=== PATIENT | male | born 1955 | race Two or more races ===

== ENCOUNTER 2017-02-14 19:26 | Emergency (ER) | payer MEDICARE, OTHER ==
[~2017-02-14] VITALS: Ht 180.3 cm; Wt 104.3 kg
[~2017-02-14 19:26] MED LIST: ABILIFY15 MG PO; ALBUTEROL SULF8.5 GM INH; CIPROFLOXACIN500 M2 ORAL; COLACE100 MG PO; DETROL2 MG PO; FLOMAX0.4 MG PO; GLUCOPHAGE500 MG PO; KLONOPIN1 MG PO; MULTIVITAMINS1 EAC2 PO; NEXIUM40 MG PO; PREDNISONE20 MG ORAL; QUETIAPINE FUM100 MG PO; SIMVASTATIN20 MG PO; ZITHROMAX250 MG ORAL; ZOFRAN4 MG ORAL
[2017-02-14 19:36] VITALS: BP 123/88
[2017-02-14] MEDS ORDERED: Methocarbamol 500mg tab ORAL ONE (19:45)
--- NOTE | 2017-02-14 19:59 | Emergency Room Report ---
History of Present Illness General Chief Complaint: Lower Back Pain or Injury Source: Medical Record Present Illness HPI 61 yo M with pmhx of psych, DM, chronic back pain p/w back pain for 1 month, worse x 3 days. Patient states pain was worse today. Pain is localized to R lower back, sharp in nature, non radiating. Movement worsens pain. Today pain severe that he couldn't walk, but able to move his legs while lying down. There is no alleviating factors. didn't take meds. Patient has experienced this similar pain in the past. Denies trauma. Denies lower extremity weakness/numbness, no bowel/bladder retention or incontinence, saddle anesthesia. Denies fever, chills, abdominal pain, n/v, dysuria/hematuria. No history of IVDA Allergies: Coded Allergies: SULFA (SULFONAMIDE ANTIBIOTICS) (Unverified Allergy, Intermediate, hives, 08/03/13) CODEINE (Verified Allergy, Unknown, ABD IRRITATION, 05/17/12) SULFONYLUREAS (Verified Allergy, Unknown, RASH, 05/17/12) Patient History Past Medical History: see triage record Past Surgical History: none Pertinent Family History: none Reviewed Nursing Documentation: PMH: Agreed, PSxH: Agreed Nursing Documentation-PMH Past Medical History: No History, Except For Hx Cardiac Problems: Yes Hx Hypertension: Yes Hx Diabetes: Yes - boarder line Hx Cancer: No Hx Gastrointestinal Problems: No - Hernia Review of Systems All Other Systems: negative except mentioned in HPI Physical Exam Vital Signs Date Time Temp Pulse Resp B/P (MAP) Pulse Ox O2 Delivery O2 Flow Rate FiO2 02/14/17 19:15 98.2 68 20 141/98 96 Room Air Sp02 EP Interpretation: reviewed, normal General Appearance: normal inspection, well appearing, no apparent distress, alert, GCS 15, non-toxic Head: normocephalic, atraumatic Eyes: bilateral eye normal inspection, bilateral eye PERRL, bilateral eye EOMI ENT: normal ENT inspection, normal pharynx, normal voice, moist mucus membranes Neck: normal inspection, full range of motion, supple, no bony tend Respiratory: normal inspection, lungs clear, normal breath sounds, no respiratory distress, no retraction, no wheezing, speaking full sentences, chest symmetrical Cardiovascular #1: normal inspection, regular rate, rhythm, no edema, normal capillary refill Gastrointestinal: normal inspection, non tender, soft, non-distended, no guarding Genitourinary: no CVA tenderness Musculoskeletal: other - R sided paraspinal tenderness no midline tenderness. no calf tenderness. FROM Neurologic: normal inspection, alert, oriented x3, responsive, motor strength/ tone normal, sensory intact, normal gait, speech normal, other - motor strength 5/5 all ext. sensation intact to light touch Psychiatric: normal inspection, judgement/insight normal, memory normal Skin: normal inspection, normal color, no rash, warm/dry, well hydrated, normal turgor Medical Decision Making Diagnostic Impression: Primary Impression: Chronic back pain ER Course 61 yo M p/w back pain x 1month worse last few days DDX: likely musculoskeletal back pain vs. muscular strain vs. sciatica Lumbar fracture is unlikely given patients age, no midline tenderness, no history of trauma, and that patient is ambulatory. Therefore, at this time no imaging is indicated Serious diagnoses such as cord compression, epidural abscess is unlikely in this patient given the clinical scenario and abscess of neurological symptoms or findings. Patient appears nontoxic. Plan: motrin, robaxin ER course: Pt received meds with improvement of symptoms. after meds, has been ambulatory in the ED. Disposition: Patient will be discharged to home with prescription of motrin and robaxin. Strict precautions discussed with patient on when to emergently return to the ED which includes severe/worsening back pain, leg weakness/numbness, urinary retention/incontinence, fever or chills, which may indicate severe illness. Patient is to follow up with their PMD within 5 days. Patient agrees with plan. Last Vital Signs Date Time Temp Pulse Resp B/P (MAP) Pulse Ox O2 Delivery O2 Flow Rate FiO2 02/14/17 19:36 70 15 123/88 97 Room Air 02/14/17 19:15 98.2 Disposition: HOME, SELF-CARE Condition: Improved Scripts Methocarbamol* (ROBAXIN*) 500 Mg Tablet 500 MG PO QID, #28 TAB 0 Refills Prov: Neha Salazar M.D. 02/14/17 Ibuprofen* (MOTRIN*) 600 Mg Tablet 600 MG ORAL Q8H Y for For Pain, #30 TAB 0 Refills Prov: Neha Salazar M.D. 02/14/17 Neha Salazar M.D. Feb 14, 2017 19:59
[2017-02-14 21:05] VITALS: BP 132/86
[2017-02-14] MEDS ORDERED: ROBAXIN500 MG PO (21:12)
[2017-02-14] MEDS ORDERED: IBUPROFEN600 MG ORAL (21:12)
[2017-02-14 22:25] VITALS: BP 132/86
== END 2017-02-14 22:38 | disposition home or self-care (01) ==
LOC: EDBD 19:26 → EMR 20:00
DX: G89.29 Other chronic pain (principal); Z88.2 Allergy status to sulfonamides; Z88.6 Allergy status to analgesic agent; I10 Essential (primary) hypertension
CPT/HCPCS: 99284

== ENCOUNTER 2017-12-09 23:47 | Inpatient (IN) | payer MEDICARE, MEDICAID ==
[~2017-12-09] VITALS: Ht 180.3 cm; Wt 97.1 kg
[~2017-12-09 23:47] MED LIST changes: +IBUPROFEN600 MG ORAL; +ROBAXIN500 MG PO
[2017-12-10] VITALS (7 sets, daily range): BP systolic 118–138; BP diastolic 74–95
[2017-12-10] MEDS ORDERED: Ipratropium 0.02% Inh Soln 2.5ml UD HHN ONE (00:30)
[2017-12-10] MEDS ORDERED: Solu-MEDROL 125mg Inj IVP ONE (00:30)
[2017-12-10] MEDS ORDERED: Albuterol ud Inhalation HHN ONE ×2 (00:30→01:45)
[2017-12-10 00:55] LABS: BASOPHILS % (AUTO) 0.7 % (0.0-2.0); EOSINOPHILS % (AUTO) 6.7 % (0.0-3.0); HEMATOCRIT 50.3 % (42.0-52.0); HEMOGLOBIN 16.7 G/DL (14.2-18.0); LYMPHOCYTES % (AUTO) 20.1 % (20.0-45.0); MEAN CORPUSCULAR VOLUME 84 FL (80-99); MONOCYTES % (AUTO) 8.4 % (1.0-10.0); NEUTROPHILS % (AUTO) 64.1 % (45.0-75.0); PLATELET COUNT 207 K/UL (150-450); RED BLOOD COUNT 5.96 M/UL (4.70-6.10); RED CELL DISTRIBUTION WIDTH 11.5 % (11.6-14.8); WHITE BLOOD COUNT 9.5 K/UL (4.8-10.8)
[2017-12-10 01:03] LABS: ANION GAP 5 mmol/L (5-15); BLOOD UREA NITROGEN 13 mg/dL (7-18); CALCIUM 9.1 MG/DL (8.5-10.1); CARBON DIOXIDE 30 MMOL/L (21-32); CHLORIDE 105 MMOL/L (98-107); CREATININE 1.3 MG/DL (0.55-1.30); SODIUM 140 MMOL/L (136-145)
[2017-12-10 01:18] LABS: ALANINE AMINOTRANSFERASE 23 U/L (12-78); ALBUMIN 3.8 G/DL (3.4-5.0); ALKALINE PHOSPHATASE 112 U/L (46-116); ASPARTATE AMINO TRANSFERASE 19 U/L (15-37); BILIRUBIN,TOTAL 0.7 MG/DL (0.2-1.0); CKMB 1.4 NG/ML (0.0-3.6); CREATINE KINASE 222 U/L (26-308)
[2017-12-10 01:26] LABS: APPEARANCE,URINE CLEAR; BILIRUBIN, URINE NEGATIVE (NEGATIVE); GLUCOSE, URINE (UA) NEGATIVE (NEGATIVE); KETONES,URINE NEGATIVE (NEGATIVE); LEUKOCYTE ESTERASE ,URINE 1+ (NEGATIVE); NITRITE,URINE NEGATIVE (NEGATIVE); PH,URINE 5 (4.5-8.0); PROTEIN,URINE 2+ (NEGATIVE); UROBILINOGEN,URINE 1 MG/DL (0.0-1.0)
[2017-12-10] MEDS ORDERED: OMEPRAZOLE40 M1 ORAL (01:35)
[2017-12-10] MEDS ORDERED: ZYPREXA10 MG ORAL (01:35)
[2017-12-10] MEDS ORDERED: TRAZODONE HCL150 MG ORAL (01:35)
[2017-12-10] MEDS ORDERED: LITHIUM CARBON300 MG ORAL (01:35)
[2017-12-10] MEDS ORDERED: PROSCAR5 MG ORAL (01:35)
[2017-12-10] MEDS ORDERED: CRESTOR10 M2 ORAL (01:35)
[2017-12-10] MEDS ORDERED: TAMSULOSIN HCL0.4 MG ORAL (01:35)
[2017-12-10] MEDS ORDERED: TEMAZEPAM30 MG ORAL (01:35)
[2017-12-10] MEDS ORDERED: DETROL2 MG ORAL (01:35)
[2017-12-10] MEDS ORDERED: VENTOLIN HFA18 GM INH (01:37)
[2017-12-10] MEDS ORDERED: FLUTICASONE PRO16 G1 NASAL (01:37)
[2017-12-10] MEDS ORDERED: NORCO 5-325 TA1 EACH ORAL (01:37)
[2017-12-10] MEDS ORDERED: LORAZEPAM1 MG ORAL (01:37)
[2017-12-10 01:40] LABS: COLOR,URINE YELLOW
--- NOTE | 2017-12-10 01:56 | Emergency Room Report ---
History of Present Illness General Chief Complaint: Dyspnea/Respdistress Source: Patient, Medical Record, EMS Present Illness HPI This is a 62-year-old male with a history of asthma and schizophrenia. He presents with chief complaint shortness of breath. Onset today. His inhaler is not helping. No nausea no vomiting. Coughing but nonproductive in nature. Wheezing. Worse with exertion. Worse with lying flat. Better with treatment. Allergies: Coded Allergies: SULFA (SULFONAMIDE ANTIBIOTICS) (Unverified Allergy, Intermediate, hives, 12/10/17) CODEINE (Verified Allergy, Unknown, ABD IRRITATION, 12/10/17) SULFONYLUREAS (Verified Allergy, Unknown, RASH, 12/10/17) Patient History Past Medical History: see triage record, old chart reviewed, HTN, asthma, psych hx Past Surgical History: other Pertinent Family History: none Social History: Denies: smoking Immunizations: other Reviewed Nursing Documentation: PMH: Agreed; PSxH: Agreed Nursing Documentation-PMH Hx Cardiac Problems: Yes Hx Hypertension: Yes Hx Asthma: Yes Hx Diabetes: Yes - boarder line Hx Cancer: No Hx Gastrointestinal Problems: No - Hernia Review of Systems Eye: Denies: eye pain, blurred vision ENT: Denies: ear pain, nose congestion, throat swelling Respiratory: Reports: cough, shortness of breath, wheezing Cardiovascular: Denies: chest pain, palpitations Gastrointestinal: Denies: abdominal pain, diarrhea, nausea, vomiting Musculoskeletal: Denies: back pain, joint pain Skin: Denies: rash Neurological: Denies: headache, numbness Endocrine: Denies: increased thirst, increased urine Hematologic/Lymphatic: Denies: easy bruising All Other Systems: negative except mentioned in HPI Physical Exam Vital Signs Date Time Temp Pulse Resp B/P (MAP) Pulse Ox O2 Delivery O2 Flow Rate FiO2 12/09/17 23:59 97.5 96 26 122/80 96 Nasal Cannula 2.0 97.5 12/10/17 00:24 21 vitals normal Sp02 EP Interpretation: reviewed, normal General Appearance: well appearing, alert, mild distress Head: normocephalic, atraumatic Eyes: bilateral eye PERRL, bilateral eye EOMI ENT: hearing grossly normal, normal pharynx Neck: full range of motion, supple, no meningismus Respiratory: chest non-tender, respiratory distress, accessory muscle use, wheezing Cardiovascular #1: regular rate, rhythm, no murmur Gastrointestinal: normal bowel sounds, non tender, no mass, no organomegaly, no bruit, non-distended Musculoskeletal: back normal, gait/station normal, normal range of motion Neurologic: alert, oriented x3 Psychiatric: mood/affect normal Skin: warm/dry Medical Decision Making Diagnostic Impression: Primary Impression: Asthma with acute exacerbation Qualified Codes: J45.901 - Unspecified asthma with (acute) exacerbation ER Course Patient presents with his asthma with acute exacerbation. Better but still wheezing. Will admit for further treatment and monitoring. Lab Results Impression labs unremarkable EKG Diagnostic Results Rate: normal Rhythm: NSR ST Segments: no acute changes Rhythm Strip Diag. Results Rhythm Strip Time: 01:55 EP Interpretation: yes Rate: 98 Rhythm: NSR, no PVC's, no ectopy Chest X-Ray Diagnostic Results Chest X-Ray Diagnostic Results : Chest X-Ray Ordered: Yes # of Views/Limited/Complete: 1 View Indication: Shortness of Breath EP Interpretation: Yes Interpretation: no consolidation, no effusion, no pneumothorax, no acute cardiopulmonary disease Impression: No acute disease Electronically Signed by: Jaun Spring MD Last Vital Signs Date Time Temp Pulse Resp B/P (MAP) Pulse Ox O2 Delivery O2 Flow Rate FiO2 12/10/17 00:40 99 22 97 Room Air 21 12/09/17 23:59 97.5 122/80 2.0 97.5 Status: improved Disposition: ADMITTED INPATIENT Condition: Serious Referrals: Estella Butt MD (PCP) JAUN SPRING M.D. Dec 10, 2017 01:56
[2017-12-10] MEDS ORDERED: Morphine Sulfate 4mg/ml Inj ONE (02:14)
[2017-12-10] MEDS ORDERED: Morphine Sulfate 4mg/ml Inj IVP ONE (02:15)
[2017-12-10] MEDS ORDERED: LORazepam Inj 2mg/ml 1ml IV PRN (06:30)
[2017-12-10] MEDS ORDERED: Nitroglycerin Subl 0.4mg tab SL PRN (06:30)
[2017-12-10] MEDS: NovoLOG Insulin Flexpen SUBQ SCH ×4 (07:56→21:42)
[2017-12-10] MEDS ORDERED: OLANZapine 10mg tab ORAL SCH (09:00)
[2017-12-10] MEDS: Theophylline ER 100mg ORAL SCH ×2 (09:38→21:40)
[2017-12-10] MEDS: Tamsulosin 0.4mg cap ORAL SCH (09:39)
[2017-12-10] MEDS: Heparin 5000 units/ml inj SUBQ SCH ×2 (09:46→21:42)
[2017-12-10] MEDS: Zosyn 3.375gm q8h **Extended infusion IVPB SCH ×4 (10:11→16:48)
[2017-12-10] MEDS: Albuterol/Ipratropium 3ml neb HHN PRN (10:29)
[2017-12-10] MEDS: Solu-MEDROL 125mg Inj IV SCH ×2 (12:20→16:48)
--- NOTE | 2017-12-10 12:44 | Diagnostic Imaging Report ---
Indication: Shortness of breath Technique: One view of the chest Comparison: 04/25/2015 Findings: There is evidence of a right-sided pleural effusion. The remainder of the lungs and pleural spaces are clear. Heart size is normal. The aorta is tortuous Impression: Right pleural effusion No acute process otherwise
[2017-12-10] MEDS ORDERED: Piperacillin/Tazobactam 2.25 GM in D5W 55 ML IV SCH (14:00)
[2017-12-10] MEDS: TraZODone 100mg tab ORAL SCH (21:40)
--- NOTE | 2017-12-10 23:41 | Consultation ---
History of Present Illness General Date patient seen: Dec 10, 2017 Chief Complaint: Dyspnea/Respdistress Present Illness Allergies: Coded Allergies: SULFA (SULFONAMIDE ANTIBIOTICS) (Unverified Allergy, Intermediate, hives, 12/10/17) CODEINE (Verified Allergy, Unknown, ABD IRRITATION, 12/10/17) SULFONYLUREAS (Verified Allergy, Unknown, RASH, 12/10/17) Medication History Scheduled Albuterol Sulfate (Ventolin Hfa), 2 PUFFS INH EVERY 4 HOURS, (Reported) Aripiprazole* (Abilify*), 30 MG PO DAILY, (Reported) Azithromycin* (Zithromax*), 250 MG ORAL DAILY Ciprofloxacin Hcl* (Ciprofloxacin Hcl*), 500 MG ORAL Q12H Clonazepam* (Klonopin*), 2 MG PO DAILY, (Reported) Esomeprazole Magnesium (Nexium), 40 MG PO DAILY, (Reported) Finasteride* (Proscar*), 5 MG ORAL DAILY, (Reported) Fluticasone Propionate* (Fluticasone Propionate*), 1 SPRAY NASAL TWICE A DAY, ( Reported) [place] Carbonate* ([place]*), 300 MG ORAL QHS, (Reported) Metformin Hcl* (Glucophage*), 500 MG PO DAILY, (Reported) Methocarbamol* (Robaxin*), 500 MG PO QID Multivitamins* (Multivitamins*), 1 EACH PO DAILY, (Reported) Olanzapine* (Zyprexa*), 10 MG ORAL DAILY, (Reported) Omeprazole (Omeprazole), 40 MG ORAL DAILY, (Reported) Prednisone* (Prednisone*), 40 MG ORAL DAILY Quetiapine Fumarate* (Seroquel*), 300 MG PO DAILY, (Reported) Rosuvastatin Calcium* (Crestor*), 5 MG ORAL DAILY, (Reported) Simvastatin (Zocor), 20 MG PO QHS, (Reported) Tamsulosin HCl (Flomax), 0.4 MG PO DAILY, (Reported) Tamsulosin Hcl (Tamsulosin Hcl*), 0.4 MG ORAL BEDTIME, (Reported) Tolterodine Tartrate* (Detrol*), 1 MG ORAL TWICE A DAY, (Reported) Trazodone* (Trazodone*), 300 MG ORAL BEDTIME, (Reported) Scheduled PRN Albuterol Sulfate* (Albuterol Sulfate Mdi*), 2 PUFF INH Q4H PRN for Shortness of Breath Hydrocodone Bit/Acetaminophen 5-325* ([place] 5-325*), 1 TAB ORAL Q4H PRN for For Pain, (Reported) Ibuprofen* (Motrin*), 600 MG ORAL Q8H PRN for For Pain Lorazepam* (Lorazepam*), 1 MG ORAL Q6HR PRN for For Anxiety, (Reported) Ondansetron (Zofran), 4 MG ORAL BID PRN for Nausea & Vomiting Temazepam* (Temazepam*), 30 MG ORAL BEDTIME PRN for Insomnia, (Reported) Patient History Healthcare decision maker SELF, SHARIF SIFUENTES Resuscitation status Full Code Advanced Directive on File No Physical Exam Last 24 Hour Vital Signs Date Time Temp Pulse Resp B/P (MAP) Pulse Ox O2 Delivery O2 Flow Rate FiO2 12/10/17 20:02 102 20 Room Air 21 12/10/17 20:00 98.2 69 17 130/74 94 98.2 12/10/17 15:56 97.5 112 20 128/88 93 97.5 12/10/17 12:01 98.1 118 18 124/82 95 98.1 12/10/17 10:39 92 20 94 Room Air 21 12/10/17 10:29 91 20 92 Room Air 21 12/10/17 08:52 98.2 103 18 134/95 93 98.2 12/10/17 07:30 95 18 Room Air 21 12/10/17 03:05 97.5 102 20 138/75 99 Room Air 28 207.5 12/10/17 02:56 97.5 12/10/17 02:26 97.5 12/10/17 02:15 97.5 102 20 138/75 97 Room Air 28 97.5 12/10/17 02:06 92 22 98 Room Air 21 12/10/17 01:54 92 20 97 Nasal Cannula 2.0 28 12/10/17 01:15 97.5 99 22 135/75 97 Room Air 2.0 21 97.5 12/10/17 00:40 99 22 97 Room Air 21 12/10/17 00:24 88 22 100 Room Air 2.0 28 12/10/17 00:15 96 26 Nasal Cannula 2.0 12/10/17 00:15 97.5 82 26 118/78 97 Nasal Cannula 2.0 97.5 12/09/17 23:59 97.5 96 26 122/80 96 Nasal Cannula 2.0 97.5 Intake and Output 12/09/17 12/10/17 19:00 07:00 Intake Total 1200 ml Balance 1200 ml Intake Oral 0 ml IV Total 1200 ml # Voids 1 Laboratory Tests Test 12/10/17 00:35 12/10/17 01:15 White Blood Count 9.5 K/UL (4.8-10.8) Red Blood Count 5.96 M/UL (4.70-6.10) Hemoglobin 16.7 G/DL (14.2-18.0) Hematocrit 50.3 % (42.0-52.0) Mean Corpuscular Volume 84 FL (80-99) Mean Corpuscular Hemoglobin 28.0 PG (27.0-31.0) Mean Corpuscular Hemoglobin Concent 33.2 G/DL (32.0-36.0) Red Cell Distribution Width 11.5 % (11.6-14.8) L Platelet Count 207 K/UL (150-450) Mean Platelet Volume 5.5 FL (6.5-10.1) L Neutrophils (%) (Auto) 64.1 % (45.0-75.0) Lymphocytes (%) (Auto) 20.1 % (20.0-45.0) Monocytes (%) (Auto) 8.4 % (1.0-10.0) Eosinophils (%) (Auto) 6.7 % (0.0-3.0) H Basophils (%) (Auto) 0.7 % (0.0-2.0) Sodium Level 140 MMOL/L (136-145) Potassium Level 4.0 MMOL/L (3.5-5.1) Chloride Level 105 MMOL/L (98-107) Carbon Dioxide Level 30 MMOL/L (21-32) Anion Gap 5 mmol/L (5-15) Blood Urea Nitrogen 13 mg/dL (7-18) Creatinine 1.3 MG/DL (0.55-1.30) Estimat Glomerular Filtration Rate 55.8 mL/min (>60) Glucose Level 110 MG/DL (74-106) H Calcium Level 9.1 MG/DL (8.5-10.1) Total Bilirubin 0.7 MG/DL (0.2-1.0) Aspartate Amino Transf (AST/SGOT) 19 U/L (15-37) Alanine Aminotransferase (ALT/SGPT) 23 U/L (12-78) Alkaline Phosphatase 112 U/L (46-116) Total Creatine Kinase 222 U/L (26-308) Creatine Kinase MB 1.4 NG/ML (0.0-3.6) Creatine Kinase MB Relative Index 0.6 Troponin I 0.000 ng/mL (0.000-0.056) Pro-B-Type Natriuretic Peptide 66 pg/mL (0-125) Total Protein 7.6 G/DL (6.4-8.2) Albumin 3.8 G/DL (3.4-5.0) Globulin 3.8 g/dL Albumin/Globulin Ratio 1.0 (1.0-2.7) Urine Color Yellow Urine Appearance Clear Urine pH 5 (4.5-8.0) Urine Specific [place] 1.025 (1.005-1.035) Urine Protein 2+ (NEGATIVE) H Urine Glucose (UA) Negative (NEGATIVE) Urine Ketones Negative (NEGATIVE) Urine Occult Blood 2+ (NEGATIVE) H Urine Nitrite Negative (NEGATIVE) Urine Bilirubin Negative (NEGATIVE) Urine Urobilinogen 1 MG/DL (0.0-1.0) H Urine Leukocyte Esterase 1+ (NEGATIVE) H Urine RBC 2-4 /HPF (0 - 0) H Urine WBC 2-4 /HPF (0 - 0) Urine Squamous Epithelial Cells None /LPF (NONE/OCC) Urine Calcium Oxalate Crystals Few /LPF (NONE) Urine Bacteria None /HPF (NONE) Urine Hyaline Casts 0-2 /LPF (NONE) H Height (Feet): 5 Height (Inches): 11.00 Weight (Pounds): 237 Medications Current Medications Medications (Trade) Dose Ordered Sig/Svetlana Route PRN Reason Start Time Stop Time Status Last Admin Dose Admin Albuterol/ Ipratropium (Albuterol/ Ipratropium) 3 ml EVERY 4 HOURS PRN HHN dyspnea 12/10/17 06:30 12/15/17 06:29 12/10/17 10:29 Aripiprazole (Abilify) 30 mg DAILY ORAL 12/10/17 09:00 01/09/18 08:59 12/10/17 09:39 Clonazepam (KlonoPIN) 2 mg DAILY ORAL 12/10/17 09:00 12/17/17 08:59 12/10/17 09:39 Dextrose (Dextrose 50%) STAT PRN IV Hypoglycemia 12/10/17 06:30 01/09/18 06:29 Dextrose (Dextrose 50%) STAT PRN IV Hypoglycemia 12/10/17 06:30 01/09/18 06:29 Finasteride (Proscar) 5 mg DAILY ORAL 12/10/17 09:00 01/09/18 08:59 12/10/17 09:38 Heparin Sodium (Porcine) (Heparin 5000 units/ml) 5,000 units EVERY 12 HOURS SUBQ 12/10/17 09:00 01/09/18 08:59 12/10/17 21:42 Insulin Aspart (NovoLOG) BEFORE MEALS AND HS SUBQ 12/10/17 06:30 01/09/18 06:29 12/10/17 21:42 Ketorolac Tromethamine (Toradol 30mg) 30 mg EVERY 8 HOURS PRN IV moderate pain 4-6 12/10/17 06:30 12/15/17 06:29 [place] Carbonate ([place] Carbonate) 300 mg QHS ORAL 12/10/17 21:00 01/09/18 20:59 12/10/17 21:40 Lorazepam (Ativan 2mg/ml 1ml) 0.5 mg Q4H PRN IV For Anxiety 12/10/17 06:30 12/17/17 06:29 Methylprednisolone Sodium Succinate (Solu-MEDROL) 60 mg EVERY 6 HOURS IV 12/10/17 12:00 01/09/18 11:59 12/10/17 16:48 Nitroglycerin (Ntg) 0.4 mg Q5M X 3 DOSES PRN SL Prn Chest Pain 12/10/17 06:30 01/09/18 06:29 Olanzapine (ZyPREXA) 10 mg DAILY ORAL 12/10/17 09:00 01/09/18 08:59 12/10/17 09:38 Ondansetron HCl (Zofran) 4 mg Q6H PRN IVP Nausea & Vomiting 12/10/17 06:30 01/09/18 06:29 12/10/17 10:15 Piperacillin Sod/ Tazobactam Sod 3.375 gm/Dextrose 110 ml @ 27.5 mls/hr Q8H IVPB 12/10/17 09:00 12/17/17 08:59 12/10/17 16:48 Quetiapine Fumarate (SEROquel) 300 mg DAILY ORAL 12/10/17 09:00 01/09/18 08:59 12/10/17 09:39 Tamsulosin HCl (Flomax) 0.4 mg DAILY ORAL 12/10/17 09:00 01/09/18 08:59 12/10/17 09:39 Temazepam (Restoril) 15 mg HSPRN PRN ORAL Insomnia 12/10/17 06:30 12/17/17 06:29 Theophylline (Jey-Dur) 100 mg EVERY 12 HOURS ORAL 12/10/17 09:00 01/09/18 08:59 12/10/17 21:40 Trazodone HCl (Desyrel) 300 mg BEDTIME ORAL 12/10/17 21:00 01/09/18 20:59 12/10/17 21:40 Clinton Brody M.D. Dec 10, 2017 23:41
[2017-12-11] VITALS: BP 122/72
[2017-12-11] MEDS: Zosyn 3.375gm q8h **Extended infusion IVPB SCH ×6 (00:03→16:54)
[2017-12-11] MEDS: Solu-MEDROL 125mg Inj IV SCH ×4 (00:03→16:55)
[2017-12-11 04:00] VITALS: BP 139/80
[2017-12-11] MEDS: NovoLOG Insulin Flexpen SUBQ SCH ×4 (05:53→20:35)
--- NOTE | 2017-12-11 07:10 | Cardiology Report ---
APPROVED REPORT EKG Measurement Heart [id number] Normal sinus rhythm Normal ECG
[2017-12-11 08:28] VITALS: BP 128/75
[2017-12-11] MEDS: Theophylline ER 100mg ORAL SCH ×2 (08:50→20:34)
[2017-12-11] MEDS: Tamsulosin 0.4mg cap ORAL SCH (08:50)
[2017-12-11] MEDS: Heparin 5000 units/ml inj SUBQ SCH ×2 (08:52→20:35)
[2017-12-11 12:18] VITALS: BP 132/81
--- NOTE | 2017-12-11 12:59 | General Progress Note ---
Assessment/Plan Status: stable Assessment/Plan change the klonopin to [facility] Subjective Date patient seen: Dec 11, 2017 Neurologic/Psychiatric: Reports: anxiety, depressed, emotional problems Allergies: Coded Allergies: SULFA (SULFONAMIDE ANTIBIOTICS) (Unverified Allergy, Intermediate, hives, 12/10/17) CODEINE (Verified Allergy, Unknown, ABD IRRITATION, 12/10/17) SULFONYLUREAS (Verified Allergy, Unknown, RASH, 12/10/17) Subjective the pt is drowsy in am asked to change meds./ Objective Last 24 Hour Vital Signs Date Time Temp Pulse Resp B/P (MAP) Pulse Ox O2 Delivery O2 Flow Rate FiO2 12/11/17 12:18 98.5 98 18 132/81 90 Room Air 98.5 12/11/17 08:28 98.1 93 20 128/75 90 Room Air 98.1 12/11/17 07:45 99 20 Room Air 21 12/11/17 04:00 98.3 53 17 139/80 65 Room Air 98.3 12/11/17 00:00 98.6 68 16 122/72 99 Room Air 98.6 12/10/17 20:02 102 20 Room Air 21 12/10/17 20:00 98.2 69 17 130/74 94 Room Air 98.2 12/10/17 15:56 97.5 112 20 128/88 93 97.5 Intake and Output 12/10/17 12/11/17 19:00 07:00 Intake Total 910 ml 682.5 ml Output Total 1450 ml 1150 ml Balance -540 ml -467.5 ml Intake Oral 910 ml 600 ml IV Total 82.5 ml Output Urine Total 1450 ml 1150 ml Height (Feet): 5 Height (Inches): 11.00 Weight (Pounds): 214 General Appearance: no apparent distress, alert Neurologic: oriented x 3, responsive Clinton Brody M.D. Dec 11, 2017 12:59
[2017-12-11] MEDS: Albuterol/Ipratropium 3ml neb HHN PRN (15:51)
[2017-12-11 16:42] VITALS: BP 133/90
[2017-12-11 20:00] VITALS: BP 138/94
[2017-12-11] MEDS: TraZODone 100mg tab ORAL SCH (20:34)
[2017-12-12 00:01] VITALS: BP 151/86
[2017-12-12] MEDS: Solu-MEDROL 125mg Inj IV SCH ×4 (00:03→16:50)
[2017-12-12] MEDS: Zosyn 3.375gm q8h **Extended infusion IVPB SCH ×6 (00:05→16:50)
[2017-12-12 04:00] VITALS: BP 145/90
[2017-12-12] MEDS: Albuterol/Ipratropium 3ml neb HHN PRN ×2 (04:16→13:15)
[2017-12-12] MEDS: NovoLOG Insulin Flexpen SUBQ SCH ×4 (06:01→21:38)
[2017-12-12 08:00] VITALS: BP 142/78
[2017-12-12] MEDS: Theophylline ER 100mg ORAL SCH ×2 (08:24→21:33)
[2017-12-12] MEDS: Tamsulosin 0.4mg cap ORAL SCH (08:24)
[2017-12-12] MEDS: Heparin 5000 units/ml inj SUBQ SCH ×2 (08:26→21:39)
[2017-12-12] MEDS: Ketorolac 30mg Inj IV PRN ×2 (08:40→16:50)
[2017-12-12 12:00] VITALS: BP 141/90
[2017-12-12] MEDS: Benztropine 1mg tab ORAL SCH ×2 (13:07→16:50)
[2017-12-12] MEDS ORDERED: NS 275ml ONE (15:59)
[2017-12-12 16:00] VITALS: BP 150/89
[2017-12-12 20:00] VITALS: BP 154/91
[2017-12-12] MEDS: TraZODone 100mg tab ORAL SCH (21:33)
[2017-12-12] MEDS: QUEtiapine 200mg tab ORAL SCH (21:34)
[2017-12-13] VITALS (7 sets, daily range): BP systolic 118–145; BP diastolic 67–85
[2017-12-13] MEDS: Zosyn 3.375gm q8h **Extended infusion IVPB SCH ×6 (00:51→17:28)
[2017-12-13] MEDS: Solu-MEDROL 125mg Inj IV SCH ×4 (00:53→17:29)
[2017-12-13] MEDS: NovoLOG Insulin Flexpen SUBQ SCH ×4 (06:34→20:49)
[2017-12-13] MEDS: Benztropine 1mg tab ORAL SCH ×2 (09:36→17:29)
[2017-12-13] MEDS: Tamsulosin 0.4mg cap ORAL SCH (09:36)
[2017-12-13] MEDS: Theophylline ER 100mg ORAL SCH ×2 (09:36→20:45)
[2017-12-13] MEDS: Heparin 5000 units/ml inj SUBQ SCH ×2 (09:37→20:50)
[2017-12-13] MEDS ORDERED: Milk of Magnesia 30ml Ud ORAL PRN (11:15)
--- NOTE | 2017-12-13 14:47 | Consultation ---
Consult Note Assessment/Plan patient seen and examined today -- consult note was dictated for asthma exacerbation Covering for Dr. Butt Saturday/Sat/Jevon Gardiner MD Dec 13, 2017 14:47
[2017-12-13 15:54] LABS: HEMATOCRIT 46.5 % (42.0-52.0); HEMOGLOBIN 15.9 G/DL (14.2-18.0); MEAN CORPUSCULAR VOLUME 85 FL (80-99); PLATELET COUNT 193 K/UL (150-450); RED BLOOD COUNT 5.49 M/UL (4.70-6.10); RED CELL DISTRIBUTION WIDTH 11.6 % (11.6-14.8); WHITE BLOOD COUNT 13.9 K/UL (4.8-10.8)
[2017-12-13] MEDS: Albuterol/Ipratropium 3ml neb HHN PRN (15:55)
[2017-12-13 15:56] LABS: BASOPHILS % (AUTO) 0.5 % (0.0-2.0); LYMPHOCYTES % (AUTO) 9.1 % (20.0-45.0); MONOCYTES % (AUTO) 2.8 % (1.0-10.0); NEUTROPHILS % (AUTO) 87.6 % (45.0-75.0)
[2017-12-13 16:14] LABS: ALANINE AMINOTRANSFERASE 24 U/L (12-78); ALBUMIN 3.1 G/DL (3.4-5.0); ALKALINE PHOSPHATASE 87 U/L (46-116); ANION GAP 7 mmol/L (5-15); ASPARTATE AMINO TRANSFERASE 12 U/L (15-37); BILIRUBIN,TOTAL 0.7 MG/DL (0.2-1.0); BLOOD UREA NITROGEN 22 mg/dL (7-18); CALCIUM 8.8 MG/DL (8.5-10.1); CARBON DIOXIDE 27 MMOL/L (21-32); CHLORIDE 103 MMOL/L (98-107); CREATININE 1.3 MG/DL (0.55-1.30); POTASSIUM 4.3 MMOL/L (3.5-5.1); SODIUM 137 MMOL/L (136-145)
[2017-12-13] MEDS: TraZODone 100mg tab ORAL SCH (20:45)
[2017-12-13] MEDS: QUEtiapine 200mg tab ORAL SCH (20:45)
--- NOTE | 2017-12-13 22:44 | Consultation ---
DATE OF CONSULTATION: 12/13/2017 HEMATOLOGY/ONCOLOGY CONSULTATION Covering for Dr. Butt. IDENTIFICATION DATA: The patient is a pleasant 62-year-old male, who presents at this time. He has a past medical history significant for hypertension, asthma, and psychiatric disorder, at this time presents with shortness of breath. Inhaler not helping him, steroids. Currently, he is on antibiotics as well. Currently improving. Noted to have anemia. Hematology Service was consulted. In addition, I am covering for Dr. Butt. PAST MEDICAL HISTORY: Hypertension, asthma, psychiatric disorder, and cardiac issues. PAST SURGICAL HISTORY: None noted. FAMILY HISTORY: Noncontributory. REVIEW OF SYSTEMS: CONSTITUTIONAL: No fevers, chills, or night sweats. SKIN: No rashes, bumps, or itching. HEENT: No headache, hearing or vision changes. BREASTS: No lumps, pain, or discharge. PULMONARY: No cough, sputum, or shortness of breath. GASTROINTESTINAL: No nausea, vomiting, or diarrhea. GENITOURINARY: No dysuria, frequency, or urgency. MUSCULOSKELETAL: No muscle, joint swelling, or trauma. PHYSICAL EXAMINATION: VITAL SIGNS: Reviewed. GENERAL: No distress. LUNGS: Decreased breath sounds. Some crackles noted. CARDIOVASCULAR: Regular rate. No S3 or S4. ABDOMEN: Soft, nontender, and nondistended. EXTREMITIES: No cyanosis, swelling, or edema. LABORATORY DATA: WBC 9.5, hemoglobin 16.7, and platelet count 207,000. BUN of 13 and creatinine 1.3. ASSESSMENT AND RECOMMENDATIONS: 1. Asthma exacerbation. Currently, given steroids in addition to antibiotics. The patient to be seen by Pulmonary team for further evaluation as needed. Currently, breathing has improved. 2. secondary to steroids. 3. Urinary tract infection. Currently, on broad-spectrum antibiotics including Zosyn. 4. Weakness and fatigue, likely related to underlying shortness of breath. 5. Psychiatric disorder. Schizophrenia being managed by Psychiatry. I appreciate the consultation. Continue to closely monitor. Jevon Ley M.D. DR: JACKELIN JOB#: [id number] CC:
--- NOTE | 2017-12-13 23:14 | General Progress Note ---
Assessment/Plan Assessment/Plan change the klonopin to [facility] dc abilify start Seroquel 300mg Subjective Date patient seen: Dec 12, 2017 Neurologic/Psychiatric: Reports: anxiety, depressed, emotional problems Allergies: Coded Allergies: SULFA (SULFONAMIDE ANTIBIOTICS) (Unverified Allergy, Intermediate, hives, 12/10/17) CODEINE (Verified Allergy, Unknown, ABD IRRITATION, 12/10/17) SULFONYLUREAS (Verified Allergy, Unknown, RASH, 12/10/17) Subjective the pt isaskign to restart seroquel agreed to dc abilify Objective Last 24 Hour Vital Signs Date Time Temp Pulse Resp B/P (MAP) Pulse Ox O2 Delivery O2 Flow Rate FiO2 12/13/17 20:00 98.4 57 19 132/75 93 98.4 12/13/17 16:02 64 20 97 Nasal Cannula 2.0 28 12/13/17 16:00 97.7 57 19 139/85 94 97.7 12/13/17 15:56 61 20 94 Nasal Cannula 2.0 28 12/13/17 12:00 97.9 67 19 130/79 94 Nasal Cannula 2.0 97.9 12/13/17 08:00 98.1 66 20 118/67 94 Nasal Cannula 2.0 98.1 12/13/17 07:29 92 Nasal Cannula 2.0 28 12/13/17 07:29 71 20 Nasal Cannula 2.0 28 12/13/17 07:29 Nasal Cannula 2.0 28 12/13/17 04:00 97.5 65 19 145/85 96 Nasal Cannula 2.0 97.5 12/13/17 01:12 93 Room Air 12/13/17 00:00 98.3 64 18 135/85 94 Nasal Cannula 2.0 98.3 Intake and Output 12/12/17 12/13/17 19:00 07:00 Intake Total 300 ml 765.0 ml Output Total 800 ml 900 ml Balance -500 ml -135.0 ml Intake Oral 300 ml 600 ml IV Total 165.0 ml Output Urine Total 800 ml 900 ml # Voids 3 1 Laboratory Tests 12/13/17 15:30: White Blood Count 13.9H, Red Blood Count 5.49, Hemoglobin 15.9, Hematocrit 46.5 , Mean Corpuscular Volume 85, Mean Corpuscular Hemoglobin 28.9, Mean Corpuscular Hemoglobin Concent 34.1, Red Cell Distribution Width 11.6, Platelet Count 193, Mean Platelet Volume 6.1L, Neutrophils (%) (Auto) 87.6H, Lymphocytes (%) (Auto) 9.1L, Monocytes (%) (Auto) 2.8, Eosinophils (%) (Auto) 0.0, Basophils (%) (Auto) 0.5, Sodium Level 137, Potassium Level 4.3, Chloride Level 103, Carbon Dioxide Level 27, Anion Gap 7, Blood Urea Nitrogen 22H, Creatinine 1.3, Estimat Glomerular Filtration Rate 55.8, Glucose Level 228H, Calcium Level 8.8, Total Bilirubin 0.7, Aspartate Amino Transf (AST/SGOT) 12L, Alanine Aminotransferase (ALT/SGPT) 24, Alkaline Phosphatase 87, Total Protein 6.3L, Albumin 3.1L, Globulin 3.2, Albumin/Globulin Ratio 1.0 Height (Feet): 5 Height (Inches): 11.00 Weight (Pounds): 214 Clinton Brody M.D. Dec 13, 2017 23:14
--- NOTE | 2017-12-13 23:15 | General Progress Note ---
Assessment/Plan Status: stable, progressing Assessment/Plan change the klonopin to qhs dc jen start Seroquel 300mg Subjective Date patient seen: Dec 13, 2017 Neurologic/Psychiatric: Reports: anxiety, depressed Allergies: Coded Allergies: SULFA (SULFONAMIDE ANTIBIOTICS) (Unverified Allergy, Intermediate, hives, 12/10/17) CODEINE (Verified Allergy, Unknown, ABD IRRITATION, 12/10/17) SULFONYLUREAS (Verified Allergy, Unknown, RASH, 12/10/17) Subjective the pt is better Objective Last 24 Hour Vital Signs Date Time Temp Pulse Resp B/P (MAP) Pulse Ox O2 Delivery O2 Flow Rate FiO2 12/13/17 20:00 98.4 57 19 132/75 93 98.4 12/13/17 16:02 64 20 97 Nasal Cannula 2.0 28 12/13/17 16:00 97.7 57 19 139/85 94 97.7 12/13/17 15:56 61 20 94 Nasal Cannula 2.0 28 12/13/17 12:00 97.9 67 19 130/79 94 Nasal Cannula 2.0 97.9 12/13/17 08:00 98.1 66 20 118/67 94 Nasal Cannula 2.0 98.1 12/13/17 07:29 92 Nasal Cannula 2.0 28 12/13/17 07:29 71 20 Nasal Cannula 2.0 28 12/13/17 07:29 Nasal Cannula 2.0 28 12/13/17 04:00 97.5 65 19 145/85 96 Nasal Cannula 2.0 97.5 12/13/17 01:12 93 Room Air 12/13/17 00:00 98.3 64 18 135/85 94 Nasal Cannula 2.0 98.3 Intake and Output 12/12/17 12/13/17 19:00 07:00 Intake Total 300 ml 765.0 ml Output Total 800 ml 900 ml Balance -500 ml -135.0 ml Intake Oral 300 ml 600 ml IV Total 165.0 ml Output Urine Total 800 ml 900 ml # Voids 3 1 Laboratory Tests 12/13/17 15:30: White Blood Count 13.9H, Red Blood Count 5.49, Hemoglobin 15.9, Hematocrit 46.5 , Mean Corpuscular Volume 85, Mean Corpuscular Hemoglobin 28.9, Mean Corpuscular Hemoglobin Concent 34.1, Red Cell Distribution Width 11.6, Platelet Count 193, Mean Platelet Volume 6.1L, Neutrophils (%) (Auto) 87.6H, Lymphocytes (%) (Auto) 9.1L, Monocytes (%) (Auto) 2.8, Eosinophils (%) (Auto) 0.0, Basophils (%) (Auto) 0.5, Sodium Level 137, Potassium Level 4.3, Chloride Level 103, Carbon Dioxide Level 27, Anion Gap 7, Blood Urea Nitrogen 22H, Creatinine 1.3, Estimat Glomerular Filtration Rate 55.8, Glucose Level 228H, Calcium Level 8.8, Total Bilirubin 0.7, Aspartate Amino Transf (AST/SGOT) 12L, Alanine Aminotransferase (ALT/SGPT) 24, Alkaline Phosphatase 87, Total Protein 6.3L, Albumin 3.1L, Globulin 3.2, Albumin/Globulin Ratio 1.0 Height (Feet): 5 Height (Inches): 11.00 Weight (Pounds): 214 General Appearance: no apparent distress, alert Neurologic: oriented x 3, responsive, depressed affect Clinton Brody M.D. Dec 13, 2017 23:15
[2017-12-14] MEDS: Solu-MEDROL 125mg Inj IV SCH ×5 (00:04→23:59)
[2017-12-14 00:05] VITALS: BP 138/68
[2017-12-14] MEDS: Zosyn 3.375gm q8h **Extended infusion IVPB SCH ×8 (00:05→23:59)
[2017-12-14 04:30] VITALS: BP 121/66
[2017-12-14] MEDS: NovoLOG Insulin Flexpen SUBQ SCH ×4 (06:19→21:00)
[2017-12-14 08:00] VITALS: BP 116/75
--- NOTE | 2017-12-14 08:20 | History & Physical ---
History and Physical History & Physicial H&P Appears prior H&P not in the system, thus changing consult note to H&P DOS: 12/10/17 IDENTIFICATION DATA: The patient is a pleasant 62-year-old male, who presents at this time. He has a past medical history significant for hypertension, asthma, and psychiatric disorder, at this time presents with shortness of breath. Inhaler not helping him, has been on steroids. Currently, he is on antibiotics as well. Currently improving. Noted to have anemia. Hematology Service was consulted. In addition, I am covering for Dr. Butt. PAST MEDICAL HISTORY: Hypertension, asthma, psychiatric disorder, and cardiac issues. PAST SURGICAL HISTORY: None noted. FAMILY HISTORY: Noncontributory. REVIEW OF SYSTEMS: CONSTITUTIONAL: No fevers, chills, or night sweats. SKIN: No rashes, bumps, or itching. HEENT: No headache, hearing or vision changes. BREASTS: No lumps, pain, or discharge. PULMONARY: No cough, sputum, or shortness of breath. GASTROINTESTINAL: No nausea, vomiting, or diarrhea. GENITOURINARY: No dysuria, frequency, or urgency. MUSCULOSKELETAL: No muscle, joint swelling, or trauma. PHYSICAL EXAMINATION: VITAL SIGNS: Reviewed. GENERAL: No distress. LUNGS: Decreased breath sounds. Some crackles noted. CARDIOVASCULAR: Regular rate. No S3 or S4. ABDOMEN: Soft, nontender, and nondistended. EXTREMITIES: No cyanosis, swelling, or edema. LABORATORY DATA: WBC 9.5, hemoglobin 16.7, and platelet count 207,000. BUN of 13 and creatinine 1.3. ASSESSMENT AND RECOMMENDATIONS: 1. Asthma exacerbation. Currently, given steroids in addition to antibiotics. The patient to be seen by Pulmonary team for further evaluation as needed. Currently, breathing has improved. 2. Leukocytosis is secondary to steroids. 3. Urinary tract infection. Currently, on broad-spectrum antibiotics including Zosyn. 4. Weakness and fatigue, likely related to underlying shortness of breath. 5. Psychiatric disorder. Schizophrenia being managed by Psychiatry. Jevon Ley MD Dec 14, 2017 08:19
--- NOTE | 2017-12-14 08:22 | General Progress Note ---
Assessment/Plan Assessment/Plan ASSESSMENT AND RECOMMENDATIONS: 1. Asthma exacerbation. Currently, given steroids in addition to antibiotics. The patient to be seen by Pulmonary team for further evaluation as needed. Currently, breathing has improved. 2. Leukocytosis secondary to steroids. --> monitor for infection 3. Urinary tract infection. Currently, on broad-spectrum antibiotics including Zosyn. 4. Weakness and fatigue, likely related to underlying shortness of breath. 5. Psychiatric disorder. Schizophrenia being managed by Psychiatry. Subjective Constitutional: Denies: no symptoms, chills, diaphoresis, fever, malaise, weakness, other HEENT: Denies: no symptoms, eye pain, blurred vision, tearing, double vision, ear pain, ear discharge, nose pain, nose congestion, throat pain, throat swelling, mouth pain, mouth swelling, other Cardiovascular: Denies: no symptoms, chest pain, edema, irregular heart rate, lightheadedness, palpitations, syncope, other Respiratory: Denies: no symptoms, cough, orthopnea, shortness of breath, SOB with excertion, SOB at rest, sputum, stridor, wheezing, other Gastrointestinal/Abdominal: Denies: no symptoms, abdomen distended, abdominal pain, black stools, tarry stools, blood in stool, constipated, diarrhea, difficulty swallowing, nausea, poor appetite, poor fluid intake, rectal bleeding , vomiting, other Genitourinary: Denies: no symptoms, burning, discharge, frequency, flank pain, hematuria, incontinence, pain, urgency, other Neurologic/Psychiatric: Denies: no symptoms, anxiety, depressed, emotional problems, headache, numbness, paresthesia, pre-existing deficit, seizure, tingling, tremors, weakness, other Endocrine: Denies: no symptoms, excessive sweating, flushing, intolerance to cold, intolerance to heat, increased hunger, increased thirst, increased urine, unexplained weight gain, unexplained weight loss, other Hematologic/Lymphatic: Denies: no symptoms, anemia, easy bleeding, easy bruising, other Allergies: Coded Allergies: SULFA (SULFONAMIDE ANTIBIOTICS) (Unverified Allergy, Intermediate, hives, 12/10/17) CODEINE (Verified Allergy, Unknown, ABD IRRITATION, 12/10/17) SULFONYLUREAS (Verified Allergy, Unknown, RASH, 12/10/17) Subjective breathing better Objective Last 24 Hour Vital Signs Date Time Temp Pulse Resp B/P (MAP) Pulse Ox O2 Delivery O2 Flow Rate FiO2 12/14/17 04:30 98.0 56 20 121/66 94 Nasal Cannula 2.0 98.0 12/14/17 00:05 98.1 55 20 138/68 93 Nasal Cannula 2.0 98.1 12/13/17 20:00 98.4 57 19 132/75 93 98.4 12/13/17 19:09 81 20 Nasal Cannula 2.0 28 12/13/17 19:09 93 Nasal Cannula 2.0 28 12/13/17 19:09 Nasal Cannula 2.0 28 12/13/17 16:02 64 20 97 Nasal Cannula 2.0 28 12/13/17 16:00 97.7 57 19 139/85 94 97.7 12/13/17 15:56 61 20 94 Nasal Cannula 2.0 28 12/13/17 12:00 97.9 67 19 130/79 94 Nasal Cannula 2.0 97.9 Intake and Output 12/13/17 12/14/17 19:00 07:00 Intake Total 500 ml 475 ml Output Total 600 ml Balance 500 ml -125 ml Intake Oral 500 ml 475 ml Output Urine Total 600 ml # Voids 3 2 Laboratory Tests 12/13/17 15:30: White Blood Count 13.9H, Red Blood Count 5.49, Hemoglobin 15.9, Hematocrit 46.5 , Mean Corpuscular Volume 85, Mean Corpuscular Hemoglobin 28.9, Mean Corpuscular Hemoglobin Concent 34.1, Red Cell Distribution Width 11.6, Platelet Count 193, Mean Platelet Volume 6.1L, Neutrophils (%) (Auto) 87.6H, Lymphocytes (%) (Auto) 9.1L, Monocytes (%) (Auto) 2.8, Eosinophils (%) (Auto) 0.0, Basophils (%) (Auto) 0.5, Sodium Level 137, Potassium Level 4.3, Chloride Level 103, Carbon Dioxide Level 27, Anion Gap 7, Blood Urea Nitrogen 22H, Creatinine 1.3, Estimat Glomerular Filtration Rate 55.8, Glucose Level 228H, Calcium Level 8.8, Total Bilirubin 0.7, Aspartate Amino Transf (AST/SGOT) 12L, Alanine Aminotransferase (ALT/SGPT) 24, Alkaline Phosphatase 87, Total Protein 6.3L, Albumin 3.1L, Globulin 3.2, Albumin/Globulin Ratio 1.0 Height (Feet): 5 Height (Inches): 11.00 Weight (Pounds): 214 General Appearance: no apparent distress EENT: normal ENT inspection Neck: supple Cardiovascular: regular rhythm Respiratory/Chest: lungs clear Abdomen: no organomegaly Extremities: non-tender Edema: no edema noted Leg (L), no edema noted Leg (R) Edema: mild edema Neurologic: alert Skin: warm/dry Jevon Ley MD Dec 14, 2017 08:22
[2017-12-14] MEDS: Theophylline ER 100mg ORAL SCH ×2 (09:09→20:57)
[2017-12-14] MEDS: Benztropine 1mg tab ORAL SCH ×2 (09:09→17:24)
[2017-12-14] MEDS: Tamsulosin 0.4mg cap ORAL SCH (09:09)
[2017-12-14] MEDS: Heparin 5000 units/ml inj SUBQ SCH ×2 (09:17→20:59)
[2017-12-14 12:00] VITALS: BP 135/81
[2017-12-14 15:48] VITALS: BP 145/85
--- NOTE | 2017-12-14 19:21 | Consultation ---
History of Present Illness General Date patient seen: Dec 14, 2017 Chief Complaint: Dyspnea/Respdistress Present Illness HPI 62-year-old male with a history of asthma and schizophrenia presented to ER with chief complaint shortness of breath for one day. His inhaler is not helping. No nausea no vomiting. Coughing but nonproductive in nature. Wheezing. Worse with exertion. Pt is admitted for COPD exacerbation and pneumonia. Allergies: Coded Allergies: SULFA (SULFONAMIDE ANTIBIOTICS) (Unverified Allergy, Intermediate, hives, 12/10/17) CODEINE (Verified Allergy, Unknown, ABD IRRITATION, 12/10/17) SULFONYLUREAS (Verified Allergy, Unknown, RASH, 12/10/17) Medication History Scheduled Albuterol Sulfate (Ventolin Hfa), 2 PUFFS INH EVERY 4 HOURS, (Reported) Aripiprazole* (Abilify*), 30 MG PO DAILY, (Reported) Azithromycin* (Zithromax*), 250 MG ORAL DAILY Ciprofloxacin Hcl* (Ciprofloxacin Hcl*), 500 MG ORAL Q12H Clonazepam* (Klonopin*), 2 MG PO DAILY, (Reported) Esomeprazole Magnesium (Nexium), 40 MG PO DAILY, (Reported) Finasteride* (Proscar*), 5 MG ORAL DAILY, (Reported) Fluticasone Propionate* (Fluticasone Propionate*), 1 SPRAY NASAL TWICE A DAY, ( Reported) Joslin Carbonate* (Joslin*), 300 MG ORAL QHS, (Reported) Metformin Hcl* (Glucophage*), 500 MG PO DAILY, (Reported) Methocarbamol* (Robaxin*), 500 MG PO QID Multivitamins* (Multivitamins*), 1 EACH PO DAILY, (Reported) Olanzapine* (Zyprexa*), 10 MG ORAL DAILY, (Reported) Omeprazole (Omeprazole), 40 MG ORAL DAILY, (Reported) Prednisone* (Prednisone*), 40 MG ORAL DAILY Quetiapine Fumarate* (Seroquel*), 300 MG PO DAILY, (Reported) Rosuvastatin Calcium* (Crestor*), 5 MG ORAL DAILY, (Reported) Simvastatin (Zocor), 20 MG PO QHS, (Reported) Tamsulosin HCl (Flomax), 0.4 MG PO DAILY, (Reported) Tamsulosin Hcl (Tamsulosin Hcl*), 0.4 MG ORAL BEDTIME, (Reported) Tolterodine Tartrate* (Detrol*), 1 MG ORAL TWICE A DAY, (Reported) Trazodone* (Trazodone*), 300 MG ORAL BEDTIME, (Reported) Scheduled PRN Albuterol Sulfate* (Albuterol Sulfate Mdi*), 2 PUFF INH Q4H PRN for Shortness of Breath Hydrocodone Bit/Acetaminophen 5-325* ([place] 5-325*), 1 TAB ORAL Q4H PRN for For Pain, (Reported) Ibuprofen* (Motrin*), 600 MG ORAL Q8H PRN for For Pain Lorazepam* (Lorazepam*), 1 MG ORAL Q6HR PRN for For Anxiety, (Reported) Ondansetron (Zofran), 4 MG ORAL BID PRN for Nausea & Vomiting Temazepam* (Temazepam*), 30 MG ORAL BEDTIME PRN for Insomnia, (Reported) Patient History Healthcare decision maker MAIRA WASHINGTON ALAN Resuscitation status Full Code Advanced Directive on File No Past Medical/Surgical History Past Medical/Surgical History: (1) Psychiatric diagnosis (2) Bronchitis Review of Systems All Other Systems: negative except mentioned in HPI Physical Exam General Appearance: WD/WN Lines, tubes and drains: peripheral HEENT: normocephalic, anicteric Neck: non-tender, normal alignment Respiratory/Chest: chest wall non-tender, rhonchi - left, rhonchi - right Cardiovascular/Chest: normal peripheral pulses, normal rate Genitourinary/Rectal: normal genital exam Extremities: normal range of motion, non-tender Skin Exam: normal pigmentation Last 24 Hour Vital Signs Date Time Temp Pulse Resp B/P (MAP) Pulse Ox O2 Delivery O2 Flow Rate FiO2 12/14/17 15:48 96.4 53 19 145/85 94 96.4 12/14/17 12:00 97.3 64 19 135/81 94 97.3 12/14/17 08:15 93 Nasal Cannula 2.0 28 12/14/17 08:15 Nasal Cannula 2.0 28 12/14/17 08:15 55 20 Nasal Cannula 2.0 28 12/14/17 08:00 97.7 60 19 116/75 95 97.7 12/14/17 04:30 98.0 56 20 121/66 94 Nasal Cannula 2.0 98.0 12/14/17 00:05 98.1 55 20 138/68 93 Nasal Cannula 2.0 98.1 12/13/17 20:00 98.4 57 19 132/75 93 98.4 Intake and Output 12/13/17 12/14/17 19:00 07:00 Intake Total 500 ml 475 ml Output Total 600 ml Balance 500 ml -125 ml Intake Oral 500 ml 475 ml Output Urine Total 600 ml # Voids 3 2 Height (Feet): 5 Height (Inches): 11.00 Weight (Pounds): 214 Medications Current Medications Medications (Trade) Dose Ordered Sig/Svetlana Route PRN Reason Start Time Stop Time Status Last Admin Dose Admin Albuterol/ Ipratropium (Albuterol/ Ipratropium) 3 ml EVERY 4 HOURS PRN HHN dyspnea 12/10/17 06:30 12/15/17 06:29 12/13/17 15:55 Benztropine Mesylate (Cogentin) 1 mg BID ORAL 12/12/17 12:30 01/11/18 12:29 12/14/17 17:24 Clonazepam (KlonoPIN) 1 mg BEDTIME ORAL 12/12/17 21:00 12/19/17 20:59 12/13/17 20:45 Dextrose (Dextrose 50%) STAT PRN IV Hypoglycemia 12/10/17 06:30 01/09/18 06:29 Dextrose (Dextrose 50%) STAT PRN IV Hypoglycemia 12/10/17 06:30 01/09/18 06:29 Finasteride (Proscar) 5 mg DAILY ORAL 12/10/17 09:00 01/09/18 08:59 12/14/17 09:09 Heparin Sodium (Porcine) (Heparin 5000 units/ml) 5,000 units EVERY 12 HOURS SUBQ 12/10/17 09:00 01/09/18 08:59 12/14/17 09:17 Insulin Aspart (NovoLOG) BEFORE MEALS AND HS SUBQ 12/10/17 06:30 01/09/18 06:29 12/14/17 17:33 Ketorolac Tromethamine (Toradol 30mg) 30 mg EVERY 8 HOURS PRN IV moderate pain 4-6 12/10/17 06:30 12/15/17 06:29 12/12/17 16:50 Joslin Carbonate (Joslin Carbonate) 300 mg QHS ORAL 12/10/17 21:00 01/09/18 20:59 12/13/17 20:46 Lorazepam (Ativan 2mg/ml 1ml) 0.5 mg Q4H PRN IV For Anxiety 12/10/17 06:30 12/17/17 06:29 Magnesium Hydroxide (Mom) 30 ml DAILYPRN PRN ORAL Constipation 12/13/17 11:15 01/12/18 11:14 12/13/17 17:29 Methylprednisolone Sodium Succinate (Solu-MEDROL) 60 mg EVERY 6 HOURS IV 12/10/17 12:00 01/09/18 11:59 12/14/17 17:27 Nitroglycerin (Ntg) 0.4 mg Q5M X 3 DOSES PRN SL Prn Chest Pain 12/10/17 06:30 01/09/18 06:29 Ondansetron HCl (Zofran) 4 mg Q6H PRN IVP Nausea & Vomiting 12/10/17 06:30 01/09/18 06:29 12/10/17 10:15 Piperacillin Sod/ Tazobactam Sod 3.375 gm/Dextrose 110 ml @ 27.5 mls/hr Q8H IVPB 12/10/17 09:00 12/17/17 08:59 12/14/17 17:28 Quetiapine Fumarate (SEROquel) 300 mg BEDTIME ORAL 12/12/17 21:00 01/11/18 20:59 12/13/17 20:45 Tamsulosin HCl (Flomax) 0.4 mg DAILY ORAL 12/10/17 09:00 01/09/18 08:59 12/14/17 09:09 Temazepam (Restoril) 15 mg HSPRN PRN ORAL Insomnia 12/10/17 06:30 12/17/17 06:29 Theophylline (Jey-Dur) 100 mg EVERY 12 HOURS ORAL 12/10/17 09:00 01/09/18 08:59 12/14/17 09:09 Trazodone HCl (Desyrel) 300 mg BEDTIME ORAL 12/10/17 21:00 01/09/18 20:59 12/13/17 20:45 Assessment/Plan Problem List: (1) Nosocomial pneumonia ICD Codes: J18.9 - Pneumonia, unspecified organism SNOMED: 190067925 (2) Bronchitis ICD Codes: J40 - Bronchitis, not specified as acute or chronic SNOMED: 05820359 (3) Asthma with acute exacerbation ICD Codes: J45.901 - Unspecified asthma with (acute) exacerbation SNOMED: 748626440 Qualifiers: Qualified Codes: J45.901 - Unspecified asthma with (acute) exacerbation (4) Psychiatric diagnosis ICD Codes: F99 - Mental disorder, not otherwise specified SNOMED: 96668611, [id number] Assessment/Plan respiratory treatment check sputum iv abx incenstive spirometry titrate fio2 to sat of 92% dvt prophylaxis. psych to see. Heidi Owens MD Dec 14, 2017 19:21
[2017-12-14 20:00] VITALS: BP 137/82
[2017-12-14] MEDS: QUEtiapine 200mg tab ORAL SCH (20:57)
[2017-12-14] MEDS: TraZODone 100mg tab ORAL SCH (20:57)
[2017-12-15 00:09] VITALS: BP 136/78
[2017-12-15 04:18] VITALS: BP 139/87
[2017-12-15] MEDS: Solu-MEDROL 125mg Inj IV SCH ×3 (05:42→17:16)
[2017-12-15] MEDS: NovoLOG Insulin Flexpen SUBQ SCH ×4 (05:42→21:27)
[2017-12-15 08:00] VITALS: BP 137/69
[2017-12-15] MEDS: Tamsulosin 0.4mg cap ORAL SCH (09:02)
[2017-12-15] MEDS: Benztropine 1mg tab ORAL SCH ×2 (09:02→17:15)
[2017-12-15] MEDS: Zosyn 3.375gm q8h **Extended infusion IVPB SCH ×4 (09:02→17:16)
[2017-12-15] MEDS: Theophylline ER 100mg ORAL SCH ×2 (09:02→21:25)
[2017-12-15] MEDS: Heparin 5000 units/ml inj SUBQ SCH ×2 (09:06→21:29)
--- NOTE | 2017-12-15 11:21 | Consultation ---
History of Present Illness General Date patient seen: Dec 15, 2017 Time patient seen: 11:40 Chief Complaint: Dyspnea/Respdistress Present Illness HPI Patient with asthma, schizophrenia, HTN, Heart disease presents with SOB and wheezing and asthma exacerbation despite using inhaler. Allergies: Coded Allergies: SULFA (SULFONAMIDE ANTIBIOTICS) (Unverified Allergy, Intermediate, hives, 12/10/17) CODEINE (Verified Allergy, Unknown, ABD IRRITATION, 12/10/17) SULFONYLUREAS (Verified Allergy, Unknown, RASH, 12/10/17) Medication History Scheduled Albuterol Sulfate (Ventolin Hfa), 2 PUFFS INH EVERY 4 HOURS, (Reported) Aripiprazole* (Abilify*), 30 MG PO DAILY, (Reported) Azithromycin* (Zithromax*), 250 MG ORAL DAILY Ciprofloxacin Hcl* (Ciprofloxacin Hcl*), 500 MG ORAL Q12H Clonazepam* (Klonopin*), 2 MG PO DAILY, (Reported) Esomeprazole Magnesium (Nexium), 40 MG PO DAILY, (Reported) Finasteride* (Proscar*), 5 MG ORAL DAILY, (Reported) Fluticasone Propionate* (Fluticasone Propionate*), 1 SPRAY NASAL TWICE A DAY, ( Reported) Valier Carbonate* (Valier*), 300 MG ORAL QHS, (Reported) Metformin Hcl* (Glucophage*), 500 MG PO DAILY, (Reported) Methocarbamol* (Robaxin*), 500 MG PO QID Multivitamins* (Multivitamins*), 1 EACH PO DAILY, (Reported) Olanzapine* (Zyprexa*), 10 MG ORAL DAILY, (Reported) Omeprazole (Omeprazole), 40 MG ORAL DAILY, (Reported) Prednisone* (Prednisone*), 40 MG ORAL DAILY Quetiapine Fumarate* (Seroquel*), 300 MG PO DAILY, (Reported) Rosuvastatin Calcium* (Crestor*), 5 MG ORAL DAILY, (Reported) Simvastatin (Zocor), 20 MG PO QHS, (Reported) Tamsulosin HCl (Flomax), 0.4 MG PO DAILY, (Reported) Tamsulosin Hcl (Tamsulosin Hcl*), 0.4 MG ORAL BEDTIME, (Reported) Tolterodine Tartrate* (Detrol*), 1 MG ORAL TWICE A DAY, (Reported) Trazodone* (Trazodone*), 300 MG ORAL BEDTIME, (Reported) Scheduled PRN Albuterol Sulfate* (Albuterol Sulfate Mdi*), 2 PUFF INH Q4H PRN for Shortness of Breath Hydrocodone Bit/Acetaminophen 5-325* ([place] 5-325*), 1 TAB ORAL Q4H PRN for For Pain, (Reported) Ibuprofen* (Motrin*), 600 MG ORAL Q8H PRN for For Pain Lorazepam* (Lorazepam*), 1 MG ORAL Q6HR PRN for For Anxiety, (Reported) Ondansetron (Zofran), 4 MG ORAL BID PRN for Nausea & Vomiting Temazepam* (Temazepam*), 30 MG ORAL BEDTIME PRN for Insomnia, (Reported) Patient History Healthcare decision maker MARIA WASHINGTON ALAN Resuscitation status Full Code Advanced Directive on File No Review of Systems Constitutional: Reports: no symptoms Eye: Reports: no symptoms ENT: Reports: no symptoms Respiratory: Reports: shortness of breath, wheezing Cardiovascular: Reports: no symptoms Gastrointestinal: Reports: no symptoms Genitourinary: Reports: no symptoms Musculoskeletal: Reports: no symptoms Skin: Reports: no symptoms Psychiatric: Reports: no symptoms Neurological: Reports: no symptoms Endocrine: Reports: no symptoms Hematologic/Lymphatic: Reports: no symptoms Physical Exam General Appearance: no apparent distress Lines, tubes and drains: peripheral HEENT: normocephalic Neck: normal alignment Respiratory/Chest: expiratory wheezing Cardiovascular/Chest: normal peripheral pulses Abdomen: normal bowel sounds Extremities: normal range of motion Skin Exam: normal pigmentation 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 Last 24 Hour Vital Signs Date Time Temp Pulse Resp B/P (MAP) Pulse Ox O2 Delivery O2 Flow Rate FiO2 12/15/17 08:00 97.9 75 18 137/69 95 97.9 12/15/17 07:37 93 Nasal Cannula 2.0 28 12/15/17 07:37 Nasal Cannula 2.0 28 12/15/17 07:37 74 20 Nasal Cannula 2.0 28 12/15/17 04:18 97.3 50 22 139/87 94 97.3 12/15/17 04:18 94 Nasal Cannula 2.0 12/15/17 00:09 97.6 58 18 136/78 96 97.6 12/15/17 00:09 96 Nasal Cannula 2.0 12/14/17 20:00 97.9 62 20 137/82 95 97.9 12/14/17 19:30 58 20 Nasal Cannula 2.0 28 12/14/17 19:30 Nasal Cannula 2.0 28 12/14/17 19:30 95 Nasal Cannula 2.0 28 12/14/17 15:48 96.4 53 19 145/85 94 96.4 12/14/17 12:00 97.3 64 19 135/81 94 97.3 Intake and Output 12/14/17 12/15/17 19:00 07:00 Intake Total 600 ml 220.0 ml Output Total 800 ml 800 ml Balance -200 ml -580.0 ml Intake Oral 600 ml IV Total 220.0 ml Output Urine Total 800 ml 800 ml Height (Feet): 5 Height (Inches): 11.00 Weight (Pounds): 214 Medications Current Medications Medications (Trade) Dose Ordered Sig/Svetlana Route PRN Reason Start Time Stop Time Status Last Admin Dose Admin Benztropine Mesylate (Cogentin) 1 mg BID ORAL 12/12/17 12:30 01/11/18 12:29 12/15/17 09:02 Clonazepam (KlonoPIN) 1 mg BEDTIME ORAL 12/12/17 21:00 12/19/17 20:59 12/14/17 20:57 Dextrose (Dextrose 50%) STAT PRN IV Hypoglycemia 12/10/17 06:30 01/09/18 06:29 Dextrose (Dextrose 50%) STAT PRN IV Hypoglycemia 12/10/17 06:30 01/09/18 06:29 Finasteride (Proscar) 5 mg DAILY ORAL 12/10/17 09:00 01/09/18 08:59 12/15/17 09:02 Heparin Sodium (Porcine) (Heparin 5000 units/ml) 5,000 units EVERY 12 HOURS SUBQ 12/10/17 09:00 01/09/18 08:59 12/15/17 09:06 Insulin Aspart (NovoLOG) BEFORE MEALS AND HS SUBQ 12/10/17 06:30 01/09/18 06:29 12/15/17 05:42 Valier Carbonate (Valier Carbonate) 300 mg QHS ORAL 12/10/17 21:00 01/09/18 20:59 6/23/18 20:57 Lorazepam (Ativan 2mg/ml 1ml) 0.5 mg Q4H PRN IV For Anxiety 12/10/17 06:30 12/17/17 06:29 Magnesium Hydroxide (Mom) 30 ml DAILYPRN PRN ORAL Constipation 12/13/17 11:15 01/12/18 11:14 12/13/17 17:29 Methylprednisolone Sodium Succinate (Solu-MEDROL) 60 mg EVERY 6 HOURS IV 12/10/17 12:00 01/09/18 11:59 12/15/17 05:42 Nitroglycerin (Ntg) 0.4 mg Q5M X 3 DOSES PRN SL Prn Chest Pain 12/10/17 06:30 01/09/18 06:29 Ondansetron HCl (Zofran) 4 mg Q6H PRN IVP Nausea & Vomiting 12/10/17 06:30 01/09/18 06:29 12/10/17 10:15 Piperacillin Sod/ Tazobactam Sod 3.375 gm/Dextrose 110 ml @ 27.5 mls/hr Q8H IVPB 12/10/17 09:00 12/17/17 08:59 12/15/17 09:02 Quetiapine Fumarate (SEROquel) 300 mg BEDTIME ORAL 12/12/17 21:00 01/11/18 20:59 12/14/17 20:57 Tamsulosin HCl (Flomax) 0.4 mg DAILY ORAL 12/10/17 09:00 01/09/18 08:59 12/15/17 09:02 Temazepam (Restoril) 15 mg HSPRN PRN ORAL Insomnia 12/10/17 06:30 12/17/17 06:29 Theophylline (Jey-Dur) 100 mg EVERY 12 HOURS ORAL 12/10/17 09:00 01/09/18 08:59 12/15/17 09:02 Trazodone HCl (Desyrel) 300 mg BEDTIME ORAL 12/10/17 21:00 01/09/18 20:59 12/14/17 20:57 Assessment/Plan Status: stable Assessment/Plan 1-EKG normal sinus rhythm, Blood pressure controlled, troponin negative, currently no chest pain 2-Defer ischemia evaluation at this time, can address as outpatient when stable from respiratory standpoint, no cardiac cath indicated 3- TTE to evaluate for hypertensive heart disease 4- Continue pulmonary toilet, steroids, inhalers Renny Izquierdo M.D. Dec 15, 2017 11:21
[2017-12-15 11:54] VITALS: BP 131/77
--- NOTE | 2017-12-15 12:31 | General Progress Note ---
Assessment/Plan Status: progressing Assessment/Plan ASSESSMENT AND RECOMMENDATIONS: 1. Asthma exacerbation. --> on steroids, antibiotics, inhaler --> breathing has improved. 2. Leukocytosis secondary to steroids. --> monitor for infection --> on abx 3. Urinary tract infection. --> Currently, on broad-spectrum antibiotics including Zosyn. 4. Weakness and fatigue, likely related to underlying shortness of breath. 5. Psychiatric disorder. Schizophrenia being managed by Psychiatry. Subjective Date patient seen: Dec 15, 2017 ROS Limited/Unobtainable: Yes Allergies: Coded Allergies: SULFA (SULFONAMIDE ANTIBIOTICS) (Unverified Allergy, Intermediate, hives, 12/10/17) CODEINE (Verified Allergy, Unknown, ABD IRRITATION, 12/10/17) SULFONYLUREAS (Verified Allergy, Unknown, RASH, 12/10/17) All Systems: reviewed and negative except above Subjective Pt on steroids and abx. NAD. Objective Last 24 Hour Vital Signs Date Time Temp Pulse Resp B/P (MAP) Pulse Ox O2 Delivery O2 Flow Rate FiO2 12/15/17 11:54 97.5 61 18 131/77 96 97.5 12/15/17 08:00 97.9 75 18 137/69 95 97.9 12/15/17 07:37 93 Nasal Cannula 2.0 28 12/15/17 07:37 Nasal Cannula 2.0 28 12/15/17 07:37 74 20 Nasal Cannula 2.0 28 12/15/17 04:18 97.3 50 22 139/87 94 97.3 12/15/17 04:18 94 Nasal Cannula 2.0 12/15/17 00:09 97.6 58 18 136/78 96 97.6 12/15/17 00:09 96 Nasal Cannula 2.0 12/14/17 20:00 97.9 62 20 137/82 95 97.9 12/14/17 19:30 58 20 Nasal Cannula 2.0 28 12/14/17 19:30 Nasal Cannula 2.0 28 12/14/17 19:30 95 Nasal Cannula 2.0 28 12/14/17 15:48 96.4 53 19 145/85 94 96.4 Intake and Output 12/14/17 12/15/17 19:00 07:00 Intake Total 600 ml 220.0 ml Output Total 800 ml 800 ml Balance -200 ml -580.0 ml Intake Oral 600 ml IV Total 220.0 ml Output Urine Total 800 ml 800 ml Height (Feet): 5 Height (Inches): 11.00 Weight (Pounds): 214 General Appearance: WD/WN, no apparent distress EENT: PERRL/EOMI Neck: normal alignment Cardiovascular: normal peripheral pulses Respiratory/Chest: no respiratory distress Abdomen: no mass Jevon Ley MD Dec 15, 2017 12:31
--- NOTE | 2017-12-15 14:11 | Pulmonology Progress Note ---
Assessment/Plan Problems: (1) Nosocomial pneumonia (2) Bronchitis (3) Asthma with acute exacerbation (4) Psychiatric diagnosis Assessment/Plan improving respiratory treatment check sputum check cxr in am chest pt titrate fio2 to sat of 92% dvt prophylaxis. Subjective ROS Limited/Unobtainable: No Interval Events: still coughing Allergies: Coded Allergies: SULFA (SULFONAMIDE ANTIBIOTICS) (Unverified Allergy, Intermediate, hives, 12/10/17) CODEINE (Verified Allergy, Unknown, ABD IRRITATION, 12/10/17) SULFONYLUREAS (Verified Allergy, Unknown, RASH, 12/10/17) Objective Last 24 Hour Vital Signs Date Time Temp Pulse Resp B/P (MAP) Pulse Ox O2 Delivery O2 Flow Rate FiO2 12/15/17 11:54 97.5 61 18 131/77 96 97.5 12/15/17 08:00 97.9 75 18 137/69 95 97.9 12/15/17 07:37 93 Nasal Cannula 2.0 28 12/15/17 07:37 Nasal Cannula 2.0 28 12/15/17 07:37 74 20 Nasal Cannula 2.0 28 12/15/17 04:18 97.3 50 22 139/87 94 97.3 12/15/17 04:18 94 Nasal Cannula 2.0 12/15/17 00:09 97.6 58 18 136/78 96 97.6 12/15/17 00:09 96 Nasal Cannula 2.0 12/14/17 20:00 97.9 62 20 137/82 95 97.9 12/14/17 19:30 58 20 Nasal Cannula 2.0 28 12/14/17 19:30 Nasal Cannula 2.0 28 12/14/17 19:30 95 Nasal Cannula 2.0 28 12/14/17 15:48 96.4 53 19 145/85 94 96.4 Intake and Output 12/14/17 12/15/17 19:00 07:00 Intake Total 600 ml 220.0 ml Output Total 800 ml 800 ml Balance -200 ml -580.0 ml Intake Oral 600 ml IV Total 220.0 ml Output Urine Total 800 ml 800 ml Objective General Appearance: WD/WN Lines, tubes and drains: peripheral HEENT: normocephalic, anicteric Neck: non-tender, normal alignment Respiratory/Chest: chest wall non-tender, rhonchi - left, rhonchi - right Cardiovascular/Chest: normal peripheral pulses, normal rate Genitourinary/Rectal: normal genital exam Extremities: normal range of motion, non-tender Skin Exam: normal pigmentation Current Medications Medications (Trade) Dose Ordered Sig/Svetlana Route PRN Reason Start Time Stop Time Status Last Admin Dose Admin Benztropine Mesylate (Cogentin) 1 mg BID ORAL 12/12/17 12:30 01/11/18 12:29 12/15/17 09:02 Clonazepam (KlonoPIN) 1 mg BEDTIME ORAL 12/12/17 21:00 12/19/17 20:59 12/14/17 20:57 Dextrose (Dextrose 50%) STAT PRN IV Hypoglycemia 12/10/17 06:30 01/09/18 06:29 Dextrose (Dextrose 50%) STAT PRN IV Hypoglycemia 12/10/17 06:30 01/09/18 06:29 Finasteride (Proscar) 5 mg DAILY ORAL 12/10/17 09:00 01/09/18 08:59 12/15/17 09:02 Heparin Sodium (Porcine) (Heparin 5000 units/ml) 5,000 units EVERY 12 HOURS SUBQ 12/10/17 09:00 01/09/18 08:59 12/15/17 09:06 Insulin Aspart (NovoLOG) BEFORE MEALS AND HS SUBQ 12/10/17 06:30 01/09/18 06:29 12/15/17 12:21 [place] Carbonate ([place] Carbonate) 300 mg QHS ORAL 12/10/17 21:00 01/09/18 20:59 12/14/17 20:57 Lorazepam (Ativan 2mg/ml 1ml) 0.5 mg Q4H PRN IV For Anxiety 12/10/17 06:30 12/17/17 06:29 Magnesium Hydroxide (Mom) 30 ml DAILYPRN PRN ORAL Constipation 12/13/17 11:15 01/12/18 11:14 12/13/17 17:29 Methylprednisolone Sodium Succinate (Solu-MEDROL) 60 mg EVERY 6 HOURS IV 12/10/17 12:00 01/09/18 11:59 12/15/17 12:21 Nitroglycerin (Ntg) 0.4 mg Q5M X 3 DOSES PRN SL Prn Chest Pain 12/10/17 06:30 01/09/18 06:29 Ondansetron HCl (Zofran) 4 mg Q6H PRN IVP Nausea & Vomiting 12/10/17 06:30 01/09/18 06:29 12/10/17 10:15 Piperacillin Sod/ Tazobactam Sod 3.375 gm/Dextrose 110 ml @ 27.5 mls/hr Q8H IVPB 12/10/17 09:00 12/17/17 08:59 12/15/17 09:02 Quetiapine Fumarate (SEROquel) 300 mg BEDTIME ORAL 12/12/17 21:00 01/11/18 20:59 12/14/17 20:57 Tamsulosin HCl (Flomax) 0.4 mg DAILY ORAL 12/10/17 09:00 01/09/18 08:59 12/15/17 09:02 Temazepam (Restoril) 15 mg HSPRN PRN ORAL Insomnia 12/10/17 06:30 12/17/17 06:29 Theophylline (Jey-Dur) 100 mg EVERY 12 HOURS ORAL 12/10/17 09:00 01/09/18 08:59 12/15/17 09:02 Trazodone HCl (Desyrel) 300 mg BEDTIME ORAL 12/10/17 21:00 01/09/18 20:59 12/14/17 20:57 Heidi Owens MD Dec 15, 2017 14:10
[2017-12-15 16:00] VITALS: BP 144/89
[2017-12-15 20:00] VITALS: BP 144/91
[2017-12-15] MEDS ORDERED: Albuterol/Ipratropium 3ml neb HHN PRN (20:00)
[2017-12-15] MEDS: QUEtiapine 200mg tab ORAL SCH (21:25)
[2017-12-15] MEDS: TraZODone 100mg tab ORAL SCH (21:26)
[2017-12-16] VITALS: BP 140/79
[2017-12-16] MEDS: Solu-MEDROL 125mg Inj IV SCH ×3 (00:09→12:23)
[2017-12-16] MEDS: Zosyn 3.375gm q8h **Extended infusion IVPB SCH ×6 (00:10→18:32)
[2017-12-16 04:00] VITALS: BP 120/74
[2017-12-16] MEDS: NovoLOG Insulin Flexpen SUBQ SCH ×4 (06:04→20:44)
[2017-12-16 08:07] LABS: HEMATOCRIT 49.8 % (42.0-52.0); HEMOGLOBIN 17.1 G/DL (14.2-18.0); MEAN CORPUSCULAR VOLUME 86 FL (80-99); PLATELET COUNT 166 K/UL (150-450); RED CELL DISTRIBUTION WIDTH 11.7 % (11.6-14.8)
[2017-12-16 08:12] VITALS: BP 119/82
[2017-12-16 08:32] LABS: ALANINE AMINOTRANSFERASE 17 U/L (12-78); ALBUMIN 2.6 G/DL (3.4-5.0); ALBUMIN/GLOBULIN RATIO 0.8 (1.0-2.7); ALKALINE PHOSPHATASE 80 U/L (46-116); ANION GAP 7 mmol/L (5-15); ASPARTATE AMINO TRANSFERASE 8 U/L (15-37); BILIRUBIN,TOTAL 0.7 MG/DL (0.2-1.0); BLOOD UREA NITROGEN 28 mg/dL (7-18); CALCIUM 8.1 MG/DL (8.5-10.1); CARBON DIOXIDE 23 MMOL/L (21-32); CHLORIDE 103 MMOL/L (98-107); CREATININE 1.4 MG/DL (0.55-1.30); POTASSIUM 4.3 MMOL/L (3.5-5.1); SODIUM 133 MMOL/L (136-145)
[2017-12-16] MEDS: Tamsulosin 0.4mg cap ORAL SCH (09:12)
[2017-12-16] MEDS: Benztropine 1mg tab ORAL SCH ×2 (09:12→17:24)
[2017-12-16] MEDS: Theophylline ER 100mg ORAL SCH ×2 (09:12→20:37)
[2017-12-16] MEDS: Heparin 5000 units/ml inj SUBQ SCH ×2 (09:14→20:46)
--- NOTE | 2017-12-16 10:27 | Diagnostic Imaging Report ---
Indication: Dyspnea Technique: One view of the chest Comparison: 12/10/2017 Findings: There is new or increased atelectasis and pleural fluid at the left lung base. Previously demonstrated right costophrenic angle blunting has decreased but persists. The heart size is upper limits normal. The aorta is elongated Impression: There are increased left basilar pleural fluid and atelectasis, since 12/10/2017 Improved right-sided pleural effusion
[2017-12-16 11:29] VITALS: BP 122/76
--- NOTE | 2017-12-16 12:18 | Cardiology Progress Note ---
Assessment/Plan Status: stable Assessment/Plan 1-EKG normal sinus rhythm, Blood pressure controlled, troponin negative, currently no chest pain 2-Defer ischemia evaluation at this time, can address as outpatient when stable from respiratory standpoint, no cardiac cath indicated 3- TTE to evaluate for hypertensive heart disease 4- Continue pulmonary toilet, steroids, inhalers Subjective Cardiovascular: Reports: no symptoms Respiratory: Reports: no symptoms Gastrointestinal/Abdominal: Reports: no symptoms Genitourinary: Reports: no symptoms Subjective No acute events, wheezing improved, BP controlled, no chest pain WBC elevated from steroids Objective Last 24 Hour Vital Signs Date Time Temp Pulse Resp B/P (MAP) Pulse Ox O2 Delivery O2 Flow Rate FiO2 12/16/17 11:29 97.8 81 20 122/76 95 97.8 12/16/17 08:12 97.7 88 20 119/82 95 Room Air 97.7 12/16/17 04:00 98.4 80 17 120/74 92 Nasal Cannula 2.0 98.4 12/16/17 00:00 98.7 68 20 140/79 94 Nasal Cannula 2.0 98.7 12/15/17 21:51 63 20 98 Nasal Cannula 2.0 28 12/15/17 21:44 95 Nasal Cannula 2.0 28 12/15/17 21:44 Nasal Cannula 2.0 28 12/15/17 21:44 72 20 95 Nasal Cannula 2.0 28 12/15/17 21:43 76 20 Nasal Cannula 2.0 28 12/15/17 20:00 97.7 66 18 144/91 93 Nasal Cannula 2.0 97.7 12/15/17 16:00 98.1 74 18 144/89 94 98.1 General Appearance: no apparent distress EENT: PERRL/EOMI Neck: non-tender Rhythm: NSR Cardiovascular: normal peripheral pulses Respiratory/Chest: expiratory wheezing Abdomen: normal bowel sounds Extremities: normal range of motion 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 II-XII grossly normal Intake and Output 12/15/17 12/16/17 19:00 07:00 Intake Total 710.0 ml 360.0 ml Output Total 1000 ml 350 ml Balance -290.0 ml 10.0 ml Intake Oral 600 ml 250 ml IV Total 110.0 ml 110.0 ml Output Urine Total 1000 ml 350 ml # Voids 2 4 Laboratory Tests Test 12/16/17 07:22 White Blood Count 13.0 K/UL (4.8-10.8) H Red Blood Count 5.80 M/UL (4.70-6.10) Hemoglobin 17.1 G/DL (14.2-18.0) Hematocrit 49.8 % (42.0-52.0) Mean Corpuscular Volume 86 FL (80-99) Mean Corpuscular Hemoglobin 29.4 PG (27.0-31.0) Mean Corpuscular Hemoglobin Concent 34.3 G/DL (32.0-36.0) Red Cell Distribution Width 11.7 % (11.6-14.8) Platelet Count 166 K/UL (150-450) Mean Platelet Volume 6.7 FL (6.5-10.1) Neutrophils (%) (Auto) % (45.0-75.0) Lymphocytes (%) (Auto) % (20.0-45.0) Monocytes (%) (Auto) % (1.0-10.0) Eosinophils (%) (Auto) % (0.0-3.0) Basophils (%) (Auto) % (0.0-2.0) Differential Total Cells Counted 100 Neutrophils % (Manual) 85 % (45-75) H Lymphocytes % (Manual) 9 % (20-45) L Monocytes % (Manual) 6 % (1-10) Eosinophils % (Manual) 0 % (0-3) Basophils % (Manual) 0 % (0-2) Band Neutrophils 0 % (0-8) Platelet Estimate Adequate Platelet Morphology Normal Red Blood Cell Morphology Normal Sodium Level 133 MMOL/L (136-145) L Potassium Level 4.3 MMOL/L (3.5-5.1) Chloride Level 103 MMOL/L (98-107) Carbon Dioxide Level 23 MMOL/L (21-32) Anion Gap 7 mmol/L (5-15) Blood Urea Nitrogen 28 mg/dL (7-18) H Creatinine 1.4 MG/DL (0.55-1.30) H Estimat Glomerular Filtration Rate 51.2 mL/min (>60) Glucose Level 316 MG/DL (74-106) H Calcium Level 8.1 MG/DL (8.5-10.1) L Total Bilirubin 0.7 MG/DL (0.2-1.0) Aspartate Amino Transf (AST/SGOT) 8 U/L (15-37) L Alanine Aminotransferase (ALT/SGPT) 17 U/L (12-78) Alkaline Phosphatase 80 U/L (46-116) Pro-B-Type Natriuretic Peptide 470 pg/mL (0-125) H Total Protein 5.8 G/DL (6.4-8.2) L Albumin 2.6 G/DL (3.4-5.0) L Globulin 3.2 g/dL Albumin/Globulin Ratio 0.8 (1.0-2.7) L Renny Izquierdo M.D. Dec 16, 2017 12:18
--- NOTE | 2017-12-16 12:22 | General Progress Note ---
Assessment/Plan Assessment/Plan change the klonopin to [facility] jen start Seroquel 300mg Subjective Date patient seen: Dec 16, 2017 Neurologic/Psychiatric: Reports: anxiety, depressed, emotional problems Allergies: Coded Allergies: SULFA (SULFONAMIDE ANTIBIOTICS) (Unverified Allergy, Intermediate, hives, 12/10/17) CODEINE (Verified Allergy, Unknown, ABD IRRITATION, 12/10/17) SULFONYLUREAS (Verified Allergy, Unknown, RASH, 12/10/17) Subjective the pt is better he asked for the list of his psych meds Objective Last 24 Hour Vital Signs Date Time Temp Pulse Resp B/P (MAP) Pulse Ox O2 Delivery O2 Flow Rate FiO2 12/16/17 11:29 97.8 81 20 122/76 95 97.8 12/16/17 08:12 97.7 88 20 119/82 95 Room Air 97.7 12/16/17 04:00 98.4 80 17 120/74 92 Nasal Cannula 2.0 98.4 12/16/17 00:00 98.7 68 20 140/79 94 Nasal Cannula 2.0 98.7 12/15/17 21:51 63 20 98 Nasal Cannula 2.0 28 12/15/17 21:44 95 Nasal Cannula 2.0 28 12/15/17 21:44 Nasal Cannula 2.0 28 12/15/17 21:44 72 20 95 Nasal Cannula 2.0 28 12/15/17 21:43 76 20 Nasal Cannula 2.0 28 12/15/17 20:00 97.7 66 18 144/91 93 Nasal Cannula 2.0 97.7 12/15/17 16:00 98.1 74 18 144/89 94 98.1 Intake and Output 12/15/17 12/16/17 19:00 07:00 Intake Total 710.0 ml 360.0 ml Output Total 1000 ml 350 ml Balance -290.0 ml 10.0 ml Intake Oral 600 ml 250 ml IV Total 110.0 ml 110.0 ml Output Urine Total 1000 ml 350 ml # Voids 2 4 Laboratory Tests 12/16/17 07:22: White Blood Count 13.0H, Red Blood Count 5.80, Hemoglobin 17.1, Hematocrit 49.8 , Mean Corpuscular Volume 86, Mean Corpuscular Hemoglobin 29.4, Mean Corpuscular Hemoglobin Concent 34.3, Red Cell Distribution Width 11.7, Platelet Count 166, Mean Platelet Volume 6.7, Neutrophils (%) (Auto) , Lymphocytes (%) ( Auto) , Monocytes (%) (Auto) , Eosinophils (%) (Auto) , Basophils (%) (Auto) , Differential Total Cells Counted 100, Neutrophils % (Manual) 85H, Lymphocytes % (Manual) 9L, Monocytes % (Manual) 6, Eosinophils % (Manual) 0, Basophils % ( Manual) 0, Band Neutrophils 0, Platelet Estimate Adequate, Platelet Morphology Normal, Red Blood Cell Morphology Normal, Sodium Level 133L, Potassium Level 4.3 , Chloride Level 103, Carbon Dioxide Level 23, Anion Gap 7, Blood Urea Nitrogen 28H, Creatinine 1.4H, Estimat Glomerular Filtration Rate 51.2, Glucose Level 316H, Calcium Level 8.1L, Total Bilirubin 0.7, Aspartate Amino Transf (AST/SGOT ) 8L, Alanine Aminotransferase (ALT/SGPT) 17, Alkaline Phosphatase 80, Pro-B- Type Natriuretic Peptide 470H, Total Protein 5.8L, Albumin 2.6L, Globulin 3.2, Albumin/Globulin Ratio 0.8L Height (Feet): 5 Height (Inches): 11.00 Weight (Pounds): 214 General Appearance: no apparent distress, alert Neurologic: oriented x 3, responsive Clinton Brody M.D. Dec 16, 2017 12:22
--- NOTE | 2017-12-16 12:23 | General Progress Note ---
Assessment/Plan Problem List: (1) UTI (urinary tract infection) ICD Codes: N39.0 - Urinary tract infection, site not specified SNOMED: 56281140 (2) Weak ICD Codes: R53.1 - Weakness SNOMED: 68847999 (3) Psychiatric diagnosis ICD Codes: F99 - Mental disorder, not otherwise specified SNOMED: 33802089, 439220290 (4) Asthma with acute exacerbation ICD Codes: J45.901 - Unspecified asthma with (acute) exacerbation SNOMED: 652109448 Qualifiers: Qualified Codes: J45.901 - Unspecified asthma with (acute) exacerbation Status: stable, progressing Assessment/Plan ot pt diet o2 pulm tx cbc bmp am Subjective Constitutional: Reports: weakness Respiratory: Reports: shortness of breath Allergies: Coded Allergies: SULFA (SULFONAMIDE ANTIBIOTICS) (Unverified Allergy, Intermediate, hives, 12/10/17) CODEINE (Verified Allergy, Unknown, ABD IRRITATION, 12/10/17) SULFONYLUREAS (Verified Allergy, Unknown, RASH, 12/10/17) All Systems: reviewed and negative except above Subjective o2nc calm in bed Objective Last 24 Hour Vital Signs Date Time Temp Pulse Resp B/P (MAP) Pulse Ox O2 Delivery O2 Flow Rate FiO2 12/16/17 11:29 97.8 81 20 122/76 95 97.8 12/16/17 08:12 97.7 88 20 119/82 95 Room Air 97.7 12/16/17 04:00 98.4 80 17 120/74 92 Nasal Cannula 2.0 98.4 12/16/17 00:00 98.7 68 20 140/79 94 Nasal Cannula 2.0 98.7 12/15/17 21:51 63 20 98 Nasal Cannula 2.0 28 12/15/17 21:44 95 Nasal Cannula 2.0 28 12/15/17 21:44 Nasal Cannula 2.0 28 12/15/17 21:44 72 20 95 Nasal Cannula 2.0 28 12/15/17 21:43 76 20 Nasal Cannula 2.0 28 12/15/17 20:00 97.7 66 18 144/91 93 Nasal Cannula 2.0 97.7 12/15/17 16:00 98.1 74 18 144/89 94 98.1 Intake and Output 12/15/17 12/16/17 19:00 07:00 Intake Total 710.0 ml 360.0 ml Output Total 1000 ml 350 ml Balance -290.0 ml 10.0 ml Intake Oral 600 ml 250 ml IV Total 110.0 ml 110.0 ml Output Urine Total 1000 ml 350 ml # Voids 2 4 Laboratory Tests 12/16/17 07:22: White Blood Count 13.0H, Red Blood Count 5.80, Hemoglobin 17.1, Hematocrit 49.8 , Mean Corpuscular Volume 86, Mean Corpuscular Hemoglobin 29.4, Mean Corpuscular Hemoglobin Concent 34.3, Red Cell Distribution Width 11.7, Platelet Count 166, Mean Platelet Volume 6.7, Neutrophils (%) (Auto) , Lymphocytes (%) ( Auto) , Monocytes (%) (Auto) , Eosinophils (%) (Auto) , Basophils (%) (Auto) , Differential Total Cells Counted 100, Neutrophils % (Manual) 85H, Lymphocytes % (Manual) 9L, Monocytes % (Manual) 6, Eosinophils % (Manual) 0, Basophils % ( Manual) 0, Band Neutrophils 0, Platelet Estimate Adequate, Platelet Morphology Normal, Red Blood Cell Morphology Normal, Sodium Level 133L, Potassium Level 4.3 , Chloride Level 103, Carbon Dioxide Level 23, Anion Gap 7, Blood Urea Nitrogen 28H, Creatinine 1.4H, Estimat Glomerular Filtration Rate 51.2, Glucose Level 316H, Calcium Level 8.1L, Total Bilirubin 0.7, Aspartate Amino Transf (AST/SGOT ) 8L, Alanine Aminotransferase (ALT/SGPT) 17, Alkaline Phosphatase 80, Pro-B- Type Natriuretic Peptide 470H, Total Protein 5.8L, Albumin 2.6L, Globulin 3.2, Albumin/Globulin Ratio 0.8L Height (Feet): 5 Height (Inches): 11.00 Weight (Pounds): 214 General Appearance: lethargic EENT: normal ENT inspection Neck: normal alignment Cardiovascular: normal peripheral pulses, normal rate, regular rhythm Respiratory/Chest: chest wall non-tender, decreased breath sounds Abdomen: normal bowel sounds, non tender, soft Extremities: normal inspection Edema: no edema noted Arm (L), no edema noted Arm (R), no edema noted Leg (L), no edema noted Leg (R), no edema noted Pedal (L), no edema noted Pedal (R), no edema noted Generalized Neurologic: motor weakness Skin: normal pigmentation, warm/dry Angel Velasco DO Dec 16, 2017 12:23
--- NOTE | 2017-12-16 13:07 | General Progress Note ---
Assessment/Plan Status: unchanged Assessment/Plan #. Leukocytosis secondary to steroids. --> monitor for infection --> on abx --> elevated wbc due to steroids #. LLeukopenia is likely related to reactive process --> peripheral smear reviewed, no abnormalities #. Asthma exacerbation. --> on steroids, antibiotics, inhaler --> breathing has improved. --> 12/16/17 chest xr: There are increased left basilar pleural fluid and atelectasis, since 12/10/2017. Improved right-sided pleural effusion #. Urinary tract infection. --> Currently, on broad-spectrum antibiotics including Zosyn. #. Weakness and fatigue, likely related to underlying shortness of breath. #. Psychiatric disorder. Schizophrenia being managed by Psychiatry. Subjective Date patient seen: Dec 16, 2017 ROS Limited/Unobtainable: Yes Allergies: Coded Allergies: SULFA (SULFONAMIDE ANTIBIOTICS) (Unverified Allergy, Intermediate, hives, 12/10/17) CODEINE (Verified Allergy, Unknown, ABD IRRITATION, 12/10/17) SULFONYLUREAS (Verified Allergy, Unknown, RASH, 12/10/17) All Systems: reviewed and negative except above Subjective No acute events, wheezing improved, BP controlled, no chest pain. WBC elevated from steroids. Objective Last 24 Hour Vital Signs Date Time Temp Pulse Resp B/P (MAP) Pulse Ox O2 Delivery O2 Flow Rate FiO2 12/16/17 11:29 97.8 81 20 122/76 95 97.8 12/16/17 08:45 63 20 Nasal Cannula 2.0 28 12/16/17 08:45 Nasal Cannula 2.0 28 12/16/17 08:45 92 Nasal Cannula 2.0 12/16/17 08:12 97.7 88 20 119/82 95 Room Air 97.7 12/16/17 04:00 98.4 80 17 120/74 92 Nasal Cannula 2.0 98.4 12/16/17 00:00 98.7 68 20 140/79 94 Nasal Cannula 2.0 98.7 12/15/17 21:51 63 20 98 Nasal Cannula 2.0 28 12/15/17 21:44 95 Nasal Cannula 2.0 28 12/15/17 21:44 Nasal Cannula 2.0 28 12/15/17 21:44 72 20 95 Nasal Cannula 2.0 12/15/17 21:43 76 20 Nasal Cannula 2.0 28 12/15/17 20:00 97.7 66 18 144/91 93 Nasal Cannula 2.0 97.7 12/15/17 16:00 98.1 74 18 144/89 94 98.1 Intake and Output 12/15/17 12/16/17 19:00 07:00 Intake Total 710.0 ml 360.0 ml Output Total 1000 ml 350 ml Balance -290.0 ml 10.0 ml Intake Oral 600 ml 250 ml IV Total 110.0 ml 110.0 ml Output Urine Total 1000 ml 350 ml # Voids 2 4 Laboratory Tests 12/16/17 07:22: White Blood Count 13.0H, Red Blood Count 5.80, Hemoglobin 17.1, Hematocrit 49.8 , Mean Corpuscular Volume 86, Mean Corpuscular Hemoglobin 29.4, Mean Corpuscular Hemoglobin Concent 34.3, Red Cell Distribution Width 11.7, Platelet Count 166, Mean Platelet Volume 6.7, Neutrophils (%) (Auto) , Lymphocytes (%) ( Auto) , Monocytes (%) (Auto) , Eosinophils (%) (Auto) , Basophils (%) (Auto) , Differential Total Cells Counted 100, Neutrophils % (Manual) 85H, Lymphocytes % (Manual) 9L, Monocytes % (Manual) 6, Eosinophils % (Manual) 0, Basophils % ( Manual) 0, Band Neutrophils 0, Platelet Estimate Adequate, Platelet Morphology Normal, Red Blood Cell Morphology Normal, Sodium Level 133L, Potassium Level 4.3 , Chloride Level 103, Carbon Dioxide Level 23, Anion Gap 7, Blood Urea Nitrogen 28H, Creatinine 1.4H, Estimat Glomerular Filtration Rate 51.2, Glucose Level 316H, Calcium Level 8.1L, Total Bilirubin 0.7, Aspartate Amino Transf (AST/SGOT ) 8L, Alanine Aminotransferase (ALT/SGPT) 17, Alkaline Phosphatase 80, Pro-B- Type Natriuretic Peptide 470H, Total Protein 5.8L, Albumin 2.6L, Globulin 3.2, Albumin/Globulin Ratio 0.8L Height (Feet): 5 Height (Inches): 11.00 Weight (Pounds): 214 General Appearance: WD/WN, no apparent distress EENT: PERRL/EOMI Neck: normal alignment Cardiovascular: normal peripheral pulses Respiratory/Chest: no respiratory distress Abdomen: no mass Kleynberg,Jevon L. MD Dec 16, 2017 13:07
--- NOTE | 2017-12-16 13:27 | Pulmonology Progress Note ---
Assessment/Plan Problems: (1) Nosocomial pneumonia (2) Bronchitis (3) Asthma with acute exacerbation (4) Psychiatric diagnosis Assessment/Plan improving taper steroids to qd respiratory treatment check sputum check cxr in am chest pt titrate fio2 to sat of 92% dvt prophylaxis. Subjective ROS Limited/Unobtainable: No Constitutional: Reports: no symptoms HEENT: Repors: no symptoms Respiratory: Reports: no symptoms Allergies: Coded Allergies: SULFA (SULFONAMIDE ANTIBIOTICS) (Unverified Allergy, Intermediate, hives, 12/10/17) CODEINE (Verified Allergy, Unknown, ABD IRRITATION, 12/10/17) SULFONYLUREAS (Verified Allergy, Unknown, RASH, 12/10/17) Objective Last 24 Hour Vital Signs Date Time Temp Pulse Resp B/P (MAP) Pulse Ox O2 Delivery O2 Flow Rate FiO2 12/16/17 11:29 97.8 81 20 122/76 95 97.8 12/16/17 08:45 63 20 Nasal Cannula 2.0 28 12/16/17 08:45 Nasal Cannula 2.0 28 12/16/17 08:45 92 Nasal Cannula 2.0 28 12/16/17 08:12 97.7 88 20 119/82 95 Room Air 97.7 12/16/17 04:00 98.4 80 17 120/74 92 Nasal Cannula 2.0 98.4 12/16/17 00:00 98.7 68 20 140/79 94 Nasal Cannula 2.0 98.7 12/15/17 21:51 63 20 98 Nasal Cannula 2.0 28 12/15/17 21:44 95 Nasal Cannula 2.0 28 12/15/17 21:44 Nasal Cannula 2.0 28 12/15/17 21:44 72 20 95 Nasal Cannula 2.0 28 12/15/17 21:43 76 20 Nasal Cannula 2.0 28 12/15/17 20:00 97.7 66 18 144/91 93 Nasal Cannula 2.0 97.7 12/15/17 16:00 98.1 74 18 144/89 94 98.1 Intake and Output 12/15/17 12/16/17 19:00 07:00 Intake Total 710.0 ml 360.0 ml Output Total 1000 ml 350 ml Balance -290.0 ml 10.0 ml Intake Oral 600 ml 250 ml IV Total 110.0 ml 110.0 ml Output Urine Total 1000 ml 350 ml # Voids 2 4 Objective General Appearance: WD/WN Lines, tubes and drains: peripheral HEENT: normocephalic, anicteric Neck: non-tender, normal alignment Respiratory/Chest: chest wall non-tender, rhonchi - left, rhonchi - right Cardiovascular/Chest: normal peripheral pulses, normal rate Genitourinary/Rectal: normal genital exam Extremities: normal range of motion, non-tender Skin Exam: normal pigmentation Laboratory Tests 12/16/17 07:22: White Blood Count 13.0H, Red Blood Count 5.80, Hemoglobin 17.1, Hematocrit 49.8 , Mean Corpuscular Volume 86, Mean Corpuscular Hemoglobin 29.4, Mean Corpuscular Hemoglobin Concent 34.3, Red Cell Distribution Width 11.7, Platelet Count 166, Mean Platelet Volume 6.7, Neutrophils (%) (Auto) , Lymphocytes (%) ( Auto) , Monocytes (%) (Auto) , Eosinophils (%) (Auto) , Basophils (%) (Auto) , Differential Total Cells Counted 100, Neutrophils % (Manual) 85H, Lymphocytes % (Manual) 9L, Monocytes % (Manual) 6, Eosinophils % (Manual) 0, Basophils % ( Manual) 0, Band Neutrophils 0, Platelet Estimate Adequate, Platelet Morphology Normal, Red Blood Cell Morphology Normal, Sodium Level 133L, Potassium Level 4.3 , Chloride Level 103, Carbon Dioxide Level 23, Anion Gap 7, Blood Urea Nitrogen 28H, Creatinine 1.4H, Estimat Glomerular Filtration Rate 51.2, Glucose Level 316H, Calcium Level 8.1L, Total Bilirubin 0.7, Aspartate Amino Transf (AST/SGOT ) 8L, Alanine Aminotransferase (ALT/SGPT) 17, Alkaline Phosphatase 80, Pro-B- Type Natriuretic Peptide 470H, Total Protein 5.8L, Albumin 2.6L, Globulin 3.2, Albumin/Globulin Ratio 0.8L Current Medications Medications (Trade) Dose Ordered Sig/Svetlana Route PRN Reason Start Time Stop Time Status Last Admin Dose Admin Albuterol/ Ipratropium (Albuterol/ Ipratropium) 3 ml Q4H PRN HHN DYSPNEA 12/15/17 20:00 12/20/17 19:59 12/15/17 21:42 Benztropine Mesylate (Cogentin) 1 mg BID ORAL 12/12/17 12:30 01/11/18 12:29 12/16/17 09:12 Clonazepam (KlonoPIN) 1 mg BEDTIME ORAL 12/12/17 21:00 12/19/17 20:59 12/15/17 21:26 Dextrose (Dextrose 50%) STAT PRN IV Hypoglycemia 12/10/17 06:30 01/09/18 06:29 Dextrose (Dextrose 50%) STAT PRN IV Hypoglycemia 12/10/17 06:30 01/09/18 06:29 Finasteride (Proscar) 5 mg DAILY ORAL 12/10/17 09:00 01/09/18 08:59 12/16/17 09:12 Heparin Sodium (Porcine) (Heparin 5000 units/ml) 5,000 units EVERY 12 HOURS SUBQ 12/10/17 09:00 01/09/18 08:59 12/16/17 09:14 Insulin Aspart (NovoLOG) BEFORE MEALS AND HS SUBQ 12/10/17 06:30 01/09/18 06:29 12/16/17 12:26 Urs[place] Carbonate (Ursina Carbonate) 300 mg QHS ORAL 12/10/17 21:00 01/09/18 20:59 12/15/17 21:25 Lorazepam (Ativan 2mg/ml 1ml) 0.5 mg Q4H PRN IV For Anxiety 12/10/17 06:30 12/17/17 06:29 Magnesium Hydroxide (Mom) 30 ml DAILYPRN PRN ORAL Constipation 12/13/17 11:15 01/12/18 11:14 12/13/17 17:29 Methylprednisolone Sodium Succinate (Solu-MEDROL) 60 mg EVERY 6 HOURS IV 12/10/17 12:00 01/09/18 11:59 12/16/17 12:23 Nitroglycerin (Ntg) 0.4 mg Q5M X 3 DOSES PRN SL Prn Chest Pain 12/10/17 06:30 01/09/18 06:29 Ondansetron HCl (Zofran) 4 mg Q6H PRN IVP Nausea & Vomiting 12/10/17 06:30 01/09/18 06:29 12/10/17 10:15 Piperacillin Sod/ Tazobactam Sod 3.375 gm/Dextrose 110 ml @ 27.5 mls/hr Q8H IVPB 12/10/17 09:00 12/17/17 08:59 12/16/17 09:12 Quetiapine Fumarate (SEROquel) 300 mg BEDTIME ORAL 12/12/17 21:00 01/11/18 20:59 12/15/17 21:25 Tamsulosin HCl (Flomax) 0.4 mg DAILY ORAL 12/10/17 09:00 01/09/18 08:59 12/16/17 09:12 Temazepam (Restoril) 15 mg HSPRN PRN ORAL Insomnia 12/10/17 06:30 12/17/17 06:29 Theophylline (Jey-Dur) 100 mg EVERY 12 HOURS ORAL 12/10/17 09:00 01/09/18 08:59 12/16/17 09:12 Trazodone HCl (Desyrel) 300 mg BEDTIME ORAL 12/10/17 21:00 01/09/18 20:59 12/15/17 21:26 Heidi Owens MD Dec 16, 2017 13:27
[2017-12-16 16:26] VITALS: BP 121/75
--- NOTE | 2017-12-16 17:49 | Consultation ---
History of Present Illness General Date patient seen: Dec 16, 2017 Chief Complaint: Dyspnea/Respdistress Present Illness HPI 62 y /o M with hx of asthma, schizophrenia, HTN, Heart disease presents to ED on 12/09 with 1 day of SOB not improving with inhalers, non productive cough, wheezing Denied n/v upon admissions refers feels now about 100% better compared when he was admitted. Allergies: Coded Allergies: SULFA (SULFONAMIDE ANTIBIOTICS) (Unverified Allergy, Intermediate, hives, 12/10/17) CODEINE (Verified Allergy, Unknown, ABD IRRITATION, 12/10/17) SULFONYLUREAS (Verified Allergy, Unknown, RASH, 12/10/17) Medication History Scheduled Albuterol Sulfate (Ventolin Hfa), 2 PUFFS INH EVERY 4 HOURS, (Reported) Aripiprazole* (Abilify*), 30 MG PO DAILY, (Reported) Azithromycin* (Zithromax*), 250 MG ORAL DAILY Ciprofloxacin Hcl* (Ciprofloxacin Hcl*), 500 MG ORAL Q12H Clonazepam* (Klonopin*), 2 MG PO DAILY, (Reported) Esomeprazole Magnesium (Nexium), 40 MG PO DAILY, (Reported) Finasteride* (Proscar*), 5 MG ORAL DAILY, (Reported) Fluticasone Propionate* (Fluticasone Propionate*), 1 SPRAY NASAL TWICE A DAY, ( Reported) Castana Carbonate* (Castana*), 300 MG ORAL QHS, (Reported) Metformin Hcl* (Glucophage*), 500 MG PO DAILY, (Reported) Methocarbamol* (Robaxin*), 500 MG PO QID Multivitamins* (Multivitamins*), 1 EACH PO DAILY, (Reported) Olanzapine* (Zyprexa*), 10 MG ORAL DAILY, (Reported) Omeprazole (Omeprazole), 40 MG ORAL DAILY, (Reported) Prednisone* (Prednisone*), 40 MG ORAL DAILY Quetiapine Fumarate* (Seroquel*), 300 MG PO DAILY, (Reported) Rosuvastatin Calcium* (Crestor*), 5 MG ORAL DAILY, (Reported) Simvastatin (Zocor), 20 MG PO QHS, (Reported) Tamsulosin HCl (Flomax), 0.4 MG PO DAILY, (Reported) Tamsulosin Hcl (Tamsulosin Hcl*), 0.4 MG ORAL BEDTIME, (Reported) Tolterodine Tartrate* (Detrol*), 1 MG ORAL TWICE A DAY, (Reported) Trazodone* (Trazodone*), 300 MG ORAL BEDTIME, (Reported) Scheduled PRN Albuterol Sulfate* (Albuterol Sulfate Mdi*), 2 PUFF INH Q4H PRN for Shortness of Breath Hydrocodone Bit/Acetaminophen 5-325* ([place] 5-325*), 1 TAB ORAL Q4H PRN for For Pain, (Reported) Ibuprofen* (Motrin*), 600 MG ORAL Q8H PRN for For Pain Lorazepam* (Lorazepam*), 1 MG ORAL Q6HR PRN for For Anxiety, (Reported) Ondansetron (Zofran), 4 MG ORAL BID PRN for Nausea & Vomiting Temazepam* (Temazepam*), 30 MG ORAL BEDTIME PRN for Insomnia, (Reported) Patient History Healthcare decision maker MARIA WASHINGTON ALAN Resuscitation status Full Code Advanced Directive on File No Patient History Narrative Pmhx: as above Shx: reviewed Fhx: non contributory Review of Systems All Other Systems: negative except mentioned in HPI Physical Exam Physical Exam Narrative GENERAL: No distress. LUNGS: Decreased breath sounds. Some crackles noted. CARDIOVASCULAR: Regular rate. No S3 or S4. ABDOMEN: Soft, nontender, and nondistended. EXTREMITIES: No cyanosis, swelling, or edema. Last 24 Hour Vital Signs Date Time Temp Pulse Resp B/P (MAP) Pulse Ox O2 Delivery O2 Flow Rate FiO2 12/16/17 16:26 97.8 86 20 121/75 98 97.8 12/16/17 11:29 97.8 81 20 122/76 95 97.8 12/16/17 08:45 63 20 Nasal Cannula 2.0 28 12/16/17 08:45 Nasal Cannula 2.0 28 12/16/17 08:45 92 Nasal Cannula 2.0 28 12/16/17 08:12 97.7 88 20 119/82 95 Room Air 97.7 12/16/17 04:00 98.4 80 17 120/74 92 Nasal Cannula 2.0 98.4 12/16/17 00:00 98.7 68 20 140/79 94 Nasal Cannula 2.0 98.7 12/15/17 21:51 63 20 98 Nasal Cannula 2.0 12/15/17 21:44 95 Nasal Cannula 2.0 12/15/17 21:44 Nasal Cannula 2.0 12/15/17 21:44 72 20 95 Nasal Cannula 2.0 12/15/17 21:43 76 20 Nasal Cannula 2.0 12/15/17 20:00 97.7 66 18 144/91 93 Nasal Cannula 2.0 97.7 Intake and Output 12/15/17 12/16/17 19:00 07:00 Intake Total 710.0 ml 360.0 ml Output Total 1000 ml 350 ml Balance -290.0 ml 10.0 ml Intake Oral 600 ml 250 ml IV Total 110.0 ml 110.0 ml Output Urine Total 1000 ml 350 ml # Voids 2 4 Laboratory Tests Test 12/16/17 07:22 White Blood Count 13.0 K/UL (4.8-10.8) H Red Blood Count 5.80 M/UL (4.70-6.10) Hemoglobin 17.1 G/DL (14.2-18.0) Hematocrit 49.8 % (42.0-52.0) Mean Corpuscular Volume 86 FL (80-99) Mean Corpuscular Hemoglobin 29.4 PG (27.0-31.0) Mean Corpuscular Hemoglobin Concent 34.3 G/DL (32.0-36.0) Red Cell Distribution Width 11.7 % (11.6-14.8) Platelet Count 166 K/UL (150-450) Mean Platelet Volume 6.7 FL (6.5-10.1) Neutrophils (%) (Auto) % (45.0-75.0) Lymphocytes (%) (Auto) % (20.0-45.0) Monocytes (%) (Auto) % (1.0-10.0) Eosinophils (%) (Auto) % (0.0-3.0) Basophils (%) (Auto) % (0.0-2.0) Differential Total Cells Counted 100 Neutrophils % (Manual) 85 % (45-75) H Lymphocytes % (Manual) 9 % (20-45) L Monocytes % (Manual) 6 % (1-10) Eosinophils % (Manual) 0 % (0-3) Basophils % (Manual) 0 % (0-2) Band Neutrophils 0 % (0-8) Platelet Estimate Adequate Platelet Morphology Normal Red Blood Cell Morphology Normal Sodium Level 133 MMOL/L (136-145) L Potassium Level 4.3 MMOL/L (3.5-5.1) Chloride Level 103 MMOL/L (98-107) Carbon Dioxide Level 23 MMOL/L (21-32) Anion Gap 7 mmol/L (5-15) Blood Urea Nitrogen 28 mg/dL (7-18) H Creatinine 1.4 MG/DL (0.55-1.30) H Estimat Glomerular Filtration Rate 51.2 mL/min (>60) Glucose Level 316 MG/DL (74-106) H Calcium Level 8.1 MG/DL (8.5-10.1) L Total Bilirubin 0.7 MG/DL (0.2-1.0) Aspartate Amino Transf (AST/SGOT) 8 U/L (15-37) L Alanine Aminotransferase (ALT/SGPT) 17 U/L (12-78) Alkaline Phosphatase 80 U/L (46-116) Pro-B-Type Natriuretic Peptide 470 pg/mL (0-125) H Total Protein 5.8 G/DL (6.4-8.2) L Albumin 2.6 G/DL (3.4-5.0) L Globulin 3.2 g/dL Albumin/Globulin Ratio 0.8 (1.0-2.7) L Height (Feet): 5 Height (Inches): 11.00 Weight (Pounds): 214 Medications Current Medications Medications (Trade) Dose Ordered Sig/Svetlana Route PRN Reason Start Time Stop Time Status Last Admin Dose Admin Albuterol/ Ipratropium (Albuterol/ Ipratropium) 3 ml Q4H PRN HHN DYSPNEA 12/15/17 20:00 12/20/17 19:59 12/15/17 21:42 Benztropine Mesylate (Cogentin) 1 mg BID ORAL 12/12/17 12:30 01/11/18 12:29 12/16/17 17:24 Clonazepam (KlonoPIN) 1 mg BEDTIME ORAL 12/12/17 21:00 12/19/17 20:59 12/15/17 21:26 Dextrose (Dextrose 50%) STAT PRN IV Hypoglycemia 12/10/17 06:30 01/09/18 06:29 Dextrose (Dextrose 50%) STAT PRN IV Hypoglycemia 12/10/17 06:30 01/09/18 06:29 Finasteride (Proscar) 5 mg DAILY ORAL 12/10/17 09:00 01/09/18 08:59 12/16/17 09:12 Heparin Sodium (Porcine) (Heparin 5000 units/ml) 5,000 units EVERY 12 HOURS SUBQ 12/10/17 09:00 01/09/18 08:59 12/16/17 09:14 Insulin Aspart (NovoLOG) BEFORE MEALS AND HS SUBQ 12/10/17 06:30 01/09/18 06:29 12/16/17 17:25 Castana Carbonate (Castana Carbonate) 300 mg QHS ORAL 12/10/17 21:00 01/09/18 20:59 12/15/17 21:25 Lorazepam (Ativan 2mg/ml 1ml) 0.5 mg Q4H PRN IV For Anxiety 12/10/17 06:30 12/17/17 06:29 Magnesium Hydroxide (Mom) 30 ml DAILYPRN PRN ORAL Constipation 12/13/17 11:15 01/12/18 11:14 12/13/17 17:29 Methylprednisolone Sodium Succinate (Solu-MEDROL) 60 mg DAILY IV 12/17/17 09:00 01/09/18 11:59 Nitroglycerin (Ntg) 0.4 mg Q5M X 3 DOSES PRN SL Prn Chest Pain 12/10/17 06:30 01/09/18 06:29 Ondansetron HCl (Zofran) 4 mg Q6H PRN IVP Nausea & Vomiting 12/10/17 06:30 01/09/18 06:29 12/10/17 10:15 Piperacillin Sod/ Tazobactam Sod 3.375 gm/Dextrose 110 ml @ 27.5 mls/hr Q8H IVPB 12/10/17 09:00 12/17/17 08:59 12/16/17 09:12 Quetiapine Fumarate (SEROquel) 300 mg BEDTIME ORAL 12/12/17 21:00 01/11/18 20:59 12/15/17 21:25 Tamsulosin HCl (Flomax) 0.4 mg DAILY ORAL 12/10/17 09:00 01/09/18 08:59 12/16/17 09:12 Temazepam (Restoril) 15 mg HSPRN PRN ORAL Insomnia 12/10/17 06:30 12/17/17 06:29 Theophylline (Jey-Dur) 100 mg EVERY 12 HOURS ORAL 12/10/17 09:00 01/09/18 08:59 12/16/17 09:12 Trazodone HCl (Desyrel) 300 mg BEDTIME ORAL 12/10/17 21:00 01/09/18 20:59 12/15/17 21:26 Assessment/Plan Assessment/Plan Abx: Zosyn 12/10- Assessment: Acute bronchitis; much improved -CXR: There is new or increased atelectasis and pleural fluid at the left lung base. Previously demonstrated right costophrenic angle blunting has decreased but persists. -sp cx normal nitesh Leukocytosis, mild- likely related to high dose steroids -u./a no pyuria -afebrile Plan: -D/c Zosyn #7 and monitor off abx -ok to discharge home tomorrow off abx -f/u cx -Monitor CBC/BMP, temperatures -Trend WBC Thank you for this consultation. Will continue to follow along with you. Discussed with Keisha Corrales M.D. Dec 16, 2017 17:49
[2017-12-16 20:00] VITALS: BP 126/81
[2017-12-16] MEDS: TraZODone 100mg tab ORAL SCH (20:37)
[2017-12-16] MEDS: QUEtiapine 200mg tab ORAL SCH (20:37)
[2017-12-17] VITALS: BP 124/82
[2017-12-17 04:00] VITALS: BP 116/63
[2017-12-17] MEDS: NovoLOG Insulin Flexpen SUBQ SCH ×2 (05:53→12:28)
[2017-12-17 06:27] LABS: EOSINOPHILS % (AUTO) 0.1 % (0.0-3.0); HEMATOCRIT 48.9 % (42.0-52.0); HEMOGLOBIN 16.6 G/DL (14.2-18.0); MEAN CORPUSCULAR VOLUME 86 FL (80-99); MONOCYTES % (AUTO) 8.7 % (1.0-10.0); NEUTROPHILS % (AUTO) 83.2 % (45.0-75.0); PLATELET COUNT 151 K/UL (150-450); RED CELL DISTRIBUTION WIDTH 11.5 % (11.6-14.8); WHITE BLOOD COUNT 14.4 K/UL (4.8-10.8)
[2017-12-17 06:56] LABS: ANION GAP 7 mmol/L (5-15); BLOOD UREA NITROGEN 34 mg/dL (7-18); CALCIUM 8.2 MG/DL (8.5-10.1); CARBON DIOXIDE 25 MMOL/L (21-32); CHLORIDE 105 MMOL/L (98-107); CREATININE 1.2 MG/DL (0.55-1.30); POTASSIUM 4.3 MMOL/L (3.5-5.1); SODIUM 137 MMOL/L (136-145)
[2017-12-17 08:00] VITALS: BP 109/65
[2017-12-17] MEDS: Benztropine 1mg tab ORAL SCH (08:58)
[2017-12-17] MEDS: Theophylline ER 100mg ORAL SCH (08:59)
[2017-12-17] MEDS: Tamsulosin 0.4mg cap ORAL SCH (08:59)
[2017-12-17] MEDS: Heparin 5000 units/ml inj SUBQ SCH (09:00)
[2017-12-17] MEDS ORDERED: Solu-MEDROL 125mg Inj IV SCH (09:00)
[2017-12-17 12:00] VITALS: BP 138/86
[2017-12-17 13:07] VITALS: BP 138/86
--- NOTE | 2017-12-17 13:24 | Pulmonology Progress Note ---
Assessment/Plan Problems: (1) Nosocomial pneumonia (2) Bronchitis (3) Asthma with acute exacerbation (4) Psychiatric diagnosis Assessment/Plan improving taper steroids to dc respiratory treatment check sputum, negativ check cxr reviewed chest pt titrate fio2 to sat of 92% dvt prophylaxis. Subjective ROS Limited/Unobtainable: No Constitutional: Reports: no symptoms HEENT: Repors: no symptoms Allergies: Coded Allergies: SULFA (SULFONAMIDE ANTIBIOTICS) (Unverified Allergy, Intermediate, hives, 12/10/17) CODEINE (Verified Allergy, Unknown, ABD IRRITATION, 12/10/17) SULFONYLUREAS (Verified Allergy, Unknown, RASH, 12/10/17) Objective Last 24 Hour Vital Signs Date Time Temp Pulse Resp B/P (MAP) Pulse Ox O2 Delivery O2 Flow Rate FiO2 12/17/17 13:07 96.9 56 20 138/86 96 Room Air 96.9 12/17/17 12:00 96.9 56 20 138/86 96 Room Air 96.9 12/17/17 09:15 95 Room Air 21 12/17/17 09:15 Room Air 21 12/17/17 09:15 65 20 Room Air 21 12/17/17 08:00 97.5 57 18 109/65 92 Room Air 97.5 12/17/17 04:00 97.9 63 18 116/63 98 Room Air 97.9 12/17/17 00:00 98.8 82 19 124/82 98 Room Air 98.8 12/16/17 20:00 98.1 85 20 126/81 97 Room Air 98.1 12/16/17 19:08 94 Nasal Cannula 2.0 28 12/16/17 19:08 Nasal Cannula 2.0 28 12/16/17 19:08 71 20 Nasal Cannula 2.0 28 12/16/17 16:26 97.8 86 20 121/75 98 97.8 Intake and Output 12/16/17 12/17/17 19:00 07:00 Intake Total 940 ml Output Total 800 ml 950 ml Balance 140 ml -950 ml Intake Oral 940 ml Output Urine Total 800 ml 950 ml # Voids 2 Objective General Appearance: WD/WN Lines, tubes and drains: peripheral HEENT: normocephalic, anicteric Neck: non-tender, normal alignment Respiratory/Chest: chest wall non-tender, rhonchi - left, rhonchi - right Cardiovascular/Chest: normal peripheral pulses, normal rate Genitourinary/Rectal: normal genital exam Extremities: normal range of motion, non-tender Skin Exam: normal pigmentation Laboratory Tests 12/17/17 05:40: White Blood Count 14.4H, Red Blood Count 5.70, Hemoglobin 16.6, Hematocrit 48.9 , Mean Corpuscular Volume 86, Mean Corpuscular Hemoglobin 29.2, Mean Corpuscular Hemoglobin Concent 34.1, Red Cell Distribution Width 11.5L, Platelet Count 151, Mean Platelet Volume 6.4L, Neutrophils (%) (Auto) 83.2H, Lymphocytes (%) (Auto) 7.0L, Monocytes (%) (Auto) 8.7, Eosinophils (%) (Auto) 0.1, Basophils (%) (Auto) 1.0, Sodium Level 137, Potassium Level 4.3, Chloride Level 105, Carbon Dioxide Level 25, Anion Gap 7, Blood Urea Nitrogen 34H, Creatinine 1.2, Estimat Glomerular Filtration Rate > 60, Glucose Level 201#H, Calcium Level 8.2L Current Medications Medications (Trade) Dose Ordered Sig/Svetlana Route PRN Reason Start Time Stop Time Status Last Admin Dose Admin Albuterol/ Ipratropium (Albuterol/ Ipratropium) 3 ml Q4H PRN HHN DYSPNEA 12/15/17 20:00 12/20/17 19:59 12/15/17 21:42 Benztropine Mesylate (Cogentin) 1 mg BID ORAL 12/12/17 12:30 01/11/18 12:29 12/17/17 08:58 Clonazepam (KlonoPIN) 1 mg BEDTIME ORAL 12/12/17 21:00 12/19/17 20:59 12/16/17 20:37 Dextrose (Dextrose 50%) STAT PRN IV Hypoglycemia 12/10/17 06:30 01/09/18 06:29 Dextrose (Dextrose 50%) STAT PRN IV Hypoglycemia 12/10/17 06:30 01/09/18 06:29 Finasteride (Proscar) 5 mg DAILY ORAL 12/10/17 09:00 01/09/18 08:59 12/17/17 08:59 Heparin Sodium (Porcine) (Heparin 5000 units/ml) 5,000 units EVERY 12 HOURS SUBQ 12/10/17 09:00 01/09/18 08:59 12/17/17 09:00 Insulin Aspart (NovoLOG) BEFORE MEALS AND HS SUBQ 12/10/17 06:30 01/09/18 06:29 12/17/17 12:28 [place] Carbonate ([place] Carbonate) 300 mg QHS ORAL 12/10/17 21:00 01/09/18 20:59 12/16/17 21:23 Magnesium Hydroxide (Mom) 30 ml DAILYPRN PRN ORAL Constipation 12/13/17 11:15 01/12/18 11:14 12/13/17 17:29 Methylprednisolone Sodium Succinate (Solu-MEDROL) 60 mg DAILY IV 12/17/17 09:00 01/09/18 11:59 12/17/17 08:58 Nitroglycerin (Ntg) 0.4 mg Q5M X 3 DOSES PRN SL Prn Chest Pain 12/10/17 06:30 01/09/18 06:29 Ondansetron HCl (Zofran) 4 mg Q6H PRN IVP Nausea & Vomiting 12/10/17 06:30 01/09/18 06:29 12/10/17 10:15 Quetiapine Fumarate (SEROquel) 300 mg BEDTIME ORAL 12/12/17 21:00 01/11/18 20:59 12/16/17 20:37 Tamsulosin HCl (Flomax) 0.4 mg DAILY ORAL 12/10/17 09:00 01/09/18 08:59 12/17/17 08:59 Theophylline (Jey-Dur) 100 mg EVERY 12 HOURS ORAL 12/10/17 09:00 01/09/18 08:59 12/17/17 08:59 Trazodone HCl (Desyrel) 300 mg BEDTIME ORAL 12/10/17 21:00 01/09/18 20:59 12/16/17 20:37 Heidi Owens MD Dec 17, 2017 13:24
--- NOTE | 2017-12-17 13:26 | General Progress Note ---
Assessment/Plan Status: doing well, stable, ambulating well Assessment/Plan #. Leukocytosis secondary to steroids. --> monitor for infection --> on abx --> elevated wbc due to steroids #. LLeukopenia is likely related to reactive process --> peripheral smear reviewed, no abnormalities #. Asthma exacerbation. --> on steroids, antibiotics, inhaler --> breathing has improved. --> 12/16/17 chest xr: There are increased left basilar pleural fluid and atelectasis, since 12/10/2017. Improved right-sided pleural effusion #. Urinary tract infection. --> Currently, on broad-spectrum antibiotics including Zosyn. #. Weakness and fatigue, likely related to underlying shortness of breath. #. Psychiatric disorder. Schizophrenia being managed by Psychiatry. Subjective Date patient seen: Dec 17, 2017 ROS Limited/Unobtainable: Yes Allergies: Coded Allergies: SULFA (SULFONAMIDE ANTIBIOTICS) (Unverified Allergy, Intermediate, hives, 12/10/17) CODEINE (Verified Allergy, Unknown, ABD IRRITATION, 12/10/17) SULFONYLUREAS (Verified Allergy, Unknown, RASH, 12/10/17) All Systems: reviewed and negative except above Subjective No acute overnight events. Pt is clinically stable and awaiting dc. Objective Last 24 Hour Vital Signs Date Time Temp Pulse Resp B/P (MAP) Pulse Ox O2 Delivery O2 Flow Rate FiO2 12/17/17 13:07 96.9 56 20 138/86 96 Room Air 96.9 12/17/17 12:00 96.9 56 20 138/86 96 Room Air 96.9 12/17/17 09:15 95 Room Air 21 12/17/17 09:15 Room Air 21 12/17/17 09:15 65 20 Room Air 21 12/17/17 08:00 97.5 57 18 109/65 92 Room Air 97.5 12/17/17 04:00 97.9 63 18 116/63 98 Room Air 97.9 12/17/17 00:00 98.8 82 19 124/82 98 Room Air 98.8 12/16/17 20:00 98.1 85 20 126/81 97 Room Air 98.1 12/16/17 19:08 94 Nasal Cannula 2.0 28 12/16/17 19:08 Nasal Cannula 2.0 28 12/16/17 19:08 71 20 Nasal Cannula 2.0 28 12/16/17 16:26 97.8 86 20 121/75 98 97.8 Intake and Output 12/16/17 12/17/17 19:00 07:00 Intake Total 940 ml Output Total 800 ml 950 ml Balance 140 ml -950 ml Intake Oral 940 ml Output Urine Total 800 ml 950 ml # Voids 2 Laboratory Tests 12/17/17 05:40: White Blood Count 14.4H, Red Blood Count 5.70, Hemoglobin 16.6, Hematocrit 48.9 , Mean Corpuscular Volume 86, Mean Corpuscular Hemoglobin 29.2, Mean Corpuscular Hemoglobin Concent 34.1, Red Cell Distribution Width 11.5L, Platelet Count 151, Mean Platelet Volume 6.4L, Neutrophils (%) (Auto) 83.2H, Lymphocytes (%) (Auto) 7.0L, Monocytes (%) (Auto) 8.7, Eosinophils (%) (Auto) 0.1, Basophils (%) (Auto) 1.0, Sodium Level 137, Potassium Level 4.3, Chloride Level 105, Carbon Dioxide Level 25, Anion Gap 7, Blood Urea Nitrogen 34H, Creatinine 1.2, Estimat Glomerular Filtration Rate > 60, Glucose Level 201#H, Calcium Level 8.2L Height (Feet): 5 Height (Inches): 11.00 Weight (Pounds): 214 General Appearance: no apparent distress, alert EENT: PERRL/EOMI Neck: normal alignment, supple Cardiovascular: normal peripheral pulses Respiratory/Chest: normal breath sounds, no respiratory distress Abdomen: soft Jevon Ley MD Dec 17, 2017 13:26
--- NOTE | 2017-12-17 13:53 | Infectious Diseases Prog Note ---
Assessment/Plan Assessment/Plan Assessment: Acute bronchitis; much improved -CXR: There is new or increased atelectasis and pleural fluid at the left lung base. Previously demonstrated right costophrenic angle blunting has decreased but persists. -sp cx normal nitesh Leukocytosis, mild- likely related to high dose steroids -u./a no pyuria -afebrile Plan: -Continue monitor off abx; ok to discharge from ID perspective -12/16 SP Mario Alberton #7 -Monitor CBC/BMP, temperatures -Trend WBC Thank you for this consultation. Will continue to follow along with you. Discussed with RN. Subjective Allergies: Coded Allergies: SULFA (SULFONAMIDE ANTIBIOTICS) (Unverified Allergy, Intermediate, hives, 12/10/17) CODEINE (Verified Allergy, Unknown, ABD IRRITATION, 12/10/17) SULFONYLUREAS (Verified Allergy, Unknown, RASH, 12/10/17) Subjective afebrile WBC 14 at RA feeling much improved Objective Vital Signs Last 24 Hour Vital Signs Date Time Temp Pulse Resp B/P (MAP) Pulse Ox O2 Delivery O2 Flow Rate FiO2 12/17/17 13:07 96.9 56 20 138/86 96 Room Air 96.9 12/17/17 12:00 96.9 56 20 138/86 96 Room Air 96.9 12/17/17 09:15 95 Room Air 21 12/17/17 09:15 Room Air 21 12/17/17 09:15 65 20 Room Air 21 12/17/17 08:00 97.5 57 18 109/65 92 Room Air 97.5 12/17/17 04:00 97.9 63 18 116/63 98 Room Air 97.9 12/17/17 00:00 98.8 82 19 124/82 98 Room Air 98.8 12/16/17 20:00 98.1 85 20 126/81 97 Room Air 98.1 12/16/17 19:08 94 Nasal Cannula 2.0 28 12/16/17 19:08 Nasal Cannula 2.0 28 12/16/17 19:08 71 20 Nasal Cannula 2.0 28 12/16/17 16:26 97.8 86 20 121/75 98 97.8 Height (Feet): 5 Height (Inches): 11.00 Weight (Pounds): 214 Objective GENERAL: No distress. LUNGS: Decreased breath sounds. Some crackles noted. CARDIOVASCULAR: Regular rate. No S3 or S4. ABDOMEN: Soft, nontender, and nondistended. EXTREMITIES: No cyanosis, swelling, or edema. Laboratory Tests Test 12/17/17 05:40 White Blood Count 14.4 K/UL (4.8-10.8) H Red Blood Count 5.70 M/UL (4.70-6.10) Hemoglobin 16.6 G/DL (14.2-18.0) Hematocrit 48.9 % (42.0-52.0) Mean Corpuscular Volume 86 FL (80-99) Mean Corpuscular Hemoglobin 29.2 PG (27.0-31.0) Mean Corpuscular Hemoglobin Concent 34.1 G/DL (32.0-36.0) Red Cell Distribution Width 11.5 % (11.6-14.8) L Platelet Count 151 K/UL (150-450) Mean Platelet Volume 6.4 FL (6.5-10.1) L Neutrophils (%) (Auto) 83.2 % (45.0-75.0) H Lymphocytes (%) (Auto) 7.0 % (20.0-45.0) L Monocytes (%) (Auto) 8.7 % (1.0-10.0) Eosinophils (%) (Auto) 0.1 % (0.0-3.0) Basophils (%) (Auto) 1.0 % (0.0-2.0) Sodium Level 137 MMOL/L (136-145) Potassium Level 4.3 MMOL/L (3.5-5.1) Chloride Level 105 MMOL/L (98-107) Carbon Dioxide Level 25 MMOL/L (21-32) Anion Gap 7 mmol/L (5-15) Blood Urea Nitrogen 34 mg/dL (7-18) H Creatinine 1.2 MG/DL (0.55-1.30) Estimat Glomerular Filtration Rate > 60 mL/min (>60) Glucose Level 201 MG/DL (74-106) #H Calcium Level 8.2 MG/DL (8.5-10.1) L Current Medications Medications (Trade) Dose Ordered Sig/Svetlana Route PRN Reason Start Time Stop Time Status Last Admin Dose Admin Albuterol/ Ipratropium (Albuterol/ Ipratropium) 3 ml Q4H PRN HHN DYSPNEA 12/15/17 20:00 12/20/17 19:59 12/15/17 21:42 Benztropine Mesylate (Cogentin) 1 mg BID ORAL 12/12/17 12:30 01/11/18 12:29 12/17/17 08:58 Clonazepam (KlonoPIN) 1 mg BEDTIME ORAL 12/12/17 21:00 12/19/17 20:59 12/16/17 20:37 Dextrose (Dextrose 50%) STAT PRN IV Hypoglycemia 12/10/17 06:30 01/09/18 06:29 Dextrose (Dextrose 50%) STAT PRN IV Hypoglycemia 12/10/17 06:30 01/09/18 06:29 Finasteride (Proscar) 5 mg DAILY ORAL 12/10/17 09:00 01/09/18 08:59 12/17/17 08:59 Heparin Sodium (Porcine) (Heparin 5000 units/ml) 5,000 units EVERY 12 HOURS SUBQ 12/10/17 09:00 01/09/18 08:59 12/17/17 09:00 Insulin Aspart (NovoLOG) BEFORE MEALS AND HS SUBQ 12/10/17 06:30 01/09/18 06:29 12/17/17 12:28 [place] Carbonate (Fl[place] Carbonate) 300 mg QHS ORAL 12/10/17 21:00 01/09/18 20:59 12/16/17 21:23 Magnesium Hydroxide (Mom) 30 ml DAILYPRN PRN ORAL Constipation 12/13/17 11:15 01/12/18 11:14 12/13/17 17:29 Methylprednisolone Sodium Succinate (Solu-MEDROL) 60 mg DAILY IV 12/17/17 09:00 01/09/18 11:59 12/17/17 08:58 Nitroglycerin (Ntg) 0.4 mg Q5M X 3 DOSES PRN SL Prn Chest Pain 12/10/17 06:30 01/09/18 06:29 Ondansetron HCl (Zofran) 4 mg Q6H PRN IVP Nausea & Vomiting 12/10/17 06:30 01/09/18 06:29 12/10/17 10:15 Quetiapine Fumarate (SEROquel) 300 mg BEDTIME ORAL 12/12/17 21:00 01/11/18 20:59 12/16/17 20:37 Tamsulosin HCl (Flomax) 0.4 mg DAILY ORAL 12/10/17 09:00 01/09/18 08:59 12/17/17 08:59 Theophylline (Jey-Dur) 100 mg EVERY 12 HOURS ORAL 12/10/17 09:00 01/09/18 08:59 12/17/17 08:59 Trazodone HCl (Desyrel) 300 mg BEDTIME ORAL 12/10/17 21:00 01/09/18 20:59 12/16/17 20:37 Keisha Oconnell M.D. Dec 17, 2017 13:53
--- NOTE | 2017-12-17 13:54 | General Progress Note ---
Assessment/Plan Problem List: (1) UTI (urinary tract infection) ICD Codes: N39.0 - Urinary tract infection, site not specified SNOMED: 01803132 (2) Weak ICD Codes: R53.1 - Weakness SNOMED: 89430459 (3) Psychiatric diagnosis ICD Codes: F99 - Mental disorder, not otherwise specified SNOMED: 93436059, 648418513 (4) Asthma with acute exacerbation ICD Codes: J45.901 - Unspecified asthma with (acute) exacerbation SNOMED: 459052819 Qualifiers: Qualified Codes: J45.901 - Unspecified asthma with (acute) exacerbation Status: stable, progressing Assessment/Plan ot pt diet o2 pulm tx cbc bmp am Subjective Constitutional: Reports: weakness Allergies: Coded Allergies: SULFA (SULFONAMIDE ANTIBIOTICS) (Unverified Allergy, Intermediate, hives, 12/10/17) CODEINE (Verified Allergy, Unknown, ABD IRRITATION, 12/10/17) SULFONYLUREAS (Verified Allergy, Unknown, RASH, 12/10/17) All Systems: reviewed and negative except above Subjective sleepy calm in bed Objective Last 24 Hour Vital Signs Date Time Temp Pulse Resp B/P (MAP) Pulse Ox O2 Delivery O2 Flow Rate FiO2 12/17/17 13:07 96.9 56 20 138/86 96 Room Air 96.9 12/17/17 12:00 96.9 56 20 138/86 96 Room Air 96.9 12/17/17 09:15 95 Room Air 21 12/17/17 09:15 Room Air 21 12/17/17 09:15 65 20 Room Air 21 12/17/17 08:00 97.5 57 18 109/65 92 Room Air 97.5 12/17/17 04:00 97.9 63 18 116/63 98 Room Air 97.9 12/17/17 00:00 98.8 82 19 124/82 98 Room Air 98.8 12/16/17 20:00 98.1 85 20 126/81 97 Room Air 98.1 12/16/17 19:08 94 Nasal Cannula 2.0 28 12/16/17 19:08 Nasal Cannula 2.0 28 12/16/17 19:08 71 20 Nasal Cannula 2.0 28 12/16/17 16:26 97.8 86 20 121/75 98 97.8 Intake and Output 12/16/17 12/17/17 19:00 07:00 Intake Total 940 ml Output Total 800 ml 950 ml Balance 140 ml -950 ml Intake Oral 940 ml Output Urine Total 800 ml 950 ml # Voids 2 Laboratory Tests 12/17/17 05:40: White Blood Count 14.4H, Red Blood Count 5.70, Hemoglobin 16.6, Hematocrit 48.9 , Mean Corpuscular Volume 86, Mean Corpuscular Hemoglobin 29.2, Mean Corpuscular Hemoglobin Concent 34.1, Red Cell Distribution Width 11.5L, Platelet Count 151, Mean Platelet Volume 6.4L, Neutrophils (%) (Auto) 83.2H, Lymphocytes (%) (Auto) 7.0L, Monocytes (%) (Auto) 8.7, Eosinophils (%) (Auto) 0.1, Basophils (%) (Auto) 1.0, Sodium Level 137, Potassium Level 4.3, Chloride Level 105, Carbon Dioxide Level 25, Anion Gap 7, Blood Urea Nitrogen 34H, Creatinine 1.2, Estimat Glomerular Filtration Rate > 60, Glucose Level 201#H, Calcium Level 8.2L Height (Feet): 5 Height (Inches): 11.00 Weight (Pounds): 214 General Appearance: lethargic EENT: normal ENT inspection Neck: normal alignment Cardiovascular: normal peripheral pulses, normal rate, regular rhythm Respiratory/Chest: chest wall non-tender, lungs clear, normal breath sounds Abdomen: normal bowel sounds, non tender, soft Extremities: normal inspection Edema: no edema noted Arm (L), no edema noted Arm (R), no edema noted Leg (L), no edema noted Leg (R), no edema noted Pedal (L), no edema noted Pedal (R), no edema noted Generalized Neurologic: motor weakness Skin: normal pigmentation, warm/dry Angel Velasco DO Dec 17, 2017 13:54
--- NOTE | 2017-12-17 23:12 | General Progress Note ---
Assessment/Plan Assessment/Plan Schizophrenia MDD change the klonopin to [facility] [place] jen start Seroquel 300mg Subjective Date patient seen: Dec 17, 2017 Neurologic/Psychiatric: Reports: anxiety, depressed, emotional problems Allergies: Coded Allergies: SULFA (SULFONAMIDE ANTIBIOTICS) (Unverified Allergy, Intermediate, hives, 12/10/17) CODEINE (Verified Allergy, Unknown, ABD IRRITATION, 12/10/17) SULFONYLUREAS (Verified Allergy, Unknown, RASH, 12/10/17) Objective Last 24 Hour Vital Signs Date Time Temp Pulse Resp B/P (MAP) Pulse Ox O2 Delivery O2 Flow Rate FiO2 12/17/17 13:07 96.9 56 20 138/86 96 Room Air 96.9 12/17/17 12:00 96.9 56 20 138/86 96 Room Air 96.9 12/17/17 09:15 95 Room Air 21 12/17/17 09:15 Room Air 21 12/17/17 09:15 65 20 Room Air 21 12/17/17 08:00 97.5 57 18 109/65 92 Room Air 97.5 12/17/17 04:00 97.9 63 18 116/63 98 Room Air 97.9 12/17/17 00:00 98.8 82 19 124/82 98 Room Air 98.8 Intake and Output 12/16/17 12/17/17 19:00 07:00 Intake Total 940 ml Output Total 800 ml 950 ml Balance 140 ml -950 ml Intake Oral 940 ml Output Urine Total 800 ml 950 ml # Voids 2 Laboratory Tests 12/17/17 05:40: White Blood Count 14.4H, Red Blood Count 5.70, Hemoglobin 16.6, Hematocrit 48.9 , Mean Corpuscular Volume 86, Mean Corpuscular Hemoglobin 29.2, Mean Corpuscular Hemoglobin Concent 34.1, Red Cell Distribution Width 11.5L, Platelet Count 151, Mean Platelet Volume 6.4L, Neutrophils (%) (Auto) 83.2H, Lymphocytes (%) (Auto) 7.0L, Monocytes (%) (Auto) 8.7, Eosinophils (%) (Auto) 0.1, Basophils (%) (Auto) 1.0, Sodium Level 137, Potassium Level 4.3, Chloride Level 105, Carbon Dioxide Level 25, Anion Gap 7, Blood Urea Nitrogen 34H, Creatinine 1.2, Estimat Glomerular Filtration Rate > 60, Glucose Level 201#H, Calcium Level 8.2L Height (Feet): 5 Height (Inches): 11.00 Weight (Pounds): 214 General Appearance: no apparent distress, alert Neurologic: oriented x 3, responsive Clinton Brody M.D. Dec 17, 2017 23:11
--- NOTE | 2017-12-18 10:57 | Discharge Summary ---
Discharge Summary Discharge Summary _ DATE OF ADMISSION: 12/10/2017 DATE OF DISCHARGE: 12/17/2017 REASON FOR ADMISSION: 62 years old male with a history of asthma, hypertension, BPH, borderline diabetes , schizophrenia, presented to emergency department complaining of shortness of breath for one day. Inhalers did not help. He reported nonproductive cough and wheezing. He denied chest pain. Vital signs revealed tachypnea,and patient required placement on supplemental oxygen. Patient maintained appropriate pulse oximetry on oxygen via nasal cannula. Laboratory workup revealed no leukocytosis, stable hemoglobin and hematocrit, stable renal parameters and electrolytes. Troponin was negative. Pro BNP 68. EKG revealed normal sinus rhythm, no acute ischemic changes. Chest x-ray revealed right pleural effusion, no evidence of infiltrate. 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 Dr. Izquierdo pulmonary Dr. Owens [facility]/oncologist Dr. Ley psychiatrist [facility]: Patient admitted. Supplemental oxygen provided as needed to keep pulse oximetry above 92%. Pulmonary toilet provided. Patient started on IV steroids , which were gradually tapered . Sputum culture was negative. Patient was on empiric IV antibiotics. Antitussive provided as needed. Trial of theophylline started. Incentive spirometry was encouraged to use. DVT prophylaxis provided. Follow-up chest x-ray revealed decrease in right pleural effusion. Infectious disease doctor closely followed . Patient completed the course of antibiotic. Per ID recommendations, keep off antibiotic and monitor clinically. Patient had no fever but had leukocytosis, likely secondary to steroids, which were tapered down. Galley Stripper seen and evaluated patient. EKG revealed normal sinus rhythm, blood pressure stable , troponin negative, no complain of chest pain. Galley Stripper recommended outpatient ischemic evaluation cleared for discharge Director Statistical Programming closely followed. Leukocytosis likely reactive , secondary to steroids as per property management assistant . Psychiatrist closely followed. The patient started on Seroquel and psychiatric medication regimen was optimized . Reality orientation and supportive therapy provided. Home medications resumed. Flomax and Proscar were continued. Blood sugar was managed with sliding scale of insulin, stable Bowel regimen instituted. Pain management was addressed . Patient gradually improved and was stable for discharge back to assisted living. FINAL DIAGNOSES: Asthma with acute exacerbation Acute bronchitis Possible pneumonia Right pleural effusion, improving Hypertensive heart disease Diabetes mellitus Schizophrenia DISCHARGE MEDICATIONS: See Medication Reconciliation list. DISCHARGE INSTRUCTIONS: Patient was discharged to assisted living. Follow up with primary care provider in one week. I have been assigned to dictate discharge summary for this account. I was not involved in the patient's management. Idania Hi NP Dec 18, 2017 10:57
== END 2017-12-17 16:06 | disposition home or self-care (01) | DRG 202 ==
LOC: EDUNIT# 23:47 → EDBD 23:47 → EMR 23:59 → 4W 12-10 02:01 → EDBEDREQ 12-10 02:27
DX: J45.901 Unspecified asthma with (acute) exacerbation (principal); J18.9 Pneumonia, unspecified organism; N39.0 Urinary tract infection, site not specified; J91.8 Pleural effusion in other conditions classified elsewhere; J20.9 Acute bronchitis, unspecified; I11.9 Hypertensive heart disease without heart failure; D72.829 Elevated white blood cell count, unspecified; T38.0X5A Adverse effect of glucocorticoids and synthetic analogues, initial encounter; Y92.9 Unspecified place or not applicable; F20.9 Schizophrenia, unspecified; F32.9 Major depressive disorder, single episode, unspecified; N40.0 Benign prostatic hyperplasia without lower urinary tract symptoms; E11.9 Type 2 diabetes mellitus without complications
CPT/HCPCS: 36415; 71045; 80048; 80053; 81003; 82550; 82553; 82962; 83880; 84484; 85007; 85025; 87070; 87081; 87205; 93005; 94640; 94664; 94760; 97803; 99285; J1815; J2405; J7620

== ENCOUNTER 2018-02-10 16:32 | Inpatient (IN) | payer MEDICARE, MEDICAID ==
[~2018-02-10] VITALS: Ht 198.1 cm; Wt 102.1 kg
[~2018-02-10 16:32] MED LIST changes: +CRESTOR10 M2 ORAL; +DETROL2 MG ORAL; +FLUTICASONE PRO16 G1 NASAL; +LITHIUM CARBON300 MG ORAL; +LORAZEPAM1 MG ORAL; +NORCO 5-325 TA1 EACH ORAL; +OMEPRAZOLE40 M1 ORAL; +PROSCAR5 MG ORAL; +TAMSULOSIN HCL0.4 MG ORAL; +TEMAZEPAM30 MG ORAL; +TRAZODONE HCL150 MG ORAL; +VENTOLIN HFA18 GM INH; +ZYPREXA10 MG ORAL
--- NOTE | 2018-02-10 16:40 | Emergency Room Report ---
History of Present Illness General Chief Complaint: Generalized Weakness Source: Medical Record Present Illness HPI Patient is a 62-year-old male sent in by nursing facility after increased vomiting and diarrhea and generalized weakness. The patient denied any bloody stools. He was noted to have the multiple episodes of nonbilious nonbloody vomit. The patient reports feeling weak all over. Allergies: Coded Allergies: SULFA (SULFONAMIDE ANTIBIOTICS) (Unverified Allergy, Intermediate, hives, 12/10/17) CODEINE (Verified Allergy, Unknown, ABD IRRITATION, 12/10/17) SULFONYLUREAS (Verified Allergy, Unknown, RASH, 12/10/17) Patient History Reviewed Nursing Documentation: PMH: Agreed; PSxH: Agreed Nursing Documentation-PMH Hx Cardiac Problems: Yes Hx Hypertension: Yes Hx Asthma: Yes Hx Diabetes: Yes - BOARDERLINE DIABETES Hx Cancer: No Hx Headaches: Yes Review of Systems All Other Systems: negative except mentioned in HPI Physical Exam Vital Signs Date Time Temp Pulse Resp B/P (MAP) Pulse Ox O2 Delivery O2 Flow Rate FiO2 02/10/18 16:32 99.4 98 16 106/95 99 Room Air 99.3 Sp02 EP Interpretation: reviewed, normal General Appearance: normal inspection, alert, thin, Chronically Ill Head: atraumatic ENT: normal ENT inspection, hearing grossly normal, normal voice Neck: normal inspection, full range of motion, supple, no bony tend Respiratory: normal inspection, lungs clear, normal breath sounds, no respiratory distress, no retraction, no wheezing Cardiovascular #1: regular rate, rhythm, no edema Gastrointestinal: normal inspection, normal bowel sounds, non tender, soft, no guarding, no hernia Genitourinary: no CVA tenderness Musculoskeletal: normal inspection, back normal, normal range of motion Neurologic: normal inspection, alert, oriented x3, responsive, heater helper forge III-XII nml as tested, speech normal Psychiatric: normal inspection, mood/affect normal Skin: normal inspection, normal color, no rash Medical Decision Making Diagnostic Impression: Primary Impression: Abdominal pain Additional Impressions: Dehydration UTI (urinary tract infection) ER Course Patient presented for abdominal pain. Differential diagnoses included ischemic bowel, appendicitis, perforated viscus, abdominal aortic aneurysm, inferior myocardial infarction, viral gastroenteritis. Because of complexity of patient' s case laboratory testing and imaging studies were ordered.The laboratory studies showed evidence of elevated BUN/creatinine consistent with dehydration. He was started on IV fluids. The laboratory testing also showed evidence of urinary infection.Dr. Estella Martinez was contacted for inpatient management Labs Test 02/10/18 17:20 White Blood Count 6.2 K/UL (4.8-10.8) Red Blood Count 5.42 M/UL (4.70-6.10) Hemoglobin 15.7 G/DL (14.2-18.0) Hematocrit 45.4 % (42.0-52.0) Mean Corpuscular Volume 84 FL (80-99) Mean Corpuscular Hemoglobin 28.9 PG (27.0-31.0) Mean Corpuscular Hemoglobin Concent 34.5 G/DL (32.0-36.0) Red Cell Distribution Width 11.5 % (11.6-14.8) Platelet Count 127 K/UL (150-450) Mean Platelet Volume 5.6 FL (6.5-10.1) Neutrophils (%) (Auto) 69.4 % (45.0-75.0) Lymphocytes (%) (Auto) 14.2 % (20.0-45.0) Monocytes (%) (Auto) 14.7 % (1.0-10.0) Eosinophils (%) (Auto) 0.5 % (0.0-3.0) Basophils (%) (Auto) 1.2 % (0.0-2.0) Prothrombin Time 10.4 SEC (9.30-11.50) Prothromb Time International Ratio 1.0 (0.9-1.1) Activated Partial Thromboplast Time 31 SEC (23-33) Urine Color Brown Urine Appearance Clear Urine pH 6 (4.5-8.0) Urine Specific [place] 1.020 (1.005-1.035) Urine Protein 3+ (NEGATIVE) Urine Glucose (UA) Negative (NEGATIVE) Urine Ketones 2+ (NEGATIVE) Urine Occult Blood 4+ (NEGATIVE) Urine Nitrite Positive (NEGATIVE) Urine Bilirubin 1+ (NEGATIVE) Urine Ictotest Negative (NEGATIVE) Urine Urobilinogen 4 MG/DL (0.0-1.0) Urine Leukocyte Esterase 1+ (NEGATIVE) Urine RBC 5-10 /HPF (0 - 0) Urine WBC 2-4 /HPF (0 - 0) Urine Squamous Epithelial Cells None /LPF (NONE/OCC) Urine Amorphous Sediment Few /LPF (NONE) Urine Bacteria Few /HPF (NONE) Sodium Level 137 MMOL/L (136-145) Potassium Level 3.6 MMOL/L (3.5-5.1) Chloride Level 99 MMOL/L (98-107) Carbon Dioxide Level 28 MMOL/L (21-32) Anion Gap 10 mmol/L (5-15) Blood Urea Nitrogen 21 mg/dL (7-18) Creatinine 1.3 MG/DL (0.55-1.30) Estimat Glomerular Filtration Rate 55.8 mL/min (>60) Glucose Level 109 MG/DL (74-106) Calcium Level 9.0 MG/DL (8.5-10.1) Total Bilirubin 1.6 MG/DL (0.2-1.0) Direct Bilirubin 0.4 MG/DL (0.0-0.3) Aspartate Amino Transf (AST/SGOT) 32 U/L (15-37) Alanine Aminotransferase (ALT/SGPT) 26 U/L (12-78) Alkaline Phosphatase 89 U/L (46-116) Ammonia 13 umol/L (11-32) Troponin I 0.000 ng/mL (0.000-0.056) Total Protein 7.2 G/DL (6.4-8.2) Albumin 3.3 G/DL (3.4-5.0) Globulin 3.9 g/dL Albumin/Globulin Ratio 0.8 (1.0-2.7) Lipase 165 U/L (73-393) EKG Diagnostic Results Rate: normal - 95 Rhythm: NSR ST Segments: no acute changes Rhythm Strip Diag. Results EP Interpretation: yes Rhythm: NSR, no PVC's, no ectopy Last Vital Signs Date Time Temp Pulse Resp B/P (MAP) Pulse Ox O2 Delivery O2 Flow Rate FiO2 02/10/18 16:32 99.4 98 16 106/95 99 Room Air 99.3 Status: unchanged Disposition: ADMITTED INPATIENT Condition: Serious Carlos Little MD Feb 10, 2018 16:40
[2018-02-10] MEDS ORDERED: Lidocaine 2% Visc 15ml soln ORAL ONE (17:00)
[2018-02-10] MEDS ORDERED: Mylanta II UD 30ml ORAL ONE (17:00)
[2018-02-10] MEDS ORDERED: Dicyclomine HCl 10mg/5ml oral soln ORAL ONE (17:00)
[2018-02-10 17:20] VITALS: BP 106/95
[2018-02-10 17:43] LABS: BASOPHILS % (AUTO) 1.2 % (0.0-2.0); EOSINOPHILS % (AUTO) 0.5 % (0.0-3.0); HEMATOCRIT 45.4 % (42.0-52.0); HEMOGLOBIN 15.7 G/DL (14.2-18.0); LYMPHOCYTES % (AUTO) 14.2 % (20.0-45.0); MEAN CORPUSCULAR VOLUME 84 FL (80-99); MONOCYTES % (AUTO) 14.7 % (1.0-10.0); NEUTROPHILS % (AUTO) 69.4 % (45.0-75.0); PLATELET COUNT 127 K/UL (150-450); RED BLOOD COUNT 5.42 M/UL (4.70-6.10); RED CELL DISTRIBUTION WIDTH 11.5 % (11.6-14.8); WHITE BLOOD COUNT 6.2 K/UL (4.8-10.8)
[2018-02-10 17:45] LABS: APPEARANCE,URINE CLEAR; BILIRUBIN, URINE 1+ (NEGATIVE); COLOR,URINE BROWN; GLUCOSE, URINE (UA) NEGATIVE (NEGATIVE); KETONES,URINE 2+ (NEGATIVE); LEUKOCYTE ESTERASE ,URINE 1+ (NEGATIVE); NITRITE,URINE POSITIVE (NEGATIVE); PH,URINE 6 (4.5-8.0); PROTEIN,URINE 3+ (NEGATIVE); UROBILINOGEN,URINE 4 MG/DL (0.0-1.0)
[2018-02-10 17:47] LABS: AMMONIA 13 umol/L (11-32); ANION GAP 10 mmol/L (5-15); BLOOD UREA NITROGEN 21 mg/dL (7-18); CARBON DIOXIDE 28 MMOL/L (21-32); CHLORIDE 99 MMOL/L (98-107); CREATININE 1.3 MG/DL (0.55-1.30); POTASSIUM 3.6 MMOL/L (3.5-5.1); SODIUM 137 MMOL/L (136-145)
[2018-02-10 17:55] LABS: ALANINE AMINOTRANSFERASE 26 U/L (12-78); ALBUMIN 3.3 G/DL (3.4-5.0); ALBUMIN/GLOBULIN RATIO 0.8 (1.0-2.7); ALKALINE PHOSPHATASE 89 U/L (46-116); ASPARTATE AMINO TRANSFERASE 32 U/L (15-37); BILIRUBIN,TOTAL 1.6 MG/DL (0.2-1.0)
[2018-02-10 18:00] LABS: BILIRUBIN,DIRECT 0.4 MG/DL (0.0-0.3)
[2018-02-10] MEDS ORDERED: TOLTERODINE TART1 MG PO (20:01)
[2018-02-10] MEDS ORDERED: CRESTOR10 M1 ORAL (20:02)
[2018-02-10] MEDS ORDERED: OLANZAPINE20 MG ORAL (20:04)
[2018-02-10 20:15] VITALS: BP 112/84
[2018-02-10 20:40] VITALS: BP 137/80
[2018-02-10] MEDS: Tamsulosin 0.4mg cap ORAL SCH (22:44)
[2018-02-10] MEDS: Morphine Sulfate 4mg/ml Inj (IV USE ONLY) IVP PRN (22:44)
[2018-02-10] MEDS ORDERED: LORazepam 1mg tab ORAL PRN (23:30)
[2018-02-10] MEDS ORDERED: Albuterol 90mcg Inhaler 8gm INH PRN (23:30)
[2018-02-11] VITALS: BP 115/68
[2018-02-11] MEDS: TraZODone 100mg tab ORAL SCH ×2 (00:32→20:58)
[2018-02-11 04:00] VITALS: BP 102/68
[2018-02-11] MEDS: Morphine Sulfate 4mg/ml Inj (IV USE ONLY) IVP PRN ×2 (04:55→12:02)
[2018-02-11] MEDS ORDERED: metFORMIN 500mg tab ORAL SCH (06:30)
[2018-02-11 06:38] LABS: HEMATOCRIT 40.8 % (42.0-52.0); MEAN CORPUSCULAR VOLUME 83 FL (80-99); PLATELET COUNT 130 K/UL (150-450); RED BLOOD COUNT 4.89 M/UL (4.70-6.10); RED CELL DISTRIBUTION WIDTH 10.9 % (11.6-14.8); WHITE BLOOD COUNT 5.6 K/UL (4.8-10.8)
[2018-02-11 07:17] LABS: ALANINE AMINOTRANSFERASE 23 U/L (12-78); ALBUMIN 2.6 G/DL (3.4-5.0); ALBUMIN/GLOBULIN RATIO 0.7 (1.0-2.7); ALKALINE PHOSPHATASE 74 U/L (46-116); ANION GAP 9 mmol/L (5-15); ASPARTATE AMINO TRANSFERASE 31 U/L (15-37); BILIRUBIN,DIRECT 0.3 MG/DL (0.0-0.3); BILIRUBIN,TOTAL 1.1 MG/DL (0.2-1.0); BLOOD UREA NITROGEN 18 mg/dL (7-18); CALCIUM 8.2 MG/DL (8.5-10.1); CARBON DIOXIDE 27 MMOL/L (21-32); CHLORIDE 101 MMOL/L (98-107); CHOLESTEROL 103 MG/DL (< 200); CREATININE 1.1 MG/DL (0.55-1.30); GAMMA GLUTAMYL TRANSPEPTIDASE 26 U/L (5-85); HDL CHOLESTEROL 24 MG/DL (40-60); PHOSPHORUS 3.4 MG/DL (2.5-4.9); POTASSIUM 3.4 MMOL/L (3.5-5.1); SODIUM 137 MMOL/L (136-145); TRIGLYCERIDES 121 MG/DL (30-150)
[2018-02-11 08:00] VITALS: BP 99/66
[2018-02-11] MEDS: Tolterodine 2mg tab ORAL SCH ×2 (08:22→18:16)
[2018-02-11] MEDS: OLANZapine 10mg tab ORAL SCH ×2 (08:22→18:16)
--- NOTE | 2018-02-11 10:33 | Consultation ---
History of Present Illness General Date patient seen: Feb 11, 2018 Chief Complaint: Generalized Weakness Present Illness HPI 62-year-old male sent in by nursing facility after increased vomiting and diarrhea and generalized weakness. the pt stated that he didnt want to take his lithium anymore. The pt has insomnia and anxiety stated that he didn't sleep well last night. he stated that he needs to take the combo of Ativan, trazodone and Restoril in order to sleep Allergies: Coded Allergies: SULFA (SULFONAMIDE ANTIBIOTICS) (Unverified Allergy, Intermediate, hives, 12/10/17) CODEINE (Verified Allergy, Unknown, ABD IRRITATION, 12/10/17) SULFONYLUREAS (Verified Allergy, Unknown, RASH, 12/10/17) Medication History Scheduled Finasteride* (Proscar*), 5 MG ORAL DAILY, (Reported) Fluticasone Propionate* (Fluticasone Propionate*), 1 SPRAY NASAL TWICE A DAY, ( Reported) [place] Carbonate* ([place]*), 300 MG ORAL QHS, (Reported) Metformin Hcl* (Glucophage*), 500 MG PO DAILY, (Reported) Olanzapine (Olanzapine), 20 MG ORAL DAILY, (Reported) Omeprazole (Omeprazole), 40 MG ORAL DAILY, (Reported) Rosuvastatin Calcium (Crestor), 5 MG ORAL QHS, (Reported) Tamsulosin Hcl (Tamsulosin Hcl*), 0.4 MG ORAL BEDTIME, (Reported) Tolterodine Tartrate (Tolterodine Tartrate), 1 MG PO BID, (Reported) Trazodone* (Trazodone*), 300 MG ORAL BEDTIME, (Reported) Scheduled PRN Albuterol Sulfate* (Albuterol Sulfate Mdi*), 2 PUFF INH Q4H PRN for Shortness of Breath Hydrocodone Bit/Acetaminophen 5-325* ([place] 5-325*), 1 TAB ORAL Q4H PRN for For Pain, (Reported) Lorazepam* (Lorazepam*), 1 MG ORAL Q6HR PRN for For Anxiety, (Reported) Temazepam* (Temazepam*), 30 MG ORAL BEDTIME PRN for Insomnia, (Reported) Discontinued Medications Aripiprazole* (Abilify*), 30 MG PO DAILY, (Reported) Discontinued Reason: Pt stopped taking med Azithromycin* (Zithromax*), 250 MG ORAL DAILY Discontinued Reason: Therapy completed Ciprofloxacin Hcl* (Ciprofloxacin Hcl*), 500 MG ORAL Q12H Discontinued Reason: MD discontinued med Clonazepam* (Klonopin*), 2 MG PO DAILY, (Reported) Discontinued Reason: MD discontinued med Esomeprazole Magnesium (Nexium), 40 MG PO DAILY, (Reported) Discontinued Reason: MD discontinued med Ibuprofen* (Motrin*), 600 MG ORAL Q8H PRN for For Pain Discontinued Reason: MD discontinued med Methocarbamol* (Robaxin*), 500 MG PO QID Discontinued Reason: Therapy completed Multivitamins* (Multivitamins*), 1 EACH PO DAILY, (Reported) Discontinued Reason: MD discontinued med Olanzapine* (Zyprexa*), 10 MG ORAL DAILY, (Reported) Discontinued Reason: Medication dose changed Ondansetron (Zofran), 4 MG ORAL BID PRN for Nausea & Vomiting Discontinued Reason: Therapy completed Prednisone* (Prednisone*), 40 MG ORAL DAILY Discontinued Reason: Therapy completed Quetiapine Fumarate* (Seroquel*), 300 MG PO DAILY, (Reported) Discontinued Reason: Therapy completed Simvastatin (Zocor), 20 MG PO QHS, (Reported) Discontinued Reason: Therapy completed Tamsulosin HCl (Flomax), 0.4 MG PO DAILY, (Reported) Discontinued Reason: Therapy completed Patient History History Provided By: Patient, Medical Record, PMD Healthcare decision maker Resuscitation status Full Code Advanced Directive on File Past Medical/Surgical History Past Medical/Surgical History: (1) Abdominal pain (2) Dehydration (3) Partial small bowel obstruction (4) Psychiatric disorder (5) Nausea vomiting and diarrhea (6) Head injury (7) Weak (8) Psychiatric diagnosis (9) Bronchitis (10) Nosocomial pneumonia (11) UTI (urinary tract infection) (12) Generalized weakness Review of Systems Psychiatric: Reports: prior hx, anxiety, depressed feelings, emotional problems Physical Exam General Appearance: no apparent distress, alert Neurologic: oriented x 3, responsive, depressed affect Last 24 Hour Vital Signs Date Time Temp Pulse Resp B/P (MAP) Pulse Ox O2 Delivery O2 Flow Rate FiO2 02/11/18 08:00 97.5 79 21 99/66 (77) 95 97.5 02/11/18 04:00 97.7 70 20 102/68 (79) 93 97.7 02/11/18 00:00 99.3 78 20 115/68 (84) 93 99.3 02/10/18 22:22 Room Air 02/10/18 20:40 97.6 83 20 137/80 (99) 95 97.6 02/10/18 20:15 99.3 79 22 112/84 97 Room Air 99.3 02/10/18 20:15 99.3 79 22 112/84 97 Room Air 210.7 02/10/18 17:20 99.3 98 16 106/95 99 Room Air 99.3 02/10/18 16:32 99.4 98 16 106/95 99 Room Air 99.3 Intake and Output 02/10/18 02/11/18 19:00 07:00 # Voids 2 4 # Bowel Movements 3 Laboratory Tests Test 02/10/18 17:20 02/11/18 05:44 White Blood Count 6.2 K/UL (4.8-10.8) 5.6 K/UL (4.8-10.8) Red Blood Count 5.42 M/UL (4.70-6.10) 4.89 M/UL (4.70-6.10) Hemoglobin 15.7 G/DL (14.2-18.0) 14.0 G/DL (14.2-18.0) L Hematocrit 45.4 % (42.0-52.0) 40.8 % (42.0-52.0) L Mean Corpuscular Volume 84 FL (80-99) 83 FL (80-99) Mean Corpuscular Hemoglobin 28.9 PG (27.0-31.0) 28.7 PG (27.0-31.0) Mean Corpuscular Hemoglobin Concent 34.5 G/DL (32.0-36.0) 34.4 G/DL (32.0-36.0) Red Cell Distribution Width 11.5 % (11.6-14.8) L 10.9 % (11.6-14.8) L Platelet Count 127 K/UL (150-450) L 130 K/UL (150-450) L Mean Platelet Volume 5.6 FL (6.5-10.1) L 6.2 FL (6.5-10.1) L Neutrophils (%) (Auto) 69.4 % (45.0-75.0) % (45.0-75.0) Lymphocytes (%) (Auto) 14.2 % (20.0-45.0) L % (20.0-45.0) Monocytes (%) (Auto) 14.7 % (1.0-10.0) H % (1.0-10.0) Eosinophils (%) (Auto) 0.5 % (0.0-3.0) % (0.0-3.0) Basophils (%) (Auto) 1.2 % (0.0-2.0) % (0.0-2.0) Prothrombin Time 10.4 SEC (9.30-11.50) Prothromb Time International Ratio 1.0 (0.9-1.1) Activated Partial Thromboplast Time 31 SEC (23-33) Urine Color Brown Urine Appearance Clear Urine pH 6 (4.5-8.0) Urine Specific [place] 1.020 (1.005-1.035) Urine Protein 3+ (NEGATIVE) H Urine Glucose (UA) Negative (NEGATIVE) Urine Ketones 2+ (NEGATIVE) H Urine Occult Blood 4+ (NEGATIVE) H Urine Nitrite Positive (NEGATIVE) H Urine Bilirubin 1+ (NEGATIVE) H Urine Ictotest Negative (NEGATIVE) Urine Urobilinogen 4 MG/DL (0.0-1.0) H Urine Leukocyte Esterase 1+ (NEGATIVE) H Urine RBC 5-10 /HPF (0 - 0) H Urine WBC 2-4 /HPF (0 - 0) Urine Squamous Epithelial Cells None /LPF (NONE/OCC) Urine Amorphous Sediment Few /LPF (NONE) H Urine Bacteria Few /HPF (NONE) Sodium Level 137 MMOL/L (136-145) 137 MMOL/L (136-145) Potassium Level 3.6 MMOL/L (3.5-5.1) 3.4 MMOL/L (3.5-5.1) L Chloride Level 99 MMOL/L (98-107) 101 MMOL/L (98-107) Carbon Dioxide Level 28 MMOL/L (21-32) 27 MMOL/L (21-32) Anion Gap 10 mmol/L (5-15) 9 mmol/L (5-15) Blood Urea Nitrogen 21 mg/dL (7-18) H 18 mg/dL (7-18) Creatinine 1.3 MG/DL (0.55-1.30) 1.1 MG/DL (0.55-1.30) Estimat Glomerular Filtration Rate 55.8 mL/min (>60) > 60 mL/min (>60) Glucose Level 109 MG/DL (74-106) H 121 MG/DL (74-106) H Calcium Level 9.0 MG/DL (8.5-10.1) 8.2 MG/DL (8.5-10.1) L Total Bilirubin 1.6 MG/DL (0.2-1.0) H 1.1 MG/DL (0.2-1.0) H Direct Bilirubin 0.4 MG/DL (0.0-0.3) H 0.3 MG/DL (0.0-0.3) Aspartate Amino Transf (AST/SGOT) 32 U/L (15-37) 31 U/L (15-37) Alanine Aminotransferase (ALT/SGPT) 26 U/L (12-78) 23 U/L (12-78) Alkaline Phosphatase 89 U/L (46-116) 74 U/L (46-116) Ammonia 13 umol/L (11-32) Troponin I 0.000 ng/mL (0.000-0.056) C-Reactive Protein, Quantitative 22.4 mg/dL (0.00-0.90) H Total Protein 7.2 G/DL (6.4-8.2) 6.2 G/DL (6.4-8.2) L Albumin 3.3 G/DL (3.4-5.0) L 2.6 G/DL (3.4-5.0) L Globulin 3.9 g/dL 3.6 g/dL Albumin/Globulin Ratio 0.8 (1.0-2.7) L 0.7 (1.0-2.7) L Lipase 165 U/L (73-393) 87 U/L (73-393) Differential Total Cells Counted 100 Neutrophils % (Manual) 57 % (45-75) Lymphocytes % (Manual) 19 % (20-45) L Monocytes % (Manual) 21 % (1-10) H Eosinophils % (Manual) 1 % (0-3) Basophils % (Manual) 1 % (0-2) Band Neutrophils 1 % (0-8) Platelet Estimate Decreased L Platelet Morphology Normal Red Blood Cell Morphology Normal Hemoglobin A1c 6.5 % (4.3-6.0) H Uric Acid 6.5 MG/DL (2.6-7.2) Phosphorus Level 3.4 MG/DL (2.5-4.9) Magnesium Level 1.7 MG/DL (1.8-2.4) L Gamma Glutamyl Transpeptidase 26 U/L (5-85) Pro-B-Type Natriuretic Peptide 62 pg/mL (0-125) Triglycerides Level 121 MG/DL (30-150) Cholesterol Level 103 MG/DL (< 200) LDL Cholesterol 57 mg/dL (<100) HDL Cholesterol 24 MG/DL (40-60) L Cholesterol/HDL Ratio 4.3 (3.3-4.4) Vitamin B12 Level 860 PG/ML (193-986) Folate 11.3 NG/ML (8.6-58.9) Thyroid Stimulating Hormone (TSH) 2.911 uiU/mL (0.358-3.740) Height (Feet): 6 Height (Inches): 0.00 Weight (Pounds): 180 Medications Current Medications Medications (Trade) Dose Ordered Sig/Svetlana Route PRN Reason Start Time Stop Time Status Last Admin Dose Admin Albuterol Sulfate (Proventil MDI) 2 puff Q4H PRN INH Shortness of Breath 02/10/18 23:30 03/12/18 23:29 Atorvastatin Calcium (Lipitor) 20 mg BEDTIME ORAL 02/11/18 21:00 03/13/18 20:59 Finasteride (Proscar) 5 mg DAILY ORAL 02/11/18 09:00 03/13/18 08:59 02/11/18 08:22 Lorazepam (Ativan) 1 mg Q6HR PRN ORAL For Anxiety 02/10/18 23:30 02/17/18 23:29 02/11/18 03:13 Metformin HCl (Glucophage) 500 mg DAILY@0630 ORAL 02/11/18 06:30 03/13/18 06:29 02/11/18 06:05 Morphine Sulfate (Morphine Sulfate) 4 mg Q6HR PRN IVP For Pain 02/10/18 22:20 02/17/18 22:19 02/11/18 04:55 Olanzapine (ZyPREXA) 10 mg BID ORAL 02/11/18 09:00 03/13/18 08:59 02/11/18 08:22 Ondansetron HCl (Zofran ODT) 4 mg Q6H PRN ORAL Nausea & Vomiting 02/11/18 00:00 03/13/18 00:00 Pantoprazole (Protonix) 40 mg DAILY ORAL 02/11/18 09:00 03/13/18 08:59 02/11/18 08:22 Sodium Chloride 1,000 ml @ 65 mls/hr [id number] IV 02/10/18 22:30 03/12/18 22:29 02/10/18 22:48 Tamsulosin HCl (Flomax) 0.4 mg BEDTIME ORAL 02/10/18 22:15 03/12/18 22:14 02/10/18 22:44 Temazepam (Restoril) 30 mg HSPRN PRN ORAL Insomnia 02/10/18 23:30 02/17/18 23:29 Tolterodine Tartrate (Detrol) 1 mg TWICE A DAY ORAL 02/11/18 09:00 03/13/18 08:59 02/11/18 08:22 Trazodone HCl (Desyrel) 300 mg BEDTIME ORAL 02/10/18 23:55 03/12/18 23:54 02/11/18 00:32 Assessment/Plan Status: stable Assessment/Plan Bipolar d/o the pt is reluctant to take [place] cont trazodone cont zyprexa cont ativan cont restoril Clinton Brody MD Feb 11, 2018 10:33
[2018-02-11 12:00] VITALS: BP 115/68
--- NOTE | 2018-02-11 12:12 | Consultation ---
Consult Note Consult Note asked to eval for dehydration and electrolyte abnormality and fluid management Patient is a 62-year-old male sent in by nursing facility after increased vomiting and diarrhea and generalized weakness. The patient denied any bloody stools. He was noted to have the multiple episodes of nonbilious nonbloody vomit. The patient reports feeling weak all over. Allergies: SULFA (SULFONAMIDE ANTIBIOTICS) (Unverified Allergy, Intermediate, hives, 12/10/17) CODEINE (Verified Allergy, Unknown, ABD IRRITATION, 12/10/17) SULFONYLUREAS (Verified Allergy, Unknown, RASH, 12/10/17) Hx Cardiac Problems: Yes Hx Hypertension: Yes Hx Asthma: Yes Hx Diabetes: Yes - BOARDERLINE DIABETES Hx Headaches: Yes patient complains of diarrhea for few days examined data reviewed Assessment/Plan intractible diarrhea- dehydration HypoKalemia DM Psych disease stop Metformin Mag- IV fluid with KCL Lactobacillus stool C Talha Raza MD Feb 11, 2018 12:12
--- NOTE | 2018-02-11 13:12 | GI Initial Consult Note ---
History of Present Illness General Date patient seen: Feb 11, 2018 Time patient seen: 14:34 Reason for Hospitalization: Generalized Weakness Referring physician: ANA DONALD Reason for Consultation: VOMITING Present Illness HPI Patient is a 62-year-old male sent in by nursing facility after increased vomiting and diarrhea and generalized weakness. The patient denied any bloody stools. He was noted to have the multiple episodes of nonbilious nonbloody vomit. The patient reports feeling weak all over. GI consulted for vomiting. Pt seen, awake A&Ox4 NAD with no active s/sx of N/V/ D. Last episode of emesis and diarrhea was yesterday. Denies any hematemesis, coffee grounds, melena or hematochezia. Length of symptoms have been around 2 days. Patient stated this normally does not happen to him. Denies any unintentional weight loss or changes in dietary habits. Denies any recent travels. Denies any history of endoscopy / colonoscopy. Has history of abdominal hernia repair. Presents today with hyperbilirubinemia. No anemia. No leukocytosis. Home Meds Active Scripts Albuterol Sulfate* (ALBUTEROL SULFATE MDI*) 8.5 Gm Hfa.aer.ad, 2 PUFF INH Q4H PRN for Shortness of Breath, #1 EA Prov:JONATHAN FISHER M.D. 03/17/15 Reported Medications Olanzapine (OLANZAPINE) 20 Mg Tablet, 20 MG ORAL DAILY, #30 TAB 0 Refills 02/10/18 Rosuvastatin Calcium (Crestor) 5 Mg Tablet, 5 MG ORAL QHS, TAB 02/10/18 Tolterodine Tartrate (TOLTERODINE TARTRATE) 1 Mg Tablet, 1 MG PO BID, TAB 02/10/18 Fluticasone Propionate* (FLUTICASONE PROPIONATE*) 16 Gm [place].susp, 1 SPRAY NASAL TWICE A DAY, #16 GM 12/10/17 Lorazepam* (LORAZEPAM*) 1 Mg Tablet, 1 MG ORAL Q6HR PRN for For Anxiety, TAB 12/10/17 Hydrocodone Bit/Acetaminophen 5-325* ([place] 5-325*) 1 Each Tablet, 1 TAB ORAL Q4H PRN for For Pain, TAB 0 Refills 12/10/17 Tamsulosin Hcl (TAMSULOSIN HCL*) 0.4 Mg Cap.er.24h, 0.4 MG ORAL BEDTIME, CAP 6/19/18 Finasteride* (PROSCAR*) 5 Mg Tablet, 5 MG ORAL DAILY, #30 TAB 0 Refills 12/10/17 Omeprazole (OMEPRAZOLE) 40 Mg Capsule.dr, 40 MG ORAL DAILY, CAP 12/10/17 [place] Carbonate* (LITHIUM*) 300 Mg Capsule, 300 MG ORAL QHS, CAP 0 Refills 12/10/17 Temazepam* (TEMAZEPAM*) 30 Mg Capsule, 30 MG ORAL BEDTIME PRN for Insomnia, CAP 12/10/17 Trazodone* (TRAZODONE*) 150 Mg Tablet, 300 MG ORAL BEDTIME, TAB 12/10/17 Metformin Hcl* (GLUCOPHAGE*) 500 Mg Tablet, 500 MG PO DAILY, #10 TAB Take 1 tablet by mouth every day. 05/17/12 Discontinued Reported Medications Olanzapine* (ZYPREXA*) 10 Mg Tablet, 10 MG ORAL DAILY, #30 TAB 0 Refills 12/10/17 Clonazepam* (KLONOPIN*) 1 Mg Tablet, 2 MG PO DAILY, #15 TAB 05/17/12 Multivitamins* (MULTIVITAMINS*) 1 Each Tablet, 1 EACH PO DAILY, TAB Take 1 tablet by mouth once a day 05/17/12 Simvastatin (ZOCOR) 20 Mg Tablet, 20 MG PO QHS 05/17/12 Esomeprazole Magnesium (NEXIUM) 40 Mg Capsule.dr, 40 MG PO DAILY, #10 CAP Take 1 tablet by mouth every day. 05/17/12 Quetiapine Fumarate* (SEROQUEL*) 100 Mg Tablet, 300 MG PO DAILY 05/17/12 Aripiprazole* (ABILIFY*) 15 Mg Tablet, 30 MG PO DAILY, TAB 05/17/12 Tamsulosin HCl (Flomax) 0.4 Mg Cap, 0.4 MG PO DAILY, #5 TAB Take 1 tablet by mouth daily for 5 days. 05/17/12 Discontinued Scripts Methocarbamol* (ROBAXIN*) 500 Mg Tablet, 500 MG PO QID, #28 TAB 0 Refills Prov:Retino,Clairose M.D. 02/14/17 Ibuprofen* (MOTRIN*) 600 Mg Tablet, 600 MG ORAL Q8H PRN for For Pain, #30 TAB 0 Refills Prov:Retino,Clairose M.D. 02/14/17 Ondansetron (Zofran) 4 Mg Tab, 4 MG ORAL BID PRN for Nausea & Vomiting, #20 TAB Prov:GUMARO JOHNSON P.AStacy 04/25/15 Prednisone* (PREDNISONE*) 20 Mg Tablet, 40 MG ORAL DAILY, #5 TAB Prov:GUMARO JOHNSON P.A. 04/25/15 Ciprofloxacin Hcl* (CIPROFLOXACIN HCL*) 500 Mg Tablet, 500 MG ORAL Q12H, #14 TAB Prov:GUMARO JOHNSON P.A. 04/25/15 Azithromycin* (ZITHROMAX*) 250 Mg Tablet, 250 MG ORAL DAILY, #6 TAB Prov:JONATHAN FISHER M.D. 03/17/15 Med list reviewed/reconciled: Yes Allergies: Coded Allergies: SULFA (SULFONAMIDE ANTIBIOTICS) (Unverified Allergy, Intermediate, hives, 12/10/17) CODEINE (Verified Allergy, Unknown, ABD IRRITATION, 12/10/17) SULFONYLUREAS (Verified Allergy, Unknown, RASH, 12/10/17) Patient History History Provided By: Patient, Medical Record [facility] Narrative Hx Cardiac Problems: Yes Hx Hypertension: Yes Hx Asthma: Yes Hx Diabetes: Yes - BORDERLINE DIABETES Hx Cancer: No Hx Headaches: Yes Social History: Denies: smoking, alcohol use, drug use, other Review of Systems All Other Systems: negative except mentioned in HPI Physical Exam Vital Signs Date Time Temp Pulse Resp B/P (MAP) Pulse Ox O2 Delivery O2 Flow Rate FiO2 02/10/18 16:32 99.4 98 16 106/95 99 Room Air 99.3 Sp02 EP Interpretation: reviewed, normal Labs Laboratory Tests Test 02/10/18 17:20 02/11/18 05:44 White Blood Count 6.2 K/UL (4.8-10.8) 5.6 K/UL (4.8-10.8) Red Blood Count 5.42 M/UL (4.70-6.10) 4.89 M/UL (4.70-6.10) Hemoglobin 15.7 G/DL (14.2-18.0) 14.0 G/DL (14.2-18.0) L Hematocrit 45.4 % (42.0-52.0) 40.8 % (42.0-52.0) L Mean Corpuscular Volume 84 FL (80-99) 83 FL (80-99) Mean Corpuscular Hemoglobin 28.9 PG (27.0-31.0) 28.7 PG (27.0-31.0) Mean Corpuscular Hemoglobin Concent 34.5 G/DL (32.0-36.0) 34.4 G/DL (32.0-36.0) Red Cell Distribution Width 11.5 % (11.6-14.8) L 10.9 % (11.6-14.8) L Platelet Count 127 K/UL (150-450) L 130 K/UL (150-450) L Mean Platelet Volume 5.6 FL (6.5-10.1) L 6.2 FL (6.5-10.1) L Neutrophils (%) (Auto) 69.4 % (45.0-75.0) % (45.0-75.0) Lymphocytes (%) (Auto) 14.2 % (20.0-45.0) L % (20.0-45.0) Monocytes (%) (Auto) 14.7 % (1.0-10.0) H % (1.0-10.0) Eosinophils (%) (Auto) 0.5 % (0.0-3.0) % (0.0-3.0) Basophils (%) (Auto) 1.2 % (0.0-2.0) % (0.0-2.0) Prothrombin Time 10.4 SEC (9.30-11.50) Prothromb Time International Ratio 1.0 (0.9-1.1) Activated Partial Thromboplast Time 31 SEC (23-33) Urine Color Brown Urine Appearance Clear Urine pH 6 (4.5-8.0) Urine Specific [place] 1.020 (1.005-1.035) Urine Protein 3+ (NEGATIVE) H Urine Glucose (UA) Negative (NEGATIVE) Urine Ketones 2+ (NEGATIVE) H Urine Occult Blood 4+ (NEGATIVE) H Urine Nitrite Positive (NEGATIVE) H Urine Bilirubin 1+ (NEGATIVE) H Urine Ictotest Negative (NEGATIVE) Urine Urobilinogen 4 MG/DL (0.0-1.0) H Urine Leukocyte Esterase 1+ (NEGATIVE) H Urine RBC 5-10 /HPF (0 - 0) H Urine WBC 2-4 /HPF (0 - 0) Urine Squamous Epithelial Cells None /LPF (NONE/OCC) Urine Amorphous Sediment Few /LPF (NONE) H Urine Bacteria Few /HPF (NONE) Sodium Level 137 MMOL/L (136-145) 137 MMOL/L (136-145) Potassium Level 3.6 MMOL/L (3.5-5.1) 3.4 MMOL/L (3.5-5.1) L Chloride Level 99 MMOL/L (98-107) 101 MMOL/L (98-107) Carbon Dioxide Level 28 MMOL/L (21-32) 27 MMOL/L (21-32) Anion Gap 10 mmol/L (5-15) 9 mmol/L (5-15) Blood Urea Nitrogen 21 mg/dL (7-18) H 18 mg/dL (7-18) Creatinine 1.3 MG/DL (0.55-1.30) 1.1 MG/DL (0.55-1.30) Estimat Glomerular Filtration Rate 55.8 mL/min (>60) > 60 mL/min (>60) Glucose Level 109 MG/DL (74-106) H 121 MG/DL (74-106) H Calcium Level 9.0 MG/DL (8.5-10.1) 8.2 MG/DL (8.5-10.1) L Total Bilirubin 1.6 MG/DL (0.2-1.0) H 1.1 MG/DL (0.2-1.0) H Direct Bilirubin 0.4 MG/DL (0.0-0.3) H 0.3 MG/DL (0.0-0.3) Aspartate Amino Transf (AST/SGOT) 32 U/L (15-37) 31 U/L (15-37) Alanine Aminotransferase (ALT/SGPT) 26 U/L (12-78) 23 U/L (12-78) Alkaline Phosphatase 89 U/L (46-116) 74 U/L (46-116) Ammonia 13 umol/L (11-32) Troponin I 0.000 ng/mL (0.000-0.056) C-Reactive Protein, Quantitative 22.4 mg/dL (0.00-0.90) H Total Protein 7.2 G/DL (6.4-8.2) 6.2 G/DL (6.4-8.2) L Albumin 3.3 G/DL (3.4-5.0) L 2.6 G/DL (3.4-5.0) L Globulin 3.9 g/dL 3.6 g/dL Albumin/Globulin Ratio 0.8 (1.0-2.7) L 0.7 (1.0-2.7) L Lipase 165 U/L (73-393) 87 U/L (73-393) Differential Total Cells Counted 100 Neutrophils % (Manual) 57 % (45-75) Lymphocytes % (Manual) 19 % (20-45) L Monocytes % (Manual) 21 % (1-10) H Eosinophils % (Manual) 1 % (0-3) Basophils % (Manual) 1 % (0-2) Band Neutrophils 1 % (0-8) Platelet Estimate Decreased L Platelet Morphology Normal Red Blood Cell Morphology Normal Hemoglobin A1c 6.5 % (4.3-6.0) H Uric Acid 6.5 MG/DL (2.6-7.2) Phosphorus Level 3.4 MG/DL (2.5-4.9) Magnesium Level 1.7 MG/DL (1.8-2.4) L Gamma Glutamyl Transpeptidase 26 U/L (5-85) Pro-B-Type Natriuretic Peptide 62 pg/mL (0-125) Triglycerides Level 121 MG/DL (30-150) Cholesterol Level 103 MG/DL (< 200) LDL Cholesterol 57 mg/dL (<100) HDL Cholesterol 24 MG/DL (40-60) L Cholesterol/HDL Ratio 4.3 (3.3-4.4) Vitamin B12 Level 860 PG/ML (193-986) Folate 11.3 NG/ML (8.6-58.9) Thyroid Stimulating Hormone (TSH) 2.911 uiU/mL (0.358-3.740) General Appearance: well appearing, no apparent distress, alert Head: normocephalic EENT: PERRL/EOMI, normal ENT inspection Neck: supple Respiratory: normal breath sounds, no respiratory distress Cardiovascular: normal rate Gastrointestinal: normal inspection, non tender, soft, normal bowel sounds, non -distended Rectal: deferred Genitourinary: deferred Musculoskeletal: normal inspection, back normal Neurologic: normal inspection, alert, oriented x3, responsive Psychiatric: normal inspection, judgement/insight normal, memory normal Skin: normal inspection, normal color, no rash, warm/dry, palpation normal, well hydrated Lymphatic: normal inspection, no adenopathy Current Medications Current Medications Medications (Trade) Dose Ordered Sig/Svetlana Route PRN Reason Start Time Stop Time Status Last Admin Dose Admin Albuterol Sulfate (Proventil MDI) 2 puff Q4H PRN INH Shortness of Breath 02/10/18 23:30 03/12/18 23:29 Ceftriaxone Sodium 1 gm/ Dextrose 55 ml @ 110 mls/hr ONCE ONCE IVPB 02/11/18 13:30 02/11/18 13:59 Finasteride (Proscar) 5 mg DAILY ORAL 02/11/18 09:00 03/13/18 08:59 02/11/18 08:22 Lactobacillus Acidophilus (Culturelle) 1 tab TWICE A DAY ORAL 02/11/18 18:00 03/13/18 17:59 Lorazepam (Ativan) 1 mg Q6HR PRN ORAL For Anxiety 02/10/18 23:30 02/17/18 23:29 02/11/18 03:13 Magnesium Sulfate 100 ml @ 100 mls/hr Q1H IVPB 02/11/18 12:30 02/11/18 14:29 Morphine Sulfate (Morphine Sulfate) 2 mg Q6H PRN IVP For Pain 02/11/18 12:30 02/18/18 12:29 Olanzapine (ZyPREXA) 10 mg BID ORAL 02/11/18 09:00 03/13/18 08:59 02/11/18 08:22 Ondansetron HCl (Zofran ODT) 4 mg Q6H PRN ORAL Nausea & Vomiting 02/11/18 00:00 03/13/18 00:00 Pantoprazole (Protonix) 40 mg DAILY ORAL 02/11/18 09:00 03/13/18 08:59 02/11/18 08:22 Sodium Chloride 1,000 ml @ 75 mls/hr [id number] IV 02/11/18 13:30 03/13/18 13:29 Tamsulosin HCl (Flomax) 0.4 mg BEDTIME ORAL 02/10/18 22:15 03/12/18 22:14 02/10/18 22:44 Temazepam (Restoril) 30 mg HSPRN PRN ORAL Insomnia 02/10/18 23:30 02/17/18 23:29 Tolterodine Tartrate (Detrol) 1 mg TWICE A DAY ORAL 02/11/18 09:00 03/13/18 08:59 02/11/18 08:22 Trazodone HCl (Desyrel) 300 mg BEDTIME ORAL 02/10/18 23:55 03/12/18 23:54 02/11/18 00:32 GI: Plan Problems: (1) Nausea vomiting and diarrhea (2) Partial small bowel obstruction (3) Abdominal pain (4) Dehydration (5) Generalized weakness Plan will consider endoscopy if patient has persistent vomiting patient currently tolerating PO diet symptomatic treatment zofran prn prn transfusions ppi fu labs trend LFTs outpatient GI procedures Discussed with Dr. Hutchinson. Thank you for this patient referral, we will follow. The patient was seen and examined at bedside and all new and available data was reviewed in the patients chart. I agree with the above findings, impression and plan. (Patient seen earlier today. Signature stamp does not reflect patient encounter time.). - MD Clementine Yap,[facility] [employer]IOR [employer]PLICATION SOFTWARE ENGINEER Feb 11, 2018 13:12
[2018-02-11] MEDS ORDERED: cefTRIAXone 1 GM in D5W 55 ML IVPB ONE (13:30)
[2018-02-11] MEDS: NS w/KCl 40mEq 1,000 ML IV SCH (14:35)
--- NOTE | 2018-02-11 14:54 | Diagnostic Imaging Report ---
Indication: Dyspnea Technique: One view of the chest Comparison: 12/16/2017 Findings: There is minimal atelectasis at the left lung base. Previously demonstrated left pleural effusion is no longer evident. The lungs and pleural spaces are otherwise clear. Heart size is normal. Impression: Minimal left basilar atelectasis. No acute process otherwise
[2018-02-11 16:00] VITALS: BP 96/58
[2018-02-11] MEDS: Morphine Sulfate 2mg/ml Inj(IV/IM USE ONLY) IVP PRN (18:16)
[2018-02-11] MEDS: Lactobacillus-GG tablet ORAL SCH (18:16)
[2018-02-11 20:00] VITALS: BP 103/62
[2018-02-11] MEDS: Tamsulosin 0.4mg cap ORAL SCH (20:58)
[2018-02-11] MEDS ORDERED: Atorvastatin 20mg tab ORAL SCH (21:00)
--- NOTE | 2018-02-11 23:17 | Consultation ---
DATE OF CONSULTATION: 02/11/2018 INFECTIOUS DISEASE CONSULTATION CONSULTING PHYSICIAN: Henry Morgan M.D. PRIMARY ATTENDING PHYSICIAN: Estella Butt M.D. REASON FOR CONSULT: UTI and and diarrhea. HISTORY OF PRESENT ILLNESS: The patient is a 62-year-old white male, who is a skilled nursing resident admitted yesterday complaining of weakness, diarrhea, nausea, abdominal pain, has increasing bilirubin level. No abnormal leukocytosis or fever. The patient mostly complains of diarrhea 10 times a day that is not completely watery. His symptoms started 4 days ago. PAST MEDICAL HISTORY: The patient has borderline diabetes mellitus and asthma. He had a recent admission to [facility] in November 2017 with COPD asthma exacerbation. ALLERGIES: Allergic to codeine and sulfa drugs. MEDICATIONS: Getting atorvastatin, finasteride, olanzapine, Protonix, metformin, Zofran, trazodone, albuterol, lorazepam, temazepam, morphine sulfate. In skilled nursing, was also on [place], but the patient does not want to take lithium again. SOCIAL HISTORY: [facility] resident. Single. . Denies alcohol, drug abuse, or smoking. REVIEW OF SYSTEMS: No fever. No chills. No nausea. No significant vomiting. No shortness of breath. No chest pain. Diarrhea as mentioned. No problem passing urine. He has difficulty of walking because of the callus of foot. PHYSICAL EXAMINATION: GENERAL APPEARANCE: No acute distress. Awake, alert, and oriented. VITAL SIGNS: Temperature 97.5 degrees, pulse 79 and blood pressure 99/66. HEAD AND NECK: [place] conjunctivae. No oral lesion. HEART: S1 and S2. Regular. LUNGS: Clear. ABDOMEN: Soft and nontender. EXTREMITY: No edema. Have plantar callus in both feet. LABORATORY AND DIAGNOSTIC DATA: WBC 5.6, hemoglobin 14, hematocrit 40.8 and platelets 130. Sodium 137, potassium 3.4, chloride 101, bicarbonate 27, BUN 18, creatinine 1.1, and glucose is 121. Magnesium 1.7. Bilirubin was 1.6 at the time of admission, coming down to 1.1. Albumin is 2.6. UA is positive for nitrates, occult blood, bilirubin and rbc's. Leukocyte esterase is also 1+ positive. IMPRESSION: Diarrhea, may be secondary to stomach for side effect of his psychiatric medication, [place]. The patient had abnormal urinalysis, may have urinary tract infection. He had pleural effusion in the previous chest x-ray and has history of asthma, chronic obstructive pulmonary disease. He has diabetes mellitus and dehydration. RECOMMENDATION: We will start on ceftriaxone. We will follow urine culture. We will order a chest x-ray. We will follow up the stool for C. difficile. At the end of my exam, I thank Dr. Butt for involving me in the care of this patient. Henry Morgan M.D. DR: MARGA JOB#: [id number] CC:
[2018-02-12] MEDS: Morphine Sulfate 2mg/ml Inj(IV/IM USE ONLY) IVP PRN ×4 (00:17→19:27)
[2018-02-12 00:27] VITALS: BP 117/63
--- NOTE | 2018-02-12 00:33 | History and Physical Report ---
DATE OF ADMISSION: 02/10/2018 HISTORY OF PRESENT ILLNESS: The patient was admitted for dehydration, weakness, diarrhea. The patient complains basically diarrhea, weakness, and dry cough and vomiting for the past couple of days. Denies rectal bleeding. Denies hematemesis. The patient also admitted for dehydration and generalized weakness. The patient also denies chills. The patient also denies any rectal bleeding. The patient admitted for the above-mentioned diagnoses and symptoms. PAST MEDICAL HISTORY: Significant for history of head injury, history of suicide attempt, history of psychiatric disorder, history of partial bowel obstruction in the past, history of gastroesophageal reflux disease, mood disorder, BPH, urinary incontinence, NIDDM. PAST SURGICAL HISTORY: Right elbow surgery, hernia surgery, liver surgery, bilateral arm surgery ALLERGIES: Codeine and sulfa. MEDICATIONS: Finasteride, lithium, lorazepam, olanzapine, omeprazole, Flomax,. FAMILY HISTORY: Noncontributory. SOCIAL HISTORY: Denies smoking. Denies history of alcohol or illicit drugs. Lives in a board and care. REVIEW OF SYSTEMS: HEENT: Denies headaches. RESPIRATORY: Denies shortness of breath. Does have cough which is nonproductive. CARDIOVASCULAR: Denies chest pain. Denies orthopnea. GASTROINTESTINAL: Does have nausea, diarrhea, and vomiting for the past couple of days. No hematemesis. No rectal bleeding. Does have heartburn at times. EXTREMITIES: Denies any pain in the lower extremity, does have however chronic back pain which is chronic. CENTRAL NERVOUS SYSTEM: No change in vision or speech pattern. PHYSICAL EXAMINATION: VITAL SIGNS: Temperature is 97.6, pulse 70, blood pressure 115/68. HEENT: PERRLA. NECK: Supple. No lymphadenopathy. CHEST: Clear to auscultation. GASTROINTESTINAL: Abdomen is soft, nontender, nondistended. No organomegaly. EXTREMITIES: No edema. Moves all four extremities. NEUROLOGIC: Reflexes are equal on both sides. LABORATORY DATA: WBC of 6.2, hemoglobin 15.7, platelet 127. Sodium 137, potassium 3.6, BUN 21, creatinine 1.3 glucose of 109. ASSESSMENT AND PLAN: 1. Hypokalemia. 2. Dehydration. 3. Nausea. 4. Vomiting. 5. Diarrhea. I have asked basically Dr. Alfaro, Dr. Henry Morgan, Dr. Hutchinson see the patient for the diagnoses and treatment of above-mentioned diagnoses and symptoms. Estella Butt M.D. DR: Terrance JOB#: [id number] CC:
[2018-02-12] MEDS: NS w/KCl 40mEq 1,000 ML IV SCH ×2 (03:52→17:28)
[2018-02-12 04:00] VITALS: BP 105/65
[2018-02-12 08:00] VITALS: BP 139/83
[2018-02-12] MEDS: Lactobacillus-GG tablet ORAL SCH ×2 (08:17→17:28)
[2018-02-12] MEDS: OLANZapine 10mg tab ORAL SCH ×2 (08:18→17:28)
[2018-02-12] MEDS: Tolterodine 2mg tab ORAL SCH ×2 (08:18→17:29)
[2018-02-12 08:38] LABS: BASOPHILS % (AUTO) 0.3 % (0.0-2.0); EOSINOPHILS % (AUTO) 1.8 % (0.0-3.0); HEMATOCRIT 38.2 % (42.0-52.0); HEMOGLOBIN 13.1 G/DL (14.2-18.0); MEAN CORPUSCULAR VOLUME 84 FL (80-99); MONOCYTES % (AUTO) 18.4 % (1.0-10.0); NEUTROPHILS % (AUTO) 64.5 % (45.0-75.0); PLATELET COUNT 134 K/UL (150-450); RED BLOOD COUNT 4.56 M/UL (4.70-6.10); RED CELL DISTRIBUTION WIDTH 11.2 % (11.6-14.8)
[2018-02-12 08:55] LABS: ALANINE AMINOTRANSFERASE 21 U/L (12-78); ALBUMIN 2.5 G/DL (3.4-5.0); ALBUMIN/GLOBULIN RATIO 0.7 (1.0-2.7); ALKALINE PHOSPHATASE 83 U/L (46-116); ANION GAP 7 mmol/L (5-15); ASPARTATE AMINO TRANSFERASE 24 U/L (15-37); BILIRUBIN,TOTAL 0.8 MG/DL (0.2-1.0); BLOOD UREA NITROGEN 14 mg/dL (7-18); CALCIUM 8.2 MG/DL (8.5-10.1); CARBON DIOXIDE 26 MMOL/L (21-32); CHLORIDE 106 MMOL/L (98-107); CREATININE 1.2 MG/DL (0.55-1.30); POTASSIUM 3.9 MMOL/L (3.5-5.1); SODIUM 139 MMOL/L (136-145)
--- NOTE | 2018-02-12 11:44 | Nephrology Progress Note ---
Assessment/Plan Problem List: (1) Nausea vomiting and diarrhea (2) Dehydration (3) Psychiatric diagnosis Assessment intractible diarrhea- dehydration HypoKalemia DM Psych disease UTI: urine c/s neg Plan stop Metformin Mag- IV fluid with KCL Lactobacillus and flagyl stool C dif check lomotil Subjective ROS Limited/Unobtainable: No Constitutional: Reports: malaise, other - diarrhea persists Objective Objective Last 24 Hour Vital Signs Date Time Temp Pulse Resp B/P (MAP) Pulse Ox O2 Delivery O2 Flow Rate FiO2 02/12/18 09:00 Room Air 02/12/18 08:00 98.2 82 21 139/83 (101) 96 98.2 02/12/18 04:00 98.6 74 17 105/65 (78) 93 98.6 02/12/18 00:27 98.6 86 18 117/63 (81) 93 98.6 02/11/18 21:00 Room Air 02/11/18 20:10 70 16 Room Air 21 02/11/18 20:00 97.7 81 16 103/62 (76) 94 97.7 02/11/18 16:00 97.6 72 19 96/58 (71) 95 97.6 02/11/18 12:00 97.6 70 18 115/68 (84) 95 97.6 Intake and Output 02/11/18 02/12/18 19:00 07:00 Intake Total 1160 ml 120 ml Output Total 825 ml 200 ml Balance 335 ml -80 ml Intake Oral 580 ml 120 ml IV Total 580 ml Output Urine Total 825 ml 200 ml # Bowel Movements 1 1 Laboratory Tests 02/12/18 08:25: White Blood Count 5.0, Red Blood Count 4.56L, Hemoglobin 13.1L, Hematocrit 38.2L , Mean Corpuscular Volume 84, Mean Corpuscular Hemoglobin 28.8, Mean Corpuscular Hemoglobin Concent 34.4, Red Cell Distribution Width 11.2L, Platelet Count 134L, Mean Platelet Volume 5.9L, Neutrophils (%) (Auto) 64.5, Lymphocytes (%) (Auto) 15.0L, Monocytes (%) (Auto) 18.4H, Eosinophils (%) (Auto ) 1.8, Basophils (%) (Auto) 0.3, Sodium Level 139, Potassium Level 3.9, Chloride Level 106, Carbon Dioxide Level 26, Anion Gap 7, Blood Urea Nitrogen 14 , Creatinine 1.2, Estimat Glomerular Filtration Rate > 60, Glucose Level 121H, Calcium Level 8.2L, Total Bilirubin 0.8, Aspartate Amino Transf (AST/SGOT) 24, Alanine Aminotransferase (ALT/SGPT) 21, Alkaline Phosphatase 83, Total Protein 5.9L, Albumin 2.5L, Globulin 3.4, Albumin/Globulin Ratio 0.7L Height (Feet): 6 Height (Inches): 0.00 Weight (Pounds): 225 General Appearance: no apparent distress Cardiovascular: normal rate Respiratory/Chest: lungs clear Abdomen: soft Talha Alfaro MD Feb 12, 2018 11:44
[2018-02-12] MEDS ORDERED: metroNIDAZOLE 500mg tab ORAL SCH (11:45)
[2018-02-12] MEDS ORDERED: Lomotil 2.5mg tab ORAL SCH (11:45)
[2018-02-12] MEDS ORDERED: Lomotil 2.5mg tab ORAL PRN (11:45)
--- NOTE | 2018-02-12 11:50 | General Progress Note ---
Assessment/Plan Assessment/Plan Bipolar d/o cont trazodone cont zyprexa cont ativan cont restoril Subjective Date patient seen: Feb 12, 2018 Neurologic/Psychiatric: Reports: anxiety, depressed, emotional problems Allergies: Coded Allergies: SULFA (SULFONAMIDE ANTIBIOTICS) (Unverified Allergy, Intermediate, hives, 12/10/17) CODEINE (Verified Allergy, Unknown, ABD IRRITATION, 12/10/17) SULFONYLUREAS (Verified Allergy, Unknown, RASH, 12/10/17) Objective Last 24 Hour Vital Signs Date Time Temp Pulse Resp B/P (MAP) Pulse Ox O2 Delivery O2 Flow Rate FiO2 02/12/18 09:00 Room Air 02/12/18 08:00 98.2 82 21 139/83 (101) 96 98.2 02/12/18 04:00 98.6 74 17 105/65 (78) 93 98.6 02/12/18 00:27 98.6 86 18 117/63 (81) 93 98.6 02/11/18 21:00 Room Air 02/11/18 20:10 70 16 Room Air 21 02/11/18 20:00 97.7 81 16 103/62 (76) 94 97.7 02/11/18 16:00 97.6 72 19 96/58 (71) 95 97.6 02/11/18 12:00 97.6 70 18 115/68 (84) 95 97.6 Intake and Output 02/11/18 02/12/18 19:00 07:00 Intake Total 1160 ml 120 ml Output Total 825 ml 200 ml Balance 335 ml -80 ml Intake Oral 580 ml 120 ml IV Total 580 ml Output Urine Total 825 ml 200 ml # Bowel Movements 1 1 Laboratory Tests 02/12/18 08:25: White Blood Count 5.0, Red Blood Count 4.56L, Hemoglobin 13.1L, Hematocrit 38.2L , Mean Corpuscular Volume 84, Mean Corpuscular Hemoglobin 28.8, Mean Corpuscular Hemoglobin Concent 34.4, Red Cell Distribution Width 11.2L, Platelet Count 134L, Mean Platelet Volume 5.9L, Neutrophils (%) (Auto) 64.5, Lymphocytes (%) (Auto) 15.0L, Monocytes (%) (Auto) 18.4H, Eosinophils (%) (Auto ) 1.8, Basophils (%) (Auto) 0.3, Sodium Level 139, Potassium Level 3.9, Chloride Level 106, Carbon Dioxide Level 26, Anion Gap 7, Blood Urea Nitrogen 14 , Creatinine 1.2, Estimat Glomerular Filtration Rate > 60, Glucose Level 121H, Calcium Level 8.2L, Total Bilirubin 0.8, Aspartate Amino Transf (AST/SGOT) 24, Alanine Aminotransferase (ALT/SGPT) 21, Alkaline Phosphatase 83, Total Protein 5.9L, Albumin 2.5L, Globulin 3.4, Albumin/Globulin Ratio 0.7L Height (Feet): 6 Height (Inches): 0.00 Weight (Pounds): 225 General Appearance: no apparent distress, alert Neurologic: oriented x 3, responsive, depressed affect Clinton Brody MD Feb 12, 2018 11:50
[2018-02-12 12:00] VITALS: BP 116/70
--- NOTE | 2018-02-12 12:00 | GI Progress Note ---
Assessment/Plan Problems: (1) Diarrhea ICD Codes: R19.7 - Diarrhea, unspecified SNOMED: 27738462 (2) Gastroenteritis ICD Codes: K52.9 - Noninfective gastroenteritis and colitis, unspecified SNOMED: 36746656 (3) Abdominal pain (4) Dehydration (5) Psychiatric disorder ICD Codes: F99 - Psychiatric disorder SNOMED: 14289507 (6) Generalized weakness ICD Codes: R53.1 - Weakness SNOMED: 79258236 Status: unchanged Status Narrative Discussed with Dr. Hutchinson. Assessment/Plan cdiff negative severe diarrhea x 10 today will consider endoscopy if patient has persistent vomiting >> resolved colonoscopy scheduled tomorrow. - CLD, NPO @ [place]. - hold all blood thinners tonight. IV/PO hydration zofran prn lomotil ATC prn transfusions H2B fu labs The patient was seen and examined at bedside and all new and available data was reviewed in the patients chart. I agree with the above findings, impression and plan. (Patient seen earlier today. Signature stamp does not reflect patient encounter time.). - Valeriy Hutchinson MD Subjective Subjective no N/V had episodes of diarrhea this morning Objective Last 24 Hour Vital Signs Date Time Temp Pulse Resp B/P (MAP) Pulse Ox O2 Delivery O2 Flow Rate FiO2 02/12/18 09:00 Room Air 02/12/18 08:00 98.2 82 21 139/83 (101) 96 98.2 02/12/18 04:00 98.6 74 17 105/65 (78) 93 98.6 02/12/18 00:27 98.6 86 18 117/63 (81) 93 98.6 02/11/18 21:00 Room Air 02/11/18 20:10 70 16 Room Air 21 02/11/18 20:00 97.7 81 16 103/62 (76) 94 97.7 02/11/18 16:00 97.6 72 19 96/58 (71) 95 97.6 02/11/18 12:00 97.6 70 18 115/68 (84) 95 97.6 Intake and Output 02/11/18 02/12/18 19:00 07:00 Intake Total 1160 ml 120 ml Output Total 825 ml 200 ml Balance 335 ml -80 ml Intake Oral 580 ml 120 ml IV Total 580 ml Output Urine Total 825 ml 200 ml # Bowel Movements 1 1 Laboratory Tests Test 02/12/18 08:25 White Blood Count 5.0 K/UL (4.8-10.8) Red Blood Count 4.56 M/UL (4.70-6.10) L Hemoglobin 13.1 G/DL (14.2-18.0) L Hematocrit 38.2 % (42.0-52.0) L Mean Corpuscular Volume 84 FL (80-99) Mean Corpuscular Hemoglobin 28.8 PG (27.0-31.0) Mean Corpuscular Hemoglobin Concent 34.4 G/DL (32.0-36.0) Red Cell Distribution Width 11.2 % (11.6-14.8) L Platelet Count 134 K/UL (150-450) L Mean Platelet Volume 5.9 FL (6.5-10.1) L Neutrophils (%) (Auto) 64.5 % (45.0-75.0) Lymphocytes (%) (Auto) 15.0 % (20.0-45.0) L Monocytes (%) (Auto) 18.4 % (1.0-10.0) H Eosinophils (%) (Auto) 1.8 % (0.0-3.0) Basophils (%) (Auto) 0.3 % (0.0-2.0) Sodium Level 139 MMOL/L (136-145) Potassium Level 3.9 MMOL/L (3.5-5.1) Chloride Level 106 MMOL/L (98-107) Carbon Dioxide Level 26 MMOL/L (21-32) Anion Gap 7 mmol/L (5-15) Blood Urea Nitrogen 14 mg/dL (7-18) Creatinine 1.2 MG/DL (0.55-1.30) Estimat Glomerular Filtration Rate > 60 mL/min (>60) Glucose Level 121 MG/DL (74-106) H Calcium Level 8.2 MG/DL (8.5-10.1) L Total Bilirubin 0.8 MG/DL (0.2-1.0) Aspartate Amino Transf (AST/SGOT) 24 U/L (15-37) Alanine Aminotransferase (ALT/SGPT) 21 U/L (12-78) Alkaline Phosphatase 83 U/L (46-116) Total Protein 5.9 G/DL (6.4-8.2) L Albumin 2.5 G/DL (3.4-5.0) L Globulin 3.4 g/dL Albumin/Globulin Ratio 0.7 (1.0-2.7) L Microbiology Date/Time Source Procedure Growth Status 02/11/18 18:00 Stool Clostridium difficile Toxin Assay - Final Complete 02/11/18 13:00 Urine,Clean Catch Urine Culture - Preliminary NO GROWTH Resulted Height (Feet): 6 Height (Inches): 0.00 Weight (Pounds): 225 General Appearance: WD/WN, no apparent distress, alert Cardiovascular: normal rate Respiratory/Chest: normal breath sounds, no respiratory distress Abdominal Exam: normal bowel sounds, non tender, soft Extremities: normal range of motion, non-tender Naeem Spring NP Feb 12, 2018 12:00
--- NOTE | 2018-02-12 14:28 | Infectious Diseases Prog Note ---
Assessment/Plan Assessment/Plan A; Diarrhea COPD/Asthma DM Bipolar disorder P; Consider to stop Flagyl Subjective ROS Limited/Unobtainable: No Constitutional: Reports: no symptoms Respiratory: Reports: dry cough Cardiovascular: Reports: no symptoms Gastrointestinal/Abdominal: Reports: diarrhea Genitourinary: Reports: no symptoms Psychiatric: Reports: other - insomnia Allergies: Coded Allergies: SULFA (SULFONAMIDE ANTIBIOTICS) (Unverified Allergy, Intermediate, hives, 12/10/17) CODEINE (Verified Allergy, Unknown, ABD IRRITATION, 12/10/17) SULFONYLUREAS (Verified Allergy, Unknown, RASH, 12/10/17) Objective Vital Signs Last 24 Hour Vital Signs Date Time Temp Pulse Resp B/P (MAP) Pulse Ox O2 Delivery O2 Flow Rate FiO2 02/12/18 12:00 98.4 78 21 116/70 (85) 96 98.4 02/12/18 09:00 Room Air 02/12/18 08:00 98.2 82 21 139/83 (101) 96 98.2 02/12/18 04:00 98.6 74 17 105/65 (78) 93 98.6 02/12/18 00:27 98.6 86 18 117/63 (81) 93 98.6 02/11/18 21:00 Room Air 02/11/18 20:10 70 16 Room Air 21 02/11/18 20:00 97.7 81 16 103/62 (76) 94 97.7 02/11/18 16:00 97.6 72 19 96/58 (71) 95 97.6 Height (Feet): 6 Height (Inches): 0.00 Weight (Pounds): 225 General Appearance: no acute distress HEENT: mucous membranes moist Respiratory/Chest: lungs clear Cardiovascular: normal rate Abdomen: soft, non tender Extremities: no edema Neurologic/Psychiatric: alert, responsive Microbiology Date/Time Source Procedure Growth Status 02/11/18 18:00 Stool Clostridium difficile Toxin Assay - Final Complete 02/11/18 13:00 Urine,Clean Catch Urine Culture - Preliminary NO GROWTH Resulted Laboratory Tests Test 02/12/18 08:25 White Blood Count 5.0 K/UL (4.8-10.8) Red Blood Count 4.56 M/UL (4.70-6.10) L Hemoglobin 13.1 G/DL (14.2-18.0) L Hematocrit 38.2 % (42.0-52.0) L Mean Corpuscular Volume 84 FL (80-99) Mean Corpuscular Hemoglobin 28.8 PG (27.0-31.0) Mean Corpuscular Hemoglobin Concent 34.4 G/DL (32.0-36.0) Red Cell Distribution Width 11.2 % (11.6-14.8) L Platelet Count 134 K/UL (150-450) L Mean Platelet Volume 5.9 FL (6.5-10.1) L Neutrophils (%) (Auto) 64.5 % (45.0-75.0) Lymphocytes (%) (Auto) 15.0 % (20.0-45.0) L Monocytes (%) (Auto) 18.4 % (1.0-10.0) H Eosinophils (%) (Auto) 1.8 % (0.0-3.0) Basophils (%) (Auto) 0.3 % (0.0-2.0) Sodium Level 139 MMOL/L (136-145) Potassium Level 3.9 MMOL/L (3.5-5.1) Chloride Level 106 MMOL/L (98-107) Carbon Dioxide Level 26 MMOL/L (21-32) Anion Gap 7 mmol/L (5-15) Blood Urea Nitrogen 14 mg/dL (7-18) Creatinine 1.2 MG/DL (0.55-1.30) Estimat Glomerular Filtration Rate > 60 mL/min (>60) Glucose Level 121 MG/DL (74-106) H Calcium Level 8.2 MG/DL (8.5-10.1) L Total Bilirubin 0.8 MG/DL (0.2-1.0) Aspartate Amino Transf (AST/SGOT) 24 U/L (15-37) Alanine Aminotransferase (ALT/SGPT) 21 U/L (12-78) Alkaline Phosphatase 83 U/L (46-116) C-Reactive Protein, Quantitative 12.3 mg/dL (0.00-0.90) H Total Protein 5.9 G/DL (6.4-8.2) L Albumin 2.5 G/DL (3.4-5.0) L Globulin 3.4 g/dL Albumin/Globulin Ratio 0.7 (1.0-2.7) L Current Medications Medications (Trade) Dose Ordered Sig/Svetlana Route PRN Reason Start Time Stop Time Status Last Admin Dose Admin Albuterol Sulfate (Proventil MDI) 2 puff Q4H PRN INH Shortness of Breath 02/10/18 23:30 03/12/18 23:29 Diphenoxylate HCl/ Atropine (Lomotil) 2.5 mg Q4H PRN ORAL Diarrhea 02/12/18 11:45 03/14/18 11:44 Famotidine (Pepcid) 20 mg BID ORAL 02/12/18 18:00 03/14/18 17:59 Finasteride (Proscar) 5 mg DAILY ORAL 02/11/18 09:00 03/13/18 08:59 02/12/18 08:18 Lactobacillus Acidophilus (Culturelle) 1 tab TWICE A DAY ORAL 02/11/18 18:00 03/13/18 17:59 02/12/18 08:17 Lorazepam (Ativan) 1 mg Q6HR PRN ORAL For Anxiety 02/10/18 23:30 02/17/18 23:29 02/11/18 03:13 Metronidazole (Flagyl) 500 mg Q8HR ORAL 02/12/18 16:00 02/19/18 15:59 Morphine Sulfate (Morphine Sulfate) 2 mg Q6H PRN IVP For Pain 02/11/18 12:30 02/18/18 12:29 02/12/18 12:14 Olanzapine (ZyPREXA) 10 mg BID ORAL 02/11/18 09:00 03/13/18 08:59 02/12/18 08:18 Ondansetron HCl (Zofran ODT) 4 mg Q6H PRN ORAL Nausea & Vomiting 02/11/18 00:00 03/13/18 00:00 Sodium Chloride 1,000 ml @ 75 mls/hr [id number] IV 02/11/18 13:30 03/13/18 13:29 02/12/18 03:52 Tamsulosin HCl (Flomax) 0.4 mg BEDTIME ORAL 02/10/18 22:15 03/12/18 22:14 02/11/18 20:58 Temazepam (Restoril) 30 mg HSPRN PRN ORAL Insomnia 02/10/18 23:30 02/17/18 23:29 Tolterodine Tartrate (Detrol) 1 mg TWICE A DAY ORAL 02/11/18 09:00 03/13/18 08:59 02/12/18 08:18 Trazodone HCl (Desyrel) 300 mg BEDTIME ORAL 02/10/18 23:55 03/12/18 23:54 02/11/18 20:58 Henry Morgan MD Feb 12, 2018 14:28
--- NOTE | 2018-02-12 15:53 | General Progress Note ---
Assessment/Plan Problem List: (1) Dehydration (2) Generalized weakness ICD Codes: R53.1 - Weakness SNOMED: 88797255 (3) Psychiatric disorder ICD Codes: F99 - Psychiatric disorder SNOMED: 19350921 (4) Weak ICD Codes: R53.1 - Weakness SNOMED: 58784416 (5) Abdominal pain (6) Gastroenteritis ICD Codes: K52.9 - Noninfective gastroenteritis and colitis, unspecified SNOMED: 30286066 (7) Diarrhea ICD Codes: R19.7 - Diarrhea, unspecified SNOMED: 45013282 Status: progressing Assessment/Plan astill having large amounts of diarrhea dry and weak getting fluids dc 1/2 days Subjective Gastrointestinal/Abdominal: Reports: abdominal pain, diarrhea Allergies: Coded Allergies: SULFA (SULFONAMIDE ANTIBIOTICS) (Unverified Allergy, Intermediate, hives, 12/10/17) CODEINE (Verified Allergy, Unknown, ABD IRRITATION, 12/10/17) SULFONYLUREAS (Verified Allergy, Unknown, RASH, 12/10/17) Objective Last 24 Hour Vital Signs Date Time Temp Pulse Resp B/P (MAP) Pulse Ox O2 Delivery O2 Flow Rate FiO2 02/12/18 12:00 98.4 78 21 116/70 (85) 96 98.4 02/12/18 09:00 Room Air 02/12/18 08:00 98.2 82 21 139/83 (101) 96 98.2 02/12/18 04:00 98.6 74 17 105/65 (78) 93 98.6 02/12/18 00:27 98.6 86 18 117/63 (81) 93 98.6 02/11/18 21:00 Room Air 02/11/18 20:10 70 16 Room Air 21 02/11/18 20:00 97.7 81 16 103/62 (76) 94 97.7 02/11/18 16:00 97.6 72 19 96/58 (71) 95 97.6 Intake and Output 02/11/18 02/12/18 19:00 07:00 Intake Total 1160 ml 195 ml Output Total 825 ml 200 ml Balance 335 ml -5 ml Intake Oral 580 ml 120 ml IV Total 580 ml 75 ml Output Urine Total 825 ml 200 ml # Bowel Movements 1 1 Laboratory Tests 02/12/18 08:25: White Blood Count 5.0, Red Blood Count 4.56L, Hemoglobin 13.1L, Hematocrit 38.2L , Mean Corpuscular Volume 84, Mean Corpuscular Hemoglobin 28.8, Mean Corpuscular Hemoglobin Concent 34.4, Red Cell Distribution Width 11.2L, Platelet Count 134L, Mean Platelet Volume 5.9L, Neutrophils (%) (Auto) 64.5, Lymphocytes (%) (Auto) 15.0L, Monocytes (%) (Auto) 18.4H, Eosinophils (%) (Auto ) 1.8, Basophils (%) (Auto) 0.3, Sodium Level 139, Potassium Level 3.9, Chloride Level 106, Carbon Dioxide Level 26, Anion Gap 7, Blood Urea Nitrogen 14 , Creatinine 1.2, Estimat Glomerular Filtration Rate > 60, Glucose Level 121H, Calcium Level 8.2L, Total Bilirubin 0.8, Aspartate Amino Transf (AST/SGOT) 24, Alanine Aminotransferase (ALT/SGPT) 21, Alkaline Phosphatase 83, C-Reactive Protein, Quantitative 12.3H, Total Protein 5.9L, Albumin 2.5L, Globulin 3.4, Albumin/Globulin Ratio 0.7L Height (Feet): 6 Height (Inches): 0.00 Weight (Pounds): 225 Neck: supple Cardiovascular: normal rate Respiratory/Chest: lungs clear Estella Butt MD Feb 12, 2018 15:53
[2018-02-12 16:00] VITALS: BP 107/60
[2018-02-12] MEDS ORDERED: Nulytely 4L ORAL ONE (16:00)
[2018-02-12] MEDS ORDERED: Bisacodyl EC 5mg tab ORAL ONE (16:00)
[2018-02-12] MEDS: metroNIDAZOLE 500mg tab ORAL SCH ×2 (17:29→22:14)
[2018-02-12 20:00] VITALS: BP 146/82
[2018-02-12] MEDS: TraZODone 100mg tab ORAL SCH (20:19)
[2018-02-12] MEDS: Tamsulosin 0.4mg cap ORAL SCH (20:19)
[2018-02-12] MEDS ORDERED: Fleet's Enema 133ml RECTAL ONE (23:00)
[2018-02-13] VITALS (10 sets, daily range): BP systolic 102–139; BP diastolic 59–83
[2018-02-13] MEDS: Morphine Sulfate 2mg/ml Inj(IV/IM USE ONLY) IVP PRN ×3 (01:35→20:27)
[2018-02-13] MEDS: NS w/KCl 40mEq 1,000 ML IV SCH ×2 (05:29→17:15)
[2018-02-13] MEDS: metroNIDAZOLE 500mg tab ORAL SCH (05:45)
[2018-02-13 05:48] LABS: BASOPHILS % (AUTO) 0.8 % (0.0-2.0); EOSINOPHILS % (AUTO) 1.2 % (0.0-3.0); HEMOGLOBIN 13.4 G/DL (14.2-18.0); LYMPHOCYTES % (AUTO) 16.8 % (20.0-45.0); MEAN CORPUSCULAR VOLUME 84 FL (80-99); MONOCYTES % (AUTO) 16.5 % (1.0-10.0); NEUTROPHILS % (AUTO) 64.7 % (45.0-75.0); PLATELET COUNT 152 K/UL (150-450); RED BLOOD COUNT 4.65 M/UL (4.70-6.10); RED CELL DISTRIBUTION WIDTH 11.3 % (11.6-14.8); WHITE BLOOD COUNT 5.7 K/UL (4.8-10.8)
[2018-02-13 05:57] LABS: INR 1.1 (0.9-1.1)
[2018-02-13 06:23] LABS: ALANINE AMINOTRANSFERASE 20 U/L (12-78); ALBUMIN 2.5 G/DL (3.4-5.0); ALBUMIN/GLOBULIN RATIO 0.7 (1.0-2.7); ALKALINE PHOSPHATASE 73 U/L (46-116); ANION GAP 9 mmol/L (5-15); ASPARTATE AMINO TRANSFERASE 21 U/L (15-37); BILIRUBIN,TOTAL 0.8 MG/DL (0.2-1.0); BLOOD UREA NITROGEN 10 mg/dL (7-18); CALCIUM 8.2 MG/DL (8.5-10.1); CARBON DIOXIDE 26 MMOL/L (21-32); CHLORIDE 107 MMOL/L (98-107); PHOSPHORUS 3.2 MG/DL (2.5-4.9); POTASSIUM 3.7 MMOL/L (3.5-5.1); SODIUM 142 MMOL/L (136-145)
[2018-02-13] MEDS: Lactobacillus-GG tablet ORAL SCH ×2 (08:27→17:14)
[2018-02-13] MEDS: Tolterodine 2mg tab ORAL SCH ×2 (08:28→17:12)
[2018-02-13] MEDS: OLANZapine 10mg tab ORAL SCH ×2 (08:28→17:14)
--- NOTE | 2018-02-13 10:31 | Anethesia Preoperative Eval ---
Anesthesia Pre-op PMH/ROS General Date of Evaluation: Feb 13, 2018 Time of Evaluation: 10:26 Anesthesiologist: Deb Mcrae CRNA ASA Score: ASA 3 Mallampati Score Class I : Soft palate, uvula, fauces, pillars visible Class II: Soft palate, uvula, fauces visible Class III: Soft palate, base of uvula visible Class IV: Only hard plate visible Mallampati Classification: Class III Surgeon: Evangelina Diagnosis: dehydration, vomiting, diarrhea Surgical Procedure: diagnostic colonoscopy Anesthesia History: none - no prior anesthetic complications Family History: no anesthesia problems Allergies: Coded Allergies: SULFA (SULFONAMIDE ANTIBIOTICS) (Unverified Allergy, Intermediate, hives, 12/10/17) CODEINE (Verified Allergy, Unknown, ABD IRRITATION, 12/10/17) SULFONYLUREAS (Verified Allergy, Unknown, RASH, 12/10/17) Medications: see eMAR Past Medical History Pulmonary: Reports: other - HX of bronchitis, pneumonia CXR 02/10/18 Minimal left basilar atelectasis. Gastrointestinal/Genitourinary: Reports: GERD, other - admitted 02/10/18 for dehydration, vomiting, diarrhea Neurologic/Psychiatric: Reports: depression/anxiety, other - psychiatic disorder, prior head injury; history of suicidal attempt HEENT: Reports: other - s/p tracheostomy decannulated 20 years ago; Denies: cataract (L), cataract (R), glaucoma, [place] (L), [place] (R) Hematology/Immune: Denies: anemia, DVT, bleeding disorder, other Musculoskeletal/Integumentary: Denies: OA, RA, DJD, DDD, edema, other Other: obesity PMH Narrative: EGD required for dehydration and generalized weakness PSxH Narrative: no prior anesthetic complications with prior surgeries Anesthesia Pre-op Phys. Exam Physician Exam Last Vital Signs Date Time Temp Pulse Resp B/P (MAP) Pulse Ox O2 Delivery O2 Flow Rate FiO2 02/13/18 09:00 Room Air 02/13/18 08:00 97.5 78 18 112/60 (77) 94 97.5 02/13/18 07:15 21 Constitutional: NAD Neurologic: CN 2-12 intact Cardiovascular: RRR Respiratory: CTA Gastrointestinal: S/NT/ND Airway Exam Mallampati Score: Class III MO: full Neck: prior tracheostomy scar ROM: full Teeth: intact Dentures: no upper, no lower Anesthesia Pre-op A/P Labs Hematology Test 02/13/18 04:50 White Blood Count 5.7 K/UL (4.8-10.8) Red Blood Count 4.65 M/UL (4.70-6.10) L Hemoglobin 13.4 G/DL (14.2-18.0) L Hematocrit 39.0 % (42.0-52.0) L Mean Corpuscular Volume 84 FL (80-99) Mean Corpuscular Hemoglobin 28.9 PG (27.0-31.0) Mean Corpuscular Hemoglobin Concent 34.4 G/DL (32.0-36.0) Red Cell Distribution Width 11.3 % (11.6-14.8) L Platelet Count 152 K/UL (150-450) Mean Platelet Volume 5.7 FL (6.5-10.1) L Neutrophils (%) (Auto) 64.7 % (45.0-75.0) Lymphocytes (%) (Auto) 16.8 % (20.0-45.0) L Monocytes (%) (Auto) 16.5 % (1.0-10.0) H Eosinophils (%) (Auto) 1.2 % (0.0-3.0) Basophils (%) (Auto) 0.8 % (0.0-2.0) Coagulation Test 02/13/18 04:50 Prothrombin Time 11.2 SEC (9.30-11.50) Prothromb Time International Ratio 1.1 (0.9-1.1) Activated Partial Thromboplast Time 32 SEC (23-33) Chemistry Test 02/13/18 04:50 Sodium Level 142 MMOL/L (136-145) Potassium Level 3.7 MMOL/L (3.5-5.1) Chloride Level 107 MMOL/L (98-107) Carbon Dioxide Level 26 MMOL/L (21-32) Anion Gap 9 mmol/L (5-15) Blood Urea Nitrogen 10 mg/dL (7-18) Creatinine 1.0 MG/DL (0.55-1.30) Estimat Glomerular Filtration Rate > 60 mL/min (>60) Glucose Level 103 MG/DL (74-106) Calcium Level 8.2 MG/DL (8.5-10.1) L Phosphorus Level 3.2 MG/DL (2.5-4.9) Magnesium Level 1.8 MG/DL (1.8-2.4) Total Bilirubin 0.8 MG/DL (0.2-1.0) Aspartate Amino Transf (AST/SGOT) 21 U/L (15-37) Alanine Aminotransferase (ALT/SGPT) 20 U/L (12-78) Alkaline Phosphatase 73 U/L (46-116) Total Protein 5.9 G/DL (6.4-8.2) L Albumin 2.5 G/DL (3.4-5.0) L Globulin 3.4 g/dL Albumin/Globulin Ratio 0.7 (1.0-2.7) L Studies Pre-op Studies: EKG - NSR Risk Assessment & Plan Assessment: alert & oriented x 3, EGD for weakness and diarrhea Plan: MAC Status Change Before Surgery: Dottie Matos CRNA Feb 13, 2018 10:31
--- NOTE | 2018-02-13 11:27 | Nephrology Progress Note ---
Assessment/Plan Problem List: (1) Nausea vomiting and diarrhea (2) Dehydration (3) Psychiatric diagnosis Assessment intractible diarrhea- dehydration HypoKalemia DM Psych disease UTI: urine c/s neg Plan stop Metformin stop Flagyl, C dif negative Mag- IV fluid with KCL Lactobacillus per GI ? DC Subjective ROS Limited/Unobtainable: No Constitutional: Reports: other - non reliable historia Objective Objective Last 24 Hour Vital Signs Date Time Temp Pulse Resp B/P (MAP) Pulse Ox O2 Delivery O2 Flow Rate FiO2 02/13/18 09:00 Room Air 02/13/18 08:00 97.5 78 18 112/60 (77) 94 97.5 02/13/18 07:15 69 16 Room Air 21 02/13/18 04:00 97.7 75 18 105/59 (74) 94 97.7 02/13/18 00:00 99.0 83 19 119/73 (88) 95 99.0 02/12/18 21:00 Room Air 02/12/18 20:10 85 18 Room Air 21 02/12/18 20:00 97.8 93 18 146/82 (103) 96 97.8 02/12/18 16:00 97.3 83 20 107/60 (76) 96 97.3 02/12/18 12:00 98.4 78 21 116/70 (85) 96 98.4 Intake and Output 02/12/18 02/13/18 19:00 07:00 Intake Total 1425 ml 1230 ml Balance 1425 ml 1230 ml Intake Oral 600 ml 360 ml IV Total 825 ml 870 ml # Voids 5 4 # Bowel Movements 6 Laboratory Tests 02/13/18 04:50: White Blood Count 5.7, Red Blood Count 4.65L, Hemoglobin 13.4L, Hematocrit 39.0L , Mean Corpuscular Volume 84, Mean Corpuscular Hemoglobin 28.9, Mean Corpuscular Hemoglobin Concent 34.4, Red Cell Distribution Width 11.3L, Platelet Count 152, Mean Platelet Volume 5.7L, Neutrophils (%) (Auto) 64.7, Lymphocytes (%) (Auto) 16.8L, Monocytes (%) (Auto) 16.5H, Eosinophils (%) (Auto ) 1.2, Basophils (%) (Auto) 0.8, Prothrombin Time 11.2, Prothromb Time International Ratio 1.1, Activated Partial Thromboplast Time 32, Sodium Level 142, Potassium Level 3.7, Chloride Level 107, Carbon Dioxide Level 26, Anion Gap 9, Blood Urea Nitrogen 10, Creatinine 1.0, Estimat Glomerular Filtration Rate > 60, Glucose Level 103, Calcium Level 8.2L, Phosphorus Level 3.2, Magnesium Level 1.8, Total Bilirubin 0.8, Aspartate Amino Transf (AST/SGOT) 21, Alanine Aminotransferase (ALT/SGPT) 20, Alkaline Phosphatase 73, Total Protein 5.9L, Albumin 2.5L, Globulin 3.4, Albumin/Globulin Ratio 0.7L Height (Feet): 6 Height (Inches): 6.00 Weight (Pounds): 225 General Appearance: no apparent distress Cardiovascular: normal rate Respiratory/Chest: lungs clear Abdomen: soft Objective no change Talha Alfaro MD Feb 13, 2018 11:27
--- NOTE | 2018-02-13 11:57 | General Progress Note ---
Assessment/Plan Problem List: (1) Dehydration (2) Generalized weakness ICD Codes: R53.1 - Weakness SNOMED: 82023946 (3) Psychiatric disorder ICD Codes: F99 - Psychiatric disorder SNOMED: 49973955 (4) Weak ICD Codes: R53.1 - Weakness SNOMED: 30312540 (5) Abdominal pain (6) Gastroenteritis ICD Codes: K52.9 - Noninfective gastroenteritis and colitis, unspecified SNOMED: 17088242 (7) Diarrhea ICD Codes: R19.7 - Diarrhea, unspecified SNOMED: 49318547 Status: progressing Assessment/Plan still having diarrhea dry and weak will dc in am if diarrhea improves negative c diff Subjective ROS Limited/Unobtainable: Yes HEENT: Reports: no symptoms Allergies: Coded Allergies: SULFA (SULFONAMIDE ANTIBIOTICS) (Unverified Allergy, Intermediate, hives, 12/10/17) CODEINE (Verified Allergy, Unknown, ABD IRRITATION, 12/10/17) SULFONYLUREAS (Verified Allergy, Unknown, RASH, 12/10/17) Objective Last 24 Hour Vital Signs Date Time Temp Pulse Resp B/P (MAP) Pulse Ox O2 Delivery O2 Flow Rate FiO2 02/13/18 09:00 Room Air 02/13/18 08:00 97.5 78 18 112/60 (77) 94 97.5 02/13/18 07:15 69 16 Room Air 21 02/13/18 04:00 97.7 75 18 105/59 (74) 94 97.7 02/13/18 00:00 99.0 83 19 119/73 (88) 95 99.0 02/12/18 21:00 Room Air 02/12/18 20:10 85 18 Room Air 21 02/12/18 20:00 97.8 93 18 146/82 (103) 96 97.8 02/12/18 16:00 97.3 83 20 107/60 (76) 96 97.3 02/12/18 12:00 98.4 78 21 116/70 (85) 96 98.4 Intake and Output 02/12/18 02/13/18 19:00 07:00 Intake Total 1425 ml 1230 ml Balance 1425 ml 1230 ml Intake Oral 600 ml 360 ml IV Total 825 ml 870 ml # Voids 5 4 # Bowel Movements 6 Laboratory Tests 02/13/18 04:50: White Blood Count 5.7, Red Blood Count 4.65L, Hemoglobin 13.4L, Hematocrit 39.0L , Mean Corpuscular Volume 84, Mean Corpuscular Hemoglobin 28.9, Mean Corpuscular Hemoglobin Concent 34.4, Red Cell Distribution Width 11.3L, Platelet Count 152, Mean Platelet Volume 5.7L, Neutrophils (%) (Auto) 64.7, Lymphocytes (%) (Auto) 16.8L, Monocytes (%) (Auto) 16.5H, Eosinophils (%) (Auto ) 1.2, Basophils (%) (Auto) 0.8, Prothrombin Time 11.2, Prothromb Time International Ratio 1.1, Activated Partial Thromboplast Time 32, Sodium Level 142, Potassium Level 3.7, Chloride Level 107, Carbon Dioxide Level 26, Anion Gap 9, Blood Urea Nitrogen 10, Creatinine 1.0, Estimat Glomerular Filtration Rate > 60, Glucose Level 103, Calcium Level 8.2L, Phosphorus Level 3.2, Magnesium Level 1.8, Total Bilirubin 0.8, Aspartate Amino Transf (AST/SGOT) 21, Alanine Aminotransferase (ALT/SGPT) 20, Alkaline Phosphatase 73, Total Protein 5.9L, Albumin 2.5L, Globulin 3.4, Albumin/Globulin Ratio 0.7L Height (Feet): 6 Height (Inches): 6.00 Weight (Pounds): 225 Estella Butt MD Feb 13, 2018 11:57
--- NOTE | 2018-02-13 12:52 | Pre-Procedure Note/Attestation ---
Pre-Procedure Note/Attestation Complete Prior to Procedure Planned Procedure: not applicable Procedure Narrative: colonoscopy Indications for Procedure Pre-Operative Diagnosis: diarrhea Attestation I attest that I discussed the nature of the procedure; its benefits; risks and complications; and alternatives (and the risks and benefits of such alternatives ), prior to the procedure, with the patient (or the patient's legal new accounts banking representative). I attest that, if there was a reasonable possibility of needing a blood transfusion, the patient (or the patient's legal new accounts banking representative) was given the [facility] standardized written summary, pursuant to the Pedro Cornelius Blood Safety Act ([place] Health and Safety Code # 1645, as amended). I attest that I re-evaluated the patient just prior to the surgery and that there has been no change in the patient's H&P, except as documented below: Valeriy Hutchinson MD Feb 13, 2018 12:52
[2018-02-13] MEDS ORDERED: Propofol 200mg/20ml IV ONE (13:00)
[2018-02-13] MEDS ORDERED: Lidocaine 1% MPF 10mg/ml 5ml ONE (13:00)
[2018-02-13] MEDS ORDERED: NS 500ML IVPB ONE (13:00)
--- NOTE | 2018-02-13 13:38 | Immediate Post-Op Evaluation ---
Immediate Post-Op Evalulation Immediate Post-Op Evalulation Procedure: Colonoscopy and polypectomy Date of Evaluation: Feb 13, 2018 Time of Evaluation: 13:28 IV Fluids: 0.95 NS 200 Ml Blood Pressure Systolic: 117 Blood Pressure Diastolic: 78 Pulse Rate: 75 Respiratory Rate: 16 O2 Sat by Pulse Oximetry: 99 Temperature (Fahrenheit): 97 Pain Score (1-10): 0 Nausea: No Vomiting: No Complications none Patient Status: awake, reacts, patent Hydration Status: adequate Dottie Mcrae CRNA Feb 13, 2018 13:38
--- NOTE | 2018-02-13 14:25 | Infectious Diseases Prog Note ---
Assessment/Plan Assessment/Plan A; Diarrhea COPD/Asthma DM Bipolar disorder P; observe off antibiotic Subjective ROS Limited/Unobtainable: No Constitutional: Reports: no symptoms Cardiovascular: Reports: no symptoms Gastrointestinal/Abdominal: Reports: diarrhea, other - had colonoscopy today Genitourinary: Reports: no symptoms Allergies: Coded Allergies: SULFA (SULFONAMIDE ANTIBIOTICS) (Unverified Allergy, Intermediate, hives, 12/10/17) CODEINE (Verified Allergy, Unknown, ABD IRRITATION, 12/10/17) SULFONYLUREAS (Verified Allergy, Unknown, RASH, 12/10/17) Objective Vital Signs Last 24 Hour Vital Signs Date Time Temp Pulse Resp B/P (MAP) Pulse Ox O2 Delivery O2 Flow Rate FiO2 02/13/18 13:49 65 18 120/83 99 Room Air 02/13/18 13:38 206.6 75 16 99 02/13/18 13:36 69 18 111/75 99 Simple Mask 5 02/13/18 13:31 7 18 102/77 99 Simple Mask 5 02/13/18 13:26 97 75 18 117/78 99 Simple Mask 5 97.0 02/13/18 12:00 97.9 73 18 112/75 (87) 94 97.9 02/13/18 09:00 Room Air 02/13/18 08:00 97.5 78 18 112/60 (77) 94 97.5 02/13/18 07:15 69 16 Room Air 21 02/13/18 04:00 97.7 75 18 105/59 (74) 94 97.7 02/13/18 00:00 99.0 83 19 119/73 (88) 95 99.0 02/12/18 21:00 Room Air 02/12/18 20:10 85 18 Room Air 21 02/12/18 20:00 97.8 93 18 146/82 (103) 96 97.8 02/12/18 16:00 97.3 83 20 107/60 (76) 96 97.3 Height (Feet): 6 Height (Inches): 6.00 Weight (Pounds): 225 General Appearance: no acute distress HEENT: mucous membranes moist Respiratory/Chest: lungs clear Cardiovascular: normal rate Abdomen: soft, non tender Extremities: no edema Neurologic/Psychiatric: alert, responsive Microbiology Date/Time Source Procedure Growth Status 02/11/18 18:00 Stool Clostridium difficile Toxin Assay - Final Complete 02/11/18 13:00 Urine,Clean Catch Urine Culture - Preliminary NO GROWTH AFTER 24 HOURS Resulted Laboratory Tests Test 02/13/18 04:50 White Blood Count 5.7 K/UL (4.8-10.8) Red Blood Count 4.65 M/UL (4.70-6.10) L Hemoglobin 13.4 G/DL (14.2-18.0) L Hematocrit 39.0 % (42.0-52.0) L Mean Corpuscular Volume 84 FL (80-99) Mean Corpuscular Hemoglobin 28.9 PG (27.0-31.0) Mean Corpuscular Hemoglobin Concent 34.4 G/DL (32.0-36.0) Red Cell Distribution Width 11.3 % (11.6-14.8) L Platelet Count 152 K/UL (150-450) Mean Platelet Volume 5.7 FL (6.5-10.1) L Neutrophils (%) (Auto) 64.7 % (45.0-75.0) Lymphocytes (%) (Auto) 16.8 % (20.0-45.0) L Monocytes (%) (Auto) 16.5 % (1.0-10.0) H Eosinophils (%) (Auto) 1.2 % (0.0-3.0) Basophils (%) (Auto) 0.8 % (0.0-2.0) Prothrombin Time 11.2 SEC (9.30-11.50) Prothromb Time International Ratio 1.1 (0.9-1.1) Activated Partial Thromboplast Time 32 SEC (23-33) Sodium Level 142 MMOL/L (136-145) Potassium Level 3.7 MMOL/L (3.5-5.1) Chloride Level 107 MMOL/L (98-107) Carbon Dioxide Level 26 MMOL/L (21-32) Anion Gap 9 mmol/L (5-15) Blood Urea Nitrogen 10 mg/dL (7-18) Creatinine 1.0 MG/DL (0.55-1.30) Estimat Glomerular Filtration Rate > 60 mL/min (>60) Glucose Level 103 MG/DL (74-106) Calcium Level 8.2 MG/DL (8.5-10.1) L Phosphorus Level 3.2 MG/DL (2.5-4.9) Magnesium Level 1.8 MG/DL (1.8-2.4) Total Bilirubin 0.8 MG/DL (0.2-1.0) Aspartate Amino Transf (AST/SGOT) 21 U/L (15-37) Alanine Aminotransferase (ALT/SGPT) 20 U/L (12-78) Alkaline Phosphatase 73 U/L (46-116) Total Protein 5.9 G/DL (6.4-8.2) L Albumin 2.5 G/DL (3.4-5.0) L Globulin 3.4 g/dL Albumin/Globulin Ratio 0.7 (1.0-2.7) L Current Medications Medications (Trade) Dose Ordered Sig/Svetlana Route PRN Reason Start Time Stop Time Status Last Admin Dose Admin Acetaminophen (Tylenol) 650 mg Q4H PRN ORAL Mild Pain (Pain Scale 1-3) 02/13/18 13:00 02/13/18 19:00 Albuterol Sulfate (Proventil MDI) 2 puff Q4H PRN INH Shortness of Breath 02/10/18 23:30 03/12/18 23:29 Diphenoxylate HCl/ Atropine (Lomotil) 2.5 mg Q4H PRN ORAL Diarrhea 02/12/18 11:45 03/14/18 11:44 Famotidine (Pepcid) 20 mg BID ORAL 02/12/18 18:00 03/14/18 17:59 02/13/18 08:27 Finasteride (Proscar) 5 mg DAILY ORAL 02/11/18 09:00 03/13/18 08:59 02/13/18 08:28 Lactobacillus Acidophilus (Culturelle) 1 tab TWICE A DAY ORAL 02/11/18 18:00 03/13/18 17:59 02/13/18 08:27 Lorazepam (Ativan) 1 mg Q6HR PRN ORAL For Anxiety 02/10/18 23:30 02/17/18 23:29 02/11/18 03:13 Mesalamine (Asacol) 1,600 mg THREE TIMES A DAY ORAL 02/13/18 18:00 03/15/18 17:59 UNV Morphine Sulfate (Morphine Sulfate) 2 mg Q6H PRN IVP For Pain 02/11/18 12:30 02/18/18 12:29 02/13/18 14:15 Olanzapine (ZyPREXA) 10 mg BID ORAL 02/11/18 09:00 03/13/18 08:59 02/13/18 08:28 Ondansetron HCl (Zofran ODT) 4 mg Q6H PRN ORAL Nausea & Vomiting 02/11/18 00:00 03/13/18 00:00 Sodium Chloride 1,000 ml @ 75 mls/hr [id number] IV 02/11/18 13:30 03/13/18 13:29 02/13/18 05:29 Tamsulosin HCl (Flomax) 0.4 mg BEDTIME ORAL 02/10/18 22:15 03/12/18 22:14 02/12/18 20:19 Temazepam (Restoril) 30 mg HSPRN PRN ORAL Insomnia 02/10/18 23:30 02/17/18 23:29 Tolterodine Tartrate (Detrol) 1 mg TWICE A DAY ORAL 02/11/18 09:00 03/13/18 08:59 02/13/18 08:28 Trazodone HCl (Desyrel) 300 mg BEDTIME ORAL 02/10/18 23:55 03/12/18 23:54 02/12/18 20:19 Henry Morgan MD Feb 13, 2018 14:25
--- NOTE | 2018-02-13 14:32 | Endoscopy Procedure Note ---
Endoscopy Procedure Note General Indication for Procedure: disrrhea Procedures Performed: colonoscopy Operative Findings/Diagnosis: colitis Specimen: yes Pt Tolerated Procedure Well: Yes Estimated Blood Loss: none Anesthesia Anesthesiologist: see chart Anesthesia: MAC Inserted Devices Implant(s) used?: No Quality Quality of Bowel Preparation: Good Did scope reach the cecum?: Yes Was there any complications?: No GI Core Measures 50 yrs or older w/o bx or poly: Not Applicable 10yrs. F/U not recommended: Not Applicable Valeriy Hutchinson MD Feb 13, 2018 14:31
[2018-02-13] MEDS: Mesalamine 400mg cap ORAL SCH (17:13)
[2018-02-13] MEDS: Tamsulosin 0.4mg cap ORAL SCH (20:26)
[2018-02-13] MEDS: TraZODone 100mg tab ORAL SCH (20:26)
[2018-02-14] VITALS: BP 140/69
--- NOTE | 2018-02-14 00:30 | Procedure Note ---
DATE OF PROCEDURE: 02/13/2018 SURGEON: Valeriy Hutchinson M.D. PROCEDURE: Colonoscopy with biopsy. ANESTHESIA: Per STUDIO RECEPTIONIST, see the chart. REASON FOR PROCEDURE: The procedure, risks, benefits, and possible consequences, including hemorrhage, aspiration, perforation and infection, and alternative treatments, were explained to the patient/legal guardian by Dr. Valeriy Hutchinson and the patient/legal guardian understood and accepted these risks. INDICATION: Diarrhea. DESCRIPTION OF PROCEDURE: After informed consent was obtained and the patient was adequately sedated, rectal exam was performed, which was normal. Then, the scope was advanced from rectum into the cecum documented by the appendix orifice, ileocecal valve, and right upper quadrant palpation. Quality of prep was very good. The patient had diffuse colitis starting from the rectum all the way down to the cecum, highly suspicious for ulcerative colitis given the continuity and the extent of the ulceration. Random biopsy from the cecum, ascending colon, transverse colon, and sigmoid colon was removed. The patient also had evidence of 2 polyps, 1 in the cecum, diminutive, removed with cold biopsy forceps technique. There was another polyp in the rectum, which was larger, about 5 to 6 mm, removed with the snare polypectomy technique. Retroflexion of rectum showed evidence of internal hemorrhoids. SUMMARY OF FINDINGS: 1. Diffuse colitis, highly suspicious for ulcerative colitis status post biopsy. 2. Two colonic polyps removed, see above for details. 3. Internal hemorrhoids. RECOMMENDATIONS: 1. Start the patient on Asacol 4.8 g daily pending the results of the biopsy. If the biopsies are consistent with ulcerative colitis and the patient is not responding to Asacol, we will add more medication. 2. Follow up biopsies and treat accordingly. The patient will need a repeat colonoscopy in one year if the diagnosis is ulcerative colitis. I want to thank, Dr. Estella Butt, for this kind referral. Valeriy Hutchinson M.D. DR: LALITA JOB#: [id number] CC: Estella Butt M.D.; Fax#: [phone]
[2018-02-14] MEDS: Morphine Sulfate 2mg/ml Inj(IV/IM USE ONLY) IVP PRN ×2 (02:41→08:46)
[2018-02-14 04:00] VITALS: BP 117/71
[2018-02-14 06:37] LABS: EOSINOPHILS % (AUTO) 3.7 % (0.0-3.0); HEMATOCRIT 40.4 % (42.0-52.0); HEMOGLOBIN 13.4 G/DL (14.2-18.0); LYMPHOCYTES % (AUTO) 17.1 % (20.0-45.0); MEAN CORPUSCULAR VOLUME 84 FL (80-99); MONOCYTES % (AUTO) 17.4 % (1.0-10.0); NEUTROPHILS % (AUTO) 60.7 % (45.0-75.0); PLATELET COUNT 190 K/UL (150-450); RED BLOOD COUNT 4.81 M/UL (4.70-6.10); RED CELL DISTRIBUTION WIDTH 11.6 % (11.6-14.8); WHITE BLOOD COUNT 5.3 K/UL (4.8-10.8)
[2018-02-14 07:18] LABS: ANION GAP 7 mmol/L (5-15); BLOOD UREA NITROGEN 12 mg/dL (7-18); CALCIUM 8.2 MG/DL (8.5-10.1); CARBON DIOXIDE 27 MMOL/L (21-32); CHLORIDE 107 MMOL/L (98-107); SODIUM 141 MMOL/L (136-145)
[2018-02-14 08:00] VITALS: BP 111/71
[2018-02-14] MEDS: Tolterodine 2mg tab ORAL SCH (08:47)
[2018-02-14] MEDS: OLANZapine 10mg tab ORAL SCH (08:47)
[2018-02-14] MEDS: Lactobacillus-GG tablet ORAL SCH (08:47)
[2018-02-14] MEDS: Mesalamine 400mg cap ORAL SCH (08:47)
--- NOTE | 2018-02-14 11:55 | GI Progress Note ---
Assessment/Plan Problems: (1) Diarrhea ICD Codes: R19.7 - Diarrhea, unspecified SNOMED: 68100650 (2) Gastroenteritis ICD Codes: K52.9 - Noninfective gastroenteritis and colitis, unspecified SNOMED: 83398932 (3) Abdominal pain (4) Dehydration (5) Psychiatric disorder ICD Codes: F99 - Psychiatric disorder SNOMED: 06098253 (6) Generalized weakness ICD Codes: R53.1 - Weakness SNOMED: 09120751 Status: stable Status Narrative Discussed with Dr. Hutchinson. Assessment/Plan SUMMARY OF FINDINGS: 1. Diffuse colitis, highly suspicious for ulcerative colitis status post biopsy. 2. Two colonic polyps removed, see above for details. 3. Internal hemorrhoids. RECOMMENDATIONS: okay for DC per GI standpoint, needs follow up appointment in one month with us or other GI. 1. Start the patient on Asacol 4.8 g daily pending the results of the biopsy. If the biopsies are consistent with ulcerative colitis and the patient is not responding to Asacol, we will add more medication. 2. Follow up biopsies and treat accordingly. The patient will need a repeat colonoscopy in one year if the diagnosis is ulcerative colitis. The patient was seen and examined at bedside and all new and available data was reviewed in the patients chart. I agree with the above findings, impression and plan. (Patient seen earlier today. Signature stamp does not reflect patient encounter time.). - Valeriy Hutchinson MD Subjective Subjective no N/V had episodes of diarrhea this morning Objective Last 24 Hour Vital Signs Date Time Temp Pulse Resp B/P (MAP) Pulse Ox O2 Delivery O2 Flow Rate FiO2 02/14/18 09:00 Room Air 02/14/18 08:00 96.7 71 20 111/71 (84) 95 96.7 02/14/18 04:00 97.3 64 20 117/71 (86) 95 97.3 02/14/18 00:00 99.3 67 20 140/69 (92) 93 99.3 02/13/18 21:00 Room Air 02/13/18 20:57 98.5 02/13/18 20:00 98.5 80 19 120/81 (94) 94 98.5 02/13/18 19:09 86 18 Room Air 02/13/18 16:00 97.9 82 18 139/79 (99) 94 97.9 02/13/18 13:49 65 18 120/83 99 Room Air 02/13/18 13:38 206.6 75 16 99 02/13/18 13:36 69 18 111/75 99 Simple Mask 5 02/13/18 13:31 7 18 102/77 99 Simple Mask 5 02/13/18 13:26 97 75 18 117/78 99 Simple Mask 5 97.0 02/13/18 12:00 97.9 73 18 112/75 (87) 94 97.9 Intake and Output 02/13/18 02/14/18 19:00 07:00 Intake Total 440 ml 440 ml Output Total 300 ml 300 ml Balance 140 ml 140 ml Intake Oral 240 ml 240 ml IV Total 200 ml 200 ml Output Urine Total 300 ml 300 ml # Voids 1 1 # Bowel Movements 6 Laboratory Tests Test 02/14/18 05:40 White Blood Count 5.3 K/UL (4.8-10.8) Red Blood Count 4.81 M/UL (4.70-6.10) Hemoglobin 13.4 G/DL (14.2-18.0) L Hematocrit 40.4 % (42.0-52.0) L Mean Corpuscular Volume 84 FL (80-99) Mean Corpuscular Hemoglobin 27.9 PG (27.0-31.0) Mean Corpuscular Hemoglobin Concent 33.2 G/DL (32.0-36.0) Red Cell Distribution Width 11.6 % (11.6-14.8) Platelet Count 190 K/UL (150-450) Mean Platelet Volume 5.8 FL (6.5-10.1) L Neutrophils (%) (Auto) 60.7 % (45.0-75.0) Lymphocytes (%) (Auto) 17.1 % (20.0-45.0) L Monocytes (%) (Auto) 17.4 % (1.0-10.0) H Eosinophils (%) (Auto) 3.7 % (0.0-3.0) H Basophils (%) (Auto) 1.0 % (0.0-2.0) Sodium Level 141 MMOL/L (136-145) Potassium Level 4.0 MMOL/L (3.5-5.1) Chloride Level 107 MMOL/L (98-107) Carbon Dioxide Level 27 MMOL/L (21-32) Anion Gap 7 mmol/L (5-15) Blood Urea Nitrogen 12 mg/dL (7-18) Creatinine 1.0 MG/DL (0.55-1.30) Estimat Glomerular Filtration Rate > 60 mL/min (>60) Glucose Level 138 MG/DL (74-106) H Calcium Level 8.2 MG/DL (8.5-10.1) L Height (Feet): 6 Height (Inches): 6.00 Weight (Pounds): 225 General Appearance: WD/WN, no apparent distress, alert Cardiovascular: normal rate Respiratory/Chest: normal breath sounds, no respiratory distress Abdominal Exam: normal bowel sounds, non tender, soft Extremities: normal range of motion, non-tender Naeem Spring NP Feb 14, 2018 11:55
[2018-02-14 12:00] VITALS: BP 124/80
[2018-02-14] MEDS ORDERED: SULFAZINE500 MG PO (12:00)
[2018-02-14 12:12] VITALS: BP 111/75
--- NOTE | 2018-02-14 12:13 | 48 Hour Post Anesthesia Eval ---
Post Anesthesia Evaluation Procedure: Colonoscopy and polypectomy Date of Evaluation: Feb 14, 2018 Time of Evaluation: 12:11 Blood Pressure Systolic: 111 0: 75 Pulse Rate: 71 Temperature (Fahrenheit): 96.7 O2 Sat by Pulse Oximetry: 95 Nausea: No Vomiting: No Pain Intensity: 0 Hydration Status: adequate Cardiopulmonary Status: stable, no overnight events Mental Status/LOC: patient returned to baseline Follow-up Care/Observations: none Post-Anesthesia Complications: none Follow-up care needed: N/A Dottie Mcrae CRNA Feb 14, 2018 12:12
--- NOTE | 2018-02-14 12:17 | Nephrology Progress Note ---
Assessment/Plan Problem List: (1) Acute ulcerative colitis (2) Nausea vomiting and diarrhea (3) Dehydration (4) Psychiatric diagnosis Assessment intractible diarrhea- dehydration HypoKalemia DM Psych disease UTI: urine c/s neg Plan on Mesalamine- stop Metformin stop Flagyl, C dif negative Mag- IV fluid with KCL Lactobacillus per GI ? DC Subjective ROS Limited/Unobtainable: No Constitutional: Reports: malaise Objective Objective Last 24 Hour Vital Signs Date Time Temp Pulse Resp B/P (MAP) Pulse Ox O2 Delivery O2 Flow Rate FiO2 02/14/18 12:12 206.1 71 95 02/14/18 12:00 97.6 84 20 124/80 (95) 96 97.6 02/14/18 09:00 Room Air 02/14/18 08:00 96.7 71 20 111/71 (84) 95 96.7 02/14/18 04:00 97.3 64 20 117/71 (86) 95 97.3 02/14/18 00:00 99.3 67 20 140/69 (92) 93 99.3 02/13/18 21:00 Room Air 02/13/18 20:57 98.5 02/13/18 20:00 98.5 80 19 120/81 (94) 94 98.5 02/13/18 19:09 86 18 Room Air 02/13/18 16:00 97.9 82 18 139/79 (99) 94 97.9 02/13/18 13:49 65 18 120/83 99 Room Air 02/13/18 13:38 206.6 75 16 99 02/13/18 13:36 69 18 111/75 99 Simple Mask 5 02/13/18 13:31 7 18 102/77 99 Simple Mask 5 02/13/18 13:26 97 75 18 117/78 99 Simple Mask 5 97.0 Intake and Output 02/13/18 02/14/18 19:00 07:00 Intake Total 440 ml 440 ml Output Total 300 ml 300 ml Balance 140 ml 140 ml Intake Oral 240 ml 240 ml IV Total 200 ml 200 ml Output Urine Total 300 ml 300 ml # Voids 1 1 # Bowel Movements 6 Laboratory Tests 02/14/18 05:40: White Blood Count 5.3, Red Blood Count 4.81, Hemoglobin 13.4L, Hematocrit 40.4L , Mean Corpuscular Volume 84, Mean Corpuscular Hemoglobin 27.9, Mean Corpuscular Hemoglobin Concent 33.2, Red Cell Distribution Width 11.6, Platelet Count 190, Mean Platelet Volume 5.8L, Neutrophils (%) (Auto) 60.7, Lymphocytes ( %) (Auto) 17.1L, Monocytes (%) (Auto) 17.4H, Eosinophils (%) (Auto) 3.7H, Basophils (%) (Auto) 1.0, Sodium Level 141, Potassium Level 4.0, Chloride Level 107, Carbon Dioxide Level 27, Anion Gap 7, Blood Urea Nitrogen 12, Creatinine 1.0, Estimat Glomerular Filtration Rate > 60, Glucose Level 138H, Calcium Level 8.2L Height (Feet): 6 Height (Inches): 6.00 Weight (Pounds): 225 General Appearance: no apparent distress Cardiovascular: normal rate Respiratory/Chest: decreased breath sounds Abdomen: distended Objective no change Talha Alfaro MD Feb 14, 2018 12:17
--- NOTE | 2018-02-14 12:45 | Infectious Diseases Prog Note ---
Assessment/Plan Assessment/Plan A; Ulcerative colitis Colonic polyps removed Internal Hemorrhoids Diarrhea COPD/Asthma DM Bipolar disorder P; observe off antibiotic Plan by GI specialist Subjective ROS Limited/Unobtainable: No Respiratory: Reports: no symptoms Cardiovascular: Reports: no symptoms Gastrointestinal/Abdominal: Reports: diarrhea Genitourinary: Reports: no symptoms Musculoskeletal: Reports: no symptoms Allergies: Coded Allergies: SULFA (SULFONAMIDE ANTIBIOTICS) (Unverified Allergy, Intermediate, hives, 12/10/17) CODEINE (Verified Allergy, Unknown, ABD IRRITATION, 12/10/17) SULFONYLUREAS (Verified Allergy, Unknown, RASH, 12/10/17) Objective Vital Signs Last 24 Hour Vital Signs Date Time Temp Pulse Resp B/P (MAP) Pulse Ox O2 Delivery O2 Flow Rate FiO2 02/14/18 12:12 206.1 71 95 02/14/18 12:00 97.6 84 20 124/80 (95) 96 97.6 02/14/18 09:00 Room Air 02/14/18 08:00 96.7 71 20 111/71 (84) 95 96.7 02/14/18 04:00 97.3 64 20 117/71 (86) 95 97.3 02/14/18 00:00 99.3 67 20 140/69 (92) 93 99.3 02/13/18 21:00 Room Air 02/13/18 20:57 98.5 02/13/18 20:00 98.5 80 19 120/81 (94) 94 98.5 02/13/18 19:09 86 18 Room Air 02/13/18 16:00 97.9 82 18 139/79 (99) 94 97.9 02/13/18 13:49 65 18 120/83 99 Room Air 02/13/18 13:38 206.6 75 16 99 02/13/18 13:36 69 18 111/75 99 Simple Mask 5 02/13/18 13:31 7 18 102/77 99 Simple Mask 5 02/13/18 13:26 97 75 18 117/78 99 Simple Mask 5 97.0 Height (Feet): 6 Height (Inches): 6.00 Weight (Pounds): 225 General Appearance: no acute distress HEENT: mucous membranes moist Respiratory/Chest: lungs clear Cardiovascular: normal rate Abdomen: soft, non tender Extremities: no edema Neurologic/Psychiatric: alert, oriented x 3, responsive Microbiology Date/Time Source Procedure Growth Status 02/11/18 18:00 Stool Clostridium difficile Toxin Assay - Final Complete 02/11/18 13:00 Urine,Clean Catch Urine Culture - Final Mixed Gram Positive Organism Complete Laboratory Tests Test 02/14/18 05:40 White Blood Count 5.3 K/UL (4.8-10.8) Red Blood Count 4.81 M/UL (4.70-6.10) Hemoglobin 13.4 G/DL (14.2-18.0) L Hematocrit 40.4 % (42.0-52.0) L Mean Corpuscular Volume 84 FL (80-99) Mean Corpuscular Hemoglobin 27.9 PG (27.0-31.0) Mean Corpuscular Hemoglobin Concent 33.2 G/DL (32.0-36.0) Red Cell Distribution Width 11.6 % (11.6-14.8) Platelet Count 190 K/UL (150-450) Mean Platelet Volume 5.8 FL (6.5-10.1) L Neutrophils (%) (Auto) 60.7 % (45.0-75.0) Lymphocytes (%) (Auto) 17.1 % (20.0-45.0) L Monocytes (%) (Auto) 17.4 % (1.0-10.0) H Eosinophils (%) (Auto) 3.7 % (0.0-3.0) H Basophils (%) (Auto) 1.0 % (0.0-2.0) Sodium Level 141 MMOL/L (136-145) Potassium Level 4.0 MMOL/L (3.5-5.1) Chloride Level 107 MMOL/L (98-107) Carbon Dioxide Level 27 MMOL/L (21-32) Anion Gap 7 mmol/L (5-15) Blood Urea Nitrogen 12 mg/dL (7-18) Creatinine 1.0 MG/DL (0.55-1.30) Estimat Glomerular Filtration Rate > 60 mL/min (>60) Glucose Level 138 MG/DL (74-106) H Calcium Level 8.2 MG/DL (8.5-10.1) L Current Medications Medications (Trade) Dose Ordered Sig/Svetlana Route PRN Reason Start Time Stop Time Status Last Admin Dose Admin Albuterol Sulfate (Proventil MDI) 2 puff Q4H PRN INH Shortness of Breath 02/10/18 23:30 03/12/18 23:29 Diphenoxylate HCl/ Atropine (Lomotil) 2.5 mg Q4H PRN ORAL Diarrhea 02/12/18 11:45 03/14/18 11:44 Famotidine (Pepcid) 20 mg BID ORAL 02/12/18 18:00 03/14/18 17:59 02/14/18 08:47 Finasteride (Proscar) 5 mg DAILY ORAL 02/11/18 09:00 03/13/18 08:59 02/14/18 08:47 Lactobacillus Acidophilus (Culturelle) 1 tab TWICE A DAY ORAL 02/11/18 18:00 03/13/18 17:59 02/14/18 08:47 Lorazepam (Ativan) 1 mg Q6HR PRN ORAL For Anxiety 02/10/18 23:30 02/17/18 23:29 02/11/18 03:13 Mesalamine (Asacol) 1,600 mg THREE TIMES A DAY ORAL 02/13/18 18:00 03/15/18 17:59 02/14/18 08:47 Morphine Sulfate (Morphine Sulfate) 2 mg Q6H PRN IVP For Pain 02/11/18 12:30 02/18/18 12:29 02/14/18 08:46 Olanzapine (ZyPREXA) 10 mg BID ORAL 02/11/18 09:00 03/13/18 08:59 02/14/18 08:47 Ondansetron HCl (Zofran ODT) 4 mg Q6H PRN ORAL Nausea & Vomiting 02/11/18 00:00 03/13/18 00:00 02/13/18 17:12 Tamsulosin HCl (Flomax) 0.4 mg BEDTIME ORAL 02/10/18 22:15 03/12/18 22:14 02/13/18 20:26 Temazepam (Restoril) 30 mg HSPRN PRN ORAL Insomnia 02/10/18 23:30 02/17/18 23:29 Tolterodine Tartrate (Detrol) 1 mg TWICE A DAY ORAL 02/11/18 09:00 03/13/18 08:59 02/14/18 08:47 Trazodone HCl (Desyrel) 300 mg BEDTIME ORAL 02/10/18 23:55 03/12/18 23:54 02/13/18 20:26 Henry Morgan MD Feb 14, 2018 12:45
--- NOTE | 2018-02-14 13:14 | General Progress Note ---
Assessment/Plan Problem List: (1) Dehydration (2) Generalized weakness ICD Codes: R53.1 - Weakness SNOMED: 43600619 (3) Psychiatric disorder ICD Codes: F99 - Psychiatric disorder SNOMED: 44776162 (4) Weak ICD Codes: R53.1 - Weakness SNOMED: 85688315 (5) Abdominal pain (6) Gastroenteritis ICD Codes: K52.9 - Noninfective gastroenteritis and colitis, unspecified SNOMED: 23315609 (7) Diarrhea ICD Codes: R19.7 - Diarrhea, unspecified SNOMED: 11462720 Assessment/Plan no diarrhea ulcerative colitis dc bask to facility cleared by gi for dc Subjective ROS Limited/Unobtainable: Yes Allergies: Coded Allergies: SULFA (SULFONAMIDE ANTIBIOTICS) (Unverified Allergy, Intermediate, hives, 12/10/17) CODEINE (Verified Allergy, Unknown, ABD IRRITATION, 12/10/17) SULFONYLUREAS (Verified Allergy, Unknown, RASH, 12/10/17) Objective Last 24 Hour Vital Signs Date Time Temp Pulse Resp B/P (MAP) Pulse Ox O2 Delivery O2 Flow Rate FiO2 02/14/18 12:12 206.1 71 95 02/14/18 12:00 97.6 84 20 124/80 (95) 96 97.6 02/14/18 09:00 Room Air 02/14/18 08:00 96.7 71 20 111/71 (84) 95 96.7 02/14/18 04:00 97.3 64 20 117/71 (86) 95 97.3 02/14/18 00:00 99.3 67 20 140/69 (92) 93 99.3 02/13/18 21:00 Room Air 02/13/18 20:57 98.5 02/13/18 20:00 98.5 80 19 120/81 (94) 94 98.5 02/13/18 19:09 86 18 Room Air 02/13/18 16:00 97.9 82 18 139/79 (99) 94 97.9 02/13/18 13:49 65 18 120/83 99 Room Air 02/13/18 13:38 206.6 75 16 99 02/13/18 13:36 69 18 111/75 99 Simple Mask 5 02/13/18 13:31 7 18 102/77 99 Simple Mask 5 02/13/18 13:26 97 75 18 117/78 99 Simple Mask 5 97.0 Intake and Output 02/13/18 02/14/18 19:00 07:00 Intake Total 440 ml 440 ml Output Total 300 ml 300 ml Balance 140 ml 140 ml Intake Oral 240 ml 240 ml IV Total 200 ml 200 ml Output Urine Total 300 ml 300 ml # Voids 1 1 # Bowel Movements 6 Laboratory Tests 02/14/18 05:40: White Blood Count 5.3, Red Blood Count 4.81, Hemoglobin 13.4L, Hematocrit 40.4L , Mean Corpuscular Volume 84, Mean Corpuscular Hemoglobin 27.9, Mean Corpuscular Hemoglobin Concent 33.2, Red Cell Distribution Width 11.6, Platelet Count 190, Mean Platelet Volume 5.8L, Neutrophils (%) (Auto) 60.7, Lymphocytes ( %) (Auto) 17.1L, Monocytes (%) (Auto) 17.4H, Eosinophils (%) (Auto) 3.7H, Basophils (%) (Auto) 1.0, Sodium Level 141, Potassium Level 4.0, Chloride Level 107, Carbon Dioxide Level 27, Anion Gap 7, Blood Urea Nitrogen 12, Creatinine 1.0, Estimat Glomerular Filtration Rate > 60, Glucose Level 138H, Calcium Level 8.2L Height (Feet): 6 Height (Inches): 6.00 Weight (Pounds): 225 Estella Butt MD Feb 14, 2018 13:14
--- NOTE | 2018-02-14 16:48 | Discharge Summary ---
Discharge Summary Discharge Summary _ DATE OF ADMISSION: 02/10/2018 DATE OF DISCHARGE: 02/14/2018 CONSULTANTS: Dr. Talha Brody BRIEF HOSPITAL COURSE: Patient is a 62-year-old male, who was admitted for dehydration, weakness and diarrhea. She presented to ED from nursing facility after increased vomiting and diarrhea. Patient denied bloody stools. He was noted to have multiple episodes of nonbilious and non-bloody vomitus. He has medical history significant for hypertension, asthma, borderline diabetes. On evaluation at ED, blood work was without leukocytosis. BUN was elevated to 21 and creatinine was 1.3. Urinalysis showed 1+ leukocyte esterase, 5-10 RBC, 2 -4 WBC and positive nitrite. He was admitted for evaluation of dehydration and UTI. Infectious disease specialist was consulted. He was started on ceftriaxone pending culture results. Patient has insomnia and anxiety and had been on lithium. Psychiatric evaluation was done. Patient has bipolar disorder and was reluctant to take lithium. He was continued on trazodone, Zyprexa, Restoril and Ativan. He complained of diarrhea for a few days. He was given IV hydration. Potassium was repleted. Metformin was discontinued. He was given lactobacillus. Stool C. difficile was negative. He complained of increased of vomiting and diarrhea. He was seen by plater helper and was given symptomatic treatment. Patient was tolerating diet. He was given Lomotil. On 02/13/2018, he underwent colonoscopy. Findings showed colitis, highly suspicious for ulcerative colitis. He was started on Asacol 4.8 g daily. There were 2 colonic polyps that were removed. Urine culture showed mixed gram-positive organisms. He was taken off antibiotics. He was tolerating diet well. Vomiting and diarrhea improved. He was then cleared for discharge. To follow up on biopsy result. FINAL DIAGNOSES: Abdominal pain with vomiting and diarrhea possible gastroenteritis Dehydration Generalized weakness Bipolar disorder Possible ulcerative colitis Colonic polyps Internal hemorrhoids Diabetes mellitus Hypokalemia DISPOSITION: Patient was discharged to [facility]. DISCHARGE MEDICATIONS: Refer to Discharge Medication List. I have been assigned to dictate discharge summary on this account, and I was not involved in the patient's management. Isadora Leal NP Feb 14, 2018 16:48
--- NOTE | 2018-02-14 22:30 | Progress Note ---
DATE: 02/14/2018 SUBJECTIVE: The patient is withdrawn, isolated, remained in his room most of the day. Poor insight and judgment into his mental condition, is refusing to take his lithium, stated that his psychiatrist stopped his medication, as he has not been having mood swings. I explained to him that since he has a bipolar disorder, he may take the medication indefinitely. The patient is still reluctant after education. MENTAL STATUS EXAMINATION: The patient is alert and oriented times self, place, and situation. Mood is neutral to dysphoric. Affect is constricted, congruent with mood. Thought process is concrete. Thought content, no suicidal or homicidal ideation. ASSESSMENT: Bipolar disorder, currently stable. PLAN: 1. The patient will be continued on trazodone, continued on Ativan, and continued on Restoril. 2. The patient reluctant to take any other psychotropics. Clinton Broyd M.D. DR: MARY JOB#: [id number] CC:
== END 2018-02-14 13:35 | DRG 641 ==
LOC: EDBD 16:32 → EMR 16:58 → 4E 17:01 → EDBEDREQ 18:28
PROC: 0DDK8ZX Extraction of Ascending Colon, Via Natural or Artificial Opening Endoscopic, Diagnostic (ICD-10-PCS; principal; 2018-02-13 13:09)
PROC: 0DBP8ZX Excision of Rectum, Via Natural or Artificial Opening Endoscopic, Diagnostic (ICD-10-PCS; principal; 2018-02-13 13:09)
PROC: 0DDN8ZX Extraction of Sigmoid Colon, Via Natural or Artificial Opening Endoscopic, Diagnostic (ICD-10-PCS; principal; 2018-02-13 13:09)
PROC: 0DDL8ZX Extraction of Transverse Colon, Via Natural or Artificial Opening Endoscopic, Diagnostic (ICD-10-PCS; principal; 2018-02-13 13:09)
PROC: 0DBH8ZX Excision of Cecum, Via Natural or Artificial Opening Endoscopic, Diagnostic (ICD-10-PCS; principal; 2018-02-13 13:09)
DX: E86.0 Dehydration (principal); N39.0 Urinary tract infection, site not specified; K51.90 Ulcerative colitis, unspecified, without complications; K52.9 Noninfective gastroenteritis and colitis, unspecified; E87.6 Hypokalemia; F31.9 Bipolar disorder, unspecified; E11.9 Type 2 diabetes mellitus without complications; J44.9 Chronic obstructive pulmonary disease, unspecified; K21.9 Gastro-esophageal reflux disease without esophagitis; N40.0 Benign prostatic hyperplasia without lower urinary tract symptoms; K64.8 Other hemorrhoids; Z88.2 Allergy status to sulfonamides
CPT/HCPCS: 36415; 71045; 80048; 80053; 80061; 81003; 82140; 82248; 82607; 82746; 82962; 82977; 83036; 83690; 83735; 83880; 84100; 84443; 84484; 84550; 85007; 85025; 85610; 85730; 86140; 86850; 86900; 86901; 87086; 87324; 93005; 94664; 99285; J2405

== ENCOUNTER 2018-07-19 11:17 | Emergency (ER) | payer MEDICARE, OTHER ==
[~2018-07-19] VITALS: Ht 180.3 cm; Wt 100.2 kg
[~2018-07-19 11:17] MED LIST changes: +CRESTOR10 M1 ORAL; +OLANZAPINE20 MG ORAL; +SULFAZINE500 MG PO; +TOLTERODINE TART1 MG PO
[2018-07-19 11:18] VITALS: BP 120/76
--- NOTE | 2018-07-19 11:28 | NUR ---
ED Nurse Note: Pt was brought in by [facility] from [facility] due to left eye pain, redness and yellowish/greenish discharge stared a couple of days ago. Pt also c/o dysuria x 2 weeks. Pt is AAO x4, ambulatory with no respiratory distres. Noted left eye redness/irritation with yellowish discharge and blurring on that eye.
--- NOTE | 2018-07-19 11:45 | NUR ---
ED Nurse Note: Dr Bernal at the bed side.
[2018-07-19] MEDS ORDERED: Acetaminophen 500mg (ES) tab ORAL ONE (12:00)
[2018-07-19] MEDS ORDERED: Ciprofloxacin Opth Soln 2.5ml LEFT EYE ONE (12:00)
[2018-07-19] MEDS ORDERED: Morphine Sulfate 4mg/ml Inj (IV USE ONLY) IVP ONE (12:00)
--- NOTE | 2018-07-19 12:05 | NUR ---
ED Nurse Note: Called Pharmacy to ff up with ciprofloxacin opthalmic solution.
[2018-07-19 12:17] LABS: APPEARANCE,URINE CLEAR; BASOPHILS % (AUTO) 0.4 % (0.0-2.0); BILIRUBIN, URINE NEGATIVE (NEGATIVE); COLOR,URINE PALE YELLOW; EOSINOPHILS % (AUTO) 1.6 % (0.0-3.0); GLUCOSE, URINE (UA) NEGATIVE (NEGATIVE); HEMATOCRIT 46.9 % (42.0-52.0); KETONES,URINE NEGATIVE (NEGATIVE); LEUKOCYTE ESTERASE ,URINE 1+ (NEGATIVE); LYMPHOCYTES % (AUTO) 13.5 % (20.0-45.0); MEAN CORPUSCULAR VOLUME 84 FL (80-99); MONOCYTES % (AUTO) 12.3 % (1.0-10.0); NEUTROPHILS % (AUTO) 72.2 % (45.0-75.0); NITRITE,URINE NEGATIVE (NEGATIVE); PH,URINE 8 (4.5-8.0); PLATELET COUNT 186 K/UL (150-450); PROTEIN,URINE NEGATIVE (NEGATIVE); RED BLOOD COUNT 5.57 M/UL (4.70-6.10); RED CELL DISTRIBUTION WIDTH 11.6 % (11.6-14.8); UROBILINOGEN,URINE NORMAL MG/DL (0.0-1.0); WHITE BLOOD COUNT 9.1 K/UL (4.8-10.8)
[2018-07-19 12:27] LABS: ANION GAP 10 mmol/L (5-15); BLOOD UREA NITROGEN 11 mg/dL (7-18); CALCIUM 9.2 MG/DL (8.5-10.1); CARBON DIOXIDE 27 MMOL/L (21-32); CHLORIDE 103 MMOL/L (98-107); SODIUM 140 MMOL/L (136-145)
--- NOTE | 2018-07-19 12:27 | NUR ---
ED Nurse Note: Dr Bernal is okay for tp to eat. Beaver and apple juice provided.
[2018-07-19 12:42] LABS: ALANINE AMINOTRANSFERASE 34 U/L (12-78); ALBUMIN 3.5 G/DL (3.4-5.0); ALKALINE PHOSPHATASE 126 U/L (46-116); ASPARTATE AMINO TRANSFERASE 22 U/L (15-37); BILIRUBIN,TOTAL 1.5 MG/DL (0.2-1.0); CREATINE KINASE 101 U/L (26-308)
[2018-07-19 12:43] VITALS: BP 128/70
--- NOTE | 2018-07-19 12:51 | Diagnostic Imaging Report ---
EXAM: XR Chest, 1 View CLINICAL HISTORY: COUGH TECHNIQUE: Frontal view of the chest. COMPARISON: Chest x-ray 13/07/17. FINDINGS: Lungs: Unremarkable. No consolidation. Pleural space: Unremarkable. No pneumothorax. Heart: Unremarkable. No cardiomegaly. Mediastinum: Ectatic aorta. Bones/joints: Unremarkable. IMPRESSION: No acute process.
--- NOTE | 2018-07-19 12:58 | Emergency Room Report ---
History of Present Illness General Chief Complaint: General Complaint Source: Patient, EMS Present Illness HPI Patient presents with left eye inflammation, cough and sore throat. This has been worsening for several days. He's f feeling pain in his chest and also in his throat. The patient's vision is normal except that there is discharge in the eye. The eye has been red. No trauma to the eye. The chest pain is right- sided. He rates the pain in his ears and throat at 10/10. The chest pain is 6/ 10 and nonradiating. The pain in his throat is sharp and aching. Patient denies nausea, vomiting, diarrhea He states that he has a urinary tract infection at this time. History of asthma. He denies wheezing or productive cough. The patient suffers from bipolar disorder. He denies suicidal ideation. The patient was admitted January 2018. Discharge diagnoses: Abdominal pain with vomiting and diarrhea possible gastroenteritis Dehydration Generalized weakness Bipolar disorder Possible ulcerative colitis Colonic polyps Internal hemorrhoids Diabetes mellitus Hypokalemia Allergies: Coded Allergies: SULFA (SULFONAMIDE ANTIBIOTICS) (Unverified Allergy, Intermediate, hives, 12/10/17) CODEINE (Verified Allergy, Unknown, ABD IRRITATION, 12/10/17) SULFONYLUREAS (Verified Allergy, Unknown, RASH, 12/10/17) Patient History Past Medical History: see triage record Past Surgical History: other - Hernia repair Social History: Denies: smoking Social History Narrative Rosy Pineda Reviewed Nursing Documentation: PMH: Agreed; PSxH: Agreed Nursing Documentation-PMH Hx Cardiac Problems: No - arthritis Hx Hypertension: Yes Hx Asthma: Yes Hx Diabetes: Yes - BOARDERLINE DIABETES Hx Cancer: No History Of Psychiatric Problem: Yes - Schizophrenia Hx Headaches: Yes Review of Systems All Other Systems: negative except mentioned in HPI Physical Exam Vital Signs Date Time Temp Pulse Resp B/P (MAP) Pulse Ox O2 Delivery O2 Flow Rate FiO2 07/19/18 11:18 98.4 61 16 120/76 97 Room Air Sp02 EP Interpretation: reviewed, normal General Appearance: well appearing, no apparent distress, GCS 15 Head: normocephalic Eyes: left eye Scleral Injection, left eye other - Mucoid discharge which is beige ENT: moist mucus membranes, pharyngeal erythema, other - Bilateral tympanic membranes with erythema and slight bulging Neck: supple Respiratory: lungs clear, normal breath sounds, other - Slight right chest wall tenderness Cardiovascular #1: regular rate, rhythm Cardiovascular #2: 2+ radial (R) Gastrointestinal: normal inspection, normal bowel sounds, non tender, no mass, non-distended Genitourinary: no CVA tenderness Musculoskeletal: back normal, normal range of motion Neurologic: alert, oriented - X2 Psychiatric: no suicidal/homicidal ideation, other - Flat affect Skin: normal inspection, warm/dry Medical Decision Making Diagnostic Impression: Primary Impression: Otitis media Qualified Codes: H66.003 - Acute suppurative otitis media without spontaneous rupture of ear drum, bilateral Additional Impressions: Conjunctivitis Qualified Codes: H10.32 - Unspecified acute conjunctivitis, left eye Psychiatric disorder Chest wall pain ER Course Patient presents with left-sided inflammation, bilateral TM inflammation, sore throat and cough. Differential includes chlamydia, mycoplasma, viral amongst others. Due to the appearance of the discharge in the eye antibiotics are indicated. In addition the patient will get workup with EKG, chest x-ray and labs. We will also send a culture of the eye discharge. Ciprofloxacin drops will be started in the eye. The patient's complaining about pain and is requesting morphine. EKG without injury. Chest x-ray without infiltrate. White count normal. Troponin negative. Glucose 100. Lactate 0.8. Patient is improved with treatment. Ciprofloxacin is given orally. There is no medical emergency at this time. The findings were discussed with the patient's private physician. Patient stable for outpatient observation and treatment. Laboratory Tests Test 07/19/18 12:05 White Blood Count 9.1 K/UL (4.8-10.8) Red Blood Count 5.57 M/UL (4.70-6.10) Hemoglobin 16.0 G/DL (14.2-18.0) Hematocrit 46.9 % (42.0-52.0) Mean Corpuscular Volume 84 FL (80-99) Mean Corpuscular Hemoglobin 28.8 PG (27.0-31.0) Mean Corpuscular Hemoglobin Concent 34.2 G/DL (32.0-36.0) Red Cell Distribution Width 11.6 % (11.6-14.8) Platelet Count 186 K/UL (150-450) Mean Platelet Volume 5.6 FL (6.5-10.1) L Neutrophils (%) (Auto) 72.2 % (45.0-75.0) Lymphocytes (%) (Auto) 13.5 % (20.0-45.0) L Monocytes (%) (Auto) 12.3 % (1.0-10.0) H Eosinophils (%) (Auto) 1.6 % (0.0-3.0) Basophils (%) (Auto) 0.4 % (0.0-2.0) Prothrombin Time 10.8 SEC (9.30-11.50) Prothrombin Time INR 1.0 (0.9-1.1) PTT 31 SEC (23-33) Urine Color Pale yellow Urine Appearance Clear Urine pH 8 (4.5-8.0) Urine Specific [place] 1.010 (1.005-1.035) Urine Protein Negative (NEGATIVE) Urine Glucose (UA) Negative (NEGATIVE) Urine Ketones Negative (NEGATIVE) Urine Blood 2+ (NEGATIVE) H Urine Nitrite Negative (NEGATIVE) Urine Bilirubin Negative (NEGATIVE) Urine Urobilinogen Normal MG/DL (0.0-1.0) Urine Leukocyte Esterase 1+ (NEGATIVE) H Urine RBC 0-2 /HPF (0 - 0) H Urine WBC 0-2 /HPF (0 - 0) Urine Squamous Epithelial Cells None /LPF (NONE/OCC) Urine Bacteria None /HPF (NONE) Sodium Level 140 MMOL/L (136-145) Potassium Level 4.0 MMOL/L (3.5-5.1) Chloride Level 103 MMOL/L (98-107) Carbon Dioxide Level 27 MMOL/L (21-32) Anion Gap 10 mmol/L (5-15) Blood Urea Nitrogen 11 mg/dL (7-18) Creatinine 1.0 MG/DL (0.55-1.30) Estimate Glomerular Filtration Rate > 60 mL/min (>60) Glucose Level 100 MG/DL (74-106) Lactic Acid Level 0.80 mmol/L (0.4-2.0) Calcium Level 9.2 MG/DL (8.5-10.1) Total Bilirubin 1.5 MG/DL (0.2-1.0) H Direct Bilirubin 0.3 MG/DL (0.0-0.3) Aspartate Amino Transferase (AST) 22 U/L (15-37) Alanine Aminotransferase (ALT) 34 U/L (12-78) Alkaline Phosphatase 126 U/L (46-116) H Total Creatine Kinase 101 U/L (26-308) Troponin I 0.012 ng/mL (0.000-0.056) Pro-B-Type Natriuretic Peptide 121 pg/mL (0-125) Total Protein 6.9 G/DL (6.4-8.2) Albumin 3.5 G/DL (3.4-5.0) Globulin 3.4 g/dL Albumin/Globulin Ratio 1.0 (1.0-2.7) Microbiology Date/Time Source Procedure Growth Status 07/19/18 12:05 Nasal Nares Influenza Types A,B Antigen (IVANA) - Final Complete EKG Diagnostic Results Rate: normal Rhythm: NSR ST Segments: no acute changes Rhythm Strip Diag. Results EP Interpretation: yes Rhythm: NSR, no PVC's, no ectopy Chest X-Ray Diagnostic Results Chest X-Ray Diagnostic Results : Chest X-Ray Ordered: Yes # of Views/Limited/Complete: 1 View Indication: Other EP Interpretation: Yes Interpretation: no consolidation, no effusion, no pneumothorax Impression: No acute disease Electronically Signed by: Electronically signed by Renny Bernal MD Laboratory Tests Test 07/19/18 12:05 White Blood Count 9.1 K/UL (4.8-10.8) Red Blood Count 5.57 M/UL (4.70-6.10) Hemoglobin 16.0 G/DL (14.2-18.0) Hematocrit 46.9 % (42.0-52.0) Mean Corpuscular Volume 84 FL (80-99) Mean Corpuscular Hemoglobin 28.8 PG (27.0-31.0) Mean Corpuscular Hemoglobin Concent 34.2 G/DL (32.0-36.0) Red Cell Distribution Width 11.6 % (11.6-14.8) Platelet Count 186 K/UL (150-450) Mean Platelet Volume 5.6 FL (6.5-10.1) L Neutrophils (%) (Auto) 72.2 % (45.0-75.0) Lymphocytes (%) (Auto) 13.5 % (20.0-45.0) L Monocytes (%) (Auto) 12.3 % (1.0-10.0) H Eosinophils (%) (Auto) 1.6 % (0.0-3.0) Basophils (%) (Auto) 0.4 % (0.0-2.0) Prothrombin Time 10.8 SEC (9.30-11.50) Prothrombin Time INR 1.0 (0.9-1.1) PTT 31 SEC (23-33) Urine Color Pale yellow Urine Appearance Clear Urine pH 8 (4.5-8.0) Urine Specific [place] 1.010 (1.005-1.035) Urine Protein Negative (NEGATIVE) Urine Glucose (UA) Negative (NEGATIVE) Urine Ketones Negative (NEGATIVE) Urine Blood 2+ (NEGATIVE) H Urine Nitrite Negative (NEGATIVE) Urine Bilirubin Negative (NEGATIVE) Urine Urobilinogen Normal MG/DL (0.0-1.0) Urine Leukocyte Esterase 1+ (NEGATIVE) H Urine RBC 0-2 /HPF (0 - 0) H Urine WBC 0-2 /HPF (0 - 0) Urine Squamous Epithelial Cells None /LPF (NONE/OCC) Urine Bacteria None /HPF (NONE) Sodium Level 140 MMOL/L (136-145) Potassium Level 4.0 MMOL/L (3.5-5.1) Chloride Level 103 MMOL/L (98-107) Carbon Dioxide Level 27 MMOL/L (21-32) Anion Gap 10 mmol/L (5-15) Blood Urea Nitrogen 11 mg/dL (7-18) Creatinine 1.0 MG/DL (0.55-1.30) Estimate Glomerular Filtration Rate > 60 mL/min (>60) Glucose Level 100 MG/DL (74-106) Lactic Acid Level 0.80 mmol/L (0.4-2.0) Calcium Level 9.2 MG/DL (8.5-10.1) Total Bilirubin 1.5 MG/DL (0.2-1.0) H Direct Bilirubin 0.3 MG/DL (0.0-0.3) Aspartate Amino Transferase (AST) 22 U/L (15-37) Alanine Aminotransferase (ALT) 34 U/L (12-78) Alkaline Phosphatase 126 U/L (46-116) H Total Creatine Kinase 101 U/L (26-308) Troponin I 0.012 ng/mL (0.000-0.056) Pro-B-Type Natriuretic Peptide 121 pg/mL (0-125) Total Protein 6.9 G/DL (6.4-8.2) Albumin 3.5 G/DL (3.4-5.0) Globulin 3.4 g/dL Albumin/Globulin Ratio 1.0 (1.0-2.7) Microbiology Date/Time Source Procedure Growth Status 07/19/18 12:05 Nasal Nares Influenza Types A,B Antigen (IVANA) - Final Complete Status: improved Disposition: ASSISTED LIVING Condition: Improved Scripts Ciprofloxacin (Ciprofloxacin HCl) 2.5 Ml Drops 1 DROP LEFT EYE Q6HR, #5 ML Prov: Renny Bernal MD 07/19/18 Ciprofloxacin Hcl* (CIPROFLOXACIN HCL*) 500 Mg Tablet 500 MG ORAL Q12H, #14 TAB 0 Refills Prov: Renny Bernal MD 07/19/18 Referrals: Estella Butt MD (PCP) Renny Bernal MD Jul 19, 2018 12:58
[2018-07-19 13:29] LABS: BILIRUBIN,DIRECT 0.3 MG/DL (0.0-0.3)
[2018-07-19] MEDS ORDERED: Ciprofloxacin 500mg tab ORAL ONE (13:45)
[2018-07-19] MEDS ORDERED: CILOXAN 0.3% O1 DROP LEFT EYE (13:59)
[2018-07-19] MEDS ORDERED: CIPROFLOXACIN500 M2 ORAL (13:59)
--- NOTE | 2018-07-19 14:33 | NUR ---
ED Nurse Note:pt dc back to [facility] via [facility]. report given to ems and to desmond at facility. pt alert upon dc. scripts given to ems
[2018-07-19 14:35] VITALS: BP 118/68
--- NOTE | 2018-07-20 11:08 | Cardiology Report ---
APPROVED REPORT EKG Measurement Heart [id number] Normal sinus rhythm Normal ECG
== END 2018-07-19 14:40 ==
LOC: EDUNIT# 11:17 → EDBD 11:17 → EMR 12:37
DX: H66.93 Otitis media, unspecified, bilateral (principal); H10.9 Unspecified conjunctivitis; R07.89 Other chest pain; I10 Essential (primary) hypertension; J45.909 Unspecified asthma, uncomplicated; F20.9 Schizophrenia, unspecified; Z88.2 Allergy status to sulfonamides; Z88.5 Allergy status to narcotic agent
CPT/HCPCS: 36415; 71045; 80053; 81003; 82248; 82550; 83605; 83880; 84484; 85025; 85610; 85730; 86710; 87070; 87181; 87205; 93005; 96361; 96374; 96375; 99284; J2270; J2405

== ENCOUNTER 2018-07-30 10:32 | Emergency (ER) | payer MEDICARE ==
[~2018-07-30] VITALS: Ht 180.3 cm; Wt 100.2 kg
[~2018-07-30 10:32] MED LIST changes: +CILOXAN 0.3% O1 DROP LEFT EYE
--- NOTE | 2018-07-30 10:35 | NUR ---
ED Nurse Note: Pt [facility]ANDA from [facility] due to whole bodyache since Saturday07/28/18 after pt finished his Antibiotic. Pain 10/10 sharp pain. No other complaint. AOx4, VSS. Will cont to monitor.
[2018-07-30] MEDS ORDERED: APRISO0.375 GM PO (11:01)
[2018-07-30] MEDS ORDERED: VENTOLIN HFA18 GM INH (11:01)
[2018-07-30 11:02] VITALS: BP 118/74
--- NOTE | 2018-07-30 11:09 | NUR ---
ED Nurse Note: Blood drawn and sent to lab.
[2018-07-30 11:24] LABS: BASOPHILS % (AUTO) 0.8 % (0.0-2.0); EOSINOPHILS % (AUTO) 1.8 % (0.0-3.0); HEMATOCRIT 48.2 % (42.0-52.0); HEMOGLOBIN 16.4 G/DL (14.2-18.0); LYMPHOCYTES % (AUTO) 19.8 % (20.0-45.0); MEAN CORPUSCULAR VOLUME 85 FL (80-99); MONOCYTES % (AUTO) 8.1 % (1.0-10.0); NEUTROPHILS % (AUTO) 69.5 % (45.0-75.0); PLATELET COUNT 182 K/UL (150-450); RED BLOOD COUNT 5.69 M/UL (4.70-6.10); RED CELL DISTRIBUTION WIDTH 11.7 % (11.6-14.8); WHITE BLOOD COUNT 7.5 K/UL (4.8-10.8)
[2018-07-30 11:38] LABS: ANION GAP 9 mmol/L (5-15); BLOOD UREA NITROGEN 14 mg/dL (7-18); CALCIUM 8.8 MG/DL (8.5-10.1); CARBON DIOXIDE 24 MMOL/L (21-32); CHLORIDE 106 MMOL/L (98-107); CREATININE 1.1 MG/DL (0.55-1.30); SODIUM 139 MMOL/L (136-145)
[2018-07-30] MEDS ORDERED: Morphine Sulfate 4mg/ml Inj (IV/IM USE ONLY) IVP ONE (11:45)
--- NOTE | 2018-07-30 11:48 | Emergency Room Report ---
History of Present Illness General Chief Complaint: General Complaint Source: Patient Present Illness HPI 63-year-old male came in to ER for bilateral ear pain, low back pain and "not feeling well". Patient states he ran out of [place], requesting IV morphine. Otherwise denies chest pain, shortness of breath, abdominal pain, nausea vomiting, headache, urinary complaints. Allergies: Coded Allergies: SULFA (SULFONAMIDE ANTIBIOTICS) (Unverified Allergy, Intermediate, hives, 12/10/17) CODEINE (Verified Allergy, Unknown, ABD IRRITATION, 12/10/17) SULFONYLUREAS (Verified Allergy, Unknown, RASH, 12/10/17) Patient History Past Medical History: none Past Surgical History: none Pertinent Family History: none Social History: Denies: smoking, alcohol use, drug use Immunizations: UTD Reviewed Nursing Documentation: PMH: Agreed; PSxH: Agreed Nursing Documentation-PMH Hx Cardiac Problems: No - arthritis Hx Hypertension: Yes Hx Asthma: Yes Hx Diabetes: Yes - BOARDERLINE DIABETES Hx Cancer: No Hx Headaches: Yes Review of Systems All Other Systems: negative except mentioned in HPI Physical Exam Vital Signs Date Time Temp Pulse Resp B/P (MAP) Pulse Ox O2 Delivery O2 Flow Rate FiO2 07/30/18 10:32 97.7 74 20 132/88 95 Room Air Sp02 EP Interpretation: reviewed, normal General Appearance: normal inspection, well appearing, no apparent distress, alert, GCS 15, non-toxic Head: normocephalic, atraumatic Eyes: bilateral eye PERRL, bilateral eye EOMI ENT: normal ENT inspection, hearing grossly normal, normal pharynx, no angioedema, normal voice, TMs + canals normal, uvula midline, moist mucus membranes Neck: normal inspection, full range of motion, supple, thyroid normal, no meningismus, no bony tend Respiratory: normal inspection, lungs clear, normal breath sounds, no rhonchi, no respiratory distress, no retraction, no accessory muscle use, no wheezing, speaking full sentences Cardiovascular #1: regular rate, rhythm, no edema, no JVD, normal capillary refill Gastrointestinal: normal inspection, normal bowel sounds, non tender, soft, no mass, no peritonitis, non-distended, no guarding, no hernia, no pulsatile mass Genitourinary: no CVA tenderness Musculoskeletal: normal inspection, back normal, normal range of motion, no calf tenderness, pelvis stable, Alyssia's Sign negative Neurologic: normal inspection, alert, oriented x3, responsive, waterfront director III-XII nml as tested, motor strength/tone normal, cerebellar normal, normal gait, speech normal Psychiatric: normal inspection, judgement/insight normal, mood/affect normal, no suicidal/homicidal ideation, no delusions Skin: normal inspection, normal color, no rash Lymphatic: normal inspection, no adenopathy Medical Decision Making Diagnostic Impression: Primary Impression: Encounter for generalized patient complaints Additional Impression: Ear pain Qualified Codes: H92.03 - Otalgia, bilateral ER Course Vital signs are stable, afebrile Patient very well appearing No leukocytosis on labs No other major metabolic abnormalities Patient feels better after morphine. Patient requesting sandwich Will DC No obvious cause of patient's generalized complaints ?malingering for opiods D/w PMD DR Mcrae EKG Diagnostic Results Rate: normal Rhythm: NSR ST Segments: no acute changes ASA given to the pt in ED: No Rhythm Strip Diag. Results EP Interpretation: yes Rate: 75 Rhythm: NSR, no PVC's, no ectopy Chest X-Ray Diagnostic Results Chest X-Ray Diagnostic Results : Chest X-Ray Ordered: Yes # of Views/Limited/Complete: 1 View Indication: Other - weakness EP Interpretation: Yes Interpretation: no consolidation, no effusion, no pneumothorax, no acute cardiopulmonary disease Impression: No acute disease Electronically Signed by: Dr Lebron Blanchard MD Last Vital Signs Date Time Temp Pulse Resp B/P (MAP) Pulse Ox O2 Delivery O2 Flow Rate FiO2 07/30/18 11:02 84 20 Room Air 07/30/18 11:02 97.7 118/74 96 Status: improved Disposition: HOME, SELF-CARE Referrals: Estella Butt MD (PCP) LEBRON BLANCHARD M.D. Jul 30, 2018 11:48
[2018-07-30 11:50] LABS: ALANINE AMINOTRANSFERASE 26 U/L (12-78); ALBUMIN 3.5 G/DL (3.4-5.0); ALKALINE PHOSPHATASE 102 U/L (46-116); ASPARTATE AMINO TRANSFERASE 19 U/L (15-37); BILIRUBIN,TOTAL 1.1 MG/DL (0.2-1.0); CKMB 1.3 NG/ML (0.0-3.6); CREATINE KINASE 123 U/L (26-308)
[2018-07-30 11:54] LABS: BILIRUBIN,DIRECT 0.2 MG/DL (0.0-0.3)
[2018-07-30 12:38] LABS: BILIRUBIN, URINE NEGATIVE (NEGATIVE); COLOR,URINE PALE YELLOW; GLUCOSE, URINE (UA) NEGATIVE (NEGATIVE); KETONES,URINE NEGATIVE (NEGATIVE); LEUKOCYTE ESTERASE ,URINE 1+ (NEGATIVE); NITRITE,URINE NEGATIVE (NEGATIVE); PH,URINE 5 (4.5-8.0); PROTEIN,URINE NEGATIVE (NEGATIVE); UROBILINOGEN,URINE NORMAL MG/DL (0.0-1.0)
[2018-07-30 12:39] LABS: APPEARANCE,URINE SLIGHTLY CLOUDY
[2018-07-30 12:48] VITALS: BP 111/74
--- NOTE | 2018-07-30 12:49 | NUR ---
ED Nurse Note: PT. WAS GIVEN A SANDWICH AND A JUICE
[2018-07-30 14:36] VITALS: BP 111/70
[2018-07-30 14:39] VITALS: BP 111/70
--- NOTE | 2018-07-30 14:39 | NUR ---
ED Nurse Note: Report given to RN at [facility], ambulance personels at bedside for transportation.
--- NOTE | 2018-08-01 23:38 | Cardiology Report ---
APPROVED REPORT EKG Measurement Heart [id number] Normal sinus rhythm Normal ECG
== END 2018-07-30 14:39 | disposition home or self-care (01) ==
LOC: EDBD 10:32 → EMR 11:10
DX: H92.03 Otalgia, bilateral (principal); M54.5 Low back pain; I10 Essential (primary) hypertension; J45.909 Unspecified asthma, uncomplicated; Z88.2 Allergy status to sulfonamides; Z88.5 Allergy status to narcotic agent
CPT/HCPCS: 36415; 71045; 80053; 81003; 82248; 82550; 82553; 83690; 83880; 84484; 85025; 93005; 96374; 96375; 99284; J2270; J2405

== ENCOUNTER 2018-08-09 09:58 | Emergency (ER) | payer MEDICARE, OTHER ==
[~2018-08-09] VITALS: Ht 180.3 cm; Wt 99.8 kg
[~2018-08-09 09:58] MED LIST changes: +APRISO0.375 GM PO
--- NOTE | 2018-08-09 10:05 | NUR ---
ED Nurse Note: PT BROUGHT IN BY AMBULANCE FROM [facility] DUE TO GENERALIZED BODYACHE, PAIN 10/10AND SORE THROAT X 1 WEEK. PT AFEBRILE AND NO COUGHING NOTED ON ASSESSMENT.
--- NOTE | 2018-08-09 10:07 | NUR ---
ED Nurse Note: PT STILL C/O BODYACHES AND IS ASKING SPECIFICALLY FOR MORPHINE. DR. Pattie ZHENG.
[2018-08-09 10:19] VITALS: BP 122/72
--- NOTE | 2018-08-09 10:24 | NUR ---
ED Nurse Note: RT AT BEDSIDE
[2018-08-09] MEDS ORDERED: Albuterol ud Inhalation HHN ONE (10:30)
[2018-08-09] MEDS ORDERED: oxyCODONE HCL/Acetaminophen 5/325mg ORAL ONE (10:30)
[2018-08-09] MEDS ORDERED: Ipratropium 0.02% Inh Soln 2.5ml UD HHN ONE (10:30)
[2018-08-09] MEDS ORDERED: PREDNISONE20 MG ORAL (11:30)
[2018-08-09] MEDS ORDERED: TAMIFLU75 MG ORAL (11:30)
[2018-08-09] MEDS ORDERED: VENTOLIN HFA18 GM INH (11:30)
--- NOTE | 2018-08-09 12:50 | NUR ---
ED Nurse Note: [facility] HERE FOR PT TRANSPORT BACK TO [facility]. REPORT GIVEN TO EMS. FACILITY CALLED AND PER ANGELIQUE, FACILITY READY TO ACCEPT PT. PRESCRIPTIONS AND DISCHARGE PAPERWORK EXPLAINED TO PT. PT VERBALIZES UNDERSTANDING AND DENIES ANY QUESTIONS AT THIS TIME. PRESCRIPTIONS AND DISCHARGE PAPERWORK GIVEN TO PT AND ID WRISTBAND REMOVED. PT TAKEN BACK TO FACILITY VIA AMBULANCE ACCOMPANIED BY EMS.
[2018-08-09 12:52] VITALS: BP 104/70
--- NOTE | 2018-08-09 14:31 | Emergency Room Report ---
History of Present Illness General Chief Complaint: Pain Source: Patient, Medical Record Present Illness HPI 63-year-old male presents ED for evaluation. Brought in by EMS from assisted facility for generalized pain, sore throat, ear ache, cough 1 day. Pain is throbbing, 10 out of 10, nonradiating. Denies fevers or chills. States cough is dry. Notes history of asthma. No other aggravating relieving factors. Denies any other associated symptoms Allergies: Coded Allergies: SULFA (SULFONAMIDE ANTIBIOTICS) (Unverified Allergy, Intermediate, hives, 12/10/17) CODEINE (Verified Allergy, Unknown, ABD IRRITATION, 12/10/17) SULFONYLUREAS (Verified Allergy, Unknown, RASH, 12/10/17) Patient History Past Medical History: DM, HTN, asthma, psych hx Past Surgical History: none Pertinent Family History: none Social History: Denies: smoking, alcohol use, drug use Immunizations: UTD Reviewed Nursing Documentation: PMH: Agreed; PSxH: Agreed Nursing Documentation-PMH Past Medical History: No History, Except For Hx Cardiac Problems: No - arthritis Hx Hypertension: Yes Hx Asthma: Yes Hx Diabetes: Yes - BOARDERLINE DIABETES Hx Cancer: No History Of Psychiatric Problem: Yes - Schizophrenia Hx Headaches: Yes Review of Systems All Other Systems: negative except mentioned in HPI Physical Exam Vital Signs Date Time Temp Pulse Resp B/P (MAP) Pulse Ox O2 Delivery O2 Flow Rate FiO2 08/09/18 10:03 97.9 76 16 118/68 95 Room Air 08/09/18 10:27 21 Sp02 EP Interpretation: reviewed, normal General Appearance: no apparent distress, alert, GCS 15, non-toxic Head: normocephalic, atraumatic Eyes: bilateral eye normal inspection, bilateral eye PERRL ENT: hearing grossly normal, normal pharynx, no angioedema, normal voice Neck: full range of motion, supple/symm/no masses Respiratory: chest non-tender, normal breath sounds, speaking full sentences, wheezing Cardiovascular #1: regular rate, rhythm, no edema Cardiovascular #2: 2+ carotid (R), 2+ carotid (L), 2+ radial (R), 2+ radial (L) , 2+ dorsalis pedis (R), 2+ dorsalis pedis (L) Gastrointestinal: normal bowel sounds, non tender, soft, non-distended, no guarding, no rebound Rectal: deferred Genitourinary: normal inspection, no CVA tenderness Musculoskeletal: back normal, gait/station normal, normal range of motion, non- tender Neurologic: alert, oriented x3, responsive, motor strength/tone normal, sensory intact, speech normal Psychiatric: judgement/insight normal, memory normal, mood/affect normal, no suicidal/homicidal ideation Reflexes: 3+ bicep (R), 3+ bicep (L), 3+ tricep (R), 3+ tricep (L), 3+ knee (R) , 3+ knee (L) Skin: normal color, no rash, warm/dry, well hydrated Lymphatic: no adenopathy Medical Decision Making Diagnostic Impression: Primary Impression: Flu-like symptoms Additional Impression: Opioid dependence Qualified Codes: F11.29 - Opioid dependence with unspecified opioid-induced disorder ER Course Hospital Course 63-year-old male presents to ED complaining of cough, wheezing, bodyaches Differential diagnoses include: URI, bronchitis, asthma/COPD, pneumonia Clinical course Patient placed on stretcher. After initial history, physical exam reveals elderly male in no acute distress. Lungs have mild wheezing bilaterally. No pharyngeal erythema. No tonsillar exudate. No lymphadenopathy. Bilateral TM unremarkable Patient is requesting IV morphine for pain. I reviewed EMR. Patient has been here several times and is always requested IV narcotic medications. I tried to patient that this is not an indication for IV morphine. I agree to provide him with 1 tablet of Percocet here. Breathing treatment. Consideration for influenza. We'll discharge with Tamiflu. Discussed with PMD Dr. Butt Diagnosis - flu like symptoms, opioid dependence Stable and discharged SNF with prescriptions for Rx albtuerol, prednisone, tamiflu. Instructed to followup with PMD. Return to ED if symptoms recur or worsen Last Vital Signs Date Time Temp Pulse Resp B/P (MAP) Pulse Ox O2 Delivery O2 Flow Rate FiO2 08/09/18 12:52 98.2 78 18 104/70 96 Room Air 08/09/18 10:47 21 Status: improved Disposition: XFER SNF Condition: Stable Scripts Oseltamivir Phosphate (Tamiflu) 75 Mg Capsule 75 MG ORAL TWICE A DAY for 5 Days, CAP Prov: Preet Gee MD 08/09/18 Prednisone* (PREDNISONE*) 20 Mg Tablet 40 MG ORAL DAILY, #10 TAB Prov: Preet Gee MD 08/09/18 Albuterol Sulfate (VENTOLIN HFA) 18 Gm Hfa.aer.ad 2 PUFFS INH EVERY 6 HOURS, #18 GM 0 Refills Prov: Preet Gee MD 08/09/18 Patient Instructions: Influenza, Adult, [id number] Preet Gee MD Aug 09, 2018 14:31
== END 2018-08-09 12:53 ==
LOC: EDBD 09:58 → EDUNIT# 09:58 → EMR 10:45
DX: J11.1 Influenza due to unidentified influenza virus with other respiratory manifestations (principal); F11.20 Opioid dependence, uncomplicated; E11.9 Type 2 diabetes mellitus without complications; I10 Essential (primary) hypertension; J45.909 Unspecified asthma, uncomplicated; F20.9 Schizophrenia, unspecified; Z88.2 Allergy status to sulfonamides; Z88.5 Allergy status to narcotic agent
CPT/HCPCS: 94640; 94664; 99283; J7512

== ENCOUNTER 2020-03-30 10:01 | Inpatient (IN) | payer MEDICARE, OTHER ==
[~2020-03-30] VITALS: Ht 180.3 cm; Wt 93.2 kg
[~2020-03-30 10:01] MED LIST changes: +TAMIFLU75 MG ORAL
--- NOTE | 2020-03-30 10:05 | NUR ---
ED Nurse Note: Pt was brought in by [facility] from [facility] d/t CP onsent 30 mins ago, midsternal, non-radiating that goes on and off. Nitro 1.2 and ASA 325 given WOUND CARE SPECIALIST. Pt is AOx4, ambulatory, able to verbalize his need and follow commands. Pt denies CP nor any weakness right now. Pt was placed on bed, hooked to monitor worker, HR's at 118-120bpm Dr. Little aware. Pt arrived with a suprapubic catheter, intact and patent. Safety measures in placed. will continue to monitor pt.
[2020-03-30] MEDS ORDERED: OXYBUTYNIN CHLOR5 GM MC (10:07)
[2020-03-30] MEDS ORDERED: CRESTOR10 M2 ORAL (10:07)
[2020-03-30] MEDS ORDERED: SENNA8.6 M2 PO (10:07)
[2020-03-30] MEDS ORDERED: DOCUSATE SODIU100 MG ORAL (10:07)
[2020-03-30] MEDS ORDERED: URECHOLINE25 MG ORAL (10:07)
--- NOTE | 2020-03-30 10:08 | Emergency Room Report ---
History of Present Illness General Chief Complaint: Chest Pain Source: Patient, Medical Record Present Illness HPI 64-year-old male brought in by EMS after increased chest discomfort. Prior history of psychiatric disease. Patient had previous tracheostomy which had been removed. He reports having onset of pain 2 days ago. Pain was constant nature. Associated shortness of breath. Pain was patient was sent in from assisted living at [facility]. History of high cholesterol. Denies being a smoker. Prior history of hernia surgery. Primary care physician is Dr. Butt Allergies: Coded Allergies: SULFA (SULFONAMIDE ANTIBIOTICS) (Unverified Allergy, Intermediate, hives, 12/10/17) CODEINE (Verified Allergy, Unknown, ABD IRRITATION, 12/10/17) SULFONYLUREAS (Verified Allergy, Unknown, RASH, 12/10/17) COVID-19 Screening Contact w/high risk pt: No Experienced COVID-19 symptoms?: No COVID-19 Testing performed REGISTERED ASSOCIATE: Yes COVID-19 Screening: Negative COVID-19 COVID-19 Testing Source: counseling psychologist Patient History Past Medical History: see triage record Reviewed Nursing Documentation: PMH: Agreed; PSxH: Agreed Nursing Documentation-PMH Past Medical History: No History, Except For Hx Hypertension: Yes Hx Asthma: Yes Hx Diabetes: Yes Hx Cancer: No Hx Gastrointestinal Problems: Yes - gerd History Of Psychiatric Problem: Yes Hx Headaches: Yes Review of Systems All Other Systems: negative except mentioned in HPI Physical Exam Vital Signs Date Time Temp Pulse Resp B/P (MAP) Pulse Ox O2 Delivery O2 Flow Rate FiO2 03/30/20 09:55 97.9 122 18 124/85 (98) 100 Room Air Sp02 EP Interpretation: reviewed, normal General Appearance: normal inspection, well appearing, no apparent distress, alert, GCS 15 Head: atraumatic ENT: normal ENT inspection, hearing grossly normal, normal voice, other - Old tracheostomy scar Neck: normal inspection, full range of motion, supple, no bony tend Respiratory: normal inspection, lungs clear, normal breath sounds, no respiratory distress, no retraction, no wheezing Cardiovascular #1: no edema, tachycardia Gastrointestinal: normal inspection, normal bowel sounds, non tender, soft, no guarding, no hernia, other - Well-healed exploratory laparotomy scar Genitourinary: no CVA tenderness Musculoskeletal: normal inspection, back normal, normal range of motion Neurologic: alert, responsive, speech normal, normal inspection Psychiatric: normal inspection, judgement/insight normal, mood/affect normal Medical Decision Making Diagnostic Impression: Primary Impression: Chest pain Additional Impressions: Generalized weakness UTI (urinary tract infection) ER Course Patient presented for chest pain. Differential diagnosis include was not limited to pneumonia, coronavirus infection, myocardial infarction among others. Because of complexity of patient's case laboratory tests and imaging studies were ordered. Laboratory tests showed normal troponin. Ekg normal sinus rhythm, normal QRS, no acute ST or T wave changes. Patient was given some pain medications. Appears to have some urinary tract infection was given antibiotics. Coronavirus testing was negative. Dr. Estella Martinez was contacted for inpatient management Laboratory Tests Test 03/30/20 10:25 03/30/20 18:47 03/31/20 03:00 White Blood Count 9.7 K/UL (4.8-10.8) Red Blood Count 5.59 M/UL (4.70-6.10) Hemoglobin 15.6 G/DL (14.2-18.0) Hematocrit 45.7 % (42.0-52.0) Mean Corpuscular Volume 82 FL (80-99) Mean Corpuscular Hemoglobin 27.9 PG (27.0-31.0) Mean Corpuscular Hemoglobin Concent 34.2 G/DL (32.0-36.0) Red Cell Distribution Width 12.0 % (11.6-14.8) Platelet Count 154 K/UL (150-450) Mean Platelet Volume 5.2 FL (6.5-10.1) L Neutrophils (%) (Auto) 71.8 % (45.0-75.0) Lymphocytes (%) (Auto) 13.1 % (20.0-45.0) L Monocytes (%) (Auto) 13.9 % (1.0-10.0) H Eosinophils (%) (Auto) 0.3 % (0.0-3.0) Basophils (%) (Auto) 0.9 % (0.0-2.0) Prothrombin Time 11.3 SEC (9.30-11.50) Prothrombin Time INR 1.0 (0.9-1.1) Activated Partial Thromboplast Time 26 SEC (23-33) Urine Color Brown Urine Appearance Cloudy Urine pH 5 (4.5-8.0) Urine Specific [place] 1.025 (1.005-1.035) Urine Protein 3+ (NEGATIVE) H Urine Glucose (UA) Negative (NEGATIVE) Urine Ketones 2+ (NEGATIVE) H Urine Blood 5+ (NEGATIVE) H Urine Nitrite Positive (NEGATIVE) H Urine Bilirubin Negative (NEGATIVE) Urine Urobilinogen 1 MG/DL (0.0-1.0) H Urine Leukocyte Esterase 3+ (NEGATIVE) H Urine RBC 10-15 /HPF (0 - 0) H Urine WBC Tntc /HPF (0 - 0) H Urine Squamous Epithelial Cells None /LPF (NONE/OCC) Urine Bacteria Moderate /HPF (NONE) H Sodium Level 138 MMOL/L (136-145) Potassium Level 3.6 MMOL/L (3.5-5.1) Chloride Level 103 MMOL/L (98-107) Carbon Dioxide Level 27 MMOL/L (21-32) Anion Gap 8 mmol/L (5-15) Blood Urea Nitrogen 22 mg/dL (7-18) H Creatinine 1.3 MG/DL (0.55-1.30) Estimated Glomerular Filtration Rate 55.4 mL/min (>60) Glucose Level 149 MG/DL (74-106) H Lactic Acid Level 1.60 mmol/L (0.4-2.0) Calcium Level 8.9 MG/DL (8.5-10.1) Total Bilirubin 1.3 MG/DL (0.2-1.0) H Direct Bilirubin 0.3 MG/DL (0.0-0.3) Aspartate Amino Transferase (AST) 12 U/L (15-37) L Alanine Aminotransferase (ALT) 17 U/L (12-78) Alkaline Phosphatase 98 U/L (46-116) Troponin I 0.000 ng/mL (0.000-0.056) Pro-B-Type Natriuretic Peptide 124 pg/mL (0-125) Total Protein 7.1 G/DL (6.4-8.2) Albumin 3.3 G/DL (3.4-5.0) L Globulin 3.8 g/dL Albumin/Globulin Ratio 0.9 (1.0-2.7) L Triglycerides Level Cholesterol Level LDL Cholesterol HDL Cholesterol Cholesterol/HDL Ratio Thyroid Stimulating Hormone (TSH) Microbiology Date/Time Source Procedure Growth Status 03/30/20 10:25 Nasopharynx SARS-CoV-2 RdRp Gene Assay - Final Complete EKG Diagnostic Results Troponin ordered: Yes Rate: normal Rhythm: NSR ST Segments: no acute changes ASA given to the pt in ED: No - Given aspirin in the field Rhythm Strip Diag. Results EP Interpretation: yes Rhythm: NSR, no PVC's, no ectopy Last Vital Signs Date Time Temp Pulse Resp B/P (MAP) Pulse Ox O2 Delivery O2 Flow Rate FiO2 03/30/20 09:55 97.9 122 18 124/85 (98) 100 Room Air Status: improved Disposition: ADMITTED INPATIENT Condition: Stable Carlos Little MD Mar 30, 2020 10:08
[2020-03-30 10:15] VITALS: BP 124/85
[2020-03-30] MEDS ORDERED: Aspirin Baby 81mg ORAL ONE (10:15)
[2020-03-30] MEDS ORDERED: Albuterol/Ipratropium 3ml neb HHN ONE (10:15)
[2020-03-30] MEDS ORDERED: Morphine Sulfate 2mg/ml Inj(IV/IM USE ONLY) IVP ONE (10:30)
--- NOTE | 2020-03-30 10:38 | NUR ---
ED Nurse Note: blood, cultures, urine and rapid covid collected, sent to lab
--- NOTE | 2020-03-30 10:41 | NUR ---
ED Nurse Note: x-ray at bedside done.
[2020-03-30 10:47] LABS: BASOPHILS % (AUTO) 0.9 % (0.0-2.0); EOSINOPHILS % (AUTO) 0.3 % (0.0-3.0); HEMATOCRIT 45.7 % (42.0-52.0); HEMOGLOBIN 15.6 G/DL (14.2-18.0); LYMPHOCYTES % (AUTO) 13.1 % (20.0-45.0); MEAN CORPUSCULAR VOLUME 82 FL (80-99); MONOCYTES % (AUTO) 13.9 % (1.0-10.0); NEUTROPHILS % (AUTO) 71.8 % (45.0-75.0); PLATELET COUNT 154 K/UL (150-450); RED BLOOD COUNT 5.59 M/UL (4.70-6.10); WHITE BLOOD COUNT 9.7 K/UL (4.8-10.8)
[2020-03-30 10:58] LABS: APPEARANCE,URINE CLOUDY; BILIRUBIN, URINE NEGATIVE (NEGATIVE); COLOR,URINE BROWN; GLUCOSE, URINE (UA) NEGATIVE (NEGATIVE); KETONES,URINE 2+ (NEGATIVE); LEUKOCYTE ESTERASE ,URINE 3+ (NEGATIVE); NITRITE,URINE POSITIVE (NEGATIVE); PH,URINE 5 (4.5-8.0); PROTEIN,URINE 3+ (NEGATIVE); UROBILINOGEN,URINE 1 MG/DL (0.0-1.0)
[2020-03-30 11:04] LABS: CALCIUM 8.9 MG/DL (8.5-10.1); CREATININE 1.3 MG/DL (0.55-1.30); POTASSIUM 3.6 MMOL/L (3.5-5.1)
[2020-03-30 11:20] LABS: ALBUMIN 3.3 G/DL (3.4-5.0); ALBUMIN/GLOBULIN RATIO 0.9 (1.0-2.7); BILIRUBIN,TOTAL 1.3 MG/DL (0.2-1.0)
[2020-03-30 11:22] LABS: BILIRUBIN,DIRECT 0.3 MG/DL (0.0-0.3)
[2020-03-30] MEDS ORDERED: cefTRIAXone 2 GM in NS 55 ML IVPB ONE (11:45)
--- NOTE | 2020-03-30 13:58 | NUR ---
ED Nurse Note: report given to Odalys QIU
--- NOTE | 2020-03-30 14:26 | Cardiac Electrophysiology PN ---
Subjective Subjective Patient seen in ER and DW ER [id number] Objective Last 24 Hour Vital Signs Date Time Temp Pulse Resp B/P (MAP) Pulse Ox O2 Delivery O2 Flow Rate FiO2 03/30/20 11:26 93 12 99 Nasal Cannula 2.0 28 99 16 98 03/30/20 10:15 97.9 18 124/85 96 Nasal Cannula 2.0 03/30/20 10:15 122 18 Room Air 03/30/20 09:55 97.9 122 18 124/85 (98) 100 Room Air Laboratory Tests Test 03/30/20 10:25 White Blood Count 9.7 K/UL (4.8-10.8) Red Blood Count 5.59 M/UL (4.70-6.10) Hemoglobin 15.6 G/DL (14.2-18.0) Hematocrit 45.7 % (42.0-52.0) Mean Corpuscular Volume 82 FL (80-99) Mean Corpuscular Hemoglobin 27.9 PG (27.0-31.0) Mean Corpuscular Hemoglobin Concent 34.2 G/DL (32.0-36.0) Red Cell Distribution Width 12.0 % (11.6-14.8) Platelet Count 154 K/UL (150-450) Mean Platelet Volume 5.2 FL (6.5-10.1) L Neutrophils (%) (Auto) 71.8 % (45.0-75.0) Lymphocytes (%) (Auto) 13.1 % (20.0-45.0) L Monocytes (%) (Auto) 13.9 % (1.0-10.0) H Eosinophils (%) (Auto) 0.3 % (0.0-3.0) Basophils (%) (Auto) 0.9 % (0.0-2.0) Prothrombin Time 11.3 SEC (9.30-11.50) Prothromb Time International Ratio 1.0 (0.9-1.1) Activated Partial Thromboplast Time 26 SEC (23-33) Urine Color Brown Urine Appearance Cloudy Urine pH 5 (4.5-8.0) Urine Specific [place] 1.025 (1.005-1.035) Urine Protein 3+ (NEGATIVE) H Urine Glucose (UA) Negative (NEGATIVE) Urine Ketones 2+ (NEGATIVE) H Urine Blood 5+ (NEGATIVE) H Urine Nitrite Positive (NEGATIVE) H Urine Bilirubin Negative (NEGATIVE) Urine Urobilinogen 1 MG/DL (0.0-1.0) H Urine Leukocyte Esterase 3+ (NEGATIVE) H Urine RBC 10-15 /HPF (0 - 0) H Urine WBC Tntc /HPF (0 - 0) H Urine Squamous Epithelial Cells None /LPF (NONE/OCC) Urine Bacteria Moderate /HPF (NONE) H Sodium Level 138 MMOL/L (136-145) Potassium Level 3.6 MMOL/L (3.5-5.1) Chloride Level 103 MMOL/L (98-107) Carbon Dioxide Level 27 MMOL/L (21-32) Anion Gap 8 mmol/L (5-15) Blood Urea Nitrogen 22 mg/dL (7-18) H Creatinine 1.3 MG/DL (0.55-1.30) Estimat Glomerular Filtration Rate 55.4 mL/min (>60) Glucose Level 149 MG/DL (74-106) H Lactic Acid Level 1.60 mmol/L (0.4-2.0) Calcium Level 8.9 MG/DL (8.5-10.1) Total Bilirubin 1.3 MG/DL (0.2-1.0) H Direct Bilirubin 0.3 MG/DL (0.0-0.3) Aspartate Amino Transf (AST/SGOT) 12 U/L (15-37) L Alanine Aminotransferase (ALT/SGPT) 17 U/L (12-78) Alkaline Phosphatase 98 U/L (46-116) Troponin I 0.000 ng/mL (0.000-0.056) Pro-B-Type Natriuretic Peptide 124 pg/mL (0-125) Total Protein 7.1 G/DL (6.4-8.2) Albumin 3.3 G/DL (3.4-5.0) L Globulin 3.8 g/dL Albumin/Globulin Ratio 0.9 (1.0-2.7) L Microbiology Date/Time Source Procedure Growth Status 03/30/20 10:25 Nasopharynx SARS-CoV-2 RdRp Gene Assay - Final Complete Donaldo Hardy MD Mar 30, 2020 14:26
--- NOTE | 2020-03-30 14:30 | NUR ---
NURSE NOTES: pt admitted in stable condition, he was complaining of pain. pt SR. pt on property assessment monitor and he is not complaining of any cardiac or respiratory distress, just back pain and headache. Belonging were checked and verified. pt has glasses with him. Bed is locked and in lowest position. will continue to monitor .
[2020-03-30] MEDS ORDERED: HYDROcodone/Acetamin 10/325 tab ORAL PRN (15:45)
--- NOTE | 2020-03-30 16:00 | Consultation ---
DATE OF CONSULTATION: 03/30/2020 CARDIOLOGY CONSULTATION CONSULTING PHYSICIAN: Donaldo Hardy MD. REFERRING PHYSICIAN: Estella Butt MD. REASON FOR CONSULTATION: Chest pain. HISTORY OF PRESENT ILLNESS: Patient is a 64-year-old gentleman with history of hypertension, diabetes, history of psychiatric disease, and history of previous tracheostomy that has been removed presented to the emergency room with chest pain for 2 days associated with shortness of breath. Patient was sent from assisted living at [facility]. Patient also has history of hyperlipidemia and denies being a smoker. Patient was admitted and a Cardiology consultation was obtained for further evaluation. REVIEW OF SYSTEMS: Negative other than what was mentioned in the history of present illness. PAST MEDICAL HISTORY: As mentioned above. FAMILY HISTORY: Noncontributory. SOCIAL HISTORY: He lives in assisted living. Does not smoke or drink alcohol. PHYSICAL EXAMINATION: VITAL SIGNS: Show blood pressure of 124/85, pulse is 120, respirations 18, he is afebrile. HEAD AND NECK: Shows no JVD. LUNGS: Clear. CARDIOVASCULAR: Shows regular S1 and S2 with no gallop or murmur. ABDOMEN: Soft. EXTREMITIES: No pitting edema. LABORATORY AND DIAGNOSTIC DATA: EKG shows sinus rhythm with frequent PVCs. Labs show white count 9.7, hemoglobin 15.7, hematocrit 45.7, platelet count 154. Sodium 138, potassium 3.6, BUN of 20, creatinine 1.3, and glucose of 149. Troponin is negative. ASSESSMENT AND PLAN: 1. Chest pain. The first troponin is negative. EKG is nonischemic. We will completely rule out MD protocol and get an echocardiogram. Repeat the EKG in the morning. 2. History of hypertension. Resume patient's antihypertensive agents and add p.r.n. clonidine to his medical regimen. 3. Diabetes. 4. Hyperlipidemia. 5. Frequent PVCs. We will watch the patient on telemetry. Patient likely would need a stress test for further management. Thank you very much, Dr. Butt, for allowing me to participate in the care of this patient. Please do not hesitate to contact me for any questions regarding my evaluation. Donaldo Hardy M.D. DR: LAURENCE JOB#: [id number] CC:
[2020-03-30] MEDS: Morphine Sulfate 2mg/ml Inj(IV/IM USE ONLY) IVP PRN ×2 (16:31→22:39)
--- NOTE | 2020-03-30 17:00 | Consultation ---
DATE OF CONSULTATION: 03/30/2020 INFECTIOUS DISEASE CONSULTATION CONSULTING PHYSICIAN: Henry Morgan MD. PRIMARY ATTENDING: Estella Butt MD. REASON FOR CONSULTATION: Pyuria, asthma, and COPD. HISTORY OF PRESENT ILLNESS: This is a 64-year-old white male admitted today from a [facility] facility complaining of chest discomfort, constant chest pain for 2 days. Does not have any coughing. Patient had chronic Maher catheterization that was changed on 03/24/2020. PAST MEDICAL HISTORY: Significant for asthma, COPD, hyperlipidemia, hypertension, gastroesophageal reflux disease, history of psychiatric problems, history of tubular adenoma of colon, history of colitis in 2018, internal hemorrhoids. ALLERGIES: Allergic to Codeine, sulfa drugs. SOCIAL HISTORY: correction resident. Denies alcohol, drug abuse, or smoking. Single. REVIEW OF SYSTEMS: No coughing. No shortness of breath. Chest pain. No nausea. No vomiting. Has back pain. Has chronic constipation. PHYSICAL EXAMINATION: VITAL SIGNS: Temperature 97.9, pulse 93, blood pressure 124/85. GENERAL APPEARANCE: Well developed, in no acute distress. HEAD AND NECK: [place] conjunctivae. HEART: Normal rate. LUNGS: Clear. ABDOMEN: Soft, nontender. EXTREMITIES: He has no edema. GENITOURINARY: Has Maher catheter. NEUROLOGIC: He is awake, alert, oriented, responsive. LABORATORY AND DIAGNOSTIC DATA: WBC 9.7, hemoglobin 15.6, hematocrit 45.7, and platelets is 154. Sodium 138, potassium 3.6, chloride 103, bicarb 27, BUN 22, creatinine 1.3. Troponin was 0. Albumin is 3.3. Lactic acid 1.6. UA showed wbc's too numerous to count, rbc's 10 to 15, bacteria moderate, nitrite positive, ketone 2+, protein 3+. COVID-19 test was negative. Chest x-ray was negative. IMPRESSION: Pyuria. Patient has chronic Maher catheter that has been chnged in first march. The patient has UTI. Has asthma, COPD that is not in exacerbation, chest pain that seems to be atypical. Has hypertension, hyperlipidemia. RECOMMENDATION: Observe off antibiotic. We will follow up the clinical course. At the end of my exam, I thank Dr. Butt for involving me in the care of this patient. Henry Morgan M.D. DR: REFUGIO JOB#: [id number] CC: ELY
[2020-03-30] MEDS ORDERED: HYDROcodone/Acetamin 5/325 tab ORAL PRN (17:45)
[2020-03-30] MEDS ORDERED: LORazepam 1mg tab ORAL PRN (17:45)
[2020-03-30] MEDS ORDERED: Sennosides 8.6mg tab ORAL PRN (17:45)
[2020-03-30] MEDS: Albuterol 90mcg Inhaler 8gm INH SCH ×3 (18:00→23:25)
[2020-03-30] MEDS: Flonase Nasal Inhaler 16gm NASAL SCH (18:00)
[2020-03-30] MEDS: Bethanechol 25mg Tab ORAL SCH (18:53)
[2020-03-30] MEDS: Albuterol 90mcg Inhaler 8gm INH PRN (19:16)
--- NOTE | 2020-03-30 19:23 | NUR ---
NURSE NOTES: Report received from Radha QIU. Patient is noted to be awake and alert x 4. Patient is noted to be on room air, denies chest pain and shortness of breath at this time. Patient is noted to be legally blind and hard of hearing. Patient has hearing aid in left ear. Patient is noted to be AV paced and has pace maker on left upper chest. Patient is noted to have right upper arm 20 nikia IV access with fluids running per MD orders. It was endorsed to Carrillo QIU that case management is involved with the patient to transfer the patient to [facility] for eye surgery. The patient has no complaints at this time. Call light in reach. Bed is locked, alarmed, and in lowest position. Will continue to follow plan of care. Addendum: 03/30/20 at 1928 by Carrillo Murillo RN Disregard this note. Note for wrong patient.
--- NOTE | 2020-03-30 19:45 | NUR ---
NURSE NOTES: Note there is a previous change of shift note from Carrillo QIU that was added to this chart as an error.
--- NOTE | 2020-03-30 19:45 | NUR ---
NURSE NOTES: Report received from Odalys QIU. Patient is noted to be awake and alert x 4. Patient is noted to be on 2 liters of oxygen via nasal canula. Patient has no complaints of shortness of breath at this time. Patient has complaints of slight chest pain, Carrillo QIU informed patient of when pain medication is due next. It was endorsed to Carrillo QIU that patient becomes tachycardic during ambulation but is steady on his feet. Patient is noted to have suprapubic catheter that he uses on his own. Patient is noted to have right hand 20 nikia IV access and right AC 20 nikia IV access. Call light in reach. Bed is locked, alarmed, and in lowest position. Will continue to follow plan of care.
[2020-03-30 20:00] VITALS: BP 149/90
--- NOTE | 2020-03-30 20:17 | NUR ---
NURSE HAND-OFF REPORT: Important Events on Shift: pt complains of pain Patient Status: full code, pt states he wants everything done for him Diet: regular Pending Orders: Pending Results/Labs: Pending MD notification: Latest Vital Signs: Temperature 97.9 , Pulse 79 , B/P 126 /86 , Respiratory Rate 16 , O2 SAT 100 , Nasal Cannula, O2 Flow Rate 2.0 . Vital Sign Comment: EKG Rhythm: Sinus Rhythm Rhythm change?: N MD Notified?: - MD Response: Latest Umanzor Fall Score: 15 Fall Risk: Low Risk Safety Measures: Call light Within Reach, Bed Alarm Zone 2, Side Rails Side Rails x2, Bed position Low and Locked. Fall Precautions: Yellow Socks y Yellow Gown y Patient Fall Education y Report given to Chidi/Rn .
--- NOTE | 2020-03-30 20:26 | NUR ---
NURSE NOTES: Carrillo QIU informed Doctor Butt of patients fever of 100.8 degrees Fahrenheit. Orders obtained for PRN Tylenol. Will inform Doctor Junior Morgan per request of Doctor Butt.
[2020-03-30] MEDS: TraZODone 100mg tab ORAL SCH (20:36)
[2020-03-30] MEDS: Tamsulosin 0.4mg cap ORAL SCH (20:36)
[2020-03-30] MEDS: Acetaminophen 500mg (ES) tab ORAL PRN (20:42)
--- NOTE | 2020-03-30 20:45 | Diagnostic Imaging Report ---
Indication: Shortness of breath Technique: One view of the chest Comparison: 07/30/2018 Findings: Inspiration is suboptimal. There are atelectatic changes of the left lung base. Lungs pleural spaces are otherwise grossly clear. The heart size is upper limits normal. Impression: Hypoventilatory exam. No definite acute process
--- NOTE | 2020-03-30 21:12 | NUR ---
NURSE NOTES: Spoke with Doctor Chacon regarding patient increase in temperature after administration of PRN Tylenol. Patient now has a temperature of 102.4. Doctor Amira aware. Antibiotics ordered. Blood cultures pending.
--- NOTE | 2020-03-30 21:15 | NUR ---
NURSE NOTES: Ice packs put in place for cooling measures.
--- NOTE | 2020-03-30 22:20 | NUR ---
NURSE NOTES: Note there is a current delay in the administration of IV antibiotics due to no IV pump available at this time. Charge nurse Bridgette barnes. Auto Hiker working on finding IV pump.
--- NOTE | 2020-03-30 23:00 | History and Physical Report ---
DATE OF ADMISSION: 03/30/2020 HISTORY OF PRESENT ILLNESS: The patient is admitted for chest pain, rule out acute coronary syndrome. The patient chest pain that radiates to the left arm. Pain for two days. The patient is a relatively poor historian, has psychiatric disorder as well. The patient also complains of left leg pain. He claims that he has not had a bowel movement for two weeks. The patient has a history of constipation. The patient denies shortness of breath. Denies fever or chills. Denies abdominal pain. Denies shortness of breath. Denies cough. Denies orthopnea. PAST MEDICAL HISTORY: Significant for BPH, obstructive uropathy, chronic indwelling Maher catheter, history of COPD, constipation, BPH, anxiety, depression, NIDDM, history of ulcerative colitis, history of chronic pain syndrome, GERD, hyperlipidemia, constipation, and history of liver laceration. PAST SURGERY HISTORY: History of hernia repair and liver laceration repair. ALLERGIES: To codeine, sulfa. FAMILY HISTORY: Noncontributory. SOCIAL HISTORY: Denies history of smoking, alcohol, or illicit drugs. Comes from [facility]. REVIEW OF SYSTEMS: HEENT: Denies headaches. RESPIRATORY: Denies shortness of breath. Denies cough. CARDIOVASCULAR: Does have chest pain for two days that radiates to the left arm, left leg. Denies orthopnea. GI: Denies abdominal pain. Does have constipation for two weeks and claims to have no bowel movement. EXTREMITIES: Denies pain in the lower extremities. CENTRAL NERVOUS SYSTEM: Denies change in speech pattern. MEDICATIONS: Lorazepam, Nexium, metformin, omeprazole, oxybutynin, Crestor, and Flomax. PHYSICAL EXAMINATION: VITAL SIGNS: Temperature is 97.9, pulse is 79, blood pressure 134/85. HEENT: PERRLA. NECK: Supple. No lymphadenopathy. CHEST: Clear to auscultation. CARDIOVASCULAR: Regular rate and rhythm. No murmurs or extra sounds. GASTROINTESTINAL: Soft, nontender, nondistended. No organomegaly. EXTREMITIES: No edema. Moves all four extremities. NEUROLOGIC: Sensory intact to light touch. Reflexes equal on both sides. Moves all four extremities. LABORATORY DATA: WBC of 9.7, hemoglobin 15.6, platelets 154. Sodium 138, potassium 3.6, BUN of 22, creatinine 1.3, glucose of 149. Troponin negative. any pain changes. ASSESSMENT AND PLAN: Chest pain for 2 days and rule out acute coronary syndrome, constipation. The patient had later on low-grade fever. I have consulted Dr. Iniguez, Dr. Hardy, Dr. Daniel Valenzuela, and Dr. Henry Morgan for the BPH and obstructive uropathy and to see if the patient needs Maher and also antibiotics per Dr. Henry Morgan and Dr. Hardy will be here to rule out acute coronary syndrome and pain management per Dr. Iniguez. Estella Butt M.D. DR: ELIZABETH JOB#: [id number] CC:
[2020-03-30] MEDS: Cefepime HCl 1 GM in D5W 55 ML IVPB SCH (23:03)
[2020-03-31] VITALS: BP 107/62
[2020-03-31] MEDS: Albuterol 90mcg Inhaler 8gm INH PRN ×2 (00:41→13:11)
[2020-03-31 03:47] LABS: CHOLESTEROL 130 MG/DL (< 200); HDL CHOLESTEROL 36 MG/DL (40-60); TRIGLYCERIDES 74 MG/DL (30-150)
[2020-03-31 04:00] VITALS: BP 107/64
[2020-03-31] MEDS: Morphine Sulfate 2mg/ml Inj(IV/IM USE ONLY) IVP PRN ×4 (04:52→23:37)
[2020-03-31] MEDS: Albuterol 90mcg Inhaler 8gm INH SCH ×3 (06:00→16:58)
--- NOTE | 2020-03-31 07:14 | NUR ---
NURSE HAND-OFF REPORT: Important Events on Shift: Patient is able to use suprapubic catheter independently. Patient request pain medication around the clock for chest and back pain. Patient had a fever last night, but is now afebrile. MDs are aware. Patient Status: full code Diet: cardiac Pending Orders: none Pending Results/Labs:none Pending MD notification:none Latest Vital Signs: Temperature 98.2 , Pulse 73 , B/P 107 /64 , Respiratory Rate 15 , O2 SAT 96 , Nasal Cannula, O2 Flow Rate 2.0 . Vital Sign Comment: patient now afebrile. EKG Rhythm: Sinus Rhythm Rhythm change?: N MD Notified?: - MD Response: Latest Umanzor Fall Score: 35 Fall Risk: Medium Risk Safety Measures: Call light Within Reach, Bed Alarm Zone 1, Side Rails Side Rails x2, Bed position Low and Locked. Fall Precautions: Yellow Socks Yellow Gown Patient Fall Education Report given to Lara QIU
--- NOTE | 2020-03-31 07:16 | NUR ---
NURSE NOTES: Report received from LAZARUS Vizcaino. Pt is A/O x4, with no SOB or acute distress. Pt is on 2L via nasal canula. Pt has complaints of slight chest pain, informed pt that pain medication is not due till 10:30am. At 7:10 am had an episode of tachycardic during ambulation to the bathroom and using the bathroom but is steady on his feet. Pt is noted to have suprapubic catheter that he uses on his own. Pt is noted to have RH 20G IV access and RAC 20 nikia IV access. Call light in reach. Bed is locked, alarmed, and in lowest position. Will continue to follow plan of care.
[2020-03-31 08:00] VITALS: BP 113/74
[2020-03-31] MEDS: Cefepime HCl 1 GM in D5W 55 ML IVPB SCH ×2 (09:32→21:56)
[2020-03-31] MEDS: Lisinopril 10mg tab ORAL SCH (09:32)
[2020-03-31] MEDS: Bethanechol 25mg Tab ORAL SCH ×2 (09:33→16:58)
[2020-03-31] MEDS: Docusate 100mg cap ORAL SCH (09:33)
[2020-03-31] MEDS: metFORMIN 500mg tab ORAL SCH (09:33)
[2020-03-31] MEDS: Flonase Nasal Inhaler 16gm NASAL SCH ×2 (09:34→16:58)
--- NOTE | 2020-03-31 10:12 | Consultation ---
History of Present Illness General Date patient seen: Mar 31, 2020 Chief Complaint: Present Illness Allergies: Coded Allergies: SULFA (SULFONAMIDE ANTIBIOTICS) (Unverified Allergy, Intermediate, hives, 12/10/17) CODEINE (Verified Allergy, Unknown, ABD IRRITATION, 12/10/17) SULFONYLUREAS (Verified Allergy, Unknown, RASH, 12/10/17) Medication History Scheduled Albuterol Sulfate (Ventolin Hfa), 2 PUFFS INH EVERY 6 HOURS Bethanechol Chl (Bethanechol Chloride), 25 MG ORAL BID, (Reported) Ciprofloxacin (Ciprofloxacin HCl), 1 DROP LEFT EYE Q6HR Ciprofloxacin Hcl* (Ciprofloxacin Hcl*), 500 MG ORAL Q12H Docusate Sodium* (Docusate Sodium*), 200 MG ORAL DAILY, (Reported) Finasteride* (Proscar*), 5 MG ORAL DAILY, (Reported) Fluticasone Propionate* (Fluticasone Propionate*), 1 SPRAY NASAL TWICE A DAY, (Reported) [place] Carbonate* (Nikiski*), 300 MG ORAL QHS, (Reported) Metformin Hcl* (Glucophage*), 500 MG PO DAILY, (Reported) Olanzapine (Olanzapine), 20 MG ORAL DAILY, (Reported) Omeprazole (Omeprazole), 40 MG ORAL DAILY, (Reported) Oseltamivir Phosphate (Tamiflu), 75 MG ORAL TWICE A DAY Oxybutynin Chloride (Oxybutynin Chloride), 5 GM MC BID, (Reported) Prednisone* (Prednisone*), 40 MG ORAL DAILY Rosuvastatin Calcium (Crestor), 5 MG ORAL QHS, (Reported) Rosuvastatin Calcium* (Crestor*), 5 MG ORAL DAILY, (Reported) Sulfasalazine (Sulfazine), 1,000 MG PO THREE TIMES A DAY, (Reported) Tamsulosin Hcl (Tamsulosin Hcl*), 0.4 MG ORAL BEDTIME, (Reported) Tolterodine Tartrate (Tolterodine Tartrate), 1 MG PO BID, (Reported) Trazodone* (Trazodone*), 300 MG ORAL BEDTIME, (Reported) Scheduled PRN Albuterol Sulfate* (Albuterol Sulfate Mdi*), 2 PUFF INH Q4H PRN for Shortness of Breath Hydrocodone Bit/Acetaminophen 5-325* ([place] 5-325*), 1 TAB ORAL Q4H PRN for For Pain, (Reported) Lorazepam* (Lorazepam*), 1 MG ORAL Q6HR PRN for For Anxiety, (Reported) Temazepam* (Temazepam*), 30 MG ORAL BEDTIME PRN for Insomnia, (Reported) Miscellaneous Medications Mesalamine (Apriso), 0.375 GM PO, (Reported) Sennosides (Senna), 8.6 MG PO, (Reported) Patient History Healthcare decision maker Resuscitation status Advanced Directive on File Physical Exam Last 24 Hour Vital Signs Date Time Temp Pulse Resp B/P (MAP) Pulse Ox O2 Delivery O2 Flow Rate FiO2 03/31/20 09:32 113/74 03/31/20 08:17 Nasal Cannula 2.0 03/31/20 08:00 98.6 85 18 113/74 (87) 96 03/31/20 08:00 96 03/31/20 07:30 153 03/31/20 04:00 98.2 82 15 107/64 (78) 96 03/31/20 04:00 73 03/31/20 01:16 99.1 03/31/20 00:45 86 18 98 Nasal Cannula 2.0 28 03/31/20 00:45 85 18 98 Nasal Cannula 2.0 28 03/31/20 00:00 91 03/31/20 00:00 101.8 90 14 107/62 (77) 95 03/30/20 21:12 102.4 03/30/20 21:00 Nasal Cannula 2.0 03/30/20 20:00 92 03/30/20 20:00 100.9 89 14 149/90 (109) 100 03/30/20 19:15 82 18 98 Nasal Cannula 2.0 28 03/30/20 19:15 82 18 98 Nasal Cannula 2.0 28 03/30/20 17:51 Nasal Cannula 2.0 03/30/20 15:29 79 03/30/20 14:55 97.9 16 126/86 100 Nasal Cannula 2.0 28 03/30/20 11:26 93 12 99 Nasal Cannula 2.0 28 99 16 98 03/30/20 10:15 97.9 18 124/85 96 Nasal Cannula 2.0 03/30/20 10:15 122 18 Room Air Intake and Output 03/30/20 03/31/20 18:59 06:59 Intake Total 120 ml 415 ml Output Total 200 ml 800 ml Balance -80 ml -385 ml Intake Oral 120 ml 360 ml IV Total 55 ml Output Urine Total 200 ml 800 ml Laboratory Tests Test 03/30/20 10:25 03/30/20 18:47 03/31/20 03:00 White Blood Count 9.7 K/UL (4.8-10.8) Red Blood Count 5.59 M/UL (4.70-6.10) Hemoglobin 15.6 G/DL (14.2-18.0) Hematocrit 45.7 % (42.0-52.0) Mean Corpuscular Volume 82 FL (80-99) Mean Corpuscular Hemoglobin 27.9 PG (27.0-31.0) Mean Corpuscular Hemoglobin Concent 34.2 G/DL (32.0-36.0) Red Cell Distribution Width 12.0 % (11.6-14.8) Platelet Count 154 K/UL (150-450) Mean Platelet Volume 5.2 FL (6.5-10.1) L Neutrophils (%) (Auto) 71.8 % (45.0-75.0) Lymphocytes (%) (Auto) 13.1 % (20.0-45.0) L Monocytes (%) (Auto) 13.9 % (1.0-10.0) H Eosinophils (%) (Auto) 0.3 % (0.0-3.0) Basophils (%) (Auto) 0.9 % (0.0-2.0) Prothrombin Time 11.3 SEC (9.30-11.50) Prothromb Time International Ratio 1.0 (0.9-1.1) Activated Partial Thromboplast Time 26 SEC (23-33) Urine Color Brown Urine Appearance Cloudy Urine pH 5 (4.5-8.0) Urine Specific [place]bie 1.025 (1.005-1.035) Urine Protein 3+ (NEGATIVE) H Urine Glucose (UA) Negative (NEGATIVE) Urine Ketones 2+ (NEGATIVE) H Urine Blood 5+ (NEGATIVE) H Urine Nitrite Positive (NEGATIVE) H Urine Bilirubin Negative (NEGATIVE) Urine Urobilinogen 1 MG/DL (0.0-1.0) H Urine Leukocyte Esterase 3+ (NEGATIVE) H Urine RBC 10-15 /HPF (0 - 0) H Urine WBC Tntc /HPF (0 - 0) H Urine Squamous Epithelial Cells None /LPF (NONE/OCC) Urine Bacteria Moderate /HPF (NONE) H Sodium Level 138 MMOL/L (136-145) Potassium Level 3.6 MMOL/L (3.5-5.1) Chloride Level 103 MMOL/L (98-107) Carbon Dioxide Level 27 MMOL/L (21-32) Anion Gap 8 mmol/L (5-15) Blood Urea Nitrogen 22 mg/dL (7-18) H Creatinine 1.3 MG/DL (0.55-1.30) Estimat Glomerular Filtration Rate 55.4 mL/min (>60) Glucose Level 149 MG/DL (74-106) H Lactic Acid Level 1.60 mmol/L (0.4-2.0) Calcium Level 8.9 MG/DL (8.5-10.1) Total Bilirubin 1.3 MG/DL (0.2-1.0) H Direct Bilirubin 0.3 MG/DL (0.0-0.3) Aspartate Amino Transf (AST/SGOT) 12 U/L (15-37) L Alanine Aminotransferase (ALT/SGPT) 17 U/L (12-78) Alkaline Phosphatase 98 U/L (46-116) Troponin I 0.000 ng/mL (0.000-0.056) 0.000 ng/mL (0.000-0.056) 0.000 ng/mL (0.000-0.056) Pro-B-Type Natriuretic Peptide 124 pg/mL (0-125) 118 pg/mL (0-125) Total Protein 7.1 G/DL (6.4-8.2) Albumin 3.3 G/DL (3.4-5.0) L Globulin 3.8 g/dL Albumin/Globulin Ratio 0.9 (1.0-2.7) L Triglycerides Level 74 MG/DL (30-150) Cholesterol Level 130 MG/DL (< 200) LDL Cholesterol 77 mg/dL (<100) HDL Cholesterol 36 MG/DL (40-60) L Cholesterol/HDL Ratio 3.6 (3.3-4.4) Thyroid Stimulating Hormone (TSH) 1.112 uiU/mL (0.358-3.740) Microbiology Date/Time Source Procedure Growth Status 03/30/20 12:00 Rectum Received 03/30/20 10:25 Urine,Clean Catch Urine Culture - Preliminary Resulted 03/30/20 10:25 Nasopharynx SARS-CoV-2 RdRp Gene Assay - Final Complete Height (Feet): 5 Height (Inches): 11.00 Weight (Pounds): 225 Medications Current Medications Medications (Trade) Dose Ordered Sig/Svetlana Route PRN Reason Start Time Stop Time Status Last Admin Dose Admin Acetaminophen (Tylenol) 500 mg Q4H PRN ORAL Temp >100.5 03/30/20 20:30 04/29/20 20:29 03/30/20 20:42 Acetaminophen/ Hydrocodone Bitart ([place] 10/325) 1 tab Q4H PRN ORAL Moderate Pain (Pain Scale 4-6) 03/30/20 15:45 04/06/20 15:44 Acetaminophen/ Hydrocodone Bitart ([place] 5/325) 1 tab Q4H PRN ORAL Mild Pain (Pain Scale 1-3) 03/30/20 17:45 04/06/20 17:44 Albuterol Sulfate (Proventil MDI) 2 puff EVERY 6 HOURS INH 03/30/20 18:00 06/28/20 17:59 03/30/20 23:25 Albuterol Sulfate (Proventil MDI) 2 puff Q4H PRN INH Shortness of Breath 03/30/20 17:45 06/28/20 17:44 03/31/20 00:41 Bethanechol Chloride (Urecholine) 25 mg BID ORAL 03/30/20 18:00 04/29/20 17:59 03/31/20 09:33 Cefepime HCl 1 gm/ Dextrose 55 ml @ 110 mls/hr EVERY 12 HOURS IVPB 03/30/20 21:00 04/06/20 20:59 03/31/20 09:32 Clonidine HCl (Catapres Tab) 0.1 mg Q4H PRN ORAL htn 03/30/20 14:30 06/28/20 14:29 Docusate Sodium (Colace) 200 mg DAILY ORAL 03/31/20 09:00 04/30/20 08:59 03/31/20 09:33 Finasteride (Proscar) 5 mg DAILY ORAL 03/31/20 09:00 06/29/20 08:59 03/31/20 09:33 Fluticasone Propionate (Flonase) 1 spray TWICE A DAY NASAL 03/30/20 18:00 04/29/20 17:59 03/31/20 09:34 Lisinopril (ZestriL) 10 mg DAILY ORAL 03/31/20 09:00 04/30/20 08:59 03/31/20 09:32 Nikiski Carbonate (Nikiski Carbonate) 300 mg QHS ORAL 03/30/20 21:00 06/28/20 20:59 03/30/20 20:36 Lorazepam (Ativan) 1 mg Q6H PRN ORAL For Anxiety 03/30/20 17:45 04/06/20 17:44 Metformin HCl (Glucophage) 500 mg DAILY ORAL 03/31/20 09:00 04/30/20 08:59 03/31/20 09:33 Morphine Sulfate (Morphine Sulfate) 1 mg Q6H PRN IVP Severe Pain (Pain Scale 7-10) 03/30/20 15:45 04/06/20 15:44 03/31/20 04:52 Prednisone (predniSONE) 40 mg DAILY ORAL 03/31/20 09:00 04/30/20 08:59 03/31/20 09:33 Sennosides (Senokot) 8.6 mg DAILYPRN PRN ORAL Constipation 03/30/20 17:45 04/29/20 17:44 03/30/20 20:36 Tamsulosin HCl (Flomax) 0.4 mg BEDTIME ORAL 03/30/20 21:00 04/29/20 20:59 03/30/20 20:36 Trazodone HCl (Desyrel) 300 mg BEDTIME ORAL 03/30/20 21:00 04/29/20 20:59 03/30/20 20:36 Assessment/Plan Assessment/Plan: (1) Lumbar DDD (2) Lumbar Spondylosis (3) Chest pain R/O ACS seen dictated Elliott Tovar Mar 31, 2020 10:12
[2020-03-31 12:00] VITALS: BP 108/73
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
--- NOTE | 2020-03-31 14:43 | Infectious Diseases Prog Note ---
Assessment/Plan Assessment/Plan IMPRESSION: Fever Pyuria. UTI. Has asthma, COPD t chest pain that seems to be atypical. Hypertension, Hyperlipidemia. RECOMMENDATION: Continue Cefepime We will follow up the cultures Subjective ROS Limited/Unobtainable: No Constitutional: Reports: fever, other - last night Ke=464.4 Respiratory: Reports: no symptoms Cardiovascular: Reports: no symptoms Gastrointestinal/Abdominal: Reports: no symptoms Genitourinary: Reports: no symptoms Allergies: Coded Allergies: SULFA (SULFONAMIDE ANTIBIOTICS) (Unverified Allergy, Intermediate, hives, 12/10/17) CODEINE (Verified Allergy, Unknown, ABD IRRITATION, 12/10/17) SULFONYLUREAS (Verified Allergy, Unknown, RASH, 12/10/17) Objective Last 24 Hour Vital Signs Date Time Temp Pulse Resp B/P (MAP) Pulse Ox O2 Delivery O2 Flow Rate FiO2 03/31/20 12:00 84 03/31/20 12:00 98.7 91 18 108/73 (85) 96 03/31/20 09:32 113/74 03/31/20 08:17 Nasal Cannula 2.0 03/31/20 08:00 98.6 85 18 113/74 (87) 96 03/31/20 08:00 96 03/31/20 07:30 153 03/31/20 07:15 Nasal Cannula 2.0 28 03/31/20 07:15 Nasal Cannula 2.0 28 03/31/20 04:00 98.2 82 15 107/64 (78) 96 03/31/20 04:00 73 03/31/20 01:16 99.1 03/31/20 00:45 86 18 98 Nasal Cannula 2.0 28 03/31/20 00:45 85 18 98 Nasal Cannula 2.0 28 03/31/20 00:00 91 03/31/20 00:00 101.8 90 14 107/62 (77) 95 03/30/20 21:12 102.4 03/30/20 21:00 Nasal Cannula 2.0 03/30/20 20:00 92 03/30/20 20:00 100.9 89 14 149/90 (109) 100 03/30/20 19:15 82 18 98 Nasal Cannula 2.0 28 03/30/20 19:15 82 18 98 Nasal Cannula 2.0 28 03/30/20 17:51 Nasal Cannula 2.0 10/7/20 15:29 79 03/30/20 14:55 97.9 16 126/86 100 Nasal Cannula 2.0 28 Height (Feet): 5 Height (Inches): 11.00 Weight (Pounds): 225 General Appearance: no acute distress HEENT: mucous membranes moist Respiratory/Chest: lungs clear Cardiovascular: normal rate Abdomen: soft, non tender Genitourinary: other - Maher catheter Extremities: no edema Neurologic/Psychiatric: alert, oriented x 3, responsive Microbiology Date/Time Source Procedure Growth Status 03/30/20 12:00 Rectum Received 03/30/20 10:25 Urine,Clean Catch Urine Culture - Preliminary Resulted 03/30/20 10:25 Nasopharynx SARS-CoV-2 RdRp Gene Assay - Final Complete Laboratory Tests Test 03/30/20 18:47 03/31/20 03:00 Troponin I 0.000 ng/mL (0.000-0.056) 0.000 ng/mL (0.000-0.056) Pro-B-Type Natriuretic Peptide 118 pg/mL (0-125) Triglycerides Level 74 MG/DL (30-150) Cholesterol Level 130 MG/DL (< 200) LDL Cholesterol 77 mg/dL (<100) HDL Cholesterol 36 MG/DL (40-60) L Cholesterol/HDL Ratio 3.6 (3.3-4.4) Thyroid Stimulating Hormone (TSH) 1.112 uiU/mL (0.358-3.740) Current Medications Medications (Trade) Dose Ordered Sig/Svetlana Route PRN Reason Start Time Stop Time Status Last Admin Dose Admin Acetaminophen (Tylenol) 500 mg Q4H PRN ORAL Temp >100.5 03/30/20 20:30 04/29/20 20:29 03/30/20 20:42 Acetaminophen/ Hydrocodone Bitart ([place] 10/325) 1 tab Q4H PRN ORAL Moderate Pain (Pain Scale 4-6) 03/30/20 15:45 04/06/20 15:44 Acetaminophen/ Hydrocodone Bitart ([place] 5/325) 1 tab Q4H PRN ORAL Mild Pain (Pain Scale 1-3) 03/30/20 17:45 04/06/20 17:44 Albuterol Sulfate (Proventil MDI) 2 puff EVERY 6 HOURS INH 03/30/20 18:00 1/5/21 17:59 03/31/20 12:00 Albuterol Sulfate (Proventil MDI) 2 puff Q4H PRN INH Shortness of Breath 03/30/20 17:45 06/28/20 17:44 03/31/20 13:11 Bethanechol Chloride (Urecholine) 25 mg BID ORAL 03/30/20 18:00 04/29/20 17:59 03/31/20 09:33 Cefepime HCl 1 gm/ Dextrose 55 ml @ 110 mls/hr EVERY 12 HOURS IVPB 03/30/20 21:00 04/06/20 20:59 03/31/20 09:32 Clonidine HCl (Catapres Tab) 0.1 mg Q4H PRN ORAL htn 03/30/20 14:30 06/28/20 14:29 Docusate Sodium (Colace) 200 mg DAILY ORAL 03/31/20 09:00 04/30/20 08:59 03/31/20 09:33 Finasteride (Proscar) 5 mg DAILY ORAL 03/31/20 09:00 06/29/20 08:59 03/31/20 09:33 Fluticasone Propionate (Flonase) 1 spray TWICE A DAY NASAL 03/30/20 18:00 04/29/20 17:59 03/31/20 09:34 Lisinopril (ZestriL) 10 mg DAILY ORAL 03/31/20 09:00 04/30/20 08:59 03/31/20 09:32 [place] Carbonate ([place] Carbonate) 300 mg QHS ORAL 03/30/20 21:00 06/28/20 20:59 03/30/20 20:36 Lorazepam (Ativan) 1 mg Q6H PRN ORAL For Anxiety 03/30/20 17:45 04/06/20 17:44 Metformin HCl (Glucophage) 500 mg DAILY ORAL 03/31/20 09:00 04/30/20 08:59 03/31/20 09:33 Morphine Sulfate (Morphine Sulfate) 1 mg Q6H PRN IVP Severe Pain (Pain Scale 7-10) 03/30/20 15:45 04/06/20 15:44 03/31/20 10:54 Prednisone (predniSONE) 40 mg DAILY ORAL 03/31/20 09:00 04/30/20 08:59 03/31/20 09:33 Sennosides (Senokot) 8.6 mg DAILYPRN PRN ORAL Constipation 03/30/20 17:45 04/29/20 17:44 03/30/20 20:36 Tamsulosin HCl (Flomax) 0.4 mg BEDTIME ORAL 03/30/20 21:00 04/29/20 20:59 03/30/20 20:36 Trazodone HCl (Desyrel) 300 mg BEDTIME ORAL 03/30/20 21:00 04/29/20 20:59 03/30/20 20:36 Henry Morgan MD Mar 31, 2020 14:43
--- NOTE | 2020-03-31 15:06 | NUR ---
CASE MANAGEMENT:REVIEW BIBA FROM [facility] SI: CHEST PAIN. HYPOXIA. COPD 97.8 122 18 124/85 100% ON RA BUN+22 TROPONIN(-) IS: ASA PO GIVEN EN ROUTE NITRO SPRAY GIVEN EN ROUTE DUONEB HHN ASA PO 1 NS BOLUS IV MORPHINE : TO TELEMETRY
[2020-03-31 16:00] VITALS: BP 116/70
--- NOTE | 2020-03-31 16:22 | Cardiac Electrophysiology PN ---
Assessment/Plan Assessment/Plan 1. Chest pain. Ruled out for [place] Echocardiogram pending. ECG unchanged. Schedule for stress test 2. History of hypertension. On Lisinopril 10 daily and p.r.n. clonidine 3. Diabetes. 4. Hyperlipidemia. 5. Frequent PVCs. We will watch the patient on telemetry. Patient likely would need a stress test for further management. Subjective Subjective Feeling better. No CP or SOB Objective Last 24 Hour Vital Signs Date Time Temp Pulse Resp B/P (MAP) Pulse Ox O2 Delivery O2 Flow Rate FiO2 03/31/20 12:00 84 03/31/20 12:00 98.7 91 18 108/73 (85) 96 03/31/20 09:32 113/74 03/31/20 08:17 Nasal Cannula 2.0 03/31/20 08:00 98.6 85 18 113/74 (87) 96 03/31/20 08:00 96 03/31/20 07:30 153 03/31/20 07:15 Nasal Cannula 2.0 28 03/31/20 07:15 Nasal Cannula 2.0 28 03/31/20 04:00 98.2 82 15 107/64 (78) 96 03/31/20 04:00 73 03/31/20 01:16 99.1 03/31/20 00:45 86 18 98 Nasal Cannula 2.0 28 03/31/20 00:45 85 18 98 Nasal Cannula 2.0 28 03/31/20 00:00 91 03/31/20 00:00 101.8 90 14 107/62 (77) 95 03/30/20 21:12 102.4 03/30/20 21:00 Nasal Cannula 2.0 03/30/20 20:00 92 03/30/20 20:00 100.9 89 14 149/90 (109) 100 03/30/20 19:15 82 18 98 Nasal Cannula 2.0 28 03/30/20 19:15 82 18 98 Nasal Cannula 2.0 28 03/30/20 17:51 Nasal Cannula 2.0 Intake and Output 03/30/20 03/31/20 19:00 07:00 Intake Total 120 ml 415 ml Output Total 200 ml 800 ml Balance -80 ml -385 ml Intake Oral 120 ml 360 ml IV Total 55 ml Output Urine Total 200 ml 800 ml Laboratory Tests Test 10/7/20 18:47 03/31/20 03:00 Troponin I 0.000 ng/mL (0.000-0.056) 0.000 ng/mL (0.000-0.056) Pro-B-Type Natriuretic Peptide 118 pg/mL (0-125) Triglycerides Level 74 MG/DL (30-150) Cholesterol Level 130 MG/DL (< 200) LDL Cholesterol 77 mg/dL (<100) HDL Cholesterol 36 MG/DL (40-60) L Cholesterol/HDL Ratio 3.6 (3.3-4.4) Thyroid Stimulating Hormone (TSH) 1.112 uiU/mL (0.358-3.740) Microbiology Date/Time Source Procedure Growth Status 03/30/20 12:00 Rectum Received 03/30/20 10:25 Urine,Clean Catch Urine Culture - Preliminary Resulted 03/30/20 10:25 Nasopharynx SARS-CoV-2 RdRp Gene Assay - Final Complete Objective HEAD AND NECK: Shows no JVD. LUNGS: Clear. CARDIOVASCULAR: Shows regular S1 and S2 with no gallop or murmur. ABDOMEN: Soft. EXTREMITIES: No pitting edema. Donaldo Hardy MD Mar 31, 2020 16:22
[2020-03-31] MEDS ORDERED: Lexiscan 0.4mg/5ml syringe IV PRN (16:30)
--- NOTE | 2020-03-31 19:33 | NUR ---
NURSE HAND-OFF REPORT: Important Events on Shift: Pain medication given. Patient Status: Stable Diet: Regular Pending Orders: Pending Results/Labs: Pending MD notification: Latest Vital Signs: Temperature 98.0 , Pulse 94 , B/P 116 /70 , Respiratory Rate 20 , O2 SAT 95 , Nasal Cannula, O2 Flow Rate 2.0 . Vital Sign Comment: EKG Rhythm: Sinus Rhythm Rhythm change?: N MD Notified?: Maida Hardy MD Response: No New Orders Received Latest Umanzor Fall Score: 35 Fall Risk: Medium Risk Safety Measures: Call light Within Reach, Bed Alarm Zone 1, Side Rails Side Rails x2, Bed position Low and Locked. Fall Precautions: Yellow Socks Yellow Gown Patient Fall Education Report given to yeimy.
--- NOTE | 2020-03-31 19:35 | NUR ---
NURSE NOTES: Received patient from LAZARUS Bermudez. Patient is awake, alert and oriented x 4. Patient is currently watching TV in bed. Patient is on 2 L nasal cannula satting at 100%. Patient has Left hand 20 gauge IV and Left AC 20 gauge IV, patent and flushed. Patient has a patent suprapubic catheter. No complaints at this time. Bed is in the lowest position, call light within reach. Will continue to monitor.
--- NOTE | 2020-03-31 19:35 | NUR ---
NURSE NOTES: Patient IV is on right hand 20 gauge and right AC 20 gauge. Patent and flushed.
[2020-03-31 20:00] VITALS: BP 102/57
--- NOTE | 2020-03-31 21:18 | General Progress Note ---
Subjective ROS Limited/Unobtainable: Yes Allergies: Coded Allergies: SULFA (SULFONAMIDE ANTIBIOTICS) (Unverified Allergy, Intermediate, hives, 12/10/17) CODEINE (Verified Allergy, Unknown, ABD IRRITATION, 12/10/17) SULFONYLUREAS (Verified Allergy, Unknown, RASH, 12/10/17) Objective Last 24 Hour Vital Signs Date Time Temp Pulse Resp B/P (MAP) Pulse Ox O2 Delivery O2 Flow Rate FiO2 03/31/20 17:37 95 Nasal Cannula 2.0 28 03/31/20 16:00 98.0 94 20 116/70 (85) 99 03/31/20 16:00 67 03/31/20 13:20 Nasal Cannula 03/31/20 13:20 Nasal Cannula 03/31/20 12:00 84 03/31/20 12:00 98.7 91 18 108/73 (85) 96 03/31/20 09:32 113/74 03/31/20 08:17 Nasal Cannula 2.0 03/31/20 08:00 98.6 85 18 113/74 (87) 96 03/31/20 08:00 96 03/31/20 07:30 153 03/31/20 07:15 Nasal Cannula 2.0 28 03/31/20 07:15 Nasal Cannula 2.0 28 03/31/20 04:00 98.2 82 15 107/64 (78) 96 03/31/20 04:00 73 03/31/20 01:16 99.1 03/31/20 00:45 86 18 98 Nasal Cannula 2.0 28 03/31/20 00:45 85 18 98 Nasal Cannula 2.0 28 03/31/20 00:00 91 03/31/20 00:00 101.8 90 14 107/62 (77) 95 Intake and Output 03/30/20 03/31/20 19:00 07:00 Intake Total 120 ml 415 ml Output Total 200 ml 800 ml Balance -80 ml -385 ml Intake Oral 120 ml 360 ml IV Total 55 ml Output Urine Total 200 ml 800 ml Laboratory Tests 03/31/20 03:00: Troponin I 0.000, Pro-B-Type Natriuretic Peptide 118, Triglycerides Level 74, Cholesterol Level 130, LDL Cholesterol 77, HDL Cholesterol 36L, Cholesterol/HDL Ratio 3.6, Thyroid Stimulating Hormone (TSH) 1.112 Height (Feet): 5 Height (Inches): 11.00 Weight (Pounds): 225 Assessment/Plan Problem List: (1) Chest wall pain ICD Codes: R07.89 - Other chest pain SNOMED: 978509078 (2) Weak ICD Codes: R53.1 - Weakness SNOMED: 20051046 (3) Psychiatric diagnosis ICD Codes: F99 - Mental disorder, not otherwise specified SNOMED: 21636967, 980119265 (4) Chest pain ICD Codes: R07.9 - Chest pain, unspecified SNOMED: 58576062 (5) Generalized weakness ICD Codes: R53.1 - Weakness SNOMED: 34499128 (6) UTI (urinary tract infection) ICD Codes: N39.0 - Urinary tract infection, site not specified SNOMED: 27888481 Status: progressing Assessment/Plan: atypical cp 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
[2020-03-31] MEDS: Tamsulosin 0.4mg cap ORAL SCH (21:57)
[2020-03-31] MEDS: TraZODone 100mg tab ORAL SCH (22:00)
[2020-04-01] VITALS: BP 110/67
[2020-04-01] MEDS: Albuterol 90mcg Inhaler 8gm INH SCH ×4 (01:16→18:00)
[2020-04-01 04:00] VITALS: BP 94/54
--- NOTE | 2020-04-01 06:22 | NUR ---
NURSE NOTES: Called and left a message to Dr. Junior Morgan regarding patients gram positive cocci in cluster blood culture result.
--- NOTE | 2020-04-01 06:48 | NUR ---
CARDIOLOGY Patient refused the stress test. Charge nurse Bridgette was informed.
[2020-04-01] MEDS: Albuterol 90mcg Inhaler 8gm INH PRN ×2 (07:30→13:58)
[2020-04-01 08:00] VITALS: BP 128/76
--- NOTE | 2020-04-01 08:06 | NUR ---
NURSE NOTES: Received report from Karlo/RN. Pt in bed sleeping comfortably. On 2L nasal cannula, no distress or SOB noted. Suprapubic catheter draining to gravity. IV on left hand 20G and left AC 20G, both patent and clean, SL. Bed in the lowest position and locked, call light within reach, side rails up X3. Will continue plan of care.
--- NOTE | 2020-04-01 08:08 | NUR ---
NURSE HAND-OFF REPORT: Important Events on Shift:[Patient has gram positive cocci in clusters. Left a message to Dr. Morgan] Patient Status: [] Diet: [NPO] Pending Orders: [] Pending Results/Labs:[] Pending MD notification:[] Latest Vital Signs: Temperature 97.7 , Pulse 65 , B/P 94 /54 , Respiratory Rate 18 , O2 SAT 94 , Nasal Cannula, O2 Flow Rate 2.0 . Vital Sign Comment: [] EKG Rhythm: Sinus Bradycardia Rhythm change?: Y MD Notified?: N -Dr. Hayley BURGOS Response: No New Orders Received Latest Umanzor Fall Score: 35 Fall Risk: Medium Risk Safety Measures: Call light Within Reach, Bed Alarm Zone 1, Side Rails Side Rails x2, Bed position Low and Locked. Fall Precautions: Yellow Socks Yellow Gown Patient Fall Education Report given to [LAZARUS Mcfadden].
[2020-04-01] MEDS: metFORMIN 500mg tab ORAL SCH (08:59)
[2020-04-01] MEDS: Bethanechol 25mg Tab ORAL SCH ×2 (08:59→17:45)
[2020-04-01] MEDS: Docusate 100mg cap ORAL SCH (08:59)
[2020-04-01] MEDS: Lisinopril 10mg tab ORAL SCH (08:59)
[2020-04-01] MEDS: Flonase Nasal Inhaler 16gm NASAL SCH ×3 (09:00→18:00)
[2020-04-01] MEDS: Cefepime HCl 1 GM in D5W 55 ML IVPB SCH ×2 (09:00→20:42)
--- NOTE | 2020-04-01 10:25 | Infectious Diseases Prog Note ---
Assessment/Plan Assessment/Plan IMPRESSION: Fever resolved Bacteremia Gram negative UTI. Asthma, COPD chest pain ,atypical. Hypertension, Hyperlipidemia. RECOMMENDATION: Continue Cefepime We will follow up the cultures Subjective ROS Limited/Unobtainable: No Constitutional: Reports: no symptoms Respiratory: Reports: no symptoms Gastrointestinal/Abdominal: Reports: no symptoms Genitourinary: Reports: no symptoms Allergies: Coded Allergies: SULFA (SULFONAMIDE ANTIBIOTICS) (Unverified Allergy, Intermediate, hives, 12/10/17) CODEINE (Verified Allergy, Unknown, ABD IRRITATION, 12/10/17) SULFONYLUREAS (Verified Allergy, Unknown, RASH, 12/10/17) Objective Last 24 Hour Vital Signs Date Time Temp Pulse Resp B/P (MAP) Pulse Ox O2 Delivery O2 Flow Rate FiO2 04/01/20 09:00 Nasal Cannula 2.0 04/01/20 08:59 128/76 04/01/20 08:00 98.1 81 20 128/76 (93) 95 04/01/20 08:00 70 04/01/20 07:31 65 18 94 Room Air 21 04/01/20 07:30 94 Room Air 21 04/01/20 07:29 64 18 94 Room Air 21 04/01/20 04:00 53 04/01/20 04:00 97.7 54 12 94/54 (67) 94 04/01/20 01:21 75 18 96 Nasal Cannula 2.0 28 04/01/20 01:17 75 18 96 Nasal Cannula 2.0 28 04/01/20 00:00 96.8 64 18 110/67 (81) 94 04/01/20 00:00 77 03/31/20 21:00 Nasal Cannula 2.0 03/31/20 20:00 97.9 78 16 102/57 (72) 99 03/31/20 20:00 71 03/31/20 17:37 95 Nasal Cannula 2.0 28 03/31/20 16:58 Nasal Cannula 2.0 28 03/31/20 16:58 Nasal Cannula 2.0 28 03/31/20 16:00 98.0 94 20 116/70 (85) 99 03/31/20 16:00 67 03/31/20 13:20 Nasal Cannula 03/31/20 13:20 Nasal Cannula 03/31/20 12:00 84 03/31/20 12:00 98.7 91 18 108/73 (85) 96 Height (Feet): 5 Height (Inches): 11.00 Weight (Pounds): 225 General Appearance: no acute distress HEENT: mucous membranes moist Respiratory/Chest: lungs clear Cardiovascular: normal rate Abdomen: soft, non tender Extremities: no edema Neurologic/Psychiatric: alert, responsive Microbiology Date/Time Source Procedure Growth Status 03/30/20 12:00 Rectum Received 03/30/20 12:00 Nasal Nares MRSA Culture - Final NO METHICILLIN RESISTANT STAPH AUREUS... Complete 03/30/20 10:25 Urine,Clean Catch Urine Culture - Preliminary Gram Negative Manpreet Resulted 03/30/20 10:25 Nasopharynx SARS-CoV-2 RdRp Gene Assay - Final Complete 03/30/20 10:15 Blood Blood Culture - Preliminary Gram Positive Cocci Resulted 03/30/20 10:00 Blood Blood Culture - Preliminary NO GROWTH AFTER 24 HOURS Resulted Current Medications Medications (Trade) Dose Ordered Sig/Svetlana Route PRN Reason Start Time Stop Time Status Last Admin Dose Admin Acetaminophen (Tylenol) 500 mg Q4H PRN ORAL Temp >100.5 03/30/20 20:30 04/29/20 20:29 03/30/20 20:42 Acetaminophen/ Hydrocodone Bitart ([place] 10/325) 1 tab Q4H PRN ORAL Moderate Pain (Pain Scale 4-6) 03/30/20 15:45 04/06/20 15:44 Acetaminophen/ Hydrocodone Bitart ([place] 5/325) 1 tab Q4H PRN ORAL Mild Pain (Pain Scale 1-3) 03/30/20 17:45 04/06/20 17:44 Albuterol Sulfate (Proventil MDI) 2 puff EVERY 6 HOURS INH 03/30/20 18:00 06/28/20 17:59 04/01/20 07:30 Albuterol Sulfate (Proventil MDI) 2 puff Q4H PRN INH Shortness of Breath 03/30/20 17:45 06/28/20 17:44 04/01/20 07:30 Bethanechol Chloride (Urecholine) 25 mg BID ORAL 03/30/20 18:00 04/29/20 17:59 04/01/20 08:59 Cefepime HCl 1 gm/ Dextrose 55 ml @ 110 mls/hr EVERY 12 HOURS IVPB 03/30/20 21:00 04/06/20 20:59 04/01/20 09:00 Clonidine HCl (Catapres Tab) 0.1 mg Q4H PRN ORAL htn 03/30/20 14:30 06/28/20 14:29 Docusate Sodium (Colace) 200 mg DAILY ORAL 03/31/20 09:00 04/30/20 08:59 04/01/20 08:59 Finasteride (Proscar) 5 mg DAILY ORAL 03/31/20 09:00 06/29/20 08:59 04/01/20 08:59 Fluticasone Propionate (Flonase) 1 spray TWICE A DAY NASAL 03/30/20 18:00 04/29/20 17:59 03/31/20 16:58 Lisinopril (ZestriL) 10 mg DAILY ORAL 03/31/20 09:00 04/30/20 08:59 04/01/20 08:59 [place] Carbonate ([place] Carbonate) 300 mg QHS ORAL 03/30/20 21:00 06/28/20 20:59 03/31/20 21:57 Lorazepam (Ativan) 1 mg Q6H PRN ORAL For Anxiety 03/30/20 17:45 04/06/20 17:44 Metformin HCl (Glucophage) 500 mg DAILY ORAL 03/31/20 09:00 04/30/20 08:59 04/01/20 08:59 Morphine Sulfate (Morphine Sulfate) 1 mg Q6H PRN IVP Severe Pain (Pain Scale 7-10) 03/30/20 15:45 04/06/20 15:44 03/31/20 23:37 Prednisone (predniSONE) 40 mg DAILY ORAL 03/31/20 09:00 04/30/20 08:59 04/01/20 08:59 Regadenoson (Lexiscan) 0.4 mg ONCE PRN IV stress test 03/31/20 16:30 04/02/20 16:29 Sennosides (Senokot) 8.6 mg DAILYPRN PRN ORAL Constipation 03/30/20 17:45 04/29/20 17:44 03/30/20 20:36 Tamsulosin HCl (Flomax) 0.4 mg BEDTIME ORAL 03/30/20 21:00 04/29/20 20:59 03/31/20 21:57 Trazodone HCl (Desyrel) 300 mg BEDTIME ORAL 03/30/20 21:00 04/29/20 20:59 03/31/20 22:00 Henry Morgan MD Apr 01, 2020 10:25
[2020-04-01] MEDS ORDERED: URINARY PAIN RE95 MG PO (11:01)
[2020-04-01] MEDS ORDERED: NITROFURANTOIN100 M2 ORAL (11:01)
--- NOTE | 2020-04-01 11:34 | General Progress Note ---
Subjective Date patient seen: Apr 01, 2020 Time patient seen: 10:45 - am Allergies: Coded Allergies: SULFA (SULFONAMIDE ANTIBIOTICS) (Unverified Allergy, Intermediate, hives, 12/10/17) CODEINE (Verified Allergy, Unknown, ABD IRRITATION, 12/10/17) SULFONYLUREAS (Verified Allergy, Unknown, RASH, 12/10/17) Subjective REVIEW OF SYSTEMS: Denies rash, fever, chills, sweating, dizziness, drowsiness, blurred vision, sore throat, or change in weight. No shortness of breath, chest pain. No nausea, vomiting, diarrhea, or blood in the stool or urine. No dysuria. HISTORY OF PRESENT ILLNESS: This is a 64-year-old male who is being seen on the telemetry floor of [facility]. Patient is in bed and reports that he is doing better and pain has been tolerated on the Morphine. No new complaints at this time. Objective Last 24 Hour Vital Signs Date Time Temp Pulse Resp B/P (MAP) Pulse Ox O2 Delivery O2 Flow Rate FiO2 04/01/20 09:00 Nasal Cannula 2.0 04/01/20 08:59 128/76 04/01/20 08:00 98.1 81 20 128/76 (93) 95 04/01/20 08:00 70 04/01/20 07:31 65 18 94 Room Air 21 04/01/20 07:30 94 Room Air 21 04/01/20 07:29 64 18 94 Room Air 21 04/01/20 04:00 53 04/01/20 04:00 97.7 54 12 94/54 (67) 94 04/01/20 01:21 75 18 96 Nasal Cannula 2.0 28 04/01/20 01:17 75 18 96 Nasal Cannula 2.0 28 04/01/20 00:00 96.8 64 18 110/67 (81) 94 04/01/20 00:00 77 03/31/20 21:00 Nasal Cannula 2.0 03/31/20 20:00 97.9 78 16 102/57 (72) 99 03/31/20 20:00 71 03/31/20 17:37 95 Nasal Cannula 2.0 28 03/31/20 16:58 Nasal Cannula 2.0 28 03/31/20 16:58 Nasal Cannula 2.0 28 03/31/20 16:00 98.0 94 20 116/70 (85) 99 03/31/20 16:00 67 03/31/20 13:20 Nasal Cannula 03/31/20 13:20 Nasal Cannula 03/31/20 12:00 84 03/31/20 12:00 98.7 91 18 108/73 (85) 96 Intake and Output 03/31/20 04/01/20 19:00 07:00 Intake Total 480 ml Output Total 850 ml Balance -370 ml Intake Oral 480 ml Output Urine Total 850 ml # Voids 5 # Bowel Movements 1 1 Height (Feet): 5 Height (Inches): 11.00 Weight (Pounds): 225 Objective PHYSICAL EXAMINATION: LUNGS: Decreased breath sounds bilaterally. HEART: S1 and S2 regular. ABDOMEN: Surgical scar is noted. Indwelling catheter seen . EXTREMITIES: No cyanosis. No clubbing. NEURO: No changes. Assessment/Plan Assessment/Plan: (1) Lumbar DDD (2) Lumbar Spondylosis (3) Chest pain R/O ACS Patient to be continued on [place] and Morphine. D/w Dr. Iniguez and he concurred. Elliott Tovar Apr 01, 2020 11:34
[2020-04-01 12:00] VITALS: BP 117/70
[2020-04-01 16:00] VITALS: BP 120/70
--- NOTE | 2020-04-01 16:22 | Cardiac Electrophysiology PN ---
Assessment/Plan Assessment/Plan 1. Chest pain. Ruled out for [place] Echocardiogram EF 60%. ECG unchanged. Refused stress test 2. History of hypertension. On Lisinopril 10 daily and p.r.n. clonidine 3. Diabetes. 4. Hyperlipidemia. 5. Frequent PVCs. We will watch the patient on telemetry. Refused stress test. Subjective Subjective Feeling better. No CP or SOB. Refused stress test Objective Last 24 Hour Vital Signs Date Time Temp Pulse Resp B/P (MAP) Pulse Ox O2 Delivery O2 Flow Rate FiO2 04/01/20 13:00 Room Air 21 04/01/20 13:00 Room Air 21 04/01/20 13:00 71 18 95 Room Air 21 04/01/20 12:00 98.1 63 19 117/70 (86) 96 04/01/20 12:00 77 04/01/20 09:00 Nasal Cannula 2.0 04/01/20 08:59 128/76 04/01/20 08:00 98.1 81 20 128/76 (93) 95 04/01/20 08:00 70 04/01/20 07:31 65 18 94 Room Air 21 04/01/20 07:30 94 Room Air 21 04/01/20 07:29 64 18 94 Room Air 21 04/01/20 04:00 53 04/01/20 04:00 97.7 54 12 94/54 (67) 94 04/01/20 01:21 75 18 96 Nasal Cannula 2.0 28 04/01/20 01:17 75 18 96 Nasal Cannula 2.0 28 04/01/20 00:00 96.8 64 18 110/67 (81) 94 04/01/20 00:00 77 03/31/20 21:00 Nasal Cannula 2.0 03/31/20 20:00 97.9 78 16 102/57 (72) 99 03/31/20 20:00 71 03/31/20 17:37 95 Nasal Cannula 2.0 28 03/31/20 16:58 Nasal Cannula 2.0 28 03/31/20 16:58 Nasal Cannula 2.0 28 Intake and Output 03/31/20 04/01/20 19:00 07:00 Intake Total 480 ml Output Total 850 ml Balance -370 ml Intake Oral 480 ml Output Urine Total 850 ml # Voids 5 # Bowel Movements 1 1 Microbiology Date/Time Source Procedure Growth Status 03/30/20 12:00 Rectum - Final NO CARBAPENEM-RESISTANT ENTEROBACTERI... Complete 03/30/20 12:00 Rectum VRE Culture - Final NO VANCOMYCIN RESISTANT ENTEROCOCCUS ... Complete 03/30/20 12:00 Nasal Nares MRSA Culture - Final NO METHICILLIN RESISTANT STAPH AUREUS... Complete 03/30/20 10:25 Urine,Clean Catch Urine Culture - Preliminary Gram Negative Manpreet Resulted 03/30/20 10:25 Nasopharynx SARS-CoV-2 RdRp Gene Assay - Final Complete 03/30/20 10:15 Blood Blood Culture - Preliminary Gram Positive Cocci Resulted 03/30/20 10:00 Blood Blood Culture - Preliminary NO GROWTH AFTER 24 HOURS Resulted Objective HEAD AND NECK: Shows no JVD. LUNGS: Clear. CARDIOVASCULAR: Shows regular S1 and S2 with no gallop or murmur. ABDOMEN: Soft. EXTREMITIES: No pitting edema. Donaldo Hardy MD Apr 01, 2020 16:22
[2020-04-01] MEDS ORDERED: OLANZAPINE ODT10 MG PO (18:00)
[2020-04-01] MEDS ORDERED: METFORMIN HCL500 M4 ORAL (18:00)
[2020-04-01] MEDS ORDERED: OXYBUTYNIN CHLOR5 M1 ORAL (18:00)
[2020-04-01] MEDS ORDERED: OMEPRAZOLE BIC PO (18:00)
[2020-04-01] MEDS ORDERED: CRESTOR10 M1 ORAL (18:00)
[2020-04-01] MEDS ORDERED: DUTASTERIDE0.5 MG PO (18:01)
--- NOTE | 2020-04-01 19:26 | NUR ---
NURSE HAND-OFF REPORT: Important Events on Shift:None Patient Status: Stable Diet: Cardiac Pending Orders: Pending Results/Labs: Pending MD notification: Latest Vital Signs: Temperature 98.1 , Pulse 81 , B/P 120 /70 , Respiratory Rate 20 , O2 SAT 96 , Nasal Cannula, O2 Flow Rate 2.0 . Vital Sign Comment: Stable EKG Rhythm: Sinus Rhythm Rhythm change?: N MD Notified?: N -Dr. Hayley BURGOS Response: No New Orders Received Latest [place] Fall Score: 35 Fall Risk: Medium Risk Safety Measures: Call light Within Reach, Bed Alarm Zone 1, Side Rails Side Rails x2, Bed position Low and Locked. Fall Precautions: Yellow Socks Yellow Gown Patient Fall Education Report given to Karlo/RN.
--- NOTE | 2020-04-01 19:30 | NUR ---
NURSE NOTES: Patient received from LAZARUS Mcfadden. Patient awake, alert and oriented x 4. Patient sitting on the chair and very talkative. No complaints at this moment. Patient is on room air. Patient has a suprapubic catheter, patent and draining. Patient has a left hand 20 gauge IV and left AC 20 gauge, patent and flushed. Bed is in the lowest position, call light within reach. Will continue to monitor.
[2020-04-01 20:00] VITALS: BP 122/68
[2020-04-01] MEDS: TraZODone 100mg tab ORAL SCH (20:43)
[2020-04-01] MEDS: Tamsulosin 0.4mg cap ORAL SCH (20:43)
[2020-04-02] MEDS: Albuterol 90mcg Inhaler 8gm INH SCH ×4 (00:28→17:19)
[2020-04-02 00:40] VITALS: BP 110/68
[2020-04-02 04:00] VITALS: BP 101/64
--- NOTE | 2020-04-02 07:16 | NUR ---
NURSE NOTES: Received report from Karlo/RN. Pt in bed sleeping comfortably. On 2L nasal cannula, no distress or SOB noted. IV on left hand 20G and left AC 20G, both patent and clean, SL. Bed in the lowest position and locked, call light within reach, side rails up X3. Will continue plan of care.
[2020-04-02] MEDS: Albuterol 90mcg Inhaler 8gm INH PRN (07:30)
--- NOTE | 2020-04-02 07:38 | NUR ---
NURSE HAND-OFF REPORT: Important Events on Shift:[] Patient Status: [] Diet: [] Pending Orders: [] Pending Results/Labs:[] Pending MD notification:[] Latest Vital Signs: Temperature 97.7 , Pulse 53 , B/P 101 /64 , Respiratory Rate 18 , O2 SAT 96 , Nasal Cannula, O2 Flow Rate 2.0 . Vital Sign Comment: [] EKG Rhythm: Sinus Bradycardia Rhythm change?: Y MD Notified?: N -Dr. Hayley BURGOS Response: No New Orders Received Latest Umanzor Fall Score: 35 Fall Risk: Medium Risk Safety Measures: Call light Within Reach, Bed Alarm Zone 1, Side Rails Side Rails x2, Bed position Low and Locked. Fall Precautions: Yellow Socks Yellow Gown Patient Fall Education Report given to [LAZARUS Mcfadden].
[2020-04-02 08:00] VITALS: BP 113/66
[2020-04-02] MEDS: Bethanechol 25mg Tab ORAL SCH ×2 (08:36→17:20)
[2020-04-02] MEDS: Acetaminophen 500mg (ES) tab ORAL PRN (08:36)
[2020-04-02] MEDS: metFORMIN 500mg tab ORAL SCH (08:36)
[2020-04-02] MEDS: Lisinopril 10mg tab ORAL SCH (08:36)
[2020-04-02] MEDS: Docusate 100mg cap ORAL SCH (08:36)
[2020-04-02] MEDS: Cefepime HCl 1 GM in D5W 55 ML IVPB SCH ×2 (08:37→21:01)
[2020-04-02] MEDS: Flonase Nasal Inhaler 16gm NASAL SCH ×3 (08:55→17:21)
[2020-04-02 12:00] VITALS: BP 127/75
--- NOTE | 2020-04-02 12:24 | General Progress Note ---
Subjective ROS Limited/Unobtainable: Yes Allergies: Coded Allergies: SULFA (SULFONAMIDE ANTIBIOTICS) (Unverified Allergy, Intermediate, hives, 12/10/17) CODEINE (Verified Allergy, Unknown, ABD IRRITATION, 12/10/17) SULFONYLUREAS (Verified Allergy, Unknown, RASH, 12/10/17) Objective Last 24 Hour Vital Signs Date Time Temp Pulse Resp B/P (MAP) Pulse Ox O2 Delivery O2 Flow Rate FiO2 04/02/20 12:00 99.3 62 18 127/75 (92) 95 04/02/20 12:00 64 04/02/20 09:06 99.0 04/02/20 08:36 113/66 04/02/20 08:28 Room Air 04/02/20 08:00 68 04/02/20 08:00 100.9 71 18 113/66 (82) 96 04/02/20 07:35 95 Room Air 21 04/02/20 07:35 72 18 95 Room Air 21 04/02/20 07:32 72 18 95 Room Air 21 04/02/20 04:00 97.7 64 18 101/64 (76) 96 04/02/20 04:00 53 04/02/20 00:51 68 18 95 Room Air 21 04/02/20 00:51 71 18 96 Room Air 21 04/02/20 00:40 96.8 64 16 110/68 (82) 96 04/02/20 00:00 64 04/01/20 21:00 Nasal Cannula 2.0 04/01/20 20:17 74 18 95 Room Air 21 04/01/20 20:16 Room Air 21 04/01/20 20:15 95 Room Air 21 04/01/20 20:00 96 04/01/20 20:00 97.8 88 18 122/68 (86) 95 04/01/20 16:00 98.1 64 20 120/70 (87) 96 04/01/20 16:00 81 04/01/20 13:00 Room Air 21 04/01/20 13:00 Room Air 21 04/01/20 13:00 71 18 95 Room Air 21 Intake and Output 04/01/20 04/02/20 19:00 07:00 Intake Total 655 ml Output Total 1200 ml 900 ml Balance -545 ml -900 ml Intake Oral 600 ml IV Total 55 ml Output Urine Total 1200 ml 900 ml # Voids 4 # Bowel Movements 1 1 Height (Feet): 5 Height (Inches): 11.00 Weight (Pounds): 225 Assessment/Plan Problem List: (1) Chest wall pain ICD Codes: R07.89 - Other chest pain SNOMED: 952170336 (2) Weak ICD Codes: R53.1 - Weakness SNOMED: 47960258 (3) Psychiatric diagnosis ICD Codes: F99 - Mental disorder, not otherwise specified SNOMED: 84290858, 084933972 (4) Chest pain ICD Codes: R07.9 - Chest pain, unspecified SNOMED: 15101612 (5) Generalized weakness ICD Codes: R53.1 - Weakness SNOMED: 34675366 (6) UTI (urinary tract infection) ICD Codes: N39.0 - Urinary tract infection, site not specified SNOMED: 62528373 Status: progressing Assessment/Plan: cp copd afebrile check troponin BPH Estella Butt MD Apr 02, 2020 12:24
--- NOTE | 2020-04-02 15:57 | Cardiac Electrophysiology PN ---
Assessment/Plan Assessment/Plan 1. Chest pain. Ruled out for [place] Echo EF 60%. ECG unchanged. Refused stress test. No CP today 2. Hypertension. On Lisinopril 10 daily and p.r.n. clonidine 3. Diabetes. 4. Hyperlipidemia. 5. Frequent PVCs. We will watch the patient on telemetry. Refused stress test. No VT or syncope Subjective Subjective Feeling better. No CP or SOB. Refused stress test. Wants to go home Objective Last 24 Hour Vital Signs Date Time Temp Pulse Resp B/P (MAP) Pulse Ox O2 Delivery O2 Flow Rate FiO2 04/02/20 12:00 99.3 62 18 127/75 (92) 95 04/02/20 12:00 64 04/02/20 12:00 Room Air 21 04/02/20 12:00 Room Air 21 04/02/20 09:06 99.0 04/02/20 08:36 113/66 04/02/20 08:28 Room Air 04/02/20 08:00 68 04/02/20 08:00 100.9 71 18 113/66 (82) 96 04/02/20 07:35 95 Room Air 21 04/02/20 07:35 72 18 95 Room Air 21 04/02/20 07:32 72 18 95 Room Air 21 04/02/20 04:00 97.7 64 18 101/64 (76) 96 04/02/20 04:00 53 04/02/20 00:51 68 18 95 Room Air 21 04/02/20 00:51 71 18 96 Room Air 21 04/02/20 00:40 96.8 64 16 110/68 (82) 96 04/02/20 00:00 64 04/01/20 21:00 Nasal Cannula 2.0 04/01/20 20:17 74 18 95 Room Air 21 04/01/20 20:16 Room Air 21 04/01/20 20:15 95 Room Air 21 04/01/20 20:00 96 04/01/20 20:00 97.8 88 18 122/68 (86) 95 04/01/20 16:00 98.1 64 20 120/70 (87) 96 04/01/20 16:00 81 Intake and Output 04/01/20 04/02/20 19:00 07:00 Intake Total 655 ml Output Total 1200 ml 900 ml Balance -545 ml -900 ml Intake Oral 600 ml IV Total 55 ml Output Urine Total 1200 ml 900 ml # Voids 4 # Bowel Movements 1 1 Objective HEAD AND NECK: Shows no JVD. LUNGS: Clear. CARDIOVASCULAR: Shows regular S1 and S2 with no gallop or murmur. ABDOMEN: Soft. EXTREMITIES: No pitting edema. Donaldo Hardy MD Apr 02, 2020 15:57
[2020-04-02 16:00] VITALS: BP 116/73
[2020-04-02] MEDS ORDERED: Tubing IV Secondary IV ONE (17:56)
--- NOTE | 2020-04-02 19:11 | NUR ---
NURSE HAND-OFF REPORT: Important Events on Shift: n/a Patient Status: Full code, stable Diet: cardiac Pending Orders: n/a Pending Results/Labs:n/a Pending MD notification:n/a Latest Vital Signs: Temperature 97.9 , Pulse 70 , B/P 116 /73 , Respiratory Rate 18 , O2 SAT 93 , Room Air, O2 Flow Rate 2.0 . Vital Sign Comment: EKG Rhythm: Sinus Rhythm Rhythm change?: N MD Notified?: N -Dr. Hayley BURGOS Response: No New Orders Received Latest Umanzor Fall Score: 35 Fall Risk: Medium Risk Safety Measures: Call light Within Reach, Bed Alarm Zone 1, Side Rails Side Rails x2, Bed position Low and Locked. Fall Precautions: Yellow Socks Yellow Gown Patient Fall Education Report given to LAZARUS Welch.
--- NOTE | 2020-04-02 19:57 | NUR ---
NURSE NOTES: Received report from LAZARUS Andrews. Patient AOx4, able to verbalize needs. IV sites intact and flushed; both saline lock. On room air, saturating well. Breathing unlabored and even. No complaints of pain or discomfort at this time. Noted to have a suprapubic catheter. Patent and draining well. Patient able to empty collection bag on his own. Bed in lowest position, brakes engaged and bed alarm on. Bed rails raised x2. Call light placed within reach. Will continue to monitor.
[2020-04-02 20:00] VITALS: BP 112/72
[2020-04-02] MEDS: TraZODone 100mg tab ORAL SCH (21:04)
[2020-04-02] MEDS: Tamsulosin 0.4mg cap ORAL SCH (21:04)
--- NOTE | 2020-04-02 23:16 | CDS Physician Query ---
Clarification is required for compliance, coding accuracy, and to reflect severity of illness for this patient Dear Dr. Estella Butt M.D. Date 04/02/2020 CDI/CDS; Rafat Blanchard Exercise your independent professional judgment when responding to query. Questions asked do not imply particular answer is desired or expected. We greatly appreciate your clarification on this issue. Clinical Documentation States: 64 YOM, admitted for chest pain, rule out acute coronary syndrome. The patient chest pain that radiates to the left arm. Pain for two days. [H&P Estella Butt M.D. 03/30/20 ] ASSESSMENT: Fever resolved, Bacteremia, Gram negative UTI. Asthma, COPD , chest pain ,atypical, Hypertension, Hyperlipidemia. [Inf PN Henry Morgan MD 04/01/20 Clinical Finding Show: Vitals (03/30): T102.4F, Pulse 122, RR 18. LAB (03/30) : Hemat; WBC 9.7, Neut%71.8 Chem: Gluc 149, Lactic acid 1.6, Urines(03/30): Ur.Bacteria "Moderate", Ur. Leuk Jagruti 3+ Microbiology (04/01): Blood culture: STAPHYLOCOCCUS SP COAG NEG URINE CULTURE: PSEUDOMONAS AERUGINOSA, COLONY COUNT: >100,000 CFU/ML Medication: Cefepime IV, Ceftriaxone IV According to the clinical indications above, please indicate below the condition PHYSICIAN RESPONSE: [ ] Sepsis [ ] SIRS [ ] SIRS with organ dysfunction [ ] Septic Shock [ ] Not applicable [ ] Other: Present on Admission: [ ] Yes [ ] No [ ] Clinically Undetermined Physician signature Date Please also document in your Progress Notes and/or Discharge Summary and indicate if the condition was present on admission. MTDD
[2020-04-03] VITALS: BP 138/73
[2020-04-03 04:00] VITALS: BP 115/75
[2020-04-03] MEDS: Albuterol 90mcg Inhaler 8gm INH SCH ×4 (06:00→18:00)
--- NOTE | 2020-04-03 07:09 | NUR ---
NURSE NOTES: Received patient in bed asleep. No SOB or acute distress. IV lines intact. Suprapubic catheter intact, patient drains bag by himself. HOB elevated. Bed locked in low position. Call light within reach. Will continue plan of care and monitoring for chest pain.
--- NOTE | 2020-04-03 07:12 | NUR ---
NURSE HAND-OFF REPORT: Important Events on Shift:[N/A] Patient Status: [FC] Diet: [Cardiac] Pending Orders: [] Pending Results/Labs:[] Pending MD notification:[] Latest Vital Signs: Temperature 97.9 , Pulse 61 , B/P 115 /75 , Respiratory Rate 18 , O2 SAT 98 , Room Air, O2 Flow Rate 2.0 . Vital Sign Comment: [] EKG Rhythm: Sinus Rhythm Rhythm change?: N MD Notified?: N -Dr. Hayley BURGOS Response: No New Orders Received Latest Umanzor Fall Score: 35 Fall Risk: Medium Risk Safety Measures: Call light Within Reach, Bed Alarm Zone 1, Side Rails Side Rails x2, Bed position Low and Locked. Fall Precautions: Yellow Socks Yellow Gown Patient Fall Education Report given to [Katy, RN].
[2020-04-03 08:00] VITALS: BP 124/78
[2020-04-03] MEDS: Albuterol 90mcg Inhaler 8gm INH PRN ×3 (08:06→18:47)
[2020-04-03] MEDS: Cefepime HCl 1 GM in D5W 55 ML IVPB SCH ×2 (08:50→21:09)
[2020-04-03] MEDS: Docusate 100mg cap ORAL SCH (08:54)
[2020-04-03] MEDS: metFORMIN 500mg tab ORAL SCH (08:54)
[2020-04-03] MEDS: Lisinopril 10mg tab ORAL SCH (08:54)
[2020-04-03] MEDS: Bethanechol 25mg Tab ORAL SCH ×2 (08:54→17:34)
[2020-04-03] MEDS: Flonase Nasal Inhaler 16gm NASAL SCH ×3 (08:54→17:38)
[2020-04-03 11:48] VITALS: BP 100/62
--- NOTE | 2020-04-03 12:05 | NUR ---
NURSE NOTES: Patient comfortable, no complaints of chest pain.
--- NOTE | 2020-04-03 14:57 | Infectious Diseases Prog Note ---
Assessment/Plan Assessment/Plan IMPRESSION: Fever resolved Positive blood culture likely contamination Pseudomonas UTI. Asthma, COPD chest pain ,atypical. Hypertension, Hyperlipidemia. RECOMMENDATION: Continue Cefepime Change Maher catheter Subjective ROS Limited/Unobtainable: No Constitutional: Reports: no symptoms, other - feels better Respiratory: Reports: no symptoms Cardiovascular: Reports: no symptoms Gastrointestinal/Abdominal: Reports: no symptoms Genitourinary: Reports: no symptoms Allergies: Coded Allergies: SULFA (SULFONAMIDE ANTIBIOTICS) (Unverified Allergy, Intermediate, hives, 12/10/17) CODEINE (Verified Allergy, Unknown, ABD IRRITATION, 12/10/17) SULFONYLUREAS (Verified Allergy, Unknown, RASH, 12/10/17) Objective Last 24 Hour Vital Signs Date Time Temp Pulse Resp B/P (MAP) Pulse Ox O2 Delivery O2 Flow Rate FiO2 04/03/20 14:28 78 20 97 Room Air 04/03/20 14:28 75 18 95 Room Air 04/03/20 12:00 73 04/03/20 11:48 97.7 71 18 100/62 (75) 96 04/03/20 09:00 Room Air 04/03/20 08:54 124/78 04/03/20 08:00 97.9 81 18 124/78 (93) 96 04/03/20 08:00 79 04/03/20 07:42 71 18 96 Room Air 04/03/20 07:42 76 20 97 Room Air 04/03/20 07:42 96 Room Air 04/03/20 04:00 97.9 61 18 115/75 (88) 98 04/03/20 04:00 67 04/03/20 00:27 Room Air 04/03/20 00:27 Room Air 04/03/20 00:00 97.0 60 18 138/73 (94) 98 04/03/20 00:00 67 04/02/20 21:00 Room Air 04/02/20 20:00 71 04/02/20 20:00 97.2 65 18 112/72 (85) 96 04/02/20 20:00 Room Air 21 04/02/20 19:59 Room Air 21 04/02/20 19:32 96 Room Air 21 04/02/20 16:00 97.9 68 18 116/73 (87) 93 04/02/20 16:00 70 Height (Feet): 5 Height (Inches): 11.00 Weight (Pounds): 225 General Appearance: no acute distress HEENT: mucous membranes moist Respiratory/Chest: lungs clear Cardiovascular: normal rate Abdomen: normal bowel sounds Genitourinary: other - Maher catheter Extremities: no edema Neurologic/Psychiatric: alert, responsive Current Medications Medications (Trade) Dose Ordered Sig/Svetlana Route PRN Reason Start Time Stop Time Status Last Admin Dose Admin Acetaminophen (Tylenol) 500 mg Q4H PRN ORAL Temp >100.5 03/30/20 20:30 04/29/20 20:29 04/02/20 08:36 Acetaminophen/ Hydrocodone Bitart ([place] 10/325) 1 tab Q4H PRN ORAL Moderate Pain (Pain Scale 4-6) 03/30/20 15:45 04/06/20 15:44 Acetaminophen/ Hydrocodone Bitart ([place] 5/325) 1 tab Q4H PRN ORAL Mild Pain (Pain Scale 1-3) 03/30/20 17:45 04/06/20 17:44 Albuterol Sulfate (Proventil MDI) 2 puff EVERY 6 HOURS INH 03/30/20 18:00 06/28/20 17:59 04/02/20 17:19 Albuterol Sulfate (Proventil MDI) 2 puff Q4H PRN INH Shortness of Breath 03/30/20 17:45 06/28/20 17:44 04/03/20 14:27 Bethanechol Chloride (Urecholine) 25 mg BID ORAL 03/30/20 18:00 04/29/20 17:59 04/03/20 08:54 Cefepime HCl 1 gm/ Dextrose 55 ml @ 110 mls/hr EVERY 12 HOURS IVPB 03/30/20 21:00 04/06/20 20:59 04/03/20 08:50 Clonidine HCl (Catapres Tab) 0.1 mg Q4H PRN ORAL htn 03/30/20 14:30 06/28/20 14:29 Docusate Sodium (Colace) 200 mg DAILY ORAL 03/31/20 09:00 04/30/20 08:59 04/03/20 08:54 Finasteride (Proscar) 5 mg DAILY ORAL 03/31/20 09:00 06/29/20 08:59 04/03/20 08:54 Fluticasone Propionate (Flonase) 1 spray TWICE A DAY NASAL 03/30/20 18:00 04/29/20 17:59 03/31/20 16:58 Lisinopril (ZestriL) 10 mg DAILY ORAL 03/31/20 09:00 04/30/20 08:59 04/03/20 08:54 Rio Carbonate ([place] Carbonate) 300 mg QHS ORAL 03/30/20 21:00 06/28/20 20:59 04/01/20 20:43 Lorazepam (Ativan) 1 mg Q6H PRN ORAL For Anxiety 03/30/20 17:45 04/06/20 17:44 Metformin HCl (Glucophage) 500 mg DAILY ORAL 03/31/20 09:00 04/30/20 08:59 04/03/20 08:54 Morphine Sulfate (Morphine Sulfate) 1 mg Q6H PRN IVP Severe Pain (Pain Scale 7-10) 03/30/20 15:45 04/06/20 15:44 03/31/20 23:37 Prednisone (predniSONE) 40 mg DAILY ORAL 03/31/20 09:00 04/30/20 08:59 04/03/20 08:54 Sennosides (Senokot) 8.6 mg DAILYPRN PRN ORAL Constipation 03/30/20 17:45 04/29/20 17:44 03/30/20 20:36 Tamsulosin HCl (Flomax) 0.4 mg BEDTIME ORAL 03/30/20 21:00 04/29/20 20:59 04/02/20 21:04 Trazodone HCl (Desyrel) 300 mg BEDTIME ORAL 03/30/20 21:00 04/29/20 20:59 04/02/20 21:04 Henry Morgan MD Apr 03, 2020 14:56
[2020-04-03 15:25] VITALS: BP 105/67
--- NOTE | 2020-04-03 17:03 | NUR ---
NURSE NOTES: Maher catheter D/C and reinsertion order entered by dr Henny Morgan clarified, said to disregard.
--- NOTE | 2020-04-03 17:39 | Cardiac Electrophysiology PN ---
Assessment/Plan Assessment/Plan 1. Chest pain. Ruled out for [place] Echo EF 60%. ECG unchanged. Refused stress test. No CP today 2. Hypertension. On Lisinopril 10 daily and p.r.n. clonidine 3. Diabetes. 4. Hyperlipidemia. 5. Frequent PVCs. Refused stress test. No VT or syncope DW RN Subjective Subjective Feeling better. No CP or SOB. Refused stress test. Objective Last 24 Hour Vital Signs Date Time Temp Pulse Resp B/P (MAP) Pulse Ox O2 Delivery O2 Flow Rate FiO2 04/03/20 15:25 98.6 99 20 105/67 (80) 100 04/03/20 14:28 78 20 97 Room Air 21 04/03/20 14:28 75 18 95 Room Air 21 04/03/20 12:00 73 04/03/20 11:48 97.7 71 18 100/62 (75) 96 04/03/20 09:00 Room Air 04/03/20 08:54 124/78 04/03/20 08:00 97.9 81 18 124/78 (93) 96 04/03/20 08:00 79 04/03/20 07:42 71 18 96 Room Air 04/03/20 07:42 76 20 97 Room Air 21 04/03/20 07:42 96 Room Air 21 04/03/20 04:00 97.9 61 18 115/75 (88) 98 04/03/20 04:00 67 04/03/20 00:27 Room Air 21 04/03/20 00:27 Room Air 21 04/03/20 00:00 97.0 60 18 138/73 (94) 98 04/03/20 00:00 67 04/02/20 21:00 Room Air 04/02/20 20:00 71 04/02/20 20:00 97.2 65 18 112/72 (85) 96 04/02/20 20:00 Room Air 21 04/02/20 19:59 Room Air 21 04/02/20 19:32 96 Room Air 21 Intake and Output 04/02/20 04/03/20 19:00 07:00 Intake Total 720 ml 240 ml Balance 720 ml 240 ml Intake Oral 720 ml 240 ml # Voids 6 2 # Bowel Movements 1 1 Objective HEAD AND NECK: Shows no JVD. LUNGS: Clear. CARDIOVASCULAR: Shows regular S1 and S2 with no gallop or murmur. ABDOMEN: Soft. EXTREMITIES: No pitting edema. Donaldo Hardy MD Apr 03, 2020 17:39
--- NOTE | 2020-04-03 19:07 | NUR ---
Pt scheduled Q6 proventil order scanned as prn order on [facility]. PT took medication well. Addendum: 04/03/20 at 1909 by Bhanu Blake, RT Amended: Links added.
--- NOTE | 2020-04-03 19:25 | NUR ---
NURSE HAND-OFF REPORT: Important Events on Shift: Patient Status: stable, no complaints of pain Diet: cardiac Pending Orders: Pending Results/Labs: Pending MD notification: Latest Vital Signs: Temperature 98.6 , Pulse 88 , B/P 105 /67 , Respiratory Rate 18 , O2 SAT 98 , Room Air, O2 Flow Rate 2.0 . Vital Sign Comment: EKG Rhythm: Sinus Tachycardia Rhythm change?: Y Notified?: Y Trenton Hardy MD Response: No New Orders Received Latest Umanzor Fall Score: 35 Fall Risk: Medium Risk Safety Measures: Call light Within Reach, Bed Alarm Zone 1, Side Rails Side Rails x2, Bed position Low and Locked. Fall Precautions: Yellow Socks Yellow Gown Patient Fall Education Report given to Yuri QIU.
[2020-04-03 20:00] VITALS: BP 133/81
--- NOTE | 2020-04-03 20:00 | NUR ---
NURSE NOTES: Received patient from LAZARUS Burns. Patient awake, alert, and oriented. Able to verbalize needs. On room air, saturating well. Breathing unlabored and even. No complaints of pain or discomfort at this time. Not in acute distress. With suprapubic catheter, but patient able to empty by himself. Bed in lowest position, brakes engaged and bed alarm on. Bed rails raised x2. Call light placed within reach. Will continue to monitor.
--- NOTE | 2020-04-03 20:34 | General Progress Note ---
Subjective ROS Limited/Unobtainable: Yes Allergies: Coded Allergies: SULFA (SULFONAMIDE ANTIBIOTICS) (Unverified Allergy, Intermediate, hives, 12/10/17) CODEINE (Verified Allergy, Unknown, ABD IRRITATION, 12/10/17) SULFONYLUREAS (Verified Allergy, Unknown, RASH, 12/10/17) Objective Last 24 Hour Vital Signs Date Time Temp Pulse Resp B/P (MAP) Pulse Ox O2 Delivery O2 Flow Rate FiO2 04/03/20 19:51 95 Room Air 04/03/20 18:50 91 18 94 Room Air 21 04/03/20 18:50 88 18 98 Room Air 21 04/03/20 16:00 115 04/03/20 15:25 98.6 99 20 105/67 (80) 100 04/03/20 14:28 78 20 97 Room Air 04/03/20 14:28 75 18 95 Room Air 04/03/20 12:00 73 04/03/20 11:48 97.7 71 18 100/62 (75) 96 04/03/20 09:00 Room Air 04/03/20 08:54 124/78 04/03/20 08:00 97.9 81 18 124/78 (93) 96 04/03/20 08:00 79 04/03/20 07:42 71 18 96 Room Air 04/03/20 07:42 76 20 97 Room Air 04/03/20 07:42 96 Room Air 04/03/20 04:00 97.9 61 18 115/75 (88) 98 04/03/20 04:00 67 04/03/20 00:27 Room Air 04/03/20 00:27 Room Air 21 04/03/20 00:00 97.0 60 18 138/73 (94) 98 04/03/20 00:00 67 04/02/20 21:00 Room Air Intake and Output 04/02/20 04/03/20 18:59 06:59 Intake Total 720 ml 240 ml Balance 720 ml 240 ml Intake Oral 720 ml 240 ml # Voids 6 2 # Bowel Movements 1 1 Height (Feet): 5 Height (Inches): 11.00 Weight (Pounds): 225 Assessment/Plan Problem List: (1) Chest wall pain ICD Codes: R07.89 - Other chest pain SNOMED: 670420785 (2) Weak ICD Codes: R53.1 - Weakness SNOMED: 52411226 (3) Psychiatric diagnosis ICD Codes: F99 - Mental disorder, not otherwise specified SNOMED: 63708830, 963921816 (4) Chest pain ICD Codes: R07.9 - Chest pain, unspecified SNOMED: 30454163 (5) Generalized weakness ICD Codes: R53.1 - Weakness SNOMED: 13266054 (6) UTI (urinary tract infection) ICD Codes: N39.0 - Urinary tract infection, site not specified SNOMED: 36147705 Status: progressing Assessment/Plan: no cp no sob dc in am reviewed chart and labs BPH Estella Butt MD Apr 03, 2020 20:34
[2020-04-03] MEDS: TraZODone 100mg tab ORAL SCH (21:09)
[2020-04-03] MEDS: Tamsulosin 0.4mg cap ORAL SCH (21:09)
[2020-04-04] VITALS: BP 125/75
[2020-04-04 04:00] VITALS: BP 101/68
--- NOTE | 2020-04-04 06:18 | Cardiology Report ---
APPROVED REPORT EKG Measurement Heart [id number] <Conclusion> Normal sinus rhythm Normal ECG
--- NOTE | 2020-04-04 06:19 | Cardiology Report ---
APPROVED REPORT EKG Measurement Heart [id number] [place] [id number] <Conclusion> Sinus tachycardia with occasional premature ventricular complexes and fusion complexes Right atrial enlargement Borderline ECG
[2020-04-04 07:07] LABS: BASOPHILS % (AUTO) 0.5 % (0.0-2.0); HEMOGLOBIN 14.8 G/DL (14.2-18.0); LYMPHOCYTES % (AUTO) 23.5 % (20.0-45.0); MEAN CORPUSCULAR VOLUME 82 FL (80-99); MONOCYTES % (AUTO) 10.6 % (1.0-10.0); NEUTROPHILS % (AUTO) 64.4 % (45.0-75.0); PLATELET COUNT 216 K/UL (150-450); RED BLOOD COUNT 5.24 M/UL (4.70-6.10); RED CELL DISTRIBUTION WIDTH 11.6 % (11.6-14.8); WHITE BLOOD COUNT 9.6 K/UL (4.8-10.8)
[2020-04-04 07:29] LABS: ALANINE AMINOTRANSFERASE 59 U/L (12-78); ALBUMIN 2.9 G/DL (3.4-5.0); ALBUMIN/GLOBULIN RATIO 0.7 (1.0-2.7); ALKALINE PHOSPHATASE 100 U/L (46-116); ANION GAP 9 mmol/L (5-15); ASPARTATE AMINO TRANSFERASE 23 U/L (15-37); BILIRUBIN,TOTAL 0.4 MG/DL (0.2-1.0); BLOOD UREA NITROGEN 18 mg/dL (7-18); CALCIUM 8.8 MG/DL (8.5-10.1); CARBON DIOXIDE 26 MMOL/L (21-32); CHLORIDE 103 MMOL/L (98-107); POTASSIUM 3.7 MMOL/L (3.5-5.1); SODIUM 138 MMOL/L (136-145)
[2020-04-04] MEDS: Albuterol 90mcg Inhaler 8gm INH SCH ×3 (07:35→13:10)
--- NOTE | 2020-04-04 07:46 | NUR ---
NURSE HAND-OFF REPORT: Important Events on Shift:[NA] Patient Status: [FC] Diet: [Cardiac] Pending Orders: [] Pending Results/Labs:[] Pending MD notification:[] Latest Vital Signs: Temperature 97.7 , Pulse 69 , B/P 101 /68 , Respiratory Rate 18 , O2 SAT 95 , Room Air, O2 Flow Rate 2.0 . Vital Sign Comment: [] EKG Rhythm: Sinus Rhythm Rhythm change?: N MD Notified?: N -Dr Hayley BURGOS Response: No New Orders Received Latest Umanzor Fall Score: 35 Fall Risk: Medium Risk Safety Measures: Call light Within Reach, Bed Alarm Zone 1, Side Rails Side Rails x2, Bed position Low and Locked. Fall Precautions: Yellow Socks Yellow Gown Patient Fall Education Report given to [Katy, RN].
[2020-04-04 08:00] VITALS: BP 129/93
--- NOTE | 2020-04-04 08:27 | NUR ---
NURSE NOTES: Received patient up on chair awake, complaining of vomiting his breakfast 6 times, no complaints of abdominal pain. Dr Butt informed, said to inform GI and Dr Henny Morgan. RN asking which GI doctor he wants. Awaiting response. No SOB or acute distress. IV line intact. Suprapubic catheter intact. No complaints of chest pain. Bed locked in low position. Call light within reach. Will continue plan of care. Addendum: 04/04/20 at 1014 by Katy Sandhu RN Dr Henny Morgan ok to give tylenol, seen patient this AM. Spoke to Dr Hutchinson, relayed that patient stopped vomiting and not feeling nauseous. s Dr Hutchinson said he will see what he can do.
[2020-04-04] MEDS: Flonase Nasal Inhaler 16gm NASAL SCH (09:00)
[2020-04-04] MEDS: Cefepime HCl 1 GM in D5W 55 ML IVPB SCH (09:51)
[2020-04-04] MEDS: Lisinopril 10mg tab ORAL SCH (09:51)
[2020-04-04] MEDS: metFORMIN 500mg tab ORAL SCH (09:52)
[2020-04-04] MEDS: Docusate 100mg cap ORAL SCH (09:52)
[2020-04-04] MEDS: Bethanechol 25mg Tab ORAL SCH (09:52)
[2020-04-04] MEDS: Acetaminophen 500mg (ES) tab ORAL PRN (09:53)
--- NOTE | 2020-04-04 10:40 | Infectious Diseases Prog Note ---
Assessment/Plan Assessment/Plan IMPRESSION: Fever r Positive blood culture likely contamination Pseudomonas UTI. Asthma, COPD chest pain ,atypical. Hypertension, Hyperlipidemia. RECOMMENDATION: Continue Cefepime Change suprapubic catheter catheter Subjective ROS Limited/Unobtainable: No Constitutional: Reports: fever, other - [id number] Gastrointestinal/Abdominal: Reports: vomiting Allergies: Coded Allergies: SULFA (SULFONAMIDE ANTIBIOTICS) (Unverified Allergy, Intermediate, hives, 12/10/17) CODEINE (Verified Allergy, Unknown, ABD IRRITATION, 12/10/17) SULFONYLUREAS (Verified Allergy, Unknown, RASH, 12/10/17) Objective Last 24 Hour Vital Signs Date Time Temp Pulse Resp B/P (MAP) Pulse Ox O2 Delivery O2 Flow Rate FiO2 04/04/20 09:51 129/93 04/04/20 08:00 100.0 83 18 129/93 (105) 95 04/04/20 07:35 Room Air 21 04/04/20 07:35 Room Air 21 04/04/20 07:35 95 Room Air 21 04/04/20 04:00 97.7 69 18 101/68 (79) 95 04/04/20 04:00 62 04/04/20 00:44 Room Air 21 04/04/20 00:44 Room Air 21 04/04/20 00:00 97.5 68 18 125/75 (92) 95 04/04/20 00:00 57 04/03/20 21:00 Room Air 04/03/20 20:00 97.3 78 18 133/81 (98) 95 04/03/20 20:00 80 04/03/20 19:51 95 Room Air 04/03/20 18:50 91 18 94 Room Air 04/03/20 18:50 88 18 98 Room Air 04/03/20 16:00 115 04/03/20 15:25 98.6 99 20 105/67 (80) 100 04/03/20 14:28 78 20 97 Room Air 21 04/03/20 14:28 75 18 95 Room Air 21 04/03/20 12:00 73 04/03/20 11:48 97.7 71 18 100/62 (75) 96 Height (Feet): 5 Height (Inches): 11.00 Weight (Pounds): 225 General Appearance: no acute distress HEENT: mucous membranes moist Respiratory/Chest: lungs clear Cardiovascular: normal rate Abdomen: soft, non tender Genitourinary: other - suprapubic catheter Extremities: no edema Neurologic/Psychiatric: alert, oriented x 3, responsive Laboratory Tests Test 04/04/20 05:45 White Blood Count 9.6 K/UL (4.8-10.8) Red Blood Count 5.24 M/UL (4.70-6.10) Hemoglobin 14.8 G/DL (14.2-18.0) Hematocrit 43.0 % (42.0-52.0) Mean Corpuscular Volume 82 FL (80-99) Mean Corpuscular Hemoglobin 28.3 PG (27.0-31.0) Mean Corpuscular Hemoglobin Concent 34.5 G/DL (32.0-36.0) Red Cell Distribution Width 11.6 % (11.6-14.8) Platelet Count 216 K/UL (150-450) Mean Platelet Volume 5.1 FL (6.5-10.1) L Neutrophils (%) (Auto) 64.4 % (45.0-75.0) Lymphocytes (%) (Auto) 23.5 % (20.0-45.0) Monocytes (%) (Auto) 10.6 % (1.0-10.0) H Eosinophils (%) (Auto) 1.0 % (0.0-3.0) Basophils (%) (Auto) 0.5 % (0.0-2.0) Sodium Level 138 MMOL/L (136-145) Potassium Level 3.7 MMOL/L (3.5-5.1) Chloride Level 103 MMOL/L (98-107) Carbon Dioxide Level 26 MMOL/L (21-32) Anion Gap 9 mmol/L (5-15) Blood Urea Nitrogen 18 mg/dL (7-18) Creatinine 1.0 MG/DL (0.55-1.30) Estimat Glomerular Filtration Rate > 60 mL/min (>60) Glucose Level 135 MG/DL (74-106) H Calcium Level 8.8 MG/DL (8.5-10.1) Total Bilirubin 0.4 MG/DL (0.2-1.0) Aspartate Amino Transf (AST/SGOT) 23 U/L (15-37) Alanine Aminotransferase (ALT/SGPT) 59 U/L (12-78) Alkaline Phosphatase 100 U/L (46-116) Total Protein 6.8 G/DL (6.4-8.2) Albumin 2.9 G/DL (3.4-5.0) L Globulin 3.9 g/dL Albumin/Globulin Ratio 0.7 (1.0-2.7) L Current Medications Medications (Trade) Dose Ordered Sig/Svetlana Route PRN Reason Start Time Stop Time Status Last Admin Dose Admin Acetaminophen (Tylenol) 500 mg Q4H PRN ORAL Temp >100.5 03/30/20 20:30 04/29/20 20:29 04/04/20 09:53 Acetaminophen/ Hydrocodone Bitart ([place] 10/325) 1 tab Q4H PRN ORAL Moderate Pain (Pain Scale 4-6) 03/30/20 15:45 04/06/20 15:44 Acetaminophen/ Hydrocodone Bitart ([place] 5/325) 1 tab Q4H PRN ORAL Mild Pain (Pain Scale 1-3) 03/30/20 17:45 04/06/20 17:44 Albuterol Sulfate (Proventil MDI) 2 puff EVERY 6 HOURS INH 03/30/20 18:00 06/28/20 17:59 04/02/20 17:19 Albuterol Sulfate (Proventil MDI) 2 puff Q4H PRN INH Shortness of Breath 03/30/20 17:45 06/28/20 17:44 04/03/20 18:47 Bethanechol Chloride (Urecholine) 25 mg BID ORAL 03/30/20 18:00 04/29/20 17:59 04/04/20 09:52 Cefepime HCl 1 gm/ Dextrose 55 ml @ 110 mls/hr EVERY 12 HOURS IVPB 03/30/20 21:00 04/06/20 20:59 04/04/20 09:51 Clonidine HCl (Catapres Tab) 0.1 mg Q4H PRN ORAL htn 03/30/20 14:30 06/28/20 14:29 Docusate Sodium (Colace) 200 mg DAILY ORAL 03/31/20 09:00 04/30/20 08:59 04/04/20 09:52 Finasteride (Proscar) 5 mg DAILY ORAL 03/31/20 09:00 06/29/20 08:59 04/04/20 09:52 Fluticasone Propionate (Flonase) 1 spray TWICE A DAY NASAL 03/30/20 18:00 04/29/20 17:59 03/31/20 16:58 Lisinopril (ZestriL) 10 mg DAILY ORAL 03/31/20 09:00 04/30/20 08:59 04/04/20 09:51 [place] Carbonate ([place] Carbonate) 300 mg QHS ORAL 03/30/20 21:00 06/28/20 20:59 04/01/20 20:43 Lorazepam (Ativan) 1 mg Q6H PRN ORAL For Anxiety 03/30/20 17:45 04/06/20 17:44 Metformin HCl (Glucophage) 500 mg DAILY ORAL 03/31/20 09:00 04/30/20 08:59 04/04/20 09:52 Morphine Sulfate (Morphine Sulfate) 1 mg Q6H PRN IVP Severe Pain (Pain Scale 7-10) 03/30/20 15:45 04/06/20 15:44 03/31/20 23:37 Prednisone (predniSONE) 40 mg DAILY ORAL 03/31/20 09:00 04/30/20 08:59 04/04/20 09:51 Sennosides (Senokot) 8.6 mg DAILYPRN PRN ORAL Constipation 03/30/20 17:45 04/29/20 17:44 03/30/20 20:36 Tamsulosin HCl (Flomax) 0.4 mg BEDTIME ORAL 03/30/20 21:00 04/29/20 20:59 04/03/20 21:09 Trazodone HCl (Desyrel) 300 mg BEDTIME ORAL 03/30/20 21:00 04/29/20 20:59 04/03/20 21:09 Henry Morgan MD Apr 04, 2020 10:40
--- NOTE | 2020-04-04 11:41 | NUR ---
*-*DISCHARGE PLANNING*-* PATIENT HAS BEEN REFERRED BACK TO: [facility] P: [phone]
[2020-04-04 12:00] VITALS: BP 130/93
--- NOTE | 2020-04-04 12:39 | NUR ---
NURSE HAND-OFF REPORT: Important Events on Shift:vomited breakfast; for discharge Patient Status: no more nausea/vomiting, wants to go home, stable Diet: cardiac Pending Orders: Pending Results/Labs: Pending MD notification: Latest Vital Signs: Temperature 100.0 , Pulse 101 , B/P 129 /93 , Respiratory Rate 18 , O2 SAT 95 , Room Air, O2 Flow Rate 2.0 . Vital Sign Comment: EKG Rhythm: ST with PVC's Rhythm change?: Maida BURGOS Notified?: Maida Hardy MD Response: No New Orders Received Latest Umanzor Fall Score: 35 Fall Risk: Medium Risk Safety Measures: Call light Within Reach, Bed Alarm Zone 1, Side Rails Side Rails x2, Bed position Low and Locked. Fall Precautions: Yellow Socks Yellow Gown Patient Fall Education Report given to Tonya BRIDGES.
--- NOTE | 2020-04-04 12:42 | Cardiac Electrophysiology PN ---
Assessment/Plan Assessment/Plan 1. Chest pain. Ruled out for [place] Echo EF 60%. ECG unchanged. Refused stress test. No CP 2. Hypertension. On Lisinopril 10 daily and p.r.n. clonidine 3. Diabetes. 4. Hyperlipidemia. 5. Frequent PVCs. Refused stress test. No VT or syncope 6. Vomiting. FU Gi DW RN Subjective Subjective No CP or SOB. Refused stress test. Vomited earlier. Objective Last 24 Hour Vital Signs Date Time Temp Pulse Resp B/P (MAP) Pulse Ox O2 Delivery O2 Flow Rate FiO2 04/04/20 09:51 129/93 04/04/20 09:00 Room Air 04/04/20 08:00 100.0 83 18 129/93 (105) 95 04/04/20 08:00 101 04/04/20 07:35 Room Air 21 04/04/20 07:35 Room Air 21 04/04/20 07:35 95 Room Air 21 04/04/20 04:00 97.7 69 18 101/68 (79) 95 04/04/20 04:00 62 04/04/20 00:44 Room Air 21 04/04/20 00:44 Room Air 21 04/04/20 00:00 97.5 68 18 125/75 (92) 95 04/04/20 00:00 57 04/03/20 21:00 Room Air 04/03/20 20:00 97.3 78 18 133/81 (98) 95 04/03/20 20:00 80 04/03/20 19:51 95 Room Air 21 04/03/20 18:50 91 18 94 Room Air 21 04/03/20 18:50 88 18 98 Room Air 21 04/03/20 16:00 115 04/03/20 15:25 98.6 99 20 105/67 (80) 100 04/03/20 14:28 78 20 97 Room Air 21 04/03/20 14:28 75 18 95 Room Air 21 Intake and Output 04/03/20 04/04/20 19:00 07:00 Intake Total 720 ml 330 ml Balance 720 ml 330 ml Intake Oral 720 ml 330 ml # Voids 2 1 # Bowel Movements 4 Laboratory Tests Test 04/04/20 05:45 White Blood Count 9.6 K/UL (4.8-10.8) Red Blood Count 5.24 M/UL (4.70-6.10) Hemoglobin 14.8 G/DL (14.2-18.0) Hematocrit 43.0 % (42.0-52.0) Mean Corpuscular Volume 82 FL (80-99) Mean Corpuscular Hemoglobin 28.3 PG (27.0-31.0) Mean Corpuscular Hemoglobin Concent 34.5 G/DL (32.0-36.0) Red Cell Distribution Width 11.6 % (11.6-14.8) Platelet Count 216 K/UL (150-450) Mean Platelet Volume 5.1 FL (6.5-10.1) L Neutrophils (%) (Auto) 64.4 % (45.0-75.0) Lymphocytes (%) (Auto) 23.5 % (20.0-45.0) Monocytes (%) (Auto) 10.6 % (1.0-10.0) H Eosinophils (%) (Auto) 1.0 % (0.0-3.0) Basophils (%) (Auto) 0.5 % (0.0-2.0) Sodium Level 138 MMOL/L (136-145) Potassium Level 3.7 MMOL/L (3.5-5.1) Chloride Level 103 MMOL/L (98-107) Carbon Dioxide Level 26 MMOL/L (21-32) Anion Gap 9 mmol/L (5-15) Blood Urea Nitrogen 18 mg/dL (7-18) Creatinine 1.0 MG/DL (0.55-1.30) Estimat Glomerular Filtration Rate > 60 mL/min (>60) Glucose Level 135 MG/DL (74-106) H Calcium Level 8.8 MG/DL (8.5-10.1) Total Bilirubin 0.4 MG/DL (0.2-1.0) Aspartate Amino Transf (AST/SGOT) 23 U/L (15-37) Alanine Aminotransferase (ALT/SGPT) 59 U/L (12-78) Alkaline Phosphatase 100 U/L (46-116) Total Protein 6.8 G/DL (6.4-8.2) Albumin 2.9 G/DL (3.4-5.0) L Globulin 3.9 g/dL Albumin/Globulin Ratio 0.7 (1.0-2.7) L Objective HEAD AND NECK: Shows no JVD. LUNGS: Clear. CARDIOVASCULAR: Shows regular S1 and S2 with no gallop or murmur. ABDOMEN: Soft. EXTREMITIES: No pitting edema. Donaldo Hardy MD Apr 04, 2020 12:42
--- NOTE | 2020-04-04 12:49 | General Progress Note ---
Subjective Date patient seen: Apr 04, 2020 Time patient seen: 12:35 - pm Allergies: Coded Allergies: SULFA (SULFONAMIDE ANTIBIOTICS) (Unverified Allergy, Intermediate, hives, 12/10/17) CODEINE (Verified Allergy, Unknown, ABD IRRITATION, 12/10/17) SULFONYLUREAS (Verified Allergy, Unknown, RASH, 12/10/17) Subjective REVIEW OF SYSTEMS: Denies rash, fever, chills, sweating, dizziness, drowsiness, blurred vision, sore throat, or change in weight. No shortness of breath, chest pain. No nausea, vomiting, diarrhea, or blood in the stool or urine. No dysuria. HISTORY OF PRESENT ILLNESS: This is a 64-year-old male who is being seen on the telemetry floor of [facility]. Patient is in bed and has no new complaints at this time. Pain has been tolerated well. Objective Last 24 Hour Vital Signs Date Time Temp Pulse Resp B/P (MAP) Pulse Ox O2 Delivery O2 Flow Rate FiO2 04/04/20 09:51 129/93 04/04/20 09:00 Room Air 04/04/20 08:00 100.0 83 18 129/93 (105) 95 04/04/20 08:00 101 04/04/20 07:35 Room Air 21 04/04/20 07:35 Room Air 21 04/04/20 07:35 95 Room Air 21 04/04/20 04:00 97.7 69 18 101/68 (79) 95 04/04/20 04:00 62 04/04/20 00:44 Room Air 21 04/04/20 00:44 Room Air 21 04/04/20 00:00 97.5 68 18 125/75 (92) 95 04/04/20 00:00 57 04/03/20 21:00 Room Air 04/03/20 20:00 97.3 78 18 133/81 (98) 95 04/03/20 20:00 80 04/03/20 19:51 95 Room Air 21 04/03/20 18:50 91 18 94 Room Air 21 04/03/20 18:50 88 18 98 Room Air 21 04/03/20 16:00 115 04/03/20 15:25 98.6 99 20 105/67 (80) 100 04/03/20 14:28 78 20 97 Room Air 21 04/03/20 14:28 75 18 95 Room Air 21 Intake and Output 04/03/20 04/04/20 19:00 07:00 Intake Total 720 ml 330 ml Balance 720 ml 330 ml Intake Oral 720 ml 330 ml # Voids 2 1 # Bowel Movements 4 Laboratory Tests 04/04/20 05:45: White Blood Count 9.6, Red Blood Count 5.24, Hemoglobin 14.8, Hematocrit 43.0, Mean Corpuscular Volume 82, Mean Corpuscular Hemoglobin 28.3, Mean Corpuscular Hemoglobin Concent 34.5, Red Cell Distribution Width 11.6, Platelet Count 216, Mean Platelet Volume 5.1L, Neutrophils (%) (Auto) 64.4, Lymphocytes (%) (Auto) 23.5, Monocytes (%) (Auto) 10.6H, Eosinophils (%) (Auto) 1.0, Basophils (%) (Auto) 0.5, Sodium Level 138, Potassium Level 3.7, Chloride Level 103, Carbon Dioxide Level 26, Anion Gap 9, Blood Urea Nitrogen 18, Creatinine 1.0, Estimat Glomerular Filtration Rate > 60, Glucose Level 135H, Calcium Level 8.8, Total Bilirubin 0.4, Aspartate Amino Transf (AST/SGOT) 23, Alanine Aminotransferase (ALT/SGPT) 59, Alkaline Phosphatase 100, Total Protein 6.8, Albumin 2.9L, Globulin 3.9, Albumin/Globulin Ratio 0.7L Height (Feet): 5 Height (Inches): 11.00 Weight (Pounds): 225 Objective PHYSICAL EXAMINATION: LUNGS: Decreased breath sounds bilaterally. HEART: S1 and S2 regular. ABDOMEN: Surgical scar is noted. Indwelling catheter seen . EXTREMITIES: No cyanosis. No clubbing. NEURO: No changes. Assessment/Plan Status: progressing Assessment/Plan: (1) Lumbar DDD (2) Lumbar Spondylosis (3) Chest pain R/O ACS Patient to be continued on [place] and Morphine. D/w Dr. Iniguez and he concurred. Elliott Tovar Apr 04, 2020 12:49
--- NOTE | 2020-04-04 13:41 | NUR ---
*-*DISCHARGE PLANNED*-* PATIENT HAS BEEN ACCEPTED AND WILL BE DISCHARGED BACK TO: [facility] P: [phone] ROOM# 223 SKILLED NURSING [facility]SP[facility] SET FOR 3:45PM S/W GUY [id number]. S/W PATIENT SISTER ESSENCE THOMAS, WHO IS IN AGREEMENT WITH DISCHARGE PLAN.
--- NOTE | 2020-04-04 13:46 | NUR ---
NURSE NOTES: RECEIVED PATIENT AND REPORT FROM LAZARUS PUGH. PATIENT IS A/A/OX4, ABLE TO VERBALIZE NEEDS. CALM AND COMFORTABLE. SITTING IN A CHAIR. FOR D/C BACK TO [facility] BOARD AND CARE. D/C INSTRUCTIONS GIVEN. PERSONAL BELONGINGS REVIEWED AND NOTED. CALLED SISTER NEXT OF KIN ON THE FACESHEET TO INFORMED. CALLED FACILITY AND LEFT A VM REGARDING DISPOSITION. REMOVED IV ACCESS AND SENIOR RESERVATIONS AGENT. IN STABLE CONDITION. AWAITS FOR AMBULANCE. WILL CONT TO MONITOR. Addendum: 04/04/20 at 1446 by CRISTIANO GREGORY LVN SPOKE WITH AURELIA FROM [facility].
[2020-04-04 16:00] VITALS: BP 137/87
--- NOTE | 2020-04-04 16:28 | NUR ---
NURSE NOTES: PATIENT DISCHARGE VIA AMBULANCE TO [facility]. IN STABLE CONDITION.
--- NOTE | 2020-04-04 18:15 | Consultation ---
DATE OF CONSULTATION: 04/04/2020 GASTROENTEROLOGY CONSULTATION CONSULTING PHYSICIAN: Valeriy Hutchinson MD. REFERRING PHYSICIAN: Estella Butt MD. CHIEF COMPLAINT: Nausea and vomiting. HISTORY OF PRESENT ILLNESS: This is a 64-year-old male admitted to the hospital mainly for complaint of chest pain. he has been having vomiting, so GI consult was requested for further evaluation. The patient has a past medical history of hypertension, diabetes, psychiatric disorder. There was a questionable prior history of gastric ulcers, but he is not aware of it. He also had prior history of respiratory failure and tracheostomy, which completely has resolved now. PAST MEDICAL HISTORY: Significant for: 1. Hypertension. 2. Diabetes. 3. History of tracheostomy, which is removed. 4. Questionable peptic ulcer disease. 5. Psychiatric disorder. ALLERGIES: Allergies to codeine and sulfa. MEDICATIONS: Please see medication reconciliation list. PAST SURGICAL HISTORY: Tracheostomy. FAMILY HISTORY: Noncontributory. SOCIAL HISTORY: Currently, he lives in a [facility] setting. PHYSICAL EXAMINATION: VITAL SIGNS: Temperature is 100, pulse 82, respirations 18, blood pressure 129/93. HEENT: Normocephalic and atraumatic. Sclerae are anicteric. NECK: Supple. No evidence of obvious lymphadenopathy. CARDIOVASCULAR: Regular rate and rhythm. Plus S1 and S2. LUNGS: Clear to auscultation bilaterally. ABDOMEN: Positive bowel sounds. Soft, nontender. No rebound. No guarding. No peritoneal sign. EXTREMITIES: No cyanosis, no clubbing, no edema. ASSESSMENT AND PLAN: This is a 64-year-old male admitted to the hospital mainly for chest pain. Denies complaint of vomiting since this morning. Given prior history of gastric ulcer concern, the patient would benefit from endoscopy, but he is refusing at this time. Our plan will be to start him on a PPI. Order labs for tomorrow including CBC, CMP, amylase, and lipase. Order KUB. Add Zofran. We will follow on daily basis and make further recommendation as needed. I want to thank Dr. Estella Butt for this kind referral. Valeriy Hutchinson M.D. DR: EVERARDO JOB#: [id number] CC:
--- NOTE | 2020-04-04 19:15 | Diagnostic Imaging Report ---
Indication: Abdominal pain Technique: Supine view of the abdomen Comparison: 06/25/2008 Findings: Unremarkable bowel gas pattern. There is evidence of prior lumbar spine fusion surgery. Numerous surgical clips are seen in the right upper quadrant. Findings are unchanged Impression: No acute process.
--- NOTE | 2020-04-05 15:22 | Discharge Summary ---
Discharge Summary Discharge Summary _ DATE OF ADMISSION: 03/30/2020 DATE OF DISCHARGE: 04/04/2020 DISCHARGED BY: Dr. Butt REASON FOR ADMISSION: 64 years old male with past medical history of hypertension, high cholesterol, diabetes mellitus, asthma, GERD, psychiatric disorder, was brought by pbx technician with chest discomfort. Patient had previous tracheostomy , which was removed. Chest pain started 2 days ago. Patient reported constant pain with associated shortness of breath. He denied being a smoker . Patient reported prior history of hernia. Upon evaluation patient was tachycardic with heart rate 122 , otherwise vital signs were stable. Laboratory work-up revealed no leukocytosis , stable hemoglobin , hematocrit and platelet count. Urinalysis revealed +2 protein , positive nitrates , +3 leukocyte esterase , pyuria and moderate bacteria. Lactic acid 1.6. Stable electrolytes. BUN 22, creatinine 1.3. Glucose 149. Troponin negative, pro BNP 124. EKG revealed sinus tachycardia , no acute ischemic changes. Stable LFT. Patient subsequently admitted to telemetry floor for further management. CONSULTANTS: dispensing audiologist Dr. Quintana ID specialist Dr. Henry Morgan GI specialist Dr. Hutchinson Pain specialist Dr. Iniguez [facility] COURSE: Patient admitted to telemetry floor. Patient started on empiric antibiotic for UTI. Later on the day of admission, patient developed fever of 102.4. Swinging Cut Off Saw Operator closely followed. Serial troponin were negative. EKG revealed no acute ischemic changes. Patient was ruled out for acute myocardial infarction. Echocardiogram revealed preserved ejection fraction of 60%. No evidence of left ventricular hypertrophy. No evidence of wall motion abnormality. Lipid panel was stable. Patient declined stress test. Chest pain resolved. Blood pressure was managed with REINA inhibitor and clonidine on as needed basis. Patient demonstrated frequent PVC , however he refused stress test as mentioned above. No ventricular tachycardia , no syncope. Urine culture revealed Pseudomonas. Rapid COVID-19 in emergency department was negative. Blood culture revealed Staph epidermidis 1 out of 2, likely contaminant. Antibiotic provided as per ID specialist recommendation. Suprapubic catheter was changed. No leukocytosis, fevers resolved . Patient had episodes of emesis. Abdominal x-ray revealed no evidence of acute intra-abdominal pathology. GI specialist seen and evaluated patient . Patient had prior history of gastric ulcer , and was started on PPI. Antiemetic were on board as needed. Patient was offered to have endoscopy , given prior history of gastric ulcer ,however patient declined. Given stable hemoglobin and hematocrit Patient declined blood draw for lipase and amylase . Patient was able to tolerate diet. Pain management was addressed as per pain specialist recommendation for lumbar DDD and spondylolisthesis . Given stable hemoglobin and hematocrit , patient was discharged home to assisted living and recommended outpatient endoscopy when agreed. FINAL DIAGNOSES: Atypical chest pain Chest wall pain Pseudomonas UTI Fevers -resolved Asthma/COPD Hypertension Hyperlipidemia Lumbar DDD Lumbar spondylosis DISCHARGE MEDICATIONS: See Medication Reconciliation list. DISCHARGE INSTRUCTIONS: Patient was discharged to assisted living. Follow up with a primary care provider in 1 week. I have been assigned to dictate discharge summary for this account. \ I was not involved in the patient's management. Idania Hi NP Apr 05, 2020 15:22
--- NOTE | 2020-04-08 16:45 | Cardiology Report ---
APPROVED REPORT EXAM: Two-dimensional and M-mode echocardiogram with Doppler and color Doppler. INDICATION Chest Pain M-Mode DIMENSIONS IVSd1.4 (0.7-1.1cm)Left Atrium (MM)2.9 (1.6-4.0cm) LVDd5.4 (3.5-5.6cm)Aortic Root3.8 (2.0-3.7cm) PWd1.5 (0.7-1.1cm)Aortic Cusp Exc.2.0 (1.5-2.0cm) IVSs1.6 cmEPSS0.5 (>1.0cm) LVDs3.8 (2.5-4.0cm) PWs2.1 cm <Conclusion> Technically difficult study due to poor windows. Apical windows are obtained from subcostal views. Normal left ventricular chamber size, systolic function and wall motion to extent visualized. Left ventricular ejection fraction estimated to be 60 %. No evidence of left ventricular hypertrophy. No evidence of pericardial effusion. Atrial chamber sizes appear to be normal. Focal aortic valve sclerosis with adequate cusp excursion. Thickened mitral valve leaflets with normal excursion. Mitral annulus and aortic root calcification. Pulmonic valve not well visualized. Normal tricuspid valve structure. Subcostal views are not obtainable. A color flow and spectral Doppler study was performed and revealed: No aortic regurgitation. Trace mitral regurgitation. Mitral diastolic velocities suggest reduced left ventricular relaxation c/w mild LV diastolic dysfunction (Grade I ). Trace to mild tricuspid regurgitation. Tricuspid systolic velocities suggests peak right ventricular systolic pressure of 24 mmHg
== END 2020-04-04 16:30 | disposition home or self-care (01) | DRG 313 ==
LOC: EDBD 10:01 → EMR 10:30 → 2E 11:06 → EDBEDREQ 13:07
DX: R07.89 Other chest pain (principal); N39.0 Urinary tract infection, site not specified; N13.8 Other obstructive and reflux uropathy; J44.9 Chronic obstructive pulmonary disease, unspecified; I10 Essential (primary) hypertension; E78.5 Hyperlipidemia, unspecified; E11.9 Type 2 diabetes mellitus without complications; M47.816 Spondylosis without myelopathy or radiculopathy, lumbar region; M51.36 Other intervertebral disc degeneration, lumbar region; I49.3 Ventricular premature depolarization; Z88.6 Allergy status to analgesic agent; Z88.2 Allergy status to sulfonamides; K21.9 Gastro-esophageal reflux disease without esophagitis; B96.5 Pseudomonas (aeruginosa) (mallei) (pseudomallei) as the cause of diseases classified elsewhere; N40.1 Benign prostatic hyperplasia with lower urinary tract symptoms; F09 Unspecified mental disorder due to known physiological condition
CPT/HCPCS: 36415; 71045; 74018; 80053; 80061; 81003; 82248; 83605; 83880; 84443; 84484; 85025; 85610; 85730; 87040; 87081; 87086; 87181; 93005; 93306; 94640; 96361; 96365; 96375; 99285; J7030; J7620; U0002